=== PATIENT | male | born 1970 | race Caucasian/White ===

== ENCOUNTER 2022-03-20 13:41 | Inpatient (IN) | payer OTHER ==
--- OUTSIDE RECORDS SUMMARY | 2022-03-20 13:46 | XMS REPORT | Clinical Summary ---
:1970 Author Organization [facility] MD [facility] Address [address] [place] [address] Care Team Providers Name Role Phone Unavailable Primary Care Provider Unavailable Allergies No known active allergies Medications Medication Sig Dispensed Refills Start End Date Status Date atorvastatin Take 40 mg by 0 Act joey (LIPITOR) 40 mg mouth at tablet bedtime. amLODIPine Take 10 mg by 0 Activ e (NORVASC) 10 mg mouth every tablet evening. losartan (COZAAR) Take 100 mg by 0 Active 100 mg tablet mouth daily. Nicoderm CQ 21 Apply 1 patch 56 patch 0 A ctive mg/24 hr for 7 days then 2 transdermal increase to 1.5 patchIndications: patches for 4 Tobacco days then dependence increase to 2 syndrome patches to skin and change patch daily as directed for tobacco cessation (alternate sites). nicotine, Dissolve 1 162 lozenge 0 Active polacrilex, lozenge (4 mg) 2 (Nicorette) 4 mg in the mouth mini every 2 (two) lozengeIndication hours as needed s: Tobacco for smoking dependence cessation. syndrome morphine (MS Take 1 tablet 90 tablet 0 Act joey CONTIN) 30 mg 12 (30 mg) by 2 hr mouth every 8 tabletIndications (eight) hours. : Cancer associated pain morphine (MSIR) Take half of a 90 tablet 0 Active 15 mg IR tablet to 1 2 tabletIndications tablet (7.5 to : Cancer 15 mg) by mouth associated pain every 4 (four) hours as needed for pain. polyethylene Take 1 packet 100 packet 0 Ac tive glycol (MIRALAX) twice a day as 2 17 g needed for packetIndications constipation. : Other constipation morphine (MSIR) Take 1 tablet 0 Active 15 mg IR (15 mg) by 2 tabletIndications mouth every 4 : Rectal cancer, (four) hours as Rectal pain needed for pain. indomethacin Take 50 mg by 0 07/31/20 Dis continued (INDOCIN) 50 mg mouth 3 (three) 21 (Stop Taking at capsule times a day Discharg e) with meals. PRN for pain methocarbamol Take 750 mg by 0 07/31/20 D iscontinued (ROBAXIN) 750 mg mouth every 8 21 (Stop Taking at tablet (eight) hours Discha rge) as needed for muscle spasms (pain). acetaminophen-cod Take 1-2 0 07/31/20 Di scontinued eine (TYLENOL #3) tablets by 21 ( Stop Taking at 300 mg-30 mg mouth every 6 Dis charge) tablet (six) hours as needed for mild pain. morphine (MS Take 1 tablet 90 tablet 0 09/30/19 Dis continued CONTIN) 30 mg 12 (30 mg) by 1 22 (R eorder) hr mouth every 8 tabletIndications (eight) hours. : Cancer associated pain morphine (MSIR) Take half of a 90 tablet 0 09/30/19 Discontinued 15 mg IR tablet to 1 1 22 (Reorder ) tabletIndications tablet (7.5 to : Cancer 15 mg) by mouth associated pain every 4 (four) hours as needed for pain. naloxone (Narcan) Use 1 dose into 1 Box 0 Discontinued 4 mg/actuation one nostril as 1 22 nasal needed for sprayIndications: opioid Cancer associated overdose. Do pain not prime or test the inhaler prior to adminstration. Give another dose into the other nostril after 2 to 3 minutes if the patient does not respond or responds and then relapses into respiratory depression. amoxicillin-clavu Take 1 tablet 19 tablet 0 08/10/20 lanate (875 mg) by 1 21 (AUGMENTIN) 875 mouth every 12 mg-125 mg per (twelve) hours tabletIndications for 19 doses. : Rectal cancer, Tobacco use, Rectal abscess guaiFENesin Take 10 mL (200 180 mL 0 08/28/19 Di scontinued (ROBITUSSIN) 100 mg) by mouth 4 1 22 mg/5 mL (four) times a syrupIndications: day as needed Rectal cancer, for cough or Tobacco use, congestion. Rectal abscess nicotine Place 3 patches 161 patch 0 07/31/20 Disc ontinued (NICODERM CQ) 7 (21 mg/day 1 21 mg/24 hr patch) on the transdermal skin and change patchIndications: daily for 38 Rectal cancer, days. Place 2 Tobacco use, patches (14 Rectal abscess mg/day patch) on the skin daily for [address] 1 patch (7 mg/day patch) on the skin daily for [address] 2 patches 28 patch 0 07/31/20 Disc ontinued (NICODERM CQ) 7 (14 mg/day 2 21 (St op Taking at mg/24 hr patch) on the Discha rge) transdermal skin daily for patchIndications: 14 days. Rectal cancer, Tobacco use, Rectal abscess nicotine Place 1 patch 14 patch 0 07/31/20 Discon tinued (NICODERM CQ) 7 (7 mg/day 2 21 (Sto p Taking at mg/24 hr patch) on the Discha rge) transdermal skin daily for patchIndications: 14 days. Rectal cancer, Tobacco use, Rectal abscess polyethylene Fill powder to 1020 g 0 08/28/19 Di scontinued glycol (GLYCOLAX) jared inside cap 1 22 17 gram/dose (17 g). Stir powderIndications and Dissolve in : Rectal cancer, any 4 to 8 Tobacco use, ounces of Rectal abscess beverage then drink solution as directed twice daily. senna (SENOKOT) Take 4 tablets 120 tablet 1 08/28/19 Discontinued 8.6 mg by mouth twice 1 22 tabletIndications daily. : Rectal cancer, Tobacco use, Rectal abscess nicotine Place 3 patches 198 patch 0 08/28/19 Disc ontinued (NICODERM CQ) 7 (21 mg/day 1 22 mg/24 hr patch) on the transdermal skin and change patchIndications: daily for 38 Rectal cancer, days. Place 2 Tobacco use, patches (14 Rectal abscess mg/day patch) on the skin daily for [address] 1 patch (7 mg/day patch) on the skin daily for 14 days. amoxicillin-clavu Take 1 tablet 14 tablet 0 10/08/19 lanate (875 mg) by 2 22 (AUGMENTIN) 875 mouth every 12 mg-125 mg per (twelve) hours tabletIndications for 7 days. : Retention of urine, not otherwise specified senna (SENOKOT) Take 2 tablets 60 tablet 0 10/17/19 8.6 mg by mouth twice 2 22 tabletIndications daily for 15 : Other days. 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 07/25/2021 Tobacco use 07/25/2021 Rectal cancer Rectal abscess Cancer associated pain Retention of urine Adjustment disorder with anxiety Encounters Date Type Specialty Care Team Description 10/11/2021 Nutrition Nutrition [place] No Show Armando pearce MD Moore, Stephanie, RUBEN 09/25/2021 Hospital Encounter Melanoma Sarcoma Alagappan, Cance r associated pain (Primary Dx); - MD Frank Rectal cancer; 10/01/2021 [place] Rectal pain; Armando pearce, Proctitis; Enteritis; Fortique, Malnutrition of moderate degree; MD Alicia Cancer associat ed pain; Retention of ur ine, not otherwise specified; Other constipat ion 09/25/2021 Travel 08/13/2021 Lab Requisition Nima Sorensen MD Jacobi, Elizabeth, MD 08/08/2021 Ancillary Procedure Radiology Tiago Harp MD 08/08/2021 Ancillary Procedure Radiology Tiago Harp MD 08/08/2021 Ancillary Procedure Radiology Tiago Harp MD 08/07/2021 Orders Only Gastrointestinal Tiago Harp cer (Primary Dx); Medical Oncology MD Sruthi Rectal absc ess; 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 08/02/2021 Documentation Angle Gannon RN 07/27/2021 Anesthesia Event Radiology Reagan Michael RN 07/27/2021 Anesthesia Event Mariana Polanco MD 07/27/2021 Surgery Agustina, ANORECTAL EXAM UNDER Salvador Schafer MD ANESTHESIA 07/26/2021 Prep for Surgery Breast Surgical Weinstein, Oncology Susy Leach MD 07/25/2021 Hospital Encounter Lymphoma Viets, Sherie, Cancer a ssociated pain (Primary Dx); - MD Rectal cancer; 07/31/2021 Yomi Hypertension; Alexis, Hyperlipidemia; MD Rob 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; Nelson, Tobacco use; MD Osmany Leukocytosis; Jai Ayala, Central venous catheter in situ; Retention of urine; Heath, Rectal abscess MD Brittney 07/25/2021 Travel after 03/20/2021 Surgical History Surgery Date Site/Laterality Comments CORONARY ANGIOPLASTY WITH 08/11/2018 - STENT PLACEMENT 08/10/2019 PORTACATH PLACEMENT Right ME SURG DIAGNOSTIC EXAM, 07/27/2021 Anus/Midline Procedu re: ANORECTAL EXAM ANORECTAL UNDER ANESTHESIA ; Surgeon: Salvador pereira MD; Location: MAIN O R; Service: COLON & RECTAL SURGERY ME SIGMOIDOSCOPY,BIOPSY 07/27/2021 Anus/N/A Procedur e: FLEXIBLE SIGMOIDOSCOPY WI TH BIOPSY; Surgeon: Salvador Berrios MD; L ocation: MAIN OR; Service : COLON & RECTAL SURGERY ME I&D PERIRECTAL ABSCESS 07/27/2021 Perineum/Left Proced ure: INCISION AND DRAINAGE OF ISCH IORECTAL AND/OR PERIRECTA L ABSCESS; Surgeon: Salvador Berrios MD; L ocation: MAIN OR; Service : COLON & RECTAL SURGERY Medical History Medical History Date Comments Rectal cancer Myocardial infarction Hypertension Hyperlipidemia 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 Tobacco use Diabetes mellitus Family History Medical History Relation Name Comments No Known Problems Brother 1 No Known Problems Brother 2 No Known Problems Daughter -Unknown cancer Father Father with "[GI ] blockage and yellow" suspected cancer no autopsy Diabetes Maternal Grandfather Heart attack Maternal Grandfather Alzheimer's disease Maternal Grandmother Cervical cancer Mother Diabetes Paternal Grandmother No Known Problems Sister Relation Name Status Comments Brother 1 Alive Brother 2 Alive Daughter Alive Father Maternal Grandfather Maternal Grandmother Mother Paternal Grandmother Alive Sister Alive Son Alive Social History Tobacco Use Types Packs/Day Years Used Date Current Every Day Smoker Cigarettes 1 37 Sta rted: 08/11/1984 Smokeless Tobacco: Never Used Tobacco Cessation: Ready to Quit: Yes; C ounseling Given: Yes Comments: currently 15-20 cpd Alcohol Use Standard Drinks/Week Comments Yes 0 (1 standard drink = 0.6 oz pure alcoho l) 2 drinks/week Alcohol Habits Answer Date Recorded How often do you have a drink containing alcohol? Not asked How many drinks containing alcohol do you have on a Not aske d typical day when you are drinking? How often do you have six or more drinks on one occasion? No t asked Comment: 2 drinks/week 07/25/2021 Education Answer Date Recorded What is the highest level of school you have GED or equivale nt 07/25/2021 completed or the highest degree you have received? Sex Assigned at Date Recorded Male 08/08/2021 9:29 AM CHIEF RECORDIST Job Start Date Occupation Industry Not on file Not on file Not on file Obstetrics History Last Filed Vital Signs Vital Sign Reading Time Taken Comments Blood Pressure 125/83 10/01/2021 11:46 AM CHIEF RECORDIST Pulse 89 10/01/2021 11:46 AM CHIEF RECORDIST Temperature 36.7 C (98.1 F) 10/01/2021 11:46 AM CHIEF RECORDIST Respiratory Rate 18 10/01/2021 11:46 AM CHIEF RECORDIST Oxygen Saturation 94% 10/01/2021 11:46 AM CHIEF RECORDIST Inhaled Oxygen Concentration - - Weight 87.4 kg (192 lb 10.9 oz) 10/01/2021 3:07 AM CHIEF RECORDIST Height 171 cm (5' 7.32") 09/25/2021 4:42 PM CHIEF RECORDIST Body Mass Index 29.89 09/25/2021 4:42 PM CHIEF RECORDIST Plan of Treatment Health Maintenance Due Date Last Done Comments COVID-19 Vaccination (#1) 1970 Medical Devices Implanted Type Area Methods Specialist Engineer Device Identifier Shelf Exp iration Model / Serial Date / Lot Stent Heart Procedures Procedure Name Priority Date/Time Associated Comments Diagnosis CALCIUM LEVEL TOTAL AM 10/01/2021 2:52 Resul ts for this AM CHIEF RECORDIST procedure are i n the results section. .GLOMERULAR FILTRATION AM 10/01/2021 2:52 Re sults for this RATE AM CHIEF RECORDIST procedure are i n the results section. SERUM CREATININE AM 10/01/2021 2:52 Results for this AM CHIEF RECORDIST procedure are i n the results section. ELECTROLYTE PANEL AM 10/01/2021 2:52 Results for this AM CHIEF RECORDIST procedure are i n the results section. BLOOD UREA NITROGEN AM 10/01/2021 2:52 Resul ts for this AM CHIEF RECORDIST procedure are i n the results section. GLUCOSE LEVEL AM 10/01/2021 2:52 Results for this AM CHIEF RECORDIST procedure are i n the results section. MANUAL DIFFERENTIAL AM 10/01/2021 2:52 Resul ts for this AM CHIEF RECORDIST procedure are i n the results section. Results CBC AM 10/01/2021 2:52 Results for this AM CHIEF RECORDIST procedure are i n the results section. PHOSPHORUS LEVEL AM 10/01/2021 2:52 Results for this AM CHIEF RECORDIST procedure are i n the results section. MAGNESIUM LEVEL AM 10/01/2021 2:52 Results f or this AM CHIEF RECORDIST procedure are i n the results section. BASIC METABOLIC PANEL, AM 10/01/2021 2:52 CALCIUM TOTAL AM CHIEF RECORDIST COMPLETE BLOOD COUNT W/ AM 10/01/2021 2:52 DIFFERENTIAL AM CHIEF RECORDIST CALCIUM LEVEL TOTAL AM 09/30/2021 3:26 Resul ts for this AM CHIEF RECORDIST procedure are i n the results section. .GLOMERULAR FILTRATION AM 09/30/2021 3:26 Re sults for this RATE AM CHIEF RECORDIST procedure are i n the results section. SERUM CREATININE AM 09/30/2021 3:26 Results for this AM CHIEF RECORDIST procedure are i n the results section. ELECTROLYTE PANEL AM 09/30/2021 3:26 Results for this AM CHIEF RECORDIST procedure are i n the results section. BLOOD UREA NITROGEN AM 09/30/2021 3:26 Resul ts for this AM CHIEF RECORDIST procedure are i n the results section. GLUCOSE LEVEL AM 09/30/2021 3:26 Results for this AM CHIEF RECORDIST procedure are i n the results section. MANUAL DIFFERENTIAL AM 09/30/2021 3:26 Resul ts for this AM CHIEF RECORDIST procedure are i n the results section. Results CBC AM 09/30/2021 3:26 Results for this AM CHIEF RECORDIST procedure are i n the results section. PHOSPHORUS LEVEL AM 09/30/2021 3:26 Results for this AM CHIEF RECORDIST procedure are i n the results section. MAGNESIUM LEVEL AM 09/30/2021 3:26 Results f or this AM CHIEF RECORDIST procedure are i n the results section. BASIC METABOLIC PANEL, AM 09/30/2021 3:26 CALCIUM TOTAL AM CHIEF RECORDIST COMPLETE BLOOD COUNT W/ AM 09/30/2021 3:26 DIFFERENTIAL AM CHIEF RECORDIST XR ABDOMEN 1 VW PORTABLE STAT 09/29/2021 11:12 Results for this AM CHIEF RECORDIST procedure are i n the results section. CALCIUM LEVEL TOTAL AM 09/29/2021 4:01 Resul ts for this AM CHIEF RECORDIST procedure are i n the results section. .GLOMERULAR FILTRATION AM 09/29/2021 4:01 Re sults for this RATE AM CHIEF RECORDIST procedure are i n the results section. SERUM CREATININE AM 09/29/2021 4:01 Results for this AM CHIEF RECORDIST procedure are i n the results section. ELECTROLYTE PANEL AM 09/29/2021 4:01 Results for this AM CHIEF RECORDIST procedure are i n the results section. BLOOD UREA NITROGEN AM 09/29/2021 4:01 Resul ts for this AM CHIEF RECORDIST procedure are i n the results section. GLUCOSE LEVEL AM 09/29/2021 4:01 Results for this AM CHIEF RECORDIST procedure are i n the results section. MANUAL DIFFERENTIAL AM 09/29/2021 4:01 Resul ts for this AM CHIEF RECORDIST procedure are i n the results section. Results CBC AM 09/29/2021 4:01 Results for this AM CHIEF RECORDIST procedure are i n the results section. PHOSPHORUS LEVEL AM 09/29/2021 4:01 Results for this AM CHIEF RECORDIST procedure are i n the results section. MAGNESIUM LEVEL AM 09/29/2021 4:01 Results f or this AM CHIEF RECORDIST procedure are i n the results section. BASIC METABOLIC PANEL, AM 09/29/2021 4:01 CALCIUM TOTAL AM CHIEF RECORDIST COMPLETE BLOOD COUNT W/ AM 09/29/2021 4:01 DIFFERENTIAL AM CHIEF RECORDIST CALCIUM LEVEL TOTAL AM 09/28/2021 2:50 Resul ts for this AM CHIEF RECORDIST procedure are i n the results section. .GLOMERULAR FILTRATION AM 09/28/2021 2:50 Re sults for this RATE AM CHIEF RECORDIST procedure are i n the results section. SERUM CREATININE AM 09/28/2021 2:50 Results for this AM CHIEF RECORDIST procedure are i n the results section. ELECTROLYTE PANEL AM 09/28/2021 2:50 Results for this AM CHIEF RECORDIST procedure are i n the results section. BLOOD UREA NITROGEN AM 09/28/2021 2:50 Resul ts for this AM CHIEF RECORDIST procedure are i n the results section. GLUCOSE LEVEL AM 09/28/2021 2:50 Results for this AM CHIEF RECORDIST procedure are i n the results section. MANUAL DIFFERENTIAL AM 09/28/2021 2:50 Resul ts for this AM CHIEF RECORDIST procedure are i n the results section. Results CBC AM 09/28/2021 2:50 Results for this AM CHIEF RECORDIST procedure are i n the results section. PHOSPHORUS LEVEL AM 09/28/2021 2:50 Results for this AM CHIEF RECORDIST procedure are i n the results section. MAGNESIUM LEVEL AM 09/28/2021 2:50 Results f or this AM CHIEF RECORDIST procedure are i n the results section. BASIC METABOLIC PANEL, AM 09/28/2021 2:50 CALCIUM TOTAL AM CHIEF RECORDIST COMPLETE BLOOD COUNT W/ AM 09/28/2021 2:50 DIFFERENTIAL AM CHIEF RECORDIST CT ABDOMEN PELVIS W STAT 09/27/2021 2:44 Resul ts for this CONTRAST PM CHIEF RECORDIST procedure are i n the results section. CALCIUM LEVEL TOTAL AM 09/27/2021 4:30 Resul ts for this AM CHIEF RECORDIST procedure are i n the results section. .GLOMERULAR FILTRATION AM 09/27/2021 4:30 Re sults for this RATE AM CHIEF RECORDIST procedure are i n the results section. SERUM CREATININE AM 09/27/2021 4:30 Results for this AM CHIEF RECORDIST procedure are i n the results section. ELECTROLYTE PANEL AM 09/27/2021 4:30 Results for this AM CHIEF RECORDIST procedure are i n the results section. BLOOD UREA NITROGEN AM 09/27/2021 4:30 Resul ts for this AM CHIEF RECORDIST procedure are i n the results section. GLUCOSE LEVEL AM 09/27/2021 4:30 Results for this AM CHIEF RECORDIST procedure are i n the results section. MANUAL DIFFERENTIAL AM 09/27/2021 4:30 Resul ts for this AM CHIEF RECORDIST procedure are i n the results section. Results CBC AM 09/27/2021 4:30 Results for this AM CHIEF RECORDIST procedure are i n the results section. PHOSPHORUS LEVEL AM 09/27/2021 4:30 Results for this AM CHIEF RECORDIST procedure are i n the results section. MAGNESIUM LEVEL AM 09/27/2021 4:30 Results f or this AM CHIEF RECORDIST procedure are i n the results section. BASIC METABOLIC PANEL, AM 09/27/2021 4:30 CALCIUM TOTAL AM CHIEF RECORDIST COMPLETE BLOOD COUNT W/ AM 09/27/2021 4:30 DIFFERENTIAL AM CHIEF RECORDIST CALCIUM LEVEL TOTAL AM 09/26/2021 3:02 Resul ts for this AM CHIEF RECORDIST procedure are i n the results section. .GLOMERULAR FILTRATION AM 09/26/2021 3:02 Re sults for this RATE AM CHIEF RECORDIST procedure are i n the results section. SERUM CREATININE AM 09/26/2021 3:02 Results for this AM CHIEF RECORDIST procedure are i n the results section. ELECTROLYTE PANEL AM 09/26/2021 3:02 Results for this AM CHIEF RECORDIST procedure are i n the results section. BLOOD UREA NITROGEN AM 09/26/2021 3:02 Resul ts for this AM CHIEF RECORDIST procedure are i n the results section. GLUCOSE LEVEL AM 09/26/2021 3:02 Results for this AM CHIEF RECORDIST procedure are i n the results section. MANUAL DIFFERENTIAL AM 09/26/2021 3:02 Resul ts for this AM CHIEF RECORDIST procedure are i n the results section. Results CBC AM 09/26/2021 3:02 Results for this AM CHIEF RECORDIST procedure are i n the results section. BASIC METABOLIC PANEL, AM 09/26/2021 3:02 CALCIUM TOTAL AM CHIEF RECORDIST COMPLETE BLOOD COUNT W/ AM 09/26/2021 3:02 DIFFERENTIAL AM CHIEF RECORDIST URINE CULTURE Now 09/25/2021 9:50 Results for this PM CHIEF RECORDIST procedure are i n the results section. URINALYSIS WITH Now 09/25/2021 12:00 Results for this MICROSCOPIC IF INDICATED PM CHIEF RECORDIST pro cedure are in the results section. BLOODCULTURE Now 09/25/2021 12:00 Results for this PM CHIEF RECORDIST procedure are i n the results section. URINE CULTURE Now 09/25/2021 12:00 Results fo r this PM CHIEF RECORDIST procedure are i n the results section. FRACTIONATED BILIRUBIN Now 09/25/2021 10:26 R esults for this AM CHIEF RECORDIST procedure are i n the results section. TOTAL PROTEIN Now 09/25/2021 10:26 Results fo r this AM CHIEF RECORDIST procedure are i n the results section. ASPARTATE Now 09/25/2021 10:26 Results for this AMINOTRANSFERASE AM CHIEF RECORDIST procedure a re in the results section. ALANINE AMINOTRANSFERASE Now 09/25/2021 10:26 Results for this AM CHIEF RECORDIST procedure are i n the results section. ALKALINE PHOSPHATASE Now 09/25/2021 10:26 Res ults for this AM CHIEF RECORDIST procedure are i n the results section. ALBUMIN LEVEL Now 09/25/2021 10:26 Results fo r this AM CHIEF RECORDIST procedure are i n the results section. CALCIUM LEVEL TOTAL Now 09/25/2021 10:26 Resu lts for this AM CHIEF RECORDIST procedure are i n the results section. .GLOMERULAR FILTRATION Now 09/25/2021 10:26 R esults for this RATE AM CHIEF RECORDIST procedure are i n the results section. SERUM CREATININE Now 09/25/2021 10:26 Results for this AM CHIEF RECORDIST procedure are i n the results section. ELECTROLYTE PANEL Now 09/25/2021 10:26 Result s for this AM CHIEF RECORDIST procedure are i n the results section. BLOOD UREA NITROGEN Now 09/25/2021 10:26 Resu lts for this AM CHIEF RECORDIST procedure are i n the results section. GLUCOSE LEVEL Now 09/25/2021 10:26 Results fo r this AM CHIEF RECORDIST procedure are i n the results section. MANUAL DIFFERENTIAL STAT 09/25/2021 10:26 Resu lts for this AM CHIEF RECORDIST procedure are i n the results section. Results CBC STAT 09/25/2021 10:26 Results for this AM CHIEF RECORDIST procedure are i n the results section. LIPASE LEVEL Now 09/25/2021 10:26 Results for this AM CHIEF RECORDIST procedure are i n the results section. AMYLASE LEVEL Now 09/25/2021 10:26 Results fo r this AM CHIEF RECORDIST procedure are i n the results section. LACTATE DEHYDROGENASE Now 09/25/2021 10:26 Re sults for this AM CHIEF RECORDIST procedure are i n the results section. PHOSPHORUS LEVEL Now 09/25/2021 10:26 Results for this AM CHIEF RECORDIST procedure are i n the results section. MAGNESIUM LEVEL Now 09/25/2021 10:26 Results for this AM CHIEF RECORDIST procedure are i n the results section. COMPREHENSIVE METABOLIC Now 09/25/2021 10:26 PANEL AM CHIEF RECORDIST COMPLETE BLOOD COUNT W/ Now 09/25/2021 10:26 DIFFERENTIAL AM CHIEF RECORDIST COVID-19 (SARS-COV-2) Now 09/25/2021 10:26 Re sults for this ASYMPTOMATIC-LT AM CHIEF RECORDIST procedure ar e in the results section. FRACTIONATED BILIRUBIN AM 07/31/2021 5:26 Re sults for this AM CHIEF RECORDIST procedure are i n the results section. TOTAL PROTEIN AM 07/31/2021 5:26 Results for this AM CHIEF RECORDIST procedure are i n the results section. ASPARTATE AM 07/31/2021 5:26 Results for this AMINOTRANSFERASE AM CHIEF RECORDIST procedure a re in the results section. ALANINE AMINOTRANSFERASE AM 07/31/2021 5:26 Results for this AM CHIEF RECORDIST procedure are i n the results section. ALKALINE PHOSPHATASE AM 07/31/2021 5:26 Resu lts for this AM CHIEF RECORDIST procedure are i n the results section. ALBUMIN LEVEL AM 07/31/2021 5:26 Results for this AM CHIEF RECORDIST procedure are i n the results section. CALCIUM LEVEL TOTAL AM 07/31/2021 5:26 Resul ts for this AM CHIEF RECORDIST procedure are i n the results section. .GLOMERULAR FILTRATION AM 07/31/2021 5:26 Re sults for this RATE AM CHIEF RECORDIST procedure are i n the results section. SERUM CREATININE AM 07/31/2021 5:26 Results for this AM CHIEF RECORDIST procedure are i n the results section. ELECTROLYTE PANEL AM 07/31/2021 5:26 Results for this AM CHIEF RECORDIST procedure are i n the results section. BLOOD UREA NITROGEN AM 07/31/2021 5:26 Resul ts for this AM CHIEF RECORDIST procedure are i n the results section. GLUCOSE LEVEL AM 07/31/2021 5:26 Results for this AM CHIEF RECORDIST procedure are i n the results section. MANUAL DIFFERENTIAL AM 07/31/2021 5:26 Resul ts for this AM CHIEF RECORDIST procedure are i n the results section. Results CBC AM 07/31/2021 5:26 Results for this AM CHIEF RECORDIST procedure are i n the results section. COMPREHENSIVE METABOLIC AM 07/31/2021 5:26 PANEL AM CHIEF RECORDIST COMPLETE BLOOD COUNT W/ AM 07/31/2021 5:26 DIFFERENTIAL AM CHIEF RECORDIST FRACTIONATED BILIRUBIN AM 07/30/2021 4:27 Re sults for this AM CHIEF RECORDIST procedure are i n the results section. TOTAL PROTEIN AM 07/30/2021 4:27 Results for this AM CHIEF RECORDIST procedure are i n the results section. ASPARTATE AM 07/30/2021 4:27 Results for this AMINOTRANSFERASE AM CHIEF RECORDIST procedure a re in the results section. ALANINE AMINOTRANSFERASE AM 07/30/2021 4:27 Results for this AM CHIEF RECORDIST procedure are i n the results section. ALKALINE PHOSPHATASE AM 07/30/2021 4:27 Resu lts for this AM CHIEF RECORDIST procedure are i n the results section. ALBUMIN LEVEL AM 07/30/2021 4:27 Results for this AM CHIEF RECORDIST procedure are i n the results section. CALCIUM LEVEL TOTAL AM 07/30/2021 4:27 Resul ts for this AM CHIEF RECORDIST procedure are i n the results section. .GLOMERULAR FILTRATION AM 07/30/2021 4:27 Re sults for this RATE AM CHIEF RECORDIST procedure are i n the results section. SERUM CREATININE AM 07/30/2021 4:27 Results for this AM CHIEF RECORDIST procedure are i n the results section. ELECTROLYTE PANEL AM 07/30/2021 4:27 Results for this AM CHIEF RECORDIST procedure are i n the results section. BLOOD UREA NITROGEN AM 07/30/2021 4:27 Resul ts for this AM CHIEF RECORDIST procedure are i n the results section. GLUCOSE LEVEL AM 07/30/2021 4:27 Results for this AM CHIEF RECORDIST procedure are i n the results section. MANUAL DIFFERENTIAL AM 07/30/2021 4:27 Resul ts for this AM CHIEF RECORDIST procedure are i n the results section. Results CBC AM 07/30/2021 4:27 Results for this AM CHIEF RECORDIST procedure are i n the results section. COMPREHENSIVE METABOLIC AM 07/30/2021 4:27 PANEL AM CHIEF RECORDIST COMPLETE BLOOD COUNT W/ AM 07/30/2021 4:27 DIFFERENTIAL AM CHIEF RECORDIST XR ABDOMEN 1 VW PORTABLE STAT 07/29/2021 6:07 Results for this PM CHIEF RECORDIST procedure are i n the results section. FRACTIONATED BILIRUBIN AM 07/29/2021 5:12 Re sults for this AM CHIEF RECORDIST procedure are i n the results section. TOTAL PROTEIN AM 07/29/2021 5:12 Results for this AM CHIEF RECORDIST procedure are i n the results section. ASPARTATE AM 07/29/2021 5:12 Results for this AMINOTRANSFERASE AM CHIEF RECORDIST procedure a re in the results section. ALANINE AMINOTRANSFERASE AM 07/29/2021 5:12 Results for this AM CHIEF RECORDIST procedure are i n the results section. ALKALINE PHOSPHATASE AM 07/29/2021 5:12 Resu lts for this AM CHIEF RECORDIST procedure are i n the results section. ALBUMIN LEVEL AM 07/29/2021 5:12 Results for this AM CHIEF RECORDIST procedure are i n the results section. CALCIUM LEVEL TOTAL AM 07/29/2021 5:12 Resul ts for this AM CHIEF RECORDIST procedure are i n the results section. .GLOMERULAR FILTRATION AM 07/29/2021 5:12 Re sults for this RATE AM CHIEF RECORDIST procedure are i n the results section. SERUM CREATININE AM 07/29/2021 5:12 Results for this AM CHIEF RECORDIST procedure are i n the results section. ELECTROLYTE PANEL AM 07/29/2021 5:12 Results for this AM CHIEF RECORDIST procedure are i n the results section. BLOOD UREA NITROGEN AM 07/29/2021 5:12 Resul ts for this AM CHIEF RECORDIST procedure are i n the results section. GLUCOSE LEVEL AM 07/29/2021 5:12 Results for this AM CHIEF RECORDIST procedure are i n the results section. MANUAL DIFFERENTIAL AM 07/29/2021 5:12 Resul ts for this AM CHIEF RECORDIST procedure are i n the results section. Results CBC AM 07/29/2021 5:12 Results for this AM CHIEF RECORDIST procedure are i n the results section. COMPREHENSIVE METABOLIC AM 07/29/2021 5:12 PANEL AM CHIEF RECORDIST COMPLETE BLOOD COUNT W/ AM 07/29/2021 5:12 DIFFERENTIAL AM CHIEF RECORDIST MRI PELVIS WO CONTRAST Routine 07/28/2021 11:40 R esults for this PM CHIEF RECORDIST procedure are i n the results section. URINE CULTURE Now 07/28/2021 2:44 Results for this PM CHIEF RECORDIST procedure are i n the results section. CT CHEST W CONTRAST Routine 07/28/2021 10:59 Resu lts for this AM CHIEF RECORDIST procedure are i n the results section. FRACTIONATED BILIRUBIN AM 07/28/2021 5:49 Re sults for this AM CHIEF RECORDIST procedure are i n the results section. TOTAL PROTEIN AM 07/28/2021 5:49 Results for this AM CHIEF RECORDIST procedure are i n the results section. ASPARTATE AM 07/28/2021 5:49 Results for this AMINOTRANSFERASE AM CHIEF RECORDIST procedure a re in the results section. ALANINE AMINOTRANSFERASE AM 07/28/2021 5:49 Results for this AM CHIEF RECORDIST procedure are i n the results section. ALKALINE PHOSPHATASE AM 07/28/2021 5:49 Resu lts for this AM CHIEF RECORDIST procedure are i n the results section. ALBUMIN LEVEL AM 07/28/2021 5:49 Results for this AM CHIEF RECORDIST procedure are i n the results section. CALCIUM LEVEL TOTAL AM 07/28/2021 5:49 Resul ts for this AM CHIEF RECORDIST procedure are i n the results section. .GLOMERULAR FILTRATION AM 07/28/2021 5:49 Re sults for this RATE AM CHIEF RECORDIST procedure are i n the results section. SERUM CREATININE AM 07/28/2021 5:49 Results for this AM CHIEF RECORDIST procedure are i n the results section. ELECTROLYTE PANEL AM 07/28/2021 5:49 Results for this AM CHIEF RECORDIST procedure are i n the results section. BLOOD UREA NITROGEN AM 07/28/2021 5:49 Resul ts for this AM CHIEF RECORDIST procedure are i n the results section. GLUCOSE LEVEL AM 07/28/2021 5:49 Results for this AM CHIEF RECORDIST procedure are i n the results section. MANUAL DIFFERENTIAL AM 07/28/2021 5:49 Resul ts for this AM CHIEF RECORDIST procedure are i n the results section. Results CBC AM 07/28/2021 5:49 Results for this AM CHIEF RECORDIST procedure are i n the results section. COMPREHENSIVE METABOLIC AM 07/28/2021 5:49 PANEL AM CHIEF RECORDIST COMPLETE BLOOD COUNT W/ AM 07/28/2021 5:49 DIFFERENTIAL AM CHIEF RECORDIST INCISION AND DRAINAGE OF 07/27/2021 5:49 Rectal cancer ISCHIORECTAL AND/OR PM CHIEF RECORDIST PERIRECTAL ABSCESS FLEXIBLE SIGMOIDOSCOPY 07/27/2021 5:49 Rectal cancer WITH BIOPSY PM CHIEF RECORDIST ANORECTAL EXAM UNDER 07/27/2021 5:49 Rectal cancer ANESTHESIA PM CHIEF RECORDIST POC GLUCOSE SCREEN Routine 07/27/2021 3:08 Result s for this PM CHIEF RECORDIST procedure are i n the results section. POC GLUCOSE SCREEN Routine 07/27/2021 10:29 Resul ts for this AM CHIEF RECORDIST procedure are i n the results section. ECHOCARDIOGRAM 2D Routine 07/27/2021 9:23 Results for this COMPLETE AM CHIEF RECORDIST procedure are i n the results section. CONFIRM ABORH TYPE Now 07/27/2021 5:23 Result s for this AM CHIEF RECORDIST procedure are i n the results section. CLOT EXPIRATION DATE Routine 07/27/2021 5:21 Resu lts for this AM CHIEF RECORDIST procedure are i n the results section. TMP INTERPRETATION Routine 07/27/2021 5:21 Result s for this ANTIBODY SCREEN NEGATIVE AM CHIEF RECORDIST pro cedure are in the results section. ANTIBODY SCREEN Now 07/27/2021 5:21 Results f or this AM CHIEF RECORDIST procedure are i n the results section. ABORH Now 07/27/2021 5:21 Results for this AM CHIEF RECORDIST procedure are i n the results section. TYPE AND SCREEN Now 07/27/2021 5:21 AM CHIEF RECORDIST FRACTIONATED BILIRUBIN AM 07/27/2021 2:41 Re sults for this AM CHIEF RECORDIST procedure are i n the results section. TOTAL PROTEIN AM 07/27/2021 2:41 Results for this AM CHIEF RECORDIST procedure are i n the results section. ASPARTATE AM 07/27/2021 2:41 Results for this AMINOTRANSFERASE AM CHIEF RECORDIST procedure a re in the results section. ALANINE AMINOTRANSFERASE AM 07/27/2021 2:41 Results for this AM CHIEF RECORDIST procedure are i n the results section. ALKALINE PHOSPHATASE AM 07/27/2021 2:41 Resu lts for this AM CHIEF RECORDIST procedure are i n the results section. ALBUMIN LEVEL AM 07/27/2021 2:41 Results for this AM CHIEF RECORDIST procedure are i n the results section. CALCIUM LEVEL TOTAL AM 07/27/2021 2:41 Resul ts for this AM CHIEF RECORDIST procedure are i n the results section. .GLOMERULAR FILTRATION AM 07/27/2021 2:41 Re sults for this RATE AM CHIEF RECORDIST procedure are i n the results section. SERUM CREATININE AM 07/27/2021 2:41 Results for this AM CHIEF RECORDIST procedure are i n the results section. ELECTROLYTE PANEL AM 07/27/2021 2:41 Results for this AM CHIEF RECORDIST procedure are i n the results section. BLOOD UREA NITROGEN AM 07/27/2021 2:41 Resul ts for this AM CHIEF RECORDIST procedure are i n the results section. GLUCOSE LEVEL AM 07/27/2021 2:41 Results for this AM CHIEF RECORDIST procedure are i n the results section. MANUAL DIFFERENTIAL AM 07/27/2021 2:41 Resul ts for this AM CHIEF RECORDIST procedure are i n the results section. Results CBC AM 07/27/2021 2:41 Results for this AM CHIEF RECORDIST procedure are i n the results section. LACTATE DEHYDROGENASE Routine 07/27/2021 2:41 Res ults for this AM CHIEF RECORDIST procedure are i n the results section. BHCG, TUMOR MARKER Routine 07/27/2021 2:41 Result s for this AM CHIEF RECORDIST procedure are i n the results section. CANCER ANTIGEN 125 Routine 07/27/2021 2:41 Result s for this AM CHIEF RECORDIST procedure are i n the results section. CANCER ANTIGEN 19-9 Routine 07/27/2021 2:41 Resul ts for this AM CHIEF RECORDIST procedure are i n the results section. CARCINOEMBRYONIC ANTIGEN Routine 07/27/2021 2:41 Results for this AM CHIEF RECORDIST procedure are i n the results section. COMPREHENSIVE METABOLIC AM 07/27/2021 2:41 PANEL AM CHIEF RECORDIST COMPLETE BLOOD COUNT W/ AM 07/27/2021 2:41 DIFFERENTIAL AM CHIEF RECORDIST EKG, 12-LEAD (PORTABLE) STAT 07/27/2021 LACTIC ACID, VENOUS Routine 07/26/2021 2:59 Resul ts for this PM CHIEF RECORDIST procedure are i n the results section. PROCALCITONIN STAT 07/26/2021 2:59 Results for this PM CHIEF RECORDIST procedure are i n the results section. BLOODCULTURE STAT 07/26/2021 2:59 Results for this PM CHIEF RECORDIST procedure are i n the results section. CALCIUM LEVEL TOTAL AM 07/26/2021 5:22 Resul ts for this AM CHIEF RECORDIST procedure are i n the results section. .GLOMERULAR FILTRATION AM 07/26/2021 5:22 Re sults for this RATE AM CHIEF RECORDIST procedure are i n the results section. SERUM CREATININE AM 07/26/2021 5:22 Results for this AM CHIEF RECORDIST procedure are i n the results section. ELECTROLYTE PANEL AM 07/26/2021 5:22 Results for this AM CHIEF RECORDIST procedure are i n the results section. BLOOD UREA NITROGEN AM 07/26/2021 5:22 Resul ts for this AM CHIEF RECORDIST procedure are i n the results section. GLUCOSE LEVEL AM 07/26/2021 5:22 Results for this AM CHIEF RECORDIST procedure are i n the results section. MANUAL DIFFERENTIAL AM 07/26/2021 5:22 Resul ts for this AM CHIEF RECORDIST procedure are i n the results section. Results CBC AM 07/26/2021 5:22 Results for this AM CHIEF RECORDIST procedure are i n the results section. PHOSPHORUS LEVEL AM 07/26/2021 5:22 Results for this AM CHIEF RECORDIST procedure are i n the results section. MAGNESIUM LEVEL AM 07/26/2021 5:22 Results f or this AM CHIEF RECORDIST procedure are i n the results section. BASIC METABOLIC PANEL, AM 07/26/2021 5:22 CALCIUM TOTAL AM CHIEF RECORDIST COMPLETE BLOOD COUNT W/ AM 07/26/2021 5:22 DIFFERENTIAL AM CHIEF RECORDIST CT ABDOMEN PELVIS W Routine 07/25/2021 10:39 Resu lts for this CONTRAST PM CHIEF RECORDIST procedure are i n the results section. COVID-19 (SARS-COV-2) Now 07/25/2021 10:01 Re sults for this ASYMPTOMATIC-LT PM CHIEF RECORDIST procedure ar e in the results section. VERIFY CATHETER TIP Routine 07/25/2021 9:30 Resul ts for this PLACEMENT PM CHIEF RECORDIST procedure are i n the results section. URINALYSIS WITH Routine 07/25/2021 9:01 Results f or this MICROSCOPIC IF INDICATED PM CHIEF RECORDIST pro cedure are in the results section. PROCALCITONIN Routine 07/25/2021 9:01 Results for this PM CHIEF RECORDIST procedure are i n the results section. C REACTIVE PROTEIN Now 07/25/2021 9:01 Result s for this PM CHIEF RECORDIST procedure are i n the results section. URINALYSIS MICROSCOPIC Now 07/25/2021 9:01 Re sults for this PM CHIEF RECORDIST procedure are i n the results section. BLOODCULTURE Now 07/25/2021 9:01 Results for this PM CHIEF RECORDIST procedure are i n the results section. URINE CULTURE Now 07/25/2021 9:01 Results for this PM CHIEF RECORDIST procedure are i n the results section. XR CHEST 1 VW Routine 07/25/2021 8:53 Results for this PM CHIEF RECORDIST procedure are i n the results section. TMP HIV 1/2 AG&AB PATH Routine 07/25/2021 6:37 Re sults for this INTERP PM CHIEF RECORDIST procedure are i n the results section. HIV-1/2 ANTIGEN AND Now 07/25/2021 6:37 Resul ts for this ANTIBODIES, FOURTH PM CHIEF RECORDIST procedure are in GENERATION the results section. FRACTIONATED BILIRUBIN Now 07/25/2021 4:28 Re sults for this PM CHIEF RECORDIST procedure are i n the results section. TOTAL PROTEIN Now 07/25/2021 4:28 Results for this PM CHIEF RECORDIST procedure are i n the results section. ASPARTATE Now 07/25/2021 4:28 Results for this AMINOTRANSFERASE PM CHIEF RECORDIST procedure a re in the results section. ALANINE AMINOTRANSFERASE Now 07/25/2021 4:28 Results for this PM CHIEF RECORDIST procedure are i n the results section. ALKALINE PHOSPHATASE Now 07/25/2021 4:28 Resu lts for this PM CHIEF RECORDIST procedure are i n the results section. ALBUMIN LEVEL Now 07/25/2021 4:28 Results for this PM CHIEF RECORDIST procedure are i n the results section. CALCIUM LEVEL TOTAL Now 07/25/2021 4:28 Resul ts for this PM CHIEF RECORDIST procedure are i n the results section. .GLOMERULAR FILTRATION Now 07/25/2021 4:28 Re sults for this RATE PM CHIEF RECORDIST procedure are i n the results section. SERUM CREATININE Now 07/25/2021 4:28 Results for this PM CHIEF RECORDIST procedure are i n the results section. ELECTROLYTE PANEL Now 07/25/2021 4:28 Results for this PM CHIEF RECORDIST procedure are i n the results section. BLOOD UREA NITROGEN Now 07/25/2021 4:28 Resul ts for this PM CHIEF RECORDIST procedure are i n the results section. GLUCOSE LEVEL Now 07/25/2021 4:28 Results for this PM CHIEF RECORDIST procedure are i n the results section. MANUAL DIFFERENTIAL STAT 07/25/2021 4:28 Resul ts for this PM CHIEF RECORDIST procedure are i n the results section. Results CBC STAT 07/25/2021 4:28 Results for this PM CHIEF RECORDIST procedure are i n the results section. APTT Now 07/25/2021 4:28 Results for this PM CHIEF RECORDIST procedure are i n the results section. PROTHROMBIN TIME Now 07/25/2021 4:28 Results for this PM CHIEF RECORDIST procedure are i n the results section. PHOSPHORUS LEVEL Now 07/25/2021 4:28 Results for this PM CHIEF RECORDIST procedure are i n the results section. MAGNESIUM LEVEL Now 07/25/2021 4:28 Results f or this PM CHIEF RECORDIST procedure are i n the results section. COMPREHENSIVE METABOLIC Now 07/25/2021 4:28 PANEL PM CHIEF RECORDIST COMPLETE BLOOD COUNT W/ Now 07/25/2021 4:28 DIFFERENTIAL PM CHIEF RECORDIST OSI MRI PELVIS Routine 06/26/2021 11:40 Cancer Results f or this PM CHIEF RECORDIST procedure are i n the results section. OSI CT CHEST Routine 06/25/2021 11:40 Cancer Results for this PM CHIEF RECORDIST procedure are i n the results section. OSI CT ABDOMEN AND Routine 06/21/2021 11:40 Cancer Resul ts for this PELVIS PM CHIEF RECORDIST procedure are i n the results section. after 03/20/2021 Results .Serum Creatinine (10/01/2021 2:52 AM CHIEF RECORDIST)Only the most recent of14 results within the time period is included. P athologist Signature Creatinine 0.82 0.67 - 1.17 [facility] mg/dL [facility] Specimen Anatomical Collection Method Collection Time Receive d Time (Source) Location / / Volume Laterality Blood 10/01/2021 2:52 AM 3:08 CHIEF RECORDIST AM CHIEF RECORDIST Armando Carrillo MD LAB BLOOD ORDERABLES Performing Organization Address City/State/ZIP Code Phon e Number [facility] CANCER Unless otherwise noted, [place] [address] [place] all lab tests performed by: Division of Pathology and Laboratory Medicine [address] (ABNORMAL) .CBC (10/01/2021 2:52 AM CHIEF RECORDIST)Only the most recent of14 resultswithin the time period is included. athologist [facility] WBC 13.8 (H) 4.0 - 11.0 [facility] RBC 4.67 4.50 - [place] MD 6.00 M[facility] Hgb 13.9 (L) 14.0 - [place] MD 18.0 gm/dL [facility] Hct 41.2 40.0 - [place] MD 54.0 % [facility] MCV 88 82 - 98 [facility] MCH 29.8 27.0 - [place] MD 31.0 pg [facility] MCHC 33.7 31.0 - [place] MD 36.0 gm/dL [facility] RDW-SD 41.7 35.1 - [place] MD 46.3 [facility] RDW-CV 12.9 12.0 - [place] MD 15.5 % [facility] Platelet count 307 140 - 440 [facility] MPV 9.3 4.0 - 10.4 [facility] INRBC 0.0 <=0.0 % [facility] Comment: The INRBC (instrument NRBC) value reflec ts the enumeration of nucleated red blood cells contained i n a 200uL sample of whole blood analyzed by the instrumen t. This value may differ from the NRBC value reported in a manual differential, which is based on a 100 cell differentia l. Specimen Anatomical Collection Method Collection Time Receive d Time (Source) Location / / Volume Laterality Blood 10/01/2021 2:52 AM 2 3:05 CHIEF RECORDIST AM CHIEF RECORDIST Armando Carrillo MD LAB BLOOD ORDERABLES Performing Organization Address City/State/ZIP Code Phon e Number [facility] CANCER Unless otherwise noted, [place] [address] [place] all lab tests performed by: Division of Pathology and Laboratory Medicine [facility] Glomerular Filtration Rate (10/01/2021 2:52 AM CHIEF RECORDIST)Only the most recent of14 resultswithin the time period is included. athologist [facility] eGFR-AA 118 >=60 [facility] mL/min/1.73 [facility] sq. m Comment: Normal eGFR: >= 60 mL/min/1.73 m2 Note: The eGFR is calculated using the C KD-EPI equation. The eGFR declines with age. eGFR <60 mL/min/1.73 m2 is considered as "decreased". This equation should only be used for patients 18 and older. According to the National Kidney Found[employer] ion's Kidney Disease Outcome Quality Initiative (KDOQI) classification and 2012 Kidney Disease Improving Global Outcomes (KDIGO) Clinical Practice Guideline, the stage of CKD should be categorized based on estimated GFR. Stage Description GFR mL/min/1. 73 m2 1 Normal or high GFR >=90 2 Mildly decreased GFR 60-89 3a Mildly to moderately decreased GFR 45-59 3b Moderately to severely decreased GFR 30-44 4 Severely decreased GFR 15-29 5 Kidney failure <15 eGFR-EV 102 >=60 mL/min/1.73 sq. m [place] MD Negro [facility] Comment: Normal eGFR: >= 60 mL/min/1.73 m2 Note: The eGFR is calculated using the C KD-EPI equation. The eGFR declines with age. eGFR <60 mL/min/1.73 m2 is considered as "decreased". This equation should only be used for patients 18 and older. According to the National Kid[employer] Found[employer] ion's Kidney Disease Outcome Quality Initiative (KDOQI) classification and 2012 Kidney Disease Improving Global Outcomes (KDIGO) Clinical Practice Guideline, the stage of CKD should be categorized based on estimated GFR. Stage Description GFR mL/min/1. 73 m2 1 Normal or high GFR >=90 2 Mildly decreased GFR 60-89 3a Mildly to moderately decreased GFR 45-59 3b Moderately to severely decreased GFR 30-44 4 Severely decreased GFR 15-29 5 Kidney failure <15 Specimen Anatomical Collection Method Collection Time Receive d Time (Source) Location / / Volume Laterality Blood 10/01/2021 2:52 AM 2 3:08 CHIEF RECORDIST AM CHIEF RECORDIST Armando Carrillo MD LAB BLOOD ORDERABLES Performing Organization Address City/State/ZIP Code Phon e Number [place] [facility] Unless otherwise noted, [place], [place] [id number] [place] [address] all lab tests performed by: Division of Pathology and Laboratory Medicine [address] (ABNORMAL) Differential (10/01/2021 2:52 AM CHIEF RECORDIST)Only the most recent of14 resultswithin the time period is included. athologist Signature Neutrophil % 62.5 42.0 - [place] MD [facility] 66.0 % [facility] Lymphocyte % 21.0 (L) 24.0 - [facility] 44.0 % [facility] Monocyte % 9.3 (H) 2.0 - 7.0 [facility] % [facility] Eosinophil % 5.8 (H) 1.0 - 4.0 [facility] % [facility] Basophil % 0.7 0.0 - 1.0 [facility] % [facility] IGRE % 0.7 (H) 0.0 - 0.4 [facility] % [facility] Comment: IGRE % count includes Metamyelo cytes, Myelocytes, and Promyelocytes. Neutrophil Abs 8.66 (H) 1.70 - 7.30 K/uL [facility] Lymphocyte Abs 2.90 1.00 - 4.80 K/uL [facility] Monocyte Abs 1.28 (H) 0.08 - 0.70 K/uL [place] [facility] Eosinophil Abs 0.80 (H) 0.04 - 0.40 K/uL [facility] Basophil Abs 0.09 0.00 - 0.10 K/uL RI [facility] IG Abs 0.09 (H) 0.00 - 0.04 K/uL [place] MD ESSIE Hickman [facility] Specimen Anatomical Collection Method Collection Time Receive d Time (Source) Location / / Volume Laterality Blood 10/01/2021 2:52 AM 2 3:05 CHIEF RECORDIST AM CHIEF RECORDIST Armando Carrillo MD LAB BLOOD ORDERABLES Performing Organization Address City/State/ZIP Code Phon e Number [facility] CANCER Unless otherwise noted, [place] [address] [place] all lab tests performed by: Division of Pathology and Laboratory Medicine [address] [facility] BUN (10/01/2021 2:52 AM CHIEF RECORDIST)Only the most recent of14 resultswithin the time period is included. P athologist Signature BUN 15 6 - 23 [facility] mg/dL [facility] Specimen Anatomical Collection Method Collection Time Receive d Time (Source) Location / / Volume Laterality Blood 10/01/2021 2:52 AM 2 3:08 CHIEF RECORDIST AM CHIEF RECORDIST Armando Carrillo MD LAB BLOOD ORDERABLES Performing Organization Address City/[facility] Phon e Number [facility] CANCER Unless otherwise noted, [address] all lab tests performed by: Division of Pathology and Laboratory Medicine [address] (ABNORMAL) Phosphorus Level (10/01/2021 2:52 AM CHIEF RECORDIST)Only the most recent of8 resultswithin the time period is included. P athologist Signature Phosphorus 4.7 (H) 2.5 - 4.5 [facility] mg/dL [facility] Specimen Anatomical Collection Method Collection Time Receive d Time (Source) Location / / Volume Laterality Blood 10/01/2021 2:52 AM 2 3:08 CHIEF RECORDIST AM CHIEF RECORDIST Armando Carrillo MD LAB BLOOD ORDERABLES Performing Organization Address [facility] Phon e Number [facility] Unless otherwise noted, [address] all lab tests performed by: Division of Pathology and Laboratory Medicine [address] Magnesium Level (10/01/2021 2:52 AM CHIEF RECORDIST)Only the most recent of8 resultswithin the time period is included. athologist Signature Magnesium 2.2 1.6 - 2.6 [facility] mg/dL [facility] Specimen Anatomical Collection Method Collection Time Receive d Time (Source) Location / / Volume Laterality Blood 10/01/2021 2:52 AM 2 3:08 CHIEF RECORDIST AM CHIEF RECORDIST Armando Carrillo MD LAB BLOOD ORDERABLES Performing Organization Address [facility] Phon e Number [facility] CANCER Unless otherwise noted, [address] all lab tests performed by: Division of Pathology and Laboratory Medicine [address] (ABNORMAL) Glucose Level (10/01/2021 2:52 AM CHIEF RECORDIST)Only the most recent of14 resultswithin the time period is included. P athologist Signature Glucose Level 104 (H) 70 - 99 [facility] mg/dL [facility] Comment: Effective 03/06/16, the glucose reference intervals have been updated based on [place] [employer] guidelines (Standards of Medical Care in Diabetes 2016. Diabetes Care 2016; 39: S13-S22). Fasting blood glucose: Normal: 70-99 mg/dL Impaired fasting glucose (increased risk for diabetes or pre-diabetes): 100- 125 mg/dL Diabetes mellitus: >/=126 mg/dL Random blood glucose: Normal: 70-199 mg/dL Note: Random glucose >100 mg/dL is assoc iated with increased risk for diabetes Specimen Anatomical Collection Method Collection Time Receive d Time (Source) Location / / Volume Laterality Blood 10/01/2021 2:52 AM 2 3:08 CHIEF RECORDIST AM CHIEF RECORDIST Armando Carrillo MD LAB BLOOD ORDERABLES Performing Organization Address City/[facility]/ZIP [facility] Phon e Number [facility] CANCER Unless otherwise noted, [address] all lab tests performed by: Division of Pathology and Laboratory Medicine [address] Calcium Level (10/01/2021 2:52 AM CHIEF RECORDIST)Only the most recent of14 resultswithin the time period is included. P athologist Signature Calcium Lvl 9.2 8.4 - 10.2 [facility] mg/dL [facility] Specimen Anatomical Collection Method Collection Time Receive d Time (Source) Location / / Volume Laterality Blood 10/01/2021 2:52 AM 2 3:08 CHIEF RECORDIST AM CHIEF RECORDIST Armando Carrillo MD LAB BLOOD ORDERABLES Performing Organization Address City/[facility] Phon e Number [facility] CANCER Unless otherwise noted, [address] all lab tests performed by: Division of Pathology and Laboratory Medicine [address] Electrolyte Panel (10/01/2021 2:52 AM CHIEF RECORDIST)Only the most recent of14 results within the time period is included. P athologist Signature Sodium Lvl 136 136 - 145 [facility] mEq/L [facility] Potassium Lvl 4.0 3.5 - 5.1 [facility] mEq/L [facility] Chloride 100 98 - 107 [facility] mEq/L [facility] CO2 24 22 - 29 [facility] mEq/L [facility] Anion Gap 12 4 - 14 [facility] mEq/L [facility] Specimen Anatomical Collection Method Collection Time Receive d Time (Source) Location / / Volume Laterality Blood 10/01/2021 2:52 AM 3:08 CHIEF RECORDIST AM CHIEF RECORDIST Armando Carrillo MD LAB BLOOD ORDERABLES Performing Organization Address City/State/ZIP Code Phon e Number [facility] CANCER Unless otherwise noted, [place] [address] CENTER all lab tests performed by: Division of Pathology and Laboratory Medicine [address] [facility] XR Abdomen 1 View Portable (09/29/2021 11:12 AM CHIEF RECORDIST)Only the most recent of2 resultswithin the time period is included. Anatomical Region Laterality Modality Abdomen Digital Radiography Specimen (Source) Anatomical Collection Method Collection Time Re ceived Time Location / / Volume Laterality 09/29/2021 12:32 PM CHIEF RECORDIST Impressions 09/29/2021 12:37 PM CHIEF RECORDIST Large amount of stool in the colon. Narrative 09/29/2021 12:37 PM CHIEF RECORDIST FULL RESULT: Examination: XR ABDOMEN 1 VW PORTABLE 11:12 AM Clinical History:Adjustment disorder wit h anxiety Indication: Constipation Comparison: 07/29/2021 Technique: XR ABDOMEN 1 VW PORTABLE. Findings: Colon distended with a large amount of s tool. Rectal mass noted on CT 09/27/2021 with contrast seen passing through the mass/narrowing and stool present distal to the mass. No dilated loops of small amy wel are identified. Unchanged osseous structures. Procedure Note Fernando Renee MD - 09/29/2021Formattin g of this note might be different from the original. FULL RESULT: Examination: XR ABDOMEN 1 VW PORTABLE 11:12 AM Clinical History:Adjustment disorder wit h anxiety Indication: Constipation Comparison: 07/29/2021 Technique: XR ABDOMEN 1 VW PORTABLE. Findings: Colon distended with a large amount of s tool. Rectal mass noted on CT 09/27/2021 with contrast seen passing through the mass/narrowing and stool present distal to the mass. No dilated loops of small bowel are identified. Unchanged osseous structures. IMPRESSION: Large amount of stool in the colon. Armando Carrillo MD IMG DIAGNOSTIC IMAGING [facility] CT Abdomen Pelvis with IV Contrast (09/27/2021 2:44 PM CHIEF RECORDIST)Only the most recent of2 resultswithin the time period is included. Anatomical Region Laterality Modality Abdomen, Pelvis Computed Tomography Specimen (Source) Anatomical Collection Method Collection Time Re ceived Time Location / / Volume Laterality 09/27/2021 2:53 PM CHIEF RECORDIST Impressions 09/27/2021 3:22 PM CHIEF RECORDIST 1. Essentially unchanged appearance of rectal mass with surrounding mesorectal and presacral stranding. 2. Otherwise, no radiographic findings to explain patient's pain. 3. Similar mesorectal, pelvic sidewall , bilateral external iliac, left periaortic and aortocaval lymphadenopathy. Left periaortic lymph node is minimally larger. 4. Tiny non-drainable perianal collect ion. 5. Additional findings as above. Narrative 09/27/2021 3:22 PM CHIEF RECORDIST FULL RESULT: Examination: CT ABDOMEN PELVIS W CONTR AST, 09/27/2021 2:44 PM. Clinical History: Adjustment disorder wi th anxiety. Indication: Abdominal Pain. Comparison: 07/25/2021 and 06/21/2021. Technique: Axial helical images of the a bdomen and pelvis obtained from the lung bases through the proximal thighs after administration of intravenous contrast. Coronal and sagittal reformats were generated from axial data set. Findings: Liver: No suspicious focal hepatic lesio n. Mild fatty infiltration at the falciform ligament and too small to characterize sub-5 mm hypoattenuating focus within segment 4/5. Gallbladder: No radiopaque cholelithiasi s. No biliary ductal dilatation. Spleen: No splenomegaly. Pancreas: Unremarkable. Adrenals: Unremarkable. Kidneys: No hydronephrosis, nephrolithia sis or solid renal mass. Few scattered subcentimeter cortical thinning foci seen bilaterally are too small to characterize but statistically represent cysts. Bowel: No definite change in appearance of the rectal mass with surrounding mesorectal and presacral stranding and subcentimeter mesenteric lymph nodes (for example 3:155). Overall appearance is similar prior exam from July 2021. No evide nce of large bowel obstruction. Normal appendix. Tiny (5 mm peripherally enhancing collec tion at the perianal region (at 11:00 position). Additional poorly defined peripherally enhancing focus is seen slightly more posteriorly (602:82). Previously reji cribed perianal collection such more inf eriorly has nearly completely resolved with only small amount of residual soft tissue thickening remaining. Peritoneum: No pneumoperitoneum. Pelvic organs: Urinary bladder is normal for the degree of distention. Lymph nodes and vessels: Subcentimeter r ectal lymph nodes as above. Slight interval enlargement of left periaortic lymph node measuring 1.4 cm in short axis, previously 1.1 cm 07/25/2021. Prominent lymp h node anterior to the inferior vena cav a measures 1.7 cm (3:85-86), similar prior. Essentially unchanged bilateral external iliac and pelvic sidewall lymph nodes measuring up to 1.1 cm (3:147 and 153). Bones: No acute or suspicious osseous ab normality. Sclerotic right sacral focus adjacent to the right SI joint is nonspecific (3:143). Small amount of subcutaneous gas within the ventral abdomen is likely related to injections. Procedure Note Justin Love MD - 09/27/2021For matting of this note might be different from the original. FULL RESULT: Examination: CT ABDOMEN PELVIS W LISAAS T, 09/27/2021 2:44 PM. Clinical History: Adjustment disorder wi th anxiety. Indication: Abdominal Pain. Comparison: 07/25/2021 and 06/21/2021. Technique: Axial helical images of the a bdomen and pelvis obtained from the lung bases through the proximal thighs after administration of intravenous contrast. Coronal and sagittal reformats were generated from axial data set. Findings: Liver: No suspicious focal hepatic lesio n. Mild fatty infiltration at the falciform ligament and too small to characterize sub-5 mm hypoattenuating focus within segment 4/5. Gallbladder: No radiopaque cholelithiasi s. No biliary ductal dilatation. Spleen: No splenomegaly. Pancreas: Unremarkable. Adrenals: Unremarkable. Kidneys: No hydronephrosis, nephrolithia sis or solid renal mass. Few scattered subcentimeter cortical thinning foci seen bilaterally are too small to characterize but statistically represent cysts. Bowel: No definite change in appearance of the rectal mass with surrounding mesorectal and presacral stranding and subcentimeter mesenteric lymph nodes (for example 3:155). Overall appearance is similar prior exam from July 2021. No eviden ce of large bowel obstruction. Normal appendix. Tiny (5 mm peripherally enhancing collec tion at the perianal region (at 11:00 position). Additional poorly defined peripherally enhancing focus is seen slightly more posteriorly (602:82). Previously described perianal collection such more inferiorly has near ly completely resolved with only small amount of residual soft tissue thickening remaining. Peritoneum: No pneumoperitoneum. Pelvic organs: Urinary bladder is normal for the degree of distention. Lymph nodes and vessels: Subcentimeter r ectal lymph nodes as above. Slight interval enlargement of left periaortic lymph node measuring 1.4 cm in short axis, previously 1.1 cm 07/25/2021. Prominent lymph node anterior to the inferior vena cava measures 1.7 cm ( 3:85-86), similar prior. Essentially unchanged bilateral external iliac and pelvic sidewall lymph nodes measuring up to 1.1 cm (3:147 and 153). Bones: No acute or suspicious osseous ab normality. Sclerotic right sacral focus adjacent to the right SI joint is nonspecific (3:143). Small amount of subcutaneous gas within the ventral abdomen is likely related to injections. IMPRESSION: 1. Essentially unchanged appearance of r ectal mass with surrounding mesorectal and presacral stranding. 2. Otherwise, no radiographic findings t o explain patient's pain. 3. Similar mesorectal, pelvic sidewall, bilateral external iliac, left periaortic and aortocaval lymphadenopathy. Left periaortic lymph node is minimally larger. 4. Tiny non-drainable perianal collectio n. 5. Additional findings as above. Armando Carrillo MD IMG CT ORDERABLES Urine Culture (09/25/2021 9:50 PM CHIEF RECORDIST)Only the most recent of4 resultswithin the time period is included. Component Value Ref Test [facility] Range Method Time Signature Final Report No growth [facility] Path Review - The results have been review ed and electronically signed by Pathologist: [place] Urine Jaquelin Franco MD, PhD #[id number] [facility] Specimen Anatomical Collection Method Collection Time Receive d Time (Source) Location / / Volume Laterality Urine, Clean 09/25/2021 9:50 PM 2 1:23 Catch CHIEF RECORDIST AM CHIEF RECORDIST Armando Carrillo MD MICROBIOLOGY - GENERAL [place] Performing Organization Address City/State/ZIP Code Phon e Number [place] [facility] Unless otherwise noted, [place] [address] [place] all lab tests performed by: Division of Pathology and Laboratory Medicine [address] [place] [address] Demetria Blood culture (09/25/2021 12:00 PM CHIEF RECORDIST)Only the most recent of3 resultswithin the time period is included. Component Value Ref Test Analysis Performed At [facility] gist Range Method Time Signature Final Report No growth [facility] Path Review - Culture yield may be affecte d by sample quality, prior treatment, and transportation conditions. RI Bottle/Isolat ... [facility]ERT[facility] or The results have been reviewed and electronically signed b y Pathologist: CANCER Morgan Ca MD, PhD #[id number] [facility] Specimen Anatomical Collection Method Collection Time Receive d Time (Source) Location / / Volume Laterality Blood (Periph 09/25/2021 12:00 09/25/2021 Venous Right) PM CHIEF RECORDIST 12:31 PM CHIEF RECORDIST Frank Holloway MD MICROBIOLOGY - GENERAL ORDER [place] Performing Organization Address City/State/[facility] Code Phon e Number [facility] CANCER Unless otherwise noted, [address] all lab tests performed by: Division of Pathology and Laboratory Medicine [address] [place] [address] (ABNORMAL) Urinalysis w/Microscopic if Indicated (09/25/2021 12:00 PM CHIEF RECORDIST)Only the most recent of2 resultswithin the time period is included. [facility] gist Method Time Signature UA Color Yellow Straw-Yel [facility] UA Appear Clear Clear [facility] UA Glucose NEG NEG mg/dL [facility] UA Bili NEG NEG [facility] UA Ketones NEG NEG mg/dL [facility] UA Spec Grav 1.043 (H) 1.003 - [facility] 1.035 [facility] UA Blood NEG NEG [facility] UA pH 6.0 5.0 - 9.0 [facility] UA Protein NEG NEG mg/dL [facility] UA Urobilinogen NEG NEG [facility] UA Nitrite NEG NEG [facility] UA Leuk Est NEG NEG [facility] UA Comment See Comment [facility] Comment: No microscopic exam performed, physiochemical findings are negative Specimen Anatomical Collection Method Collection Time Receive d Time (Source) Location / / Volume Laterality Urine 09/25/2021 12:00 09/25/2021 PM CHIEF RECORDIST 12:28 PM CHIEF RECORDIST Frank Holloway MD URINE ORDERABLES Performing Organization Address City/State/ZIP Code Phon e Number [facility] CANCER Unless otherwise noted, [place] [address] [place] all lab tests performed by: Division of Pathology and Laboratory Medicine [address] COVID-19 (SARS-CoV-2)Asymptomatic-LT (09/25/2021 10:26 AM CHIEF RECORDIST)Only the most recent of2 resultswithin the time period is included. [facility] Method Time Signature COVID19 Not Detected Not Detected RI (SARS-CoV-2) [facility] COVID19 SARS Inpatient RI Indication Admission [facility] Covid 19 See Note RI Comment [facility] Comment: The jf SARS-CoV-2 nucleic acid test f or use on the jf [employer] System is a real-time RT-PCR assay intended for the qualitative detection of SARS-CoV-2 (COVID-19) viral RNA in nasopharyngeal swabs from either individuals suspected of COVID-1 9 by their healthcare provider or from any individu al, including individuals without symptoms or other reasons to suspect COVID-19. A fact sheet for patients provided by the leacher ([employer]) can be reviewed at: https://www.fda.gov/media/391601/downloa d. A fact sheet for Health Care providers is provided by the leacher ([employer]) and can be reviewed at: https://www.fda.gov/media/898730/download Results must be interpreted within the c ontext of all relevant clinical and laboratory findings and should not form the sole basis for a diagnosis or treatment decision. Positive results do not rule out bacterial infection or co- infection with other viruses. Negative results do not preclud e SARS-CoV-2 infection and must be combined with clinical observations, patient history, and/or epidemiological information. This assay has been authorized by the A for use only under Emergency Use Authorization (EUA) in laboratories that have been CLIA-certified to perform moderate-complexity and high-complexity tests. The Microbiology Laboratory at [facility], CLIA Accreditation #[id number] a [facility] Accreditation #[id number], verified the performance characteristics of this assay. Internal controls are used to monitor all stages of the test process. Specimen (Source) Anatomical Collection Method Collection Time Re ceived Time Location / / Volume Laterality Nasopharyngeal Swab 09/25/2021 10:26 09/11 AM CHIEF RECORDIST 11:26 AM CHIEF RECORDIST Frank Holloway MD MICROBIOLOGY - GENERAL ORDER [place] Performing Organization Address City/[facility] Phon e Number [facility] CANCER Unless otherwise noted, [address] all lab tests performed by: Division of Pathology and Laboratory Medicine [address] [place] [address] Fractionated Bilirubin (09/25/2021 10:26 AM CHIEF RECORDIST)Only the most recent of7 results within the time period is included. athologist Signature Bili Total 0.4 <=1.2 mg/dL [facility] Comment: Indocyanine Green (ICG) may cause falsel y elevated bilirubin results. Total and direct bilirubin must not be measured from samples containing indocyanine green. False elevation of total bilirubin can b e seen in patients with IgG concentrations above 28 g/L. Bili Direct <0.2 <=0.3 mg/dL [facility] Comment: Indocyanine Green (ICG) may cau se falsely elevated bilirubin results. Total and direct bilirubin must not be measure d from samples containing indocyanine green. Bili Indirect See Note 0.0 - 0.9 mg/dL RI MD [facility] Comment: Unable to calculate Indirect Bi lirubin result due to some parameters are outside reportable range Specimen Anatomical Collection Method Collection Time Receive d Time (Source) Location / / Volume Laterality Blood 09/25/2021 10:26 09/25/2021 AM CHIEF RECORDIST 10:33 AM CHIEF RECORDIST Frank Holloway MD LAB BLOOD ORDERABLES Performing Organization Address City/[facility] Phon e Number [facility] CANCER Unless otherwise noted, [address] all lab tests performed by: Division of Pathology and Laboratory Medicine [address] [place], [place] [address]d ALT (09/25/2021 10:26 AM CHIEF RECORDIST)Only the most recent of7 resultswithin the time period is included. athologist Signature ALT 15 <=41 U/L [facility] Specimen Anatomical Collection Method Collection Time Receive d Time (Source) Location / / Volume Laterality Blood 09/25/2021 10:26 09/25/2021 AM CHIEF RECORDIST 10:33 AM CHIEF RECORDIST Frank Holloway MD LAB BLOOD ORDERABLES Performing Organization Address City/State/ZIP Code Phon e Number [facility] CANCER Unless otherwise noted, [address] all lab tests performed by: Division of Pathology and Laboratory Medicine [address] Aspartate Aminotransferase (09/25/2021 10:26 AM CHIEF RECORDIST)Only the most recent of7 resultswithin the time period is included. P athologist Signature AST 22 <=40 U/L [facility] Specimen Anatomical Collection Method Collection Time Receive d Time (Source) Location / / Volume Laterality Blood 09/25/2021 10:26 09/25/2021 AM CHIEF RECORDIST 10:33 AM CHIEF RECORDIST Frank Holloway MD LAB BLOOD ORDERABLES Performing Organization Address City/[facility]/ZIP Code Phon e Number [facility] Unless otherwise noted, [address] all lab tests performed by: Division of Pathology and Laboratory Medicine [address] Total Protein (09/25/2021 10:26 AM CHIEF RECORDIST)Only the most recent of7 resultswithin the time period is included. P athologist Signature Total Protein 6.7 6.4 - 8.3 [facility] g/dL [facility] Specimen Anatomical Collection Method Collection Time Receive d Time (Source) Location / / Volume Laterality Blood 09/25/2021 10:26 09/25/2021 AM CHIEF RECORDIST 10:33 AM CHIEF RECORDIST Frank Holloway MD LAB BLOOD ORDERABLES Performing Organization Address City/[facility]/ZIP Code Phon e Number [facility] CANCER Unless otherwise noted, [address] all lab tests performed by: Division of Pathology and Laboratory Medicine [address] Alkaline Phosphatase (09/25/2021 10:26 AM CHIEF RECORDIST)Only the most recent of7 results within the time period is included. P athologist Signature Alk Phos 118 40 - 129 [facility] U/L [facility] Specimen Anatomical Collection Method Collection Time Receive d Time (Source) Location / / Volume Laterality Blood 09/25/2021 10:26 09/25/2021 AM CHIEF RECORDIST 10:33 AM CHIEF RECORDIST Frank Holloway MD LAB BLOOD ORDERABLES Performing Organization Address City/[facility]/ZIP Code Phon e Number [facility] CANCER Unless otherwise noted, [address] all lab tests performed by: Division of Pathology and Laboratory Medicine [facility] Lipase (09/25/2021 10:26 AM CHIEF RECORDIST) P athologist Signature Lipase Lvl 34 13 - 60 U/L [facility] Specimen Anatomical Collection Method Collection Time Receive d Time (Source) Location / / Volume Laterality Blood 09/25/2021 10:26 09/25/2021 AM CHIEF RECORDIST 10:34 AM CHIEF RECORDIST Frank Holloway MD LAB BLOOD ORDERABLES Performing Organization Address City/State/ZIP [facility] Phon e Number [facility] Unless otherwise noted, [address] all lab tests performed by: Division of Pathology and Laboratory Medicine [facility] LDH (09/25/2021 10:26 AM CHIEF RECORDIST)Only the most recent of2 resultswithin the time period is included. athologist Signature LDH 223 135 - 225 [facility] Comment: Results greater than 1651 U/L m ay not be reliable due to matrix effect with extended dilution as it exceeds the manu facturer s recommended limit. Caution should be e xercised when interpreting such values and done in conjunction with clinical contex t. Specimen Anatomical Collection Method Collection Time Receive d Time (Source) Location / / Volume Laterality Blood 09/25/2021 10:26 09/25/2021 AM CHIEF RECORDIST 10:33 AM CHIEF RECORDIST Frank Holloway MD LAB BLOOD ORDERABLES Performing Organization Address City/[facility]/ZIP Code Phon e Number [facility] CANCER Unless otherwise noted, [address] all lab tests performed by: Division of Pathology and Laboratory Medicine [address] [place] [address] [address] Amylase (09/25/2021 10:26 AM CHIEF RECORDIST) athologist Signature Amylase Lvl 59 28 - 100 [facility] Specimen Anatomical Collection Method Collection Time Receive d Time (Source) Location / / Volume Laterality Blood 09/25/2021 10:26 09/25/2021 AM CHIEF RECORDIST 10:34 AM CHIEF RECORDIST Frank Holloway MD LAB BLOOD ORDERABLES Performing Organization Address City/[facility] Phon e Number [facility] CANCER Unless otherwise noted, [address] all lab tests performed by: Division of Pathology and Laboratory Medicine [address] [facility] Albumin Level (09/25/2021 10:26 AM CHIEF RECORDIST)Only the most recent of7 resultswithin the time period is included. P athologist Signature Albumin Lvl 3.9 3.5 - 5.2 [facility] gm/dL [facility] Specimen Anatomical Collection Method Collection Time Receive d Time (Source) Location / / Volume Laterality Blood 09/25/2021 10:26 09/25/2021 AM CHIEF RECORDIST 10:33 AM CHIEF RECORDIST Frank Holloway MD LAB BLOOD ORDERABLES Performing Organization Address City/State/ZIP Code Phon e Number [facility] CANCER Unless otherwise noted, [address] all lab tests performed by: Division of Pathology and Laboratory Medicine [facility] MRI Pelvis without Contrast (07/28/2021 11:40 PM CHIEF RECORDIST) Anatomical Region Laterality Modality Pelvis Magnetic Resonance Specimen (Source) Anatomical Collection Method Collection Time Re ceived Time Location / / Volume Laterality 07/30/2021 2:06 PM CHIEF RECORDIST Impressions 08/01/2021 10:42 AM CHIEF RECORDIST Impression: 1. Technically suboptimal examination fo r staging due to motion artifacts. 2. T stage: T3 N stage: (+) Note the bilateral external and internal iliac lymphadenopathy and enlarged lymph nodes in the left paraortic chain, included in this exam. No evidence of extramural venous i nvasion or definite organ involvement. 3. Resolving left perianal abscess and n o new inflammation. I personally reviewed these image(s) tamir lange with the resident's/fellow's interpretations, certify that if a procedure was performed I was physically present, and agree with the final report. Narrative 08/01/2021 10:42 AM CHIEF RECORDIST FULL RESULT: Examination: MRI PELVIS WO CONTRAST, 11:40 PM. 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 Also got biopsy of tumor on 07/27/21. Indication: Cancer staging or restaging Comparison: abdomen/pelvis CT with contr ast on 07/25/21 Additional study reviewed: chest CT with contrast on 07/28/21 Technique: MRI PELVIS WO CONTRAST, High- resolution MRI is performed perpendicular to the long-axis of the rectum to assess tumor relationship to the rectal wall and CRM or mesorectal fascia. Motion artifact: Present Image Quality: Inadequate, extensive m otion artifacts. The tumor margin can't be clearly defined. Findings: Circumferential, mid/upper rectal mass i s noted, extending to the bilateral mesorectum. It is technically difficult to define the tumor margin due to diffuse motion artifacts. There is no definite mesorectal fascia or mesenteric invasion, however. T Location (in conjunction with the rece nt CT of 07/25/2021: The lower edge of the tumor is approxima tely 12 cm above the anal verge. The tumor has a superior-inferior extent of 6 cm. Tumor is 4.5 cm above the puborectalis s ling, Internal sphincter is not involved . External sphincter is not involved . T stage: T 3, with extramural extension bilateral ly at 3:00 and 9:00. Minimum tumour distance to lateral mesor ectal fascia: 13.8 mm (image #20 series 8) Minimum tumour distance to anterior meso rectal fascia: cannot definitively defined due to acquisition artifacts, however the intervening fat plane appears in tact on sagittal T2 sequence images without gross evidence of the prostate invasion. Vascular invasion: Tumor seen in the ves kena lumen- No Lymph node assessment: N +. * Multiple mesorectal nodes that measu re up to 0.7 cm (for example, as seen on series 6, images 25, 27, 30, 33, 37). A left posterior mesorectal node (series 6 image 30) is within 1 mm of the adjacent mesorectal fascia. * Left obturator and external/internal iliac lymph nodes that measure up to 0.9 cm (images 28 and 34). * Right obturator and internal iliac l ymph nodes that measure up to 1.1 cm (image 32). * Left common iliac nodes that measure up to 0.7 cm (image 20). * Partially seen retroperitoneal lymph adenopathy, for example 1.1 cm left para-aortic node (image 3). Pelvic side wall adenopathy: Present, se e above Others: The left perianal abscess at harika roximately 2 to 3:00 (image 47, series 8) with a loculated, thick walled fluid collection has decreased since the prior exam. Status post drainage on 07/27/2021, with mild associated edema. No additiona l fluid collection or new focal abnormality is identified. Procedure Note Ananth Santamaria MD - 08/01/2021 FULL RESULT: Examination: MRI PELVIS WO CONTRAST, 11:40 PM. 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 Also got biopsy of tumor on 07/27/21. Indication: Cancer staging or restaging Comparison: abdomen/pelvis CT with contr ast on 07/25/21 Additional study reviewed: chest CT with contrast on 07/28/21 Technique: MRI PELVIS WO CONTRAST, High- resolution MRI is performed perpendicular to the long-axis of the rectum to assess tumor relationship to the rectal wall and CRM or mesorectal fascia. Motion artifact: Present Image Quality: Inadequate, extensive mot ion artifacts. The tumor margin can't be clearly defined. Findings: Circumferential, mid/upper rectal mass i s noted, extending to the bilateral mesorectum. It is technically difficult to define the tumor margin due to diffuse motion artifacts. There is no definite mesorectal fascia or mesenteric invasion, however. T Location (in conjunction with the rece nt CT of 07/25/2021: The lower edge of the tumor is approxima tely 12 cm above the anal verge. The tumor has a superior-inferior extent of 6 cm. Tumor is 4.5 cm above the puborectalis s ling, Internal sphincter is not involved . External sphincter is not involved . T stage: T 3, with extramural extension bilateral ly at 3:00 and 9:00. Minimum tumour distance to lateral mesor ectal fascia: 13.8 mm (image #20 series 8) Minimum tumour distance to anterior meso rectal fascia: cannot definitively defined due to acquisition artifacts, however the intervening fat plane appears in tact on sagittal T2 sequence images without gross evidence of the prostate invasion. Vascular invasion: Tumor seen in the ves kena lumen- No Lymph node assessment: N +. * Multiple mesorectal nodes that measure up to 0.7 cm (for example, as seen on series 6, images 25, 27, 30, 33, 37). A left posterior mesorectal node (series 6 image 30) is within 1 mm of the adjacent mesorectal fascia. * Left obturator and external/internal i liac lymph nodes that measure up to 0.9 cm (images 28 and 34). * Right obturator and internal iliac lym ph nodes that measure up to 1.1 cm (image 32). * Left common iliac nodes that measure u p to 0.7 cm (image 20). * Partially seen retroperitoneal lymphad enopathy, for example 1.1 cm left para- aortic node (image 3). Pelvic side wall adenopathy: Present, se e above Others: The left perianal abscess at harika roximately 2 to 3:00 (image 47, series 8) with a loculated, thick walled fluid collection has decreased since the prior exam. Status post drainage on 07/27/2021, with mild associated edema. No additional fluid co llection or new focal abnormality is identified. IMPRESSION: Impression: 1. Technically suboptimal examination fo r staging due to motion artifacts. 2. T stage: T3 N stage: (+) Note the bilateral externa l and internal iliac lymphadenopathy and enlarged lymph nodes in the left paraortic chain, included in this exam. No evidence of extramural venous invasi on or definite organ involvement. 3. Resolving left perianal abscess and n o new inflammation. I personally reviewed these image(s) tamir ng with the resident's/fellow's interpretations, certify that if a procedure was performed I was physically present, and agree with the final report. Salvador Berrios MD IMG MRI ORDERABLES CT Chest with Contrast (07/28/2021 10:59 AM CHIEF RECORDIST) Anatomical Region Laterality Modality Chest Computed Tomography Specimen (Source) Anatomical Collection Method Collection Time Re ceived Time Location / / Volume Laterality 07/28/2021 1:05 PM CHIEF RECORDIST Impressions 07/28/2021 2:39 PM CHIEF RECORDIST 1. Small nonspecific pulmonary nodules may represent infectious/inflammatory process or metastasis. Short-term follow-up CT advised for further assessment. 2. Peripheral groundglass opacities an d reticulation with cystic changes, seen predominantly in the upper lobes of uncertain etiology. Differential diagnosis includes ongoing atypical infection, seque la from prior infectious inflammatory pr ocess, interstitial lung disease such as desquamative interstitial pneumonia, and Langerhans cell histiocytosis. Clinical correlation and pulmonology consult advised. 3. Mild enlarged it right lower paratr acheal node and borderline left hilar node, most likely reactive in nature although metastatic disease cannot be excluded. I personally reviewed these image(s) tamir lange with the resident's/fellow's interpretations, certify that if a procedure was performed I was physically present, and agree with the final report. Narrative 07/28/2021 2:39 PM CHIEF RECORDIST FULL RESULT: Examination: CT CHEST W CONTRAST, 07/11 10:59 AM Clinical History: Male, 51 years old wit h metastatic colon cancer to the retroperitoneum which was diagnosed in 06/2021. Indication: cancer staging Comparison: Not available Technique: Contiguous CT images through the chest were acquired following the administration of intravenous contrast. Coronal and sagittal multiplanar reformats and maximum intensity projection (MIP) images were performed. Findings: Supportive apparatus: Port-a-cath with t ip terminating at the cavoatrial junction. Heart: The heart size is within normal l imits. Mild coronary artery calcification. No pericardial effusion. Pleural: No pleural effusion or pneumoth orax. Lungs/airways: Patent trachea and mainst em bronchi; no intraluminal lesion. Upper lobe predominant subpleural groundglass opacities and reticulation bilaterally with associated irregular thin-walled cys tic changes, as well as mild centrilobul ar emphysema. Evaluation of the pulmonary nodules is partially limited by groundglass and reticular opacities. There are a few sub-5 mm nodules visualized on series 3 images 32, 43, 66, 68, and 88. Lymph nodes: A mildly enlarged right low er paratracheal node measures up to 1.1 cm short axis (series 2/42). A borderline left hilar node on image 49 of series 2 measures 1 cm short axis. Other nonspeci fic subcentimeter mediastinal and hilar nodes are noted. No supraclavicular or axillary lymphadenopathy. Skeleton: Sclerotic foci is noted within the left seventh rib (series 602/246), likely representing bone island. Degenerative changes present in the thoracic spine. Upper abdomen: Limited imaging through t he upper abdomen shows normal adrenal glands. Procedure Note Nela Benavidez C.B., MD - 07/28/2021Format ting of this note might be different from the original. FULL RESULT: Examination: CT CHEST W CONTRAST, 2020 10:59 AM Clinical History: Male, 51 years old wit h metastatic colon cancer to the retroperitoneum which was diagnosed in 06/2021. Indication: cancer staging Comparison: Not available Technique: Contiguous CT images through the chest were acquired following the administration of intravenous contrast. Coronal and sagittal multiplanar reformats and maximum intensity projection (MIP) images were performed. Findings: Supportive apparatus: Port-a-cath with t ip terminating at the cavoatrial junction. Heart: The heart size is within normal l imits. Mild coronary artery calcification. No pericardial effusion. Pleural: No pleural effusion or pneumoth orax. Lungs/airways: Patent trachea and mainst em bronchi; no intraluminal lesion. Upper lobe predominant subpleural groundglass opacities and reticulation bilaterally with associated irregular thin-walled cystic changes, as well as mild centrilobular e mphysema. Evaluation of the pulmonary nodules is partially limited by groundglass and reticular opacities. There are a few sub-5 mm nodules visualized on series 3 images 32, 43, 66, 68, and 88. Lymph nodes: A mildly enlarged right low er paratracheal node measures up to 1.1 cm short axis (series 2/42). A borderline left hilar node on image 49 of series 2 measures 1 cm short axis. Other nonspecific subcentimeter mediastinal and hilar nodes are noted. N o supraclavicular or axillary lymphadenopathy. Skeleton: Sclerotic foci is noted within the left seventh rib (series 602/246), likely representing bone island. Degenerative changes present in the thoracic spine. Upper abdomen: Limited imaging through t he upper abdomen shows normal adrenal glands. IMPRESSION: 1. Small nonspecific pulmonary nodules m ay represent infectious/inflammatory process or metastasis. Short-term follow-up CT advised for further assessment. 2. Peripheral groundglass opacities and reticulation with cystic changes, seen predominantly in the upper lobes of uncertain etiology. Differential diagnosis includes ongoing atypical infection, sequela from prior infectious inflammatory process, interst itial lung disease such as desquamative interstitial pneumonia, and Langerhans cell histiocytosis. Clinical correlation and pulmonology consult advised. 3. Mild enlarged it right lower paratrac heal node and borderline left hilar node, most likely reactive in nature although metastatic disease cannot be excluded. I personally reviewed these image(s) tamir ng with the resident's/fellow's interpretations, certify that if a procedure was performed I was physically present, and agree with the final report. Salvador Berrios MD IMG CT ORDERABLES POC Glucose Screen (07/27/2021 3:08 PM CHIEF RECORDIST)Only the most recent of2 results within the time period is included. athologist Signature POC Glucose 79 70 - 99 POC [facility]EL[facility] mg/dL Comment: RN Notified Capillary blood samples, e.g. obtained b y fingerstick, may have inaccurate results in patients with decreased peripheral blood flow. Method description: All results are oscar ured using Electrochemistry test methodology. The glucose in the sample mixes with the reagents on the test strip. The reaction produces an electric current. The amount of current produced is proportion al to the glucose concentration in the blood. PO Sample Type Capillary POC [facility] Performing Lab [facility] POC TELCO R Comment: [facility], [address] [place] [id number]; Lab Direct or: Emily Gaspar MD Specimen Anatomical Collection Method Collection Time Receive d Time (Source) Location / / Volume Laterality Blood 07/27/2021 3:08 PM 3:08 CHIEF RECORDIST PM CHIEF RECORDIST Jai Ayala MD POCT ORDERABLES - DEVICE Performing Organization Address City/State/ZIP Code Phon e Number POC [facility] Echocardiogram 2D Complete (07/27/2021 9:23 AM CHIEF RECORDIST) Specimen (Source) Anatomical Collection Method Collection Time Re ceived Time Location / / Volume Laterality 07/27/2021 8:12 AM CHIEF RECORDIST Narrative ISCV - 07/27/2021 9:54 AM CHIEF RECORDIST Echocardiographic Report Interpretation Summary A complete two-dimensional transthoracic echocardiogram was performed (2D, M- mode, Doppler and color flow Doppler). The study was technically adequate and no previous studies are available for comparison. Normal left ventricular size and systoli c function. LV ejection fraction (LVEF) is in the ra nge of 59% (calculated by method of discs). The right ventricle is normal in size an d function. Unable to estimate RVSP due to lack of T R visualization. There is no pericardial effusion. Left Ventricle: Normal left ventricular size and systoli c function. There is normal left ventricular wall thickness. Relative width thickness measures suggest concentric changes. LV ejection fraction (LVEF) is in the r giuseppe of 59% (calculated by method of dis cs). The left ventricular wall motion is normal. I WMSI = 1.00 % Normal = 1 00 Normal GLPS Segments Size X - Cannot 2 - 1-2 small Interpret 1 - Normal Hypokine tic 3 - Akinetic 4 - Dyskinetic3- 5 moderate 5 - Aneurysmal 6-14 large 15-16 diffuse 3D imaginD volumes were not performed in this st [facility]. Cardiac Mechanics/Speckle Tracking Imagi ng: Normal global longitudinal peak systolic value. Strain Imaging was performed; GLPS avg = -18.1%. Diastology: Impaired LV relaxation pattern of diasto lic dysfunction, Doppler suggests normal LA pressures. Right Ventricle: The right ventricle is normal in size an d function. Normal RV systolic function using TAPSE criteria. Atria: Atria are normal in size. Mitral Valve: The mitral valve is grossly normal. Ther e is no mitral valve stenosis. There is trace mitral regurgitation. Tricuspid Valve: The tricuspid valve is not well visualiz ed, but is grossly normal. There is no tricuspid valve stenosis. There is trace tricuspid regurgitation. Unable to estimate RVSP due to lack of TR visualization. Aortic Valve: The aortic valve is trileaflet. The aort ic valve opens well. No aortic regurgitation is present. Pulmonic Valve: The pulmonic valve is not well visualize d. There is no pulmonic valvular stenosis. Trace pulmonic valvular regurgitation. Great Vessels: The aortic root is normal size. The infe rior vena cava demonstrates normal size and normal respiratory variation. Pericardium/Pleural: There is no pericardial effusion. MMode/2D Measurements IVSd: 1.1 cm LVIDd: 4.7 cm LVIDs: 3.2 cm LVPWd: 1.0 cm FS: 31.1 % Ao root diam: 3.2 cm Ao root area: 8.0 cm2 LA dimension: 3.1 cm LVOT diam: 2.4 cm EDV(MOD-A4C): 138.6 ml ESV(MOD-A4C): 57.5 ml LVOT area: 4.5 cm2 EF(MOD-A4C): 58.5 % EDV(MOD-A2C): 150.4 ml ESV(MOD-A2C): 61.9 ml EDV(MOD-bp): 149.8 ml EF(MOD-A2C): 58.8 % ESV(MOD-bp): 61.9 ml EF(MOD-bp): 58.7 % LAV(MOD-A2C): 27.0 ml LAV(MOD-A4C): 24.5 ml EDV (MOD-bp) Index: 71.1 ml/m2 LAV(MOD-bp): 27.6 ml LAV(MOD-bp) Indexed: 13.1 ml/m2 ESV (MOD-bp) Index: 29.4 ml/m2 RWT: 0.45 cm TAPSE (>1.6): 2.2 cm Doppler Measurements MV E max ralph: 81.6 cm/sec MV V2 max: 87.8 cm/sec MV A max ralph: 84.4 cm/sec MV max P.1 mmHg MV E/A: 0.97 MV V2 mean: 55.0 cm/sec MV mean P.4 mmHg MV V2 VTI: 16.8 cm MVA(VTI): 6.0 cm2 MV P1/2t max ralph: 81.6 cm/sec Ao V2 max: 150.8 cm/sec MV P1/2t: 47.6 msec Ao max P.1 mmHg MVA(P1/2t): 4.6 cm2 Ao V2 mean: 102.0 cm/sec Ao mean P.6 mmHg MV dec slope: 502.6 cm/sec2 Ao V2 VTI: 23.4 cm MV dec time: 0.16 sec RAYNE(I,D): 4.3 cm2 RAYNE(V,D): 4.0 cm2 LV V1 max P.3 mmHg SV(LVOT): 101.1 ml LV V1 mean P.6 mmHg LV V1 max: 135.0 cm/sec LV V1 mean: 88.7 cm/sec LV V1 VTI: 22.4 cm PA V2 max: 125.5 cm/sec Med Peak E' Ralph: 5.9 cm/sec PA max P.3 mmHg PA V2 mean: 87.8 cm/sec PA mean P.4 mmHg PA V2 VTI: 23.6 cm Lat Peak E' Ralph: 8.2 cm/sec RAYNE Index (I,D): 2.1 RAYNE Index (V,D): 1.9 Dimensionless Index: 0.90 E/e' (avg): 11.6 E/e' (lat): 10.0 E/e' (sept): 13.8 Procedure Note Lea Shankar MD - 07/27/20 21 Echocardiographic Report Interpretation Summary A complete two-dimensional transthoracic echocardiogram was performed (2D, M- mode, Doppler and color flow Doppler). The study was technically adequate and no previous studies are available for comparison. Normal left ventricular size and systoli c function. LV ejection fraction (LVEF) is in the ra nge of 59% (calculated by method of discs). The right ventricle is normal in size an d function. Unable to estimate RVSP due to lack of T R visualization. There is no pericardial effusion. Left Ventricle: Normal left ventricular size and systoli c function. There is normal left ventricular wall thickness. Relative width thickness measures suggest concentric changes. LV ejection fraction (LVEF) is in the range of 59% (calculated by method of discs). The lef t ventricular wall motion is normal. I WMSI = 1.00 % Normal = 100 Normal GLPS Segments Size X - Cannot 2 - 1-2 small Interpret 1 - Normal Hypokinetic 3 - Alexander netic 4 - Dyskinetic3-5 moderate 5 - Aneurysmal 6-14 large 15-16 diffuse 3D imaginD volumes were not performed in this [facility]. Cardiac Mechanics/Speckle Tracking Imagi ng: Normal global longitudinal peak systolic value. Strain Imaging was performed; GLPS avg = -18.1%. Diastology: Impaired LV relaxation pattern of diasto lic dysfunction, Doppler suggests normal LA pressures. Right Ventricle: The right ventricle is normal in size an d function. Normal RV systolic function using TAPSE criteria. Atria: Atria are normal in size. Mitral Valve: The mitral valve is grossly normal. Ther e is no mitral valve stenosis. There is trace mitral regurgitation. Tricuspid Valve: The tricuspid valve is not well visualiz ed, but is grossly normal. There is no tricuspid valve stenosis. There is trace tricuspid regurgitation. Unable to estimate RVSP due to lack of TR visualization. Aortic Valve: The aortic valve is trileaflet. The aort ic valve opens well. No aortic regurgitation is present. Pulmonic Valve: The pulmonic valve is not well visualize d. There is no pulmonic valvular stenosis. Trace pulmonic valvular regurgitation. Great Vessels: The aortic root is normal size. The infe rior vena cava demonstrates normal size and normal respiratory variation. Pericardium/Pleural: There is no pericardial effusion. MMode/2D Measurements IVSd: 1.1 cm LVIDd: 4.7 cm LVIDs: 3.2 cm LVPWd: 1.0 cm FS: 31.1 % Ao root diam: 3.2 cm Ao root area: 8.0 cm2 LA dimension: 3.1 cm LVOT diam: 2.4 cm EDV(MOD-A4C): 138. 6 ml ESV(MOD-A4C): 57.5 ml LVOT area: 4.5 cm2 EF(MOD-A4C): 58. 5 % EDV(MOD-A2C): 150.4 ml ESV(MOD-A2C): 61.9 ml EDV(MOD-bp): 149.8 ml EF(MOD-A2C): 58.8 % ESV(MOD-bp): 61. 9 ml EF(MOD-bp): 58.7 % LAV(MOD-A2C): 27.0 ml LAV(MOD-A4C): 24.5 ml EDV (MOD-bp) In dex: 71.1 ml/m2 LAV(MOD-bp): 27.6 ml LAV(MOD-bp) Indexed: 13.1 ml/m2 ESV (MOD-bp) Index: 29.4 ml/m2 RWT: 0.45 cm TAPSE (>1.6): 2.2 cm Doppler Measurements MV E max ralph: 81.6 cm/sec MV V2 max: 87.8 cm/sec MV A max ralph: 84.4 cm/sec MV max PG : 3.1 mmHg MV E/A: 0.97 MV V2 mean: 55.0 cm/sec MV mean P.4 mmHg MV V2 VTI: 16.8 cm MVA(VTI): 6.0 cm2 MV P1/2t max ralph: 81.6 cm/sec Ao V2 max: 150.8 cm/sec MV P1/2t: 47.6 msec Ao max P.1 m mHg MVA(P1/2t): 4.6 cm2 Ao V2 mean: 102.0 cm/sec Ao mean P.6 mmHg MV dec slope: 502.6 cm/sec2 Ao V2 V TI: 23.4 cm MV dec time: 0.16 sec RAYNE(I,D): 4.3 cm2 RAYNE(V,D): 4.0 cm2 LV V1 max P.3 mmHg SV(LVOT): 101 .1 ml LV V1 mean P.6 mmHg LV V1 max: 135.0 cm/sec LV V1 mean: 88.7 cm/sec LV V1 VTI: 22.4 cm PA V2 max: 125.5 cm/sec Med Peak E' Ralph: 5.9 cm/sec PA max P.3 mmHg PA V2 mean: 87.8 cm/sec PA mean P.4 mmHg PA V2 VTI: 23.6 cm Lat Peak E' Ralph: 8.2 cm/sec RAYNE Inde x (I,D): 2.1 RAYNE Index (V,D): 1.9 Dimensionless Index: 0.90 E/e' (avg): 11.6 E/e' (lat): 10.0 E/e' (sept): 13.8 Osmany Damon MD CV ECHO ORDERABLES Performing Organization Address City/State/ZIP Code Phon e Number ISCV Confirm ABORh (07/27/2021 5:23 AM CHIEF RECORDIST) P athologist Signature ABORh Confirm. O POS [facility] [place] Specimen Anatomical Collection Method Collection Time Receive d Time (Source) Location / / Volume Laterality Blood 07/27/2021 5:23 AM 5:52 CHIEF RECORDIST AM CHIEF RECORDIST Osmany Damon MD BLOOD BANK TEST ORDERABLES Performing Organization Address City/State/ZIP Code Phon e Number [facility] Unless otherwise noted, [place] [address] [place] all lab tests performed by: Division of Pathology and Laboratory Medicine [address] [place] [address] Demetria Clot Expiration Date (07/27/2021 5:21 AM CHIEF RECORDIST) Patholo gist Method Time Signature T & S 07/30/2021 [place] [facility] Specimen Anatomical Collection Method Collection Time Receive d Time (Source) Location / / Volume Laterality Blood 07/27/2021 5:21 AM 1 5:52 CHIEF RECORDIST AM CHIEF RECORDIST Jai Ayala MD BLOOD BANK TEST ORDERABLES Performing Organization Address City/State/ZIP Code Phon e Number [facility] Unless otherwise noted, [address] all lab tests performed by: Division of Pathology and Laboratory Medicine [address] [place] [address] TMP Interpretation Antibody Screen Negative (07/27/2021 5:21 AM CHIEF RECORDIST) [facility] TMP Auto Neg At the [place] MD [facility] patient plasma shows no evidence of RBC alloantibodi es. Comment: MD Nasima KHAN [id number] Dictated by: MD Nasima KHAN [id number] Dictated Date/Time: 07.27.2021 10:11 AM CHIEF RECORDIST Transcribed Date/Time: 07.27.2021 10:11 AM CHIEF RECORDIST Electronically Signed By: MD Nasima KHAN [id number] on 07.27.2021 10:11 AM Specimen Anatomical Collection Method Collection Time Receive d Time (Source) Location / / Volume Laterality Blood 07/27/2021 5:21 AM 1 5:52 CHIEF RECORDIST AM CHIEF RECORDIST Bela CERDA BLOOD BANK TEST ORDERABLES Performing Organization Address City/State/ZIP Code Phon e Number [facility] Unless otherwise noted, [address] all lab tests performed by: Division of Pathology and Laboratory Medicine [address] [place] [address] Demetria ABORh (07/27/2021 5:21 AM CHIEF RECORDIST) P athologist Signature ABORh. O POS [facility] Specimen Anatomical Collection Method Collection Time Receive d Time (Source) Location / / Volume Laterality Blood 07/27/2021 5:21 AM 1 5:52 CHIEF RECORDIST AM CHIEF RECORDIST Bela CERDA BLOOD BANK TEST ORDERABLES Performing Organization Address City/[facility] Phon e Number [facility] CANCER Unless otherwise noted, [address] all lab tests performed by: Division of Pathology and Laboratory Medicine [address] [place] [address] Demetria Antibody Screen (07/27/2021 5:21 AM CHIEF RECORDIST) athologist [facility] ABSC. Negative ABSC [facility] Specimen Anatomical Collection Method Collection Time Receive d Time (Source) Location / / Volume Laterality Blood 07/27/2021 5:21 AM 1 5:52 CHIEF RECORDIST AM CHIEF RECORDIST Bela CERDA BLOOD BANK TEST ORDERABLES Performing Organization Address City/[facility] Phon e Number [facility] Unless otherwise noted, [address] all lab tests performed by: Division of Pathology and Laboratory Medicine [address] [place] [address] BHCG, Tumor Marker (07/27/2021 2:41 AM CHIEF RECORDIST) [facility] Beta HCG, Tumor <0.6 <=0.9 [facility] Marker mIU/mL [facility] Comment: Tumor Markers BHCG Reference Range: Negative: <1.0 mIU/mL Non- pre-menopausal women: </= 1 .0 mIU/mL Post-menopausal women: </= 7.0 mIU/mL Men: < 2.0 mIU/mL Specimen Anatomical Collection Method Collection Time Receive d Time (Source) Location / / Volume Laterality Blood 07/27/2021 2:41 AM 1 3:17 CHIEF RECORDIST AM CHIEF RECORDIST Olivia VIGIL LAB BLOOD ORDERABLES Performing Organization Address City/[facility] Phon e Number [facility] Unless otherwise noted, [address] all lab tests performed by: Division of Pathology and Laboratory Medicine [address] [place] [address] CA 19-9 (07/27/2021 2:41 AM CHIEF RECORDIST) athologist [facility] CA 19-9 8.6 <=35.0 U/mL [facility] Comment: Results greater than 9500 U/mL may not b e reliable due to matrix effect with extended dilution as it exceeds the leacher's recommended limit. Caution should be exercised when interpreting such valu es and done in conjunction with clinical context. This test is measured by electrochemilum inescence immunoassay on Darius Jf immunoassay analyzers. Results obtained in different methods are not interchangeable. Specimen Anatomical Collection Method Collection Time Receive d Time (Source) Location / / Volume Laterality Blood 07/27/2021 2:41 AM 3:17 CHIEF RECORDIST AM CHIEF RECORDIST Olivia Del Rosario [facility] LAB BLOOD ORDERABLES Performing Organization Address [facility] Phon e Number [facility] CANCER Unless otherwise noted, [address] all lab tests performed by: Division of Pathology and Laboratory Medicine [facility] [place] 125 (07/27/2021 2:41 AM CHIEF RECORDIST) athologist Signature [place] 125 7.0 U/mL [facility] Comment: Results greater than 11,500.0 U/mL may n ot be reliable due to matrix effect with extended dilution as it exceeds the leacher's recommended limit. Caution should be exercised when interpreting such values and done in conjunction with clinical context. This test is measured by electrochemilum inescence immunoassay on Darius Jf immunoassay analyzers. Results obtained in different methods are not interchangeable. Reference intervals are not available fo r male patients. Results should be interpreted in conjunction with clinical context. Specimen Anatomical Collection Method Collection Time Receive d Time (Source) Location / / Volume Laterality Blood 07/27/2021 2:41 AM 3:17 CHIEF RECORDIST AM CHIEF RECORDIST Olivia Del Rosario [facility] LAB BLOOD ORDERABLES Performing Organization Address [facility] Phon e Number [facility] CANCER Unless otherwise noted, [address] all lab tests performed by: Division of Pathology and Laboratory Medicine [address] (ABNORMAL) CEA (07/27/2021 2:41 AM CHIEF RECORDIST) P athologist Signature CEA 12.3 (H) <=3.8 ng/mL [facility] Comment: Reference Ranges: Smoker: 0.0 - 5.5 Non-Smoker: 0.0 - 3.8 This test is measured by electrochemilum inescence immunoassay on Darius Jf immunoassay analyzers. Results obtained in different methods are not interchangeable. Specimen Anatomical Collection Method Collection Time Receive d Time (Source) Location / / Volume Laterality Blood 07/27/2021 2:41 AM 1 3:17 CHIEF RECORDIST AM CHIEF RECORDIST Olivia VIGIL LAB BLOOD ORDERABLES Performing Organization Address [facility] Phon e Number [facility] CANCER Unless otherwise noted, [place] [address] [place] all lab tests performed by: Division of Pathology and Laboratory Medicine [address] [facility] EKG, 12-Lead (Portable) (07/27/2021) Specimen (Source) Anatomical Location Collection Method / Collectio n Time Received Time / Laterality Volume Narrative This result has an attachment that is no t available. Osmany Damon MD ECG ORDERABLES Performing Organization Address [facility] Phon e Number [facility] IECG Procalcitonin (07/26/2021 2:59 PM CHIEF RECORDIST)Only the most recent of2 resultswithin the time period is included. P athologist Signature Procalcitonin <0.04 <=0.08 [facility] ng/mL [facility] Comment: Procalcitonin > 2.00 ng/mL: Procalcit onin levels above 2.00 ng/mL are highly suggestive of a high risk for systematic bacterial infection/ severe sepsis and/or septic shock. Procalcitonin < 0.50 ng/mL: Procalcito cindy levels below 0.50 ng/mL are at low risk for progression to severe sepsis and/ or septic shock. Procalcitonin (ProCT) between 0.15 and 2 .0 ng/mL do not exclude infection, because localized infections (without systemic signs) may be associated with such low levels. Results greater than 400 ng/mL may not b e reliable due to the matrix effect with extended dilution as it exceeds the leacher's recommended limit. Caution should be exercised when interpreting such values and done in conjunction with clinical context. Specimen Anatomical Collection Method Collection Time Receive d Time (Source) Location / / Volume Laterality Blood 07/26/2021 2:59 PM 1 3:16 CHIEF RECORDIST PM CHIEF RECORDIST Olivia Del Rosario [facility] LAB BLOOD ORDERABLES Performing Organization Address City/State/ZIP Code Phon e Number [facility] CANCER Unless otherwise noted, [address] all lab tests performed by: Division of Pathology and Laboratory Medicine [address] [place] [address] Lactic Acid, Venous (07/26/2021 2:59 PM CHIEF RECORDIST) athologist [facility] V Lactate 1.4 0.5 - 1.6 [facility] mmol/L [facility] Specimen Anatomical Collection Method Collection Time Receive d Time (Source) Location / / Volume Laterality Blood 07/26/2021 2:59 PM 3:09 CHIEF RECORDIST PM CHIEF RECORDIST Olivia Del Rosario [facility] LAB BLOOD ORDERABLES Performing Organization Address City/[facility] Code Phon e Number [facility] CANCER Unless otherwise noted, [address] all lab tests performed by: Division of Pathology and Laboratory Medicine [address] [place] [address] [place] Tip Verification Central Vascular Access Device (07/25/2021 9:30 PM CHIEF RECORDIST) Sherie Perez MD - 07/25/2021 9:30 PM CS T Sherie Zelaya MD 07/25/2021 9:32 PM Central Vascular Access Device Tip Verif ication Performed by: Sherie Zelaya MD Authorized by: Sherie Zelaya MD CVAD Properties Date device placed: 06/17/2021 Device placement location: Outside fac ility Catheter Type: Implanted venous port Catheter lumen: Single lumen Laterality: Right Tip Verification Properties Diagnostic image available: Chest xray Written diagnostic report available: Yes Tip location per report: Superior vena cava Name of RN notified for LDA documentatio n of verification: Ashlee Tip in good position and cleared for inf usion Sherie Zelaya MD IV THERAPY ORDERABLES (ABNORMAL) Urinalysis with Microscopic (07/25/2021 9:01 PM CHIEF RECORDIST) athologist Signature UA WBC 3 (H) 0 - 2 /HPF [facility] UA RBC NOT SEEN 0 - 2 /HPF [facility] UA Mucous TRACE Not [facility] Seen-Trace [facility] /HPF UA Bacteria NOT SEEN NOT SEEN [facility] /[facility] UA Squam Epi OCC None-Occas [facility] ional /HPF [facility]ENTER UA Trans Epi OCC (A) NOT SEEN [facility] /[facility] UA Hyal Cast 3 (H) 0 - 2 /LPF [facility] Specimen Anatomical Collection Method Collection Time Receive d Time (Source) Location / / Volume Laterality Urine 07/25/2021 9:01 PM 1 9:09 CHIEF RECORDIST PM CHIEF RECORDIST Narrative [facility] - 9:21 PM CHIEF RECORDIST Some reporting parameters within the Urinalysis test have changed due to the implementation of new in strumentation in the Main [place], allowi ng greater sensitivity of measurement. Urinalysis results reported by the [facility] using existing instrumentation, as well as Urinalysis t esting performed manually or by backup methodology at the [facility] will remain relatively unchanged. New reporting parameters and units will now be reported for all campuses. Sherie Zelaya MD URINE ORDERABLES Performing Organization Address City/[facility]/ZIP Code Phon e Number [facility] Unless otherwise noted, [address] all lab tests performed by: Division of Pathology and Laboratory Medicine [address] [place] [address] CRP (07/25/2021 9:01 PM CHIEF RECORDIST) P athologist Signature CRP 38.97 mg/L [facility] Comment: Reference ranges for HS CRP assay are as follows: Reference ranges when used to assess car diac risk: <1.00 mg/L Low cardiovascular risk 1.00-3.00 mg/L Average cardiovascular risk >3.00 mg/L High cardiovascular risk. Reference ranges when used to assess inf lammatory responses: Less than or equal to 10.00 mg/L. Specimen Anatomical Collection Method Collection Time Receive d Time (Source) Location / / Volume Laterality Blood 07/25/2021 9:01 PM 1 9:12 CHIEF RECORDIST PM CHIEF RECORDIST Sherie Zelaya MD LAB BLOOD ORDERABLES Performing Organization Address City/State/ZIP Code Phon e Number [facility] Unless otherwise noted, [address] all lab tests performed by: Division of Pathology and Laboratory Medicine [address] [place] [address] X-ray Chest 1 View (07/25/2021 8:53 PM CHIEF RECORDIST) Anatomical Region Laterality Modality Chest Digital Radiography Specimen (Source) Anatomical Collection Method Collection Time Re ceived Time Location / / Volume Laterality 07/25/2021 9:22 PM CHIEF RECORDIST Impressions 07/25/2021 9:24 PM CHIEF RECORDIST Intact chest with no consolidations or lobar pneumonias. Right IJ line in place with tip the mid superior vena caval level and no complication.. 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 Findings: Shallow inspiration effort otherwise The lungs are clear. There is no pleural effusion or pneumothorax. There is no mediastinal or hilar adenopathy. Cardiac silhouette is normal. Right IJ line in place with tip in the mid superior vena caval level and no pneumothorax or complication. Procedure Note Levi Roper MD - 07/25/2021Formattin g of this note might be different from the original. 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 Findings: Shallow inspiration effort otherwise The lungs are clear. There is no pleural effusion or pneumothorax. There is no mediastinal or hilar adenopathy. Cardiac silhouette is normal. Right IJ line in place with tip in the mid superior vena caval level and no pneumothorax or complication. IMPRESSION: Intact chest with no consolidations or l obar pneumonias. Right IJ line in place with tip the mid superior vena caval level and no complication.. Sherie Zelaya MD IMG DIAGNOSTIC IMAGING ORDER ALBA TMP HIV 1/2 Ag&Ab [facility] (07/25/2021 6:37 PM CHIEF RECORDIST) [facility] gist Method Time Signature HIV 1/2 Ag&Ab Negative for [facility] HIV-1 antigen [facility] and HIV-1/HIV-2 antibodies. No laboratory evidence of HIV infection. If acute HIV infection is suspected, consider testing for HIV-1 RNA. Comment: MD Nasima KHAN [id number] Dictated by: MD Nasima KHAN [id number] Dictated Date/Time: 07.27.2021 9:[address] Transcribed Date/Time: 07.27.2021 9:37 AM CHIEF RECORDIST Electronically Signed By: MD Nasima KHAN [id number] on 07.27.2021 9:37 AM C Specimen Anatomical Collection Method Collection Time Receive d Time (Source) Location / / Volume Laterality Blood 07/25/2021 6:37 PM 6:05 CHIEF RECORDIST PM CHIEF RECORDIST Sherie Zelaya MD LAB BLOOD ORDERABLES Performing Organization Address City/State/ZIP Code Phon e Number [facility] [address] [place] [id number] HIV-1/2 Antigen and Antibodies, Fourth Generation (07/25/2021 6:37 PM CHIEF RECORDIST) Patholo gist Method Time Signature HIV 1/2 Ag & Non Reactive Non Reactive [facility] Ab, 4th Gen [facility] Comment: Performed at: [facility] [address] [place] [id number] Specimen Anatomical Collection Method Collection Time Receive d Time (Source) Location / / Volume Laterality Blood 07/25/2021 6:37 PM 6:05 CHIEF RECORDIST PM CHIEF RECORDIST Sherie Zelaya MD LAB BLOOD ORDERABLES Performing Organization Address City/State/ZIP Code Phon e Number [facility] [address] [place] [id number] aPTT (07/25/2021 4:28 PM CHIEF RECORDIST) P athologist Signature aPTT 29.3 24.7 - 36.8 [facility](s) [facility] Specimen Anatomical Collection Method Collection Time Receive d Time (Source) Location / / Volume Laterality Blood 07/25/2021 4:28 PM 5:18 CHIEF RECORDIST PM CHIEF RECORDIST Salvador Frausto MD LAB BLOOD ORDERABLES Performing Organization Address City/State/ZIP Code Phon e Number [facility] CANCER Unless otherwise noted, [address] all lab tests performed by: Division of Pathology and Laboratory Medicine [address] [place] [address] Prothrombin Time with INR (07/25/2021 4:28 PM CHIEF RECORDIST) P athologist Signature PT 13.1 11.5 - 13.9 [facility](s) [facility] CENTER INR 1.07 0.90 - 1.10 [facility] Specimen Anatomical Collection Method Collection Time Receive d Time (Source) Location / / Volume Laterality Blood 07/25/2021 4:28 PM 5:18 CHIEF RECORDIST PM CHIEF RECORDIST Salvador Frausto MD LAB BLOOD ORDERABLES Performing Organization Address City/State/ZIP Code Phon e Number [facility]ER Unless otherwise noted, [address] all lab tests performed by: Division of Pathology and Laboratory Medicine [address] [place] [address] OSI MRI Pelvis (06/26/2021 11:40 PM CHIEF RECORDIST) Specimen (Source) Anatomical Location Collection Method / Collectio n Time Received Time / Laterality Volume Narrative Systemgenerated, Documentation - 11:40 PM CHIEF RECORDIST Study acquired at another institution. For comparison only. No MD Dominguez originated interpretation requested or a vailable. Tiago Harp MD IMG OUTSIDE IMAGE ORDERABLES OSI CT Chest (06/25/2021 11:40 PM CHIEF RECORDIST) Specimen (Source) Anatomical Location Collection Method / Collectio n Time Received Time / Laterality Volume Narrative Systemgenerated, Documentation - 11:40 PM CHIEF RECORDIST Study acquired at another institution. For comparison only. No MD Dominguez originated interpretation requested or a vailable. Tiago Harp MD IMG OUTSIDE IMAGE ORDERABLES OSI CT Abdomen and Pelvis (06/21/2021 11:40 PM CHIEF RECORDIST) Specimen (Source) Anatomical Location Collection Method / Collectio n Time Received Time / Laterality Volume Narrative Systemgenerated, Documentation - 11:40 PM CHIEF RECORDIST Study acquired at another institution. For comparison only. No MD Dominguez originated interpretation requested or a vailable. Tiago Harp MD IMG OUTSIDE IMAGE ORDERABLES after 03/20/2021 Insurance Payer Benefit Plan / Subscriber ID Effective Phone Address T ype Group Dates ACCESS TPA UNITED [id number] 2021-Pres [phone] [address] Access [facility] ent [address] [facility] [place] [id number] Advance Directives Code Status Date Activated Date Inactivated Comments Full Code 09/28/2021 11:25 PM 10/01/2021 5:55 PM Full Code 07/25/2021 11:35 PM 07/31/2021 9:21 PM
--- OUTSIDE RECORDS SUMMARY | 2022-03-20 13:48 | XMS REPORT | Continuity of Care Document ---
:1970 Author Organization [facility] t Address [address] [place] [address] Care Team Providers Name Role Phone VALDEMAR VANCE Primary Care Physician Unavailable Valdemar Vance Attending Clinician Unavailable SYSTEM, PROVIDER NOT IN Attending Clinician Unavailable Blaine Bermudez MD Attending Clinician LUIS ANGEL ALMONTE Attending Clinician Unavailable BLAINE BERMUDEZ Attending Clinician Unavailable BLAINE BERMUDEZ Attending Clinician Unavailable SAKINA THOMPSON Attending Clinician Unavailable Kellie LEON Attending Clinician Unavailable Kellie Chan Attending Clinician ANUSHA GRIMALDO Attending Clinician Unavailable ANUSHA GRIMALDO Attending Clinician Unavailable MARY RESENDIZ Attending Clinician Unavailable Adenike Attending Clinician Unavailable LAMAR MCKEON Attending Clinician Unavailable KANDIS JESUS Attending Clinician Unavailable NIRALI BARR Attending Clinician Unavailable EMY BARRAZA Attending Clinician Unavailable Emy Barraza MD Attending Clinician Doctor Unassigned, [place] Attending Clinician Unavailable VIRGIL GOMEZ Attending Clinician Unavailable SALOMON VELASQUEZ Attending Clinician Unavailable JOCELINE BRUNSON Attending Clinician Unavailable JUSTUS GODFREY Attending Clinician Unavailable ANTONIETA WILKINS Attending Clinician Unavailable Fidel Ku Attending Clinician ALAINA MCELROY Attending Clinician Unavailable MD VLADIMIR HALL Attending Clinician Unavailable MD ALAINA MCELROY Attending Clinician Unavail able Melody Reyes NP Attending Clinician MELODY REYES Attending Clinician Unavailable Evaristo Last Attending Clinician EVARISTO SIN Attending Clinician Unavailable Maria G Lane Attending Clinician Kellie LEON Admitting Clinician Unavailable ANUSHA GRIMALDO Admitting Clinician Unavailable Patil_S Admitting Clinician Unavailable SUSAN ALBA Admitting Clinician Unavailable EMY ABRRAZA Admitting Clinician Unavailable CORTES RAMAN Admitting Clinician Unavailable FIDEL VACA Admitting Clinician Unavailable VLADIMIR HALL Admitting Clinician Unavailable MD VLADIMIR HALL Admitting Clinician Unavailable Payers Payer Name Policy Type Policy Number Effective Date Expiration Date Mandy redd [facility] EX[facility] [id number] 2021 00:00:00 [facility] [id number] 2021 2021 VALUE + 00:00:00 00:00:00 [facility] [id number] 2021 HEALTHCARE 00:00:00 [facility] [id number] (HMO) [facility] [place] [id number] 2021 HEALTHCARE GENERIC 00:00:00 [facility] [id number] 2021 PPO 00:00:00 [facility] [id number] 2021 2021 NON CONTRACTED 00:00:00 00:00:00 Problems Condition Condition Condition Status Onset Resolution Last Treating Co mments Source Name Details Category Date Date Treatment Clinician Date Rectal Rectal Disease Active [facility] cancer cancer [address] [facility] of 00 Medicin e No known No known Disease Unive rs active active ity of problems problems [facility] Allergies, Adverse Reactions, Alerts Allergy Allergy Status Severity Reaction(s) Onset Inactive Treating Comm ents Source Name Type Date Date Clinician NO KNOWN Allergy Active [facility] NO KNOWN Drug Active [facility] ALLERG Class ity of S [facility] Social History Social Habit Start Date Stop Date Quantity Comments Source History of tobacco Cigarette Smoker [facility] use of Medicine Exposure to 2022-03-02 2022-03-12 Not sure [facility] Jessica SARS-CoV-2 (event) 00:00:00 07:21:00 of Med icine Alcohol intake 2022-03-12 2022-03-12 .86 /d [facility] Col lege 00:00:00 00:00:00 of Medicine Cigarettes smoked 2022-01-10 2022-01-10 [facility] current (pack per 00:00:00 00:00:00 of Medi day) - Reported Cigarette 2022-01-10 2022-01-10 [facility] pack-years 00:00:00 00:00:00 of Medicine Tobacco use and 2022-01-10 2022-01-10 Smokeless tobacco [facility] exposure 00:00:00 00:00:00 non-user of Medicine Tobacco Comment 2022-01-10 2022-01-10 Tried but not [facility] 00:00:00 00:00:00 ready of Medicine Sex [birth year] M [facility] Co llege 00:00:00 00:00:00 of Medicine Smoking Status Start Date Stop Date Source Smokes tobacco daily 2022-01-10 00:00:00 [facility] Unknown if ever smoked [facility] Medications Ordered Filled Start Stop Current Ordering Indication Dosage Frequency Signature Comments Components Source Medication Medication Date Date Medication? Clinician (SIG) Name Name Aspirin 81 Yes 81mg Take 81 mg [facility] tablet 03-12 by mouth Arig e 08:50: daily. of 34 Medicin e losartan Yes 100mg Take 100 [facility] (COZAAR) 8-02 mg by [place] 100 MG 08:50: mouth of tablet 34 daily. Medicin e atorvastati Yes 40mg Take 40 mg [facility] n (LIPITOR) 03-12 by mouth Mi ege 40 MG 08:50: nightly. of tablet 34 Medicin e senna Yes 8.6mg Take 8.6 [facility] (SENOKOT) 8-02 mg by [place] 8.6 MG 08:50: mouth of tablet 34 daily. Medicin e loperamide Yes Every 2 [facility] (IMMODIUM) 8-02 hours as Colle ge 2 MG 00:00: needed for of capsule 00 chemothera Medici n py related e watery diarrhea (max 8 tablets over 24 hours). If diarrhea persisting over 48 hours, notify oncologist . olanzapine Yes Take one [place] [facility] (ZYPREXA) 5 03-12 tablet for Co llege MG tablet 00:00: 5 days of 00 starting Medicin night of e chemo and then as needed at nighttime for nausea ondansetron Yes Take 1 [facility] (ZOFRAN) 8 03-12 tablet by Mi ege mg tablet 00:00: mouth of 00 twice a Medicin day for 2 e days after chemo, and then every 8 hours as needed capecitabin 2021- Yes 1500mg Take 3 [facility] e (XELODA) 8-02 09-02 Tablets by Co llege 500 MG 00:00: 04:59 mouth two of tablet 00 :00 times Medicin daily for e 30 days. Take Friday through Friday on days of radiation therapy diphenoxyla Yes 1{tbl} Take 1 [facility] te-atropine 7-19 Tablet by Col [place] (LOMOTIL) 00:00: mouth 4 of 2.5-0.025 00 times Medicin MG per daily as e tablet needed for Diarrhea. For diarrhea/c ramping. loperamide 2021- No Every 2 [place] [facility] (IMMODIUM) 7-19 08-02 hours as Mi ege 2 MG 00:00: 00:00 needed for of capsule 00 :00 chemothera Medici n py related e watery diarrhea (max 8 tablets over 24 hours). If diarrhea persisting over 48 hours, notify oncologist . Aspirin 81 Yes 81mg Take 81 mg [facility] MG tablet 7-13 by mouth Colleg e 09:35: daily. of 21 Medicin e losartan Yes 100mg Take 100 [facility] (COZAAR) 7-13 mg by College 100 MG 09:35: mouth of tablet 21 daily. Medicin e atorvastati 2021-0 Yes 40mg Take 40 mg [facility] n (LIPITOR) 7-13 by mouth Mi ege 40 MG 09:35: nightly. of tablet 21 Medicin e senna 2021-0 Yes 8.6mg Take 8.6 [facility] (SENOKOT) 7-13 mg by College 8.6 MG 09:35: mouth of tablet 21 daily. Medicin e Tamsulosin 2021-0 Yes .4mg Take 0.4 [place] [facility] HCl 7-13 mg by [place] (FLOMAX) 00:00: mouth of 0.4 MG CAPS 00 daily. Medici n e solifenacin 2021-0 Yes 10mg Take 1 [facility] (VESICARE) 7-13 Tablet by Mi ege 10 MG 00:00: mouth of tablet 00 daily. Medicin e Tamsulosin 2021-0 Yes .4mg Take 0.4 [place] [facility] HCl 7-13 mg by [place] (FLOMAX) 00:00: mouth of 0.4 MG CAPS 00 daily. Medici n e solifenacin 2021-0 Yes 10mg Take 1 [facility] (VESICARE) 7-13 Tablet by Mi ege 10 MG 00:00: mouth of tablet 00 daily. Medicin e meloxicam 2021-0 2021- No 15mg Take 1 [facility] (MOBIC) 15 7-13 08-02 Tablet by Col lege MG tablet 00:00: 00:00 mouth of 00 :00 daily. Medicin e Aspirin 81 2021-0 Yes 81mg Take 81 mg [facility] MG tablet 7-05 by mouth Colleg e 08:19: daily. of 22 Medicin e losartan 2021-0 Yes 100mg Take 100 [facility] (COZAAR) 7-05 mg by [place] 100 MG 08:19: mouth of tablet 22 daily. Medicin e atorvastati 2021-0 Yes 40mg Take 40 mg [facility] n (LIPITOR) 7-05 by mouth Mi ege 40 MG 08:19: nightly. of tablet 22 Medicin e senna 2021-0 Yes 8.6mg Take 8.6 [facility] (SENOKOT) 7-05 mg by [place] 8.6 MG 08:19: mouth of tablet 22 daily. Medicin e Pegfilgrast 2021-0 Yes Inject on [facility] im of [place] () 00:00: pump of 6 MG/0.6ML 00 disconnect Med icin Syringe . e loperamide 2021-0 Yes Every 2 [facility] (IMMODIUM) 7-05 hours as Colle ge 2 MG 00:00: needed for of capsule 00 chemothera Medici n py related e watery diarrhea (max 8 tablets over 24 hours). If diarrhea persisting over 48 hours, notify oncologist . Pegfilgrast 2021-0 Yes Inject on [facility] im [place] () 00:00: pump of 6 MG/0.6ML 00 disconnect Med icin Syringe . e loperamide 2021-0 Yes Every 2 [facility] (IMMODIUM) -05 hours as Colle ge 2 MG 00:00: needed for of capsule 00 chemothera Medici n py related e watery diarrhea (max 8 tablets over 24 hours). If diarrhea persisting over 48 hours, notify oncologist . Pegfilgrast 2021-0 Yes Inject on [facility] im [place] ([facility]) 00:00: pump of 6 MG/0.6ML 00 disconnect Med icin Syringe . e amlodipine 2021-0 2021- No 10mg Take 10 mg [facility] (NORVASC) 6- 06-07 by mouth Colle ge 10 MG 16:36: 00:00 nightly. of tablet 06 :00 Medicin e Aspirin 81 2021-0 Yes 81mg Take 81 mg [facility] MG tablet 6-07 by mouth Colleg e 08:13: daily. of 46 Medicin e losartan 2021-0 Yes 100mg Take 100 [facility] (COZAAR) 6-07 mg by [place] 100 MG 08:13: mouth of tablet 46 daily. Medicin e atorvastati 2021-0 Yes 40mg Take 40 mg [facility] n (LIPITOR) 6-07 by mouth Mi ege 40 MG 08:13: nightly. of tablet 46 Medicin e senna 2021-0 Yes 8.6mg Take 8.6 [facility] (SENOKOT) 6-07 mg by College 8.6 MG 08:13: mouth of tablet 46 daily. Medicin e Aspirin 81 2021-0 Yes 81mg Take 81 mg [facility] MG tablet 6-07 by mouth Colleg e 08:13: daily. of 46 Medicin e losartan 0 Yes 100mg Take 100 [facility] (COZAAR) 6-07 mg by [place] 100 MG 08:13: mouth of tablet 46 daily. Medicin e atorvastati 2021-0 Yes 40mg Take 40 mg [facility] n (LIPITOR) 6-07 by mouth Mi ege 40 MG 08:13: nightly. of tablet 46 Medicin e senna 0 Yes 8.6mg Take 8.6 [facility] (SENOKOT) 6-07 mg by [place] 8.6 MG 08:13: mouth of tablet 46 daily. Medicin e Morphine 2021-0 Yes 1{tbl} Take 1 [facility] Sulfate ER 6-07 Tablet by Mi ege 30 MG T12A 00:00: mouth two of 00 times Medicin daily. e morphine 2021-0 Yes 15mg Take 1 [facility] (MS IR) 15 6-07 Tablet by Mi ege MG tablet 00:00: mouth of 00 every 6 Medicin hours as e needed. Morphine 2021-0 Yes 1{tbl} Take 1 [facility] Sulfate ER 6-07 Tablet by Mi ege 30 MG T12A 00:00: mouth two of 00 times Medicin daily. e morphine 2021-0 Yes 15mg Take 1 [facility] (MS IR) 15 6-07 Tablet by Mi ege MG tablet 00:00: mouth of 00 every 6 Medicin hours as e needed. Morphine 2021-0 Yes 1{tbl} Take 1 [facility] Sulfate ER 6-07 Tablet by Mi ege 30 MG T12A 00:00: mouth two of 00 times Medicin daily. e morphine 2022-0 Yes 15mg Take 1 [facility] (MS IR) 15 6-07 Tablet by Mi ege MG tablet 00:00: mouth of 00 every 6 Medicin hours as e needed. Morphine 2021-0 Yes 1{tbl} Take 1 [facility] Sulfate ER 6-07 Tablet by Mi ege 30 MG T12A 00:00: mouth two of 00 times Medicin daily. e morphine 2022-0 Yes 15mg Take 1 [facility] (MS IR) 15 6-07 Tablet by Mi ege MG tablet 00:00: mouth of 00 every 6 Medicin hours as e needed. Morphine Yes 1{tbl} Take 1 [facility] Sulfate ER - Tablet by Mi ege 30 MG T12A 00:00: mouth two of 00 times Medicin daily. e morphine Yes 15mg Take 1 [facility] (MS IR) 15 - Tablet by Mi ege MG tablet 00:00: mouth of 00 every 6 Medicin hours as e needed. amlodipine 2021- Yes [id number] 5mg Take 1 [facility] (NORVASC) 5 01-15 Tablet by Co llege MG tablet 00:00: 04:59 mouth of 00 :00 daily for Medicin 90 days. e amlodipine 2021- Yes [id number] 5mg Take 1 [facility] (NORVASC) 5 01-15 Tablet by Co llege MG tablet 00:00: 04:59 mouth of 00 :00 daily for Medicin 90 days. e amlodipine 2021- Yes [id number] 5mg Take 1 [facility] (NORVASC) 5 01-15 Tablet by Co llege MG tablet 00:00: 04:59 mouth of 00 :00 daily for Medicin 90 days. e amlodipine 2021- Yes [id number] 5mg Take 1 [facility] (NORVASC) 5 01-15 Tablet by Co llege MG tablet 00:00: 04:59 mouth of 00 :00 daily for Medicin 90 days. e amlodipine 2021- Yes [id number] 5mg Take 1 [facility] (NORVASC) 5 01-15 Tablet by Co llege MG tablet 00:00: 04:59 mouth of 00 :00 daily for Medicin 90 days. e amlodipine Yes 10mg Take 10 mg [facility] (NORVASC) 01-10 by mouth Colleg e 10 MG 09:18: nightly. of tablet 36 Medicin e Aspirin 81 Yes 81mg Take 81 mg [facility] MG tablet 01-10 by mouth Colleg e 09:18: daily. of 36 Medicin e losartan Yes 100mg Take 100 [facility] (COZAAR) 01-10 mg by [place] 100 MG 09:18: mouth of tablet 36 daily. Medicin e atorvastati 2021-0 Yes 40mg Take 40 mg [facility] n (LIPITOR) 6-02 by mouth Mi ege 40 MG 09:18: nightly. of tablet 36 Medicin e senna 2021-0 Yes 8.6mg Take 8.6 [facility] (SENOKOT) 6-02 mg by [place] 8.6 MG 09:18: mouth of tablet 36 daily. Medicin e meloxicam 2021-0 Yes [id number] 15mg Take 1 [facility] (MOBIC) 15 6-02 Tablet by Mi ege MG tablet 00:00: mouth of 00 daily. Medicin e meloxicam 2021-0 Yes [id number] 15mg Take 1 [facility] (MOBIC) 15 6-02 Tablet by Mi ege MG tablet 00:00: mouth of 00 daily. Medicin e meloxicam 2021-0 Yes [id number] 15mg Take 1 [facility] (MOBIC) 15 6-02 Tablet by Mi ege MG tablet 00:00: mouth of 00 daily. Medicin e meloxicam 2021-0 Yes [id number] 15mg Take 1 [facility] (MOBIC) 15 6-02 Tablet by Mi ege MG tablet 00:00: mouth of 00 daily. Medicin e meloxicam 2021-0 Yes [id number] 15mg Take 1 [facility] (MOBIC) 15 6-02 Tablet by Mi ege MG tablet 00:00: mouth of 00 daily. Medicin e ibuprofen 2021-0 2021- No 600mg 600 mg, Uni vers (IBU) 01-08 Oral, ity of tablet 600 23:00: 23:00 ONCE, 1 [place] as mg 00 :00 dose, On Medical Tue Branch 01/08/22 at 1800, [facility] ibuprofen 2021-0 Yes [id number] 600mg Take 1 [facility] 600 mg 01-08 [id number] tablet by ity of tablet 00:00: mouth [place] 00 every 6 Medical (six) Branch hours as needed for Pain (scale 4-6). ciprofloxac 2021-0 Yes 500mg Take 1 [place] [facility] in (CIPRO) 5-10 Tablet by Mi ege 500 MG 00:00: mouth two of tablet 00 times Medicin daily. e ciprofloxac 2021-0 Yes 500mg Take 1 [place] [facility] in (CIPRO) 5-10 Tablet by Mi ege 500 MG 00:00: mouth two of tablet 00 times Medicin daily. e ciprofloxac 2-0 Yes 500mg Take 1 [place] [facility] in (CIPRO) 5-10 Tablet by Mi ege 500 MG 00:00: mouth two of tablet 00 times Medicin daily. e ciprofloxac 2-0 Yes 500mg Take 1 [place] [facility] in (CIPRO) 5-10 Tablet by Mi ege 500 MG 00:00: mouth two of tablet 00 times Medicin daily. e ciprofloxac 2021-0 Yes 500mg Take 1 [place] [facility] in (CIPRO) 5-10 Tablet by Mi ege 500 MG 00:00: mouth two of tablet 00 times Medicin daily. e ciprofloxac 2021-0 2022- No 500mg Take 1 [facility] (CIPRO) 5-10 -02 Tablet by Col lege 500 MG 00:00: 00:00 mouth two of tablet 00 :00 times Medicin daily. e Morphine 2021-0 2021- No 1{tbl} Take 1 [facility] Sulfate ER 4-28 -02 Tablet by Col lege 30 MG TBCR 00:00: 00:00 mouth of 00 :00 every 12 Medicin hours. For e cancer pain ondansetron 0 Yes Take 1 [facility] (ZOFRAN) 8 4-22 tablet by Mi ege mg tablet 00:00: mouth of 00 twice a Medicin day for 2 e days after chemo, and then every 8 hours as needed olanzapine 0 Yes Take half [facility] (ZYPREXA) 5 4-22 a tablet Mi ege MG tablet 00:00: by mouth of 00 twice Medicin daily for e nausea as needed. Magic 0 Yes Swish [facility] Mouthwash 4-22 thoroughly Mi ege 00:00: , gargle, of 00 and spit Medicin one e teaspoonfu l (5 mL) after meals and before bed. Shake well before using. lidocaine-p Yes Apply [facility] rilocaine -22 pea-sized Colle ge (EMLA) 00:00: amount of 2.5-2.5 % 00 over PORT Medic in cream about 30 e minutes before access to numb area. ondansetron 2021-0 Yes Take 1 [facility] (ZOFRAN) 8 4-22 tablet by Mi ege mg tablet 00:00: mouth of 00 twice a Medicin day for 2 e days after chemo, and then every 8 hours as needed olanzapine 2021-0 Yes Take half [facility] (ZYPREXA) 5 4-22 a tablet Mi ege MG tablet 00:00: by mouth of 00 twice Medicin daily for e nausea as needed. Magic 2021-0 Yes Swish [facility] Mouthwash 4-22 thoroughly Mi ege 00:00: , gargle, of 00 and spit Medicin one e teaspoonfu l (5 mL) after meals and before bed. Shake well before using. lidocaine-p 2021-0 Yes Apply [facility] rilocaine 4-22 pea-sized Colle ge (EMLA) 00:00: amount of 2.5-2.5 % 00 over PORT Medic in cream about 30 e minutes before access to numb area. ondansetron Yes Take 1 [facility] (ZOFRAN) 8 4-22 tablet by Mi ege mg tablet 00:00: mouth of 00 twice a Medicin day for 2 e days after chemo, and then every 8 hours as needed olanzapine 2021-0 Yes Take half [facility] (ZYPREXA) 5 4-22 a tablet Mi ege MG tablet 00:00: by mouth of 00 twice Medicin daily for e nausea as needed. Magic 2021-0 Yes Swish [facility] Mouthwash 4-22 thoroughly Mi ege 00:00: , gargle, of 00 and spit Medicin one e teaspoonfu l (5 mL) after meals and before bed. Shake well before using. lidocaine-p 2021-0 Yes Apply [facility] rilocaine 4-22 pea-sized Colle ge (EMLA) 00:00: amount of 2.5-2.5 % 00 over PORT Medic in cream about 30 e minutes before access to numb area. Magic 2021-0 Yes Swish [facility] Mouthwash 4-22 thoroughly Mi ege 00:00: , gargle, of 00 and spit Medicin one e teaspoonfu l (5 mL) after meals and before bed. Shake well before using. lidocaine-p 2021-0 Yes Apply [facility] rilocaine 4-22 pea-sized Colle ge (EMLA) 00:00: amount of 2.5-2.5 % 00 over PORT Medic in cream about 30 e minutes before access to numb area. morphine 2021-0 Yes 15mg Take 1 [facility] (MS IR) 15 4-22 Tablet by Mi ege MG tablet 00:00: mouth of 00 every 6 Medicin hours as e needed. ondansetron 0 Yes Take 1 [facility] (ZOFRAN) 8 4-22 tablet by Mi ege mg tablet 00:00: mouth of 00 twice a Medicin day for 2 e days after chemo, and then every 8 hours as needed olanzapine 2021-0 Yes Take half [facility] (ZYPREXA) 5 4-22 a tablet Mi ege MG tablet 00:00: by mouth of 00 twice Medicin daily for e nausea as needed. Magic 0 Yes Swish [facility] Mouthwash 4-22 thoroughly Mi ege 00:00: , gargle, of 00 and spit Medicin one e teaspoonfu l (5 mL) after meals and before bed. Shake well before using. lidocaine-p 2021-0 Yes Apply [facility] rilocaine 4-22 pea-sized Colle ge (EMLA) 00:00: amount of 2.5-2.5 % 00 over PORT Medic in cream about 30 e minutes before access to numb area. ondansetron Yes Take 1 [facility] (ZOFRAN) 8 4-22 tablet by Mi ege mg tablet 00:00: mouth of 00 twice a Medicin day for 2 e days after chemo, and then every 8 hours as needed olanzapine 2021-0 Yes Take half [facility] (ZYPREXA) 5 4-22 a tablet Mi ege MG tablet 00:00: by mouth of 00 twice Medicin daily for e nausea as needed. Magic 2021-0 Yes Swish [facility] Mouthwash 4-22 thoroughly Mi ege 00:00: , gargle, of 00 and spit Medicin one e teaspoonfu l (5 mL) after meals and before bed. Shake well before using. lidocaine-p 2022-0 Yes Apply [facility] rilocaine 11-30 pea-sized Colle ge (EMLA) 00:00: amount of 2.5-2.5 % 00 over PORT Medic in cream about 30 e minutes before access to numb area. ondansetron 2021- No Take 1 [place] [facility] (ZOFRAN) 8 11-30 tablet by Col lege mg tablet 00:00: 00:00 mouth of 00 :00 twice a Medicin day for 2 e days after chemo, and then every 8 hours as needed olanzapine 2021- No Take half [facility] (ZYPREXA) 5 11-3002 a tablet Col lege MG tablet 00:00: 00:00 by mouth of 00 :00 twice Medicin daily for e nausea as needed. morphine 2021- No 15mg Take 1 [facility] (MS IR) 15 [id number] Tablet by Col lege MG tablet 00:00: 00:00 mouth of 00 :00 every 6 Medicin hours as e needed. iopamidol 2021- No [id number] 120mL 120 mL, Univers (ISOVUE 2-25 09-15 Intravenou ity o f 370-500 mL) 11:00: 09:44 s, ONCE, 1 [place] injection 00 :00 dose, On Medica l 120 mL Fri09/25/21 at 0500, Routine FENTanyl PF 2021- No 100ug 100 mcg, Univers (SUBLIMAZE 2-15 Slow IV ity o f (PF)) 10:55: 10:58 Push, [place] injection 00 :00 ONCE, 1 Medical 100 mcg dose, On Fri09/25/21 at 0500, [facility] FENTanyl PF 2021- No 100ug 100 mcg, [facility] (SUBLIMAZE 2-25 09-15 Slow IV ity o f (PF)) 09:45: 09:06 Push, [place] injection 00 :00 ONCE, 1 Medical 100 mcg dose, On Fri09/25/21 at 0345, Routine ondansetron 2021- No 4mg 4 mg, Slow [facility] (ZOFRAN 09-25-15 IV Push, ity of (PF)) 09:45: 09:07 ONCE, 1 [place] injection 4 00 :00 dose, On Medi leticia mg Tue Branch 09/25/21 at 0345, [facility] iopamidol 2020-08- No [id number] 100mL 100 mL, Univers (ISOVUE 09-18 Intravenou ity o f 370-500 mL) 00:30: 23:20 s, ONCE, 1 [place] injection 00 :00 dose, On Medica l 100 mL Fri Branch 07/17/21 at 1830, Routine NaCl 0.9% 2020-08- No 1000mL at 999 Uni vers (NS) bolus 09-18 mL/hr, ity of infusion 00:00: 02:16 1,000 mL, [facility] as 1,000 mL 00 :00 IV Medical Infusion, Branch ONCE, 1 dose, On Fri07/17/21 at 1800, STAT acetaminoph 2020-08 Yes [id number] 1{tbl} Take 1 [facility] en-codeine 2-07 tablet by ity of (TYLENOL-CO 00:00: mouth [place] DEINE #3) 00 every 6 Medical 300-30 mg (six) Branch tablet hours as needed for Pain (scale 7-10). Indication s: acute pain polyethylen 2020-08 Yes [id number] 17g Take 17 g Univers e glycol 2-07 by mouth 2 ity o f 3350 00:00: (two) [place] (MIRALAX) 00 times Medical 17 daily. Branch gram/dose powder acetaminoph 2020-08 Yes [id number] 1{tbl} Take 1 [facility] en-codeine 2-07 tablet by ity of (TYLENOL-CO 00:00: mouth [place] DEINE #3) 00 every 6 Medical 300-30 mg (six) Branch tablet hours as needed for Pain (scale 7-10). Indication s: acute pain polyethylen 2020-08 Yes [id number] 17g Take 17 g Univers e glycol 2-07 by mouth 2 ity o f 3350 00:00: (two) [place] (MIRALAX) 00 times Medical 17 daily. Branch gram/dose powder acetaminoph 2020-08 Yes [id number] 1{tbl} Take 1 [facility] en-codeine 2-07 tablet by ity of (TYLENOL-CO 00:00: mouth [place] DEINE #3) 00 every 6 Medical 300-30 mg (six) Branch tablet hours as needed for Pain (scale 7-10). Indication s: acute pain polyethylen 2020- Yes [id number] 17g Take 17 g Univers e glycol 2-07 by mouth 2 ity o f 3350 00:00: (two) [place] (MIRALAX) 00 times Medical 17 daily. Branch gram/dose powder acetaminoph 2020-08 Yes [id number] 1{tbl} Take 1 [facility] en-codeine 2-07 tablet by ity of (TYLENOL-CO 00:00: mouth [place] DEINE #3) 00 every 6 Medical 300-30 mg (six) Branch tablet hours as needed for Pain (scale 7-10). Indication s: acute pain polyethylen 2020-08 Yes [id number] 17g Take 17 g Univers e glycol 2-07 by mouth 2 ity o f 3350 00:00: (two) [place] (MIRALAX) 00 times Medical 17 daily. Branch gram/dose powder polyethylen 2020-08 Yes 17g Take 17 g [facility] glycol 2-07 by [facility] (GLYCOLAX) 00:00: as needed. o f 17 GM/SCOOP 00 Medicin powder e polyethylen 2020-08 Yes 17g Take 17 g [facility] glycol 2-07 by [facility] (GLYCOLAX) 00:00: as needed. o f 17 GM/SCOOP 00 Medicin powder e polyethylen 2020- Yes 17g Take 17 g [facility] e glycol 2-07 by [facility] (GLYCOLAX) 00:00: as needed. o f 17 GM/SCOOP 00 Medicin powder e polyethylen 2020-08 Yes 17g Take 17 g [facility] glycol 2-07 by [facility] (GLYCOLAX) 00:00: as needed. o f 17 GM/SCOOP 00 Medicin powder e polyethylen 2020- Yes 17g Take 17 g [facility] glycol 2-07 by [facility] (GLYCOLAX) 00:00: as needed. o f 17 GM/SCOOP 00 Medicin powder e polyethylen 2020- Yes 17g Take 17 g [facility] glycol 2-07 by [facility] (GLYCOLAX) 00:00: as needed. o f 17 GM/SCOOP 00 Medicin powder e sucralfate 2020- No [id number] 1g Take 1 U nivers 1 gram 7-15 07-30 tablet by ity of tablet 00:00: 04:59 mouth 2 [place] 00 :00 (two) Medical times [place] daily for 14 days. fluconazole Yes 150mg 150 mg, Un breezy (DIFLUCAN) 6-16 Oral, ity of tablet 150 14:00: DAILY, [place] mg 00 First dose Medical on Fri Branch 01/24/21 at 0900, Until Discontinu ed, [facility]ES[facility]
Re ason for Anti-Infec tive: Documented Infection< br>Documen linsey Infection Site: Urine
D uration of Therapy: 7 days ciprofloxac 2020- No 500mg 500 mg, U nivers in HCl 6 06-15 Oral, ONCE ity of (CIPRO) 19:30: 18:43 NOW, 1 [place] tablet 500 00 :00 dose, Tue Medi leticia mg 01/23/21 at Branch 1430, TERESA
Re ason for Anti-Infec tive: Empiric Therapy for Suspected Infection< br>Empiric Therapy Site: Pelvic
Duration of therapy: 72 hours lisinopriL Yes [id number] 10mg Take 1 Univers 10 mg 6-15 tablet by ity of tablet 00:00: mouth at [place] [address] bedtime. [facility] lisinopriL Yes [id number] 10mg Take 1 Univers 10 mg 6-15 tablet by ity of tablet 00:00: mouth at [place] [address] bedtime. [facility] lisinopriL 0 Yes [id number] 10mg Take 1 Univers 10 mg 6-15 tablet by ity of tablet 00:00: mouth at [place] [address] bedtime. [facility] lisinopriL 0 Yes [id number] 10mg Take 1 Univers 10 mg 6-15 tablet by ity of tablet 00:00: mouth at [place] [address] bedtime. [facility] lisinopriL Yes [id number] 10mg Take 1 Univers 10 mg 6-15 tablet by ity of tablet 00:00: mouth at [place] [address] bedtime. [facility] lisinopriL Yes [id number] 10mg Take 1 Univers 10 mg 6-15 tablet by ity of tablet 00:00: mouth at [place] 00 bedtime. Medical Branch lisinopriL Yes [id number] 10mg Take 1 Univers 10 mg 6-15 tablet by ity of tablet 00:00: mouth at [place] 00 bedtime. Medical Branch ciprofloxac 2020- No [id number] 500mg Take 1 Univers in HCl 500 6-15 07-16 tablet by ity of mg tablet 00:00: 04:[place] (two[place] Medical times Branch daily for 30 days. ciprofloxac 2020- No [id number] 500mg Take 1 Univers in HCl 500 6-15 07-16 tablet by ity of mg tablet 00:00[place] 04:[place] ([place] Medical times Branch daily for 30 days. Vital Signs Vital Name Observation Time Observation Value Comments Source Systolic blood 2022-03-12 13:43:00 101 mm[Hg] [facility] pressure Medicine Diastolic blood 2022-03-12 13:43:00 67 mm[Hg] [facility] Medicine Heart rate 2022-03-12 13:43:00 68 /min [facility] Body height 2022-03-12 13:43:00 [facility]8 [facility] Body weight 2022-03-12 13:43:00 79.379 [facility] BMI 2022-03-12 13:43:00 25.11 [facility]m2 [facility] Systolic blood 2022-02-20 14:33:00 102 mm[Hg] [facility] pressure Medicine Diastolic blood 2022-02-20 14:33:00 71 mm[Hg] [facility] Medicine Heart rate 2022-02-20 14:33:00 114 /min [facility] Body height 2022-02-20 14:33:00 177.8 cm [facility] ollege of Medicine Body weight 2022-02-20 14:33:00 79.379 kg [facility] BMI 2022-02-20 14:33:00 25.11 kg/m2 [facility] ollege of Medicine Systolic blood 2022-02-12 13:17:00 96 mm[Hg] [facility] pressure Medicine Diastolic blood 2022-02-12 13:17:00 67 mm[Hg] [facility] pressure Medicine Heart rate 2022-02-12 13:17:00 82 /min [facility] ollege of Medicine Body temperature 2022-02-12 13:17:00 37.06 [facility] Body height 2022-02-12 13:17:00 177.8 cm [facility] ollege of Medicine Body weight 2022-02-12 13:17:00 82.101 kg [facility] ollege of Medicine BMI 2022-02-12 13:17:00 25.97 kg/m2 [facility] ollege of Medicine Body height 2022-01-15 13:13:00 177.8 cm [facility] ollege of Medicine Body weight 2022-01-15 13:13:00 82.555 kg [facility] ollege of Medicine BMI 2022-01-15 13:13:00 26.11 kg/m2 [facility] ollege of Medicine Systolic blood 2022-01-15 13:13:00 102 mm[Hg] [facility] pressure Medicine Diastolic blood 2022-01-15 13:13:00 75 mm[Hg] [facility] pressure Medicine Heart rate 2022-01-15 13:13:00 63 /min [facility] Body temperature 2022-01-15 13:13:00 36.67 [facility] Systolic blood 2022-01-10 14:16:00 114 mm[Hg] [facility] Medicine Diastolic blood 2022-01-10 14:16:00 75 mm[Hg] [facility] Medicine Heart rate 2022-01-10 14:16:00 92 /min [facility] Body temperature 2022-01-10 14:16:00 36.78 [facility] Respiratory rate 2022-01-10 14:16:00 18 /min [facility] Body height 2022-01-10 14:16:00 177.8 cm [facility] ollege of Medicine Body weight 2022-01-10 14:16:00 85.73 kg [facility] ollege of Medicine BMI 2022-01-10 14:16:00 27.12 kg/m2 [facility] Systolic blood 2022-01-09 00:45:00 116 mm[Hg] Univer sity of pressure [place] [facility] Diastolic blood 2022-01-09 00:45:00 80 mm[Hg] Unive rsity of pressure [place] [facility] Heart rate 2022-01-09 00:45:00 72 /min [facility]i ty [facility] [place] [facility] Respiratory rate 2022-01-09 00:45:00 17 /min Univ ersity of [facility] Oxygen saturation in 2022-01-09 00:45:00 100 /min University of Arterial blood by [place] [employer] leticia Pulse oximetry Branch Body temperature 2022-01-08 21:50:00 37.28 Andria Univ ersity of [place] [facility] Body height 2022-01-08 21:50:00 177.8 cm [facility]i ty [facility] [place] [facility] Body weight 2022-01-08 21:50:00 88.451 kg [facility] [place] [facility] BMI 2022-01-08 21:50:00 27.98 kg/m2 [facility] [place] [facility] HEIGHT 2021-12-03 08:41:00 177.8 cm WEIGHT 2021-12-03 08:41:00 81.557 kg HEIGHT 2021-11-30 08:43:00 177.8 cm WEIGHT 2021-11-30 08:43:00 83.915 kg Systolic blood 2021-09-25 11:48:00 131 mm[Hg] Univer sity of pressure [place] [facility] Diastolic blood 2021-09-25 11:48:00 99 mm[Hg] Unive rsity of pressure [place] [facility] Heart rate 2021-09-25 11:48:00 96 /min [facility] [place] [facility] Oxygen saturation in 2021-09-25 11:48:00 96 /min University of Arterial blood by [place] [employer] leticia Pulse oximetry Branch Body temperature 2021-09-25 08:26:00 37 Andria Univ ers[facility] [place] [facility] Respiratory rate 2021-09-25 08:26:00 20 /min Univ ers[facility] [place] [facility] Body height 2021-09-25 08:26:00 177.8 cm [facility] [place] [facility] Body weight 2021-09-25 08:26:00 88.451 kg [facility] [place] [facility] BMI 2021-09-25 08:26:00 27.98 kg/m2 [facility] [place] [facility] Systolic blood 2021-07-18 02:07:00 138 mm[Hg] Univer sity of pressure [place] [facility] Diastolic blood 2021-07-18 02:07:00 99 mm[Hg] Unive rsity of pressure [place] [facility] Heart rate 2021-07-18 02:07:00 79 /min [facility] [place] [facility] Body temperature 2021-07-18 02:07:00 36.89 Andria [facility] [place] [facility] Respiratory rate 2021-07-18 02:07:00 18 /min Univ ersity [facility] [place] [facility] Oxygen saturation in 2021-07-18 02:07:00 96 /min University of Arterial blood by [employer] Branch Body weight 2021-07-17 20:43:00 99.791 kg [facility] [place] [facility] BMI 2021-07-17 20:43:00 31.57 kg/m2 [facility] [place] [facility] Systolic blood 2021-05-07 22:03:00 135 mm[Hg] Univer sity of pressure [place] [facility] Diastolic blood 2021-05-07 22:03:00 98 mm[Hg] Unive rsity of pressure [place] [facility] Heart rate 2021-05-07 22:03:00 102 /min [facility] [place] [facility] Body temperature 2021-05-07 22:03:00 37.06 Andria [facility] [place] [facility] Respiratory rate 2021-05-07 22:03:00 16 /min Univ ers[facility] [place] [facility] Body height 2021-05-07 22:03:00 177.8 cm [facility] [place] [facility] Body weight 2021-05-07 22:03:00 100.699 kg [facility] [place] [facility] BMI 2021-05-07 22:03:00 31.85 kg/m2 [facility] [place] [facility] Oxygen saturation in 2021-05-07 22:03:00 96 /min University of Arterial blood by [employer] leticia Pulse oximetry Branch Systolic blood 2021-02-22 23:08:00 142 mm[Hg] Univer sity of pressure [facility] Diastolic blood 2021-02-22 23:08:00 85 mm[Hg] Unive rsity of pressure [facility] Heart rate 2021-02-22 23:08:00 102 /min Universi ty of [facility] Body temperature 2021-02-22 23:08:00 37.44 Andria Univ ersity of [facility] Respiratory rate 2021-02-22 23:08:00 18 /min Univ ersity of [facility] Body weight 2021-02-22 23:08:00 102.059 kg Universi ty of [facility] Oxygen saturation in 2021-02-22 23:08:00 97 /min University of Arterial blood by [facility] leticia Pulse oximetry Branch Systolic blood 2021-01-23 19:10:00 180 mm[Hg] Univer sity of pressure [facility] Diastolic blood 2021-01-23 19:10:00 128 mm[Hg] Unive rsity of [facility] Heart rate 2021-01-23 19:10:00 76 /min Universi ty of [facility] Respiratory rate 2021-01-23 19:10:00 17 /min Univ ersity of [facility] Oxygen saturation in 2021-01-23 19:10:00 96 /min University of Arterial blood by [place] [employer] leticia Pulse oximetry Branch Body temperature 2021-01-23 14:58:00 37.11 Andria Univ ersity of [facility] Body weight 2021-01-23 14:58:00 102.377 kg Universi ty of [facility] Procedures Procedure Date / Time Performing Clinician Source Performed COMPREHENSIVE METABOLIC 2022-03-12 07:09:00 [facility] PANEL Medicine CEA 2022-03-12 07:09:00 [facility] CBC W/AUTO DIFF WITH 2022-03-12 07:09:00 [facility] PLATELETS Medicine CBC W ABSOLUTE NEUTROPHIL 2022-03-12 06:22:00 [facility] COMPREHENSIVE METABOLIC 2022-02-26 07:27:00 [facility] PANEL Medicine CEA 2022-02-26 07:27:00 [facility] CBC W/AUTO DIFF WITH 2022-02-26 07:27:00 [facility] CBC W ABSOLUTE NEUTROPHIL 2022-02-26 06:43:20 [facility] CULTURE, AEROBIC 2022-02-20 10:57:27 [facility] POCT URINALYSIS DIPSTICK 2022-02-20 00:00:00 [facility] RONALD,POST-VOID 2022-02-20 00:00:00 [facility]NON-IMG Medicine POCT URINALYSIS DIPSTICK 2022-02-20 00:00:00 Luis Angel Almonte [facility] RONALD,POST-VOID 2022-02-20 00:00:00 Luis Angel Almonte [facility]NON-IMG Medicine AMB REF TO PULM GENERAL 2022-02-12 10:30:50 [facility] AMB REF TO ONCOLOGY 2022-02-12 08:38:29 [facility] aaron TRIM MOUNTER [facility] CBC W ABSOLUTE NEUTROPHIL 2022-02-12 06:35:55 [facility] COMPREHENSIVE METABOLIC 2022-02-12 06:35:55 [facility] PANEL [facility] CEA 2022-02-12 06:35:55 [facility] Medicine CBC W ABSOLUTE NEUTROPHIL 2022-01-29 06:16:02 [facility] COMPREHENSIVE METABOLIC 2022-01-29 06:16:02 [facility] PANEL [facility] CEA 2022-01-29 06:16:02 [facility] METABOLIC 2022-01-15 07:47:00 [facility] PANEL [facility] CEA 2022-01-15 06:35:56 [facility] Medicine CBC W ABSOLUTE NEUTROPHIL 2022-01-15 06:35:55 [facility] CULTURE, AEROBIC 2022-01-10 10:02:05 [facility] CULTURE, 2022-01-10 10:01:53 [facility] of URINE/SENSITIVITY ON ALL Medicin e US DUPLEX VENOUS ARM 2022-01-09 00:40:00 Kellie Leon [facility] RIGHT - BY VASCULAR LAB Medical Branch CONSENT/REFUSAL FOR 2022-01-08 21:38:39 Doctor Unassigned, [facility] [place] DIAGNOSIS AND TREATMENT [facility] COMPREHENSIVE METABOLIC 2022-01-02 07:20:00 [facility] PANEL Medicine CEA 2022-01-02 07:20:00 [facility] CBC W/AUTO DIFF WITH 2022-01-02 07:20:00 [facility] PLATELETS Medicine CBC W ABSOLUTE NEUTROPHIL 2022-01-02 06:27:58 [facility] TREATMENT CONDITIONS PUMP 2021-12-20 08:35:28 [facility] URINALYSIS W REFLEX MICRO 2021-12-18 12:30:00 [facility] COMPREHENSIVE METABOLIC 2021-12-18 07:17:00 [facility] PANEL Medicine CEA 2021-12-18 07:17:00 [facility] CBC W/AUTO DIFF WITH 2021-12-18 07:17:00 [facility] PLATELETS [facility] CBC W ABSOLUTE NEUTROPHIL 2021-12-18 06:34:[address] [facility] [address] ABDOMEN PELVIS W 2021-09-25 09:58:00 Emy Barraza [facility] CONTRAST [facility] Branch COMP. METABOLIC PANEL 2021-09-25 09:03:00 Emy Barraza [facility] ([id number]) [facility] Branch CBC WITH DIFF 2021-09-25 09:03:00 Emy Barraza [place] [facility] PROTHROMBIN TIME / INR 2021-09-25 09:03:00 Emy Barraza [facility] ACTIVATED PARTIAL 2021-09-25 09:03:00 Emy Barraza [facility]REFUSAL FOR 2021-09-25 08:12:44 [facility] DIAGNOSIS AND TREATMENT [facility] CT ABDOMEN PELVIS W 2021-07-17 23:24:26 Fidel Vaca [facility] CONTRAST [facility] COMP. METABOLIC PANEL 2021-07-17 21:44:[address] [facility] ([id number]) Medical Branch CBC WITH DIFF 2021-07-17 21:44:00 Fidel Vaca [facility] COVID-19 (ID NOW RAPID 2021-07-17 21:44:00 Fidel Vaca [facility] TESTING) Medical Branch LAB ONLY COVID 2021-07-17 21:44:00 Fidel Vaca [facility] INTERPRETATION Medical Branch CONSENT/REFUSAL FOR 2021-07-17 20:40:57 Doctor Unassigned, [facility] DIAGNOSIS AND TREATMENT [facility] ASSIGNMENT OF BENEFITS 2021-05-07 22:56:53 Doctor Unassigned, [facility] CONSENT/REFUSAL FOR 2021-05-07 22:56:18 Doctor Unassigned, [facility] DIAGNOSIS AND TREATMENT [facility] NOTICE OF PRIVACY 2021-02-22 23:01:38 Doctor Unassigned, [facility] PRACTICES [facility] CONSENT/REFUSAL FOR 2021-02-22 22:58:49 Doctor Unassigned, [facility] DIAGNOSIS AND TREATMENT [facility] URINALYSIS 2021-01-23 18:31:00 [facility] METABOLIC PANEL 2021-01-23 17:05:00 [facility] Maria G [facility] (NA, K, CL, CO2, GLUCOSE, Medica l Branch BUN, CREATININE, CA) CBC WITH DIFF 2021-01-23 17:05:00 Salcedo [facility] NOTICE OF PRIVACY 2021-01-23 14:48:39 [facility] [place] Plan of Care Planned Activity Planned Date Details Comments Source Future Scheduled 2022-03-16 Screening for [facility] Col lege Test 18:10:18 malignant neoplasm of Medici ne of colon (procedure) [code = 219902211] Future Scheduled 2022-03-16 COVID-19 Vaccine [facility] Test 18:10:18 (#1) [code = of Medicine COVID-19 Vaccine (#1)] Future Scheduled 2022-03-16 Pneumococcal [facility] Mi ege Test 18:10:18 Combined (1 - PCV) of Medici ne [code = Pneumococcal Combined (1 - PCV)] Future Scheduled 2022-03-16 TETANUS SHOT (ADULT) [facility] Test 18:10:18 [code = TETANUS SHOT of Medi cine (ADULT)] Future Scheduled 2022-03-16 BMI FOLLOW UP PLAN [employer] Test 18:10:18 [code = BMI FOLLOW of Medici ne UP PLAN] Future Scheduled 2022-03-16 Screening for [facility] Col lege Test 18:10:18 malignant neoplasm of Medici ne of lung (procedure) [code = 473935708] Future Scheduled 2022-03-16 ZOSTER VACCINE (1 of [facility] Test 18:10:18 2) [code = ZOSTER of Medicin e VACCINE (1 of 2)] Future Scheduled 2022-03-16 FLU VACCINE > 6 [facility] C ollege Test 18:10:18 MONTHS [code = FLU of Medici ne VACCINE > 6 MONTHS] Future Scheduled 2022-02-20 Screening for [facility] Col lege Test 09:34:21 malignant neoplasm of Medici ne of colon (procedure) [code = 372560002] Future Scheduled 2022-02-20 COVID-19 Vaccine [facility] Test 09:34:21 (#1) [code = of Medicine COVID-19 Vaccine (#1)] Future Scheduled 2022-02-20 Pneumococcal [facility] Mi ege Test 09:34:21 Combined (1 - PCV) of Medici ne [code = Pneumococcal Combined (1 - PCV)] Future Scheduled 2022-02-20 TETANUS SHOT (ADULT) [facility] Test 09:34:21 [code = TETANUS SHOT of Medi cine (ADULT)] Future Scheduled 2022-02-20 BMI FOLLOW UP PLAN [employer] Test 09:34:21 [code = BMI FOLLOW of Medici ne UP PLAN] Future Scheduled 2022-02-20 Screening for [facility] Col lege Test 09:34:21 malignant neoplasm of Medici ne of lung (procedure) [code = 453417632] Future Scheduled 2022-02-20 ZOSTER VACCINE (1 of [facility] Test 09:34:21 2) [code = ZOSTER of Medicin e VACCINE (1 of 2)] Future Scheduled 2022-02-20 FLU VACCINE > 6 [facility] C ollege Test 09:34:21 MONTHS [code = FLU of Medici ne VACCINE > 6 MONTHS] Future Scheduled 2022-02-12 Screening for [facility] Col [facility]ge Test 08:32:28 malignant neoplasm of Medici ne of colon (procedure) [code = 466069295] Future Scheduled 2022-02-12 COVID-19 Vaccine [facility] Test 08:32:28 (#1) [code = of Medicine COVID-19 Vaccine (#1)] Future Scheduled 2022-02-12 Pneumococcal [facility] Mi ege Test 08:32:28 Combined (1 - PCV) of Medici ne [code = Pneumococcal Combined (1 - PCV)] Future Scheduled 2022-02-12 TETANUS SHOT (ADULT) [facility] Test 08:32:28 [code = TETANUS SHOT of Medi cine (ADULT)] Future Scheduled 2022-02-12 BMI FOLLOW UP PLAN [facility] [place] Test 08:32:28 [code = BMI FOLLOW of Medici ne UP PLAN] Future Scheduled 2022-02-12 Screening for [facility] Col lege Test 08:32:28 malignant neoplasm of Medici ne of lung (procedure) [code = 162685964] Future Scheduled 2022-02-12 ZOSTER VACCINE (1 of [facility] Test 08:32:28 2) [code = ZOSTER of Medicin e VACCINE (1 of 2)] Future Scheduled 2022-02-12 FLU VACCINE > 6 [facility] C [facility]lege Test 08:32:28 MONTHS [code = FLU of Medici ne VACCINE > 6 MONTHS] Future Scheduled 2022-02-01 CT CHEST ABDOMEN Expected: [facility] Test 00:00:00 PELVIS W CONTRAST 02/01/2022 of Medicin e [code = 61869-5] (Approximate), Expires: 01/18/2023 Future Scheduled 2022-01-30 Screening for [facility] Col lege Test 17:27:21 malignant neoplasm of Medici ne of colon (procedure) [code = 551672110] Future Scheduled 2022-01-30 COVID-19 Vaccine [facility] Test 17:27:21 (#1) [code = of Medicine COVID-19 Vaccine (#1)] Future Scheduled 2022-01-30 Pneumococcal [facility] Mi ege Test 17:27:21 Combined (1 - PCV) of Medici ne [code = Pneumococcal Combined (1 - PCV)] Future Scheduled 2022-01-30 TETANUS SHOT (ADULT) [facility] Test 17:27:21 [code = TETANUS SHOT of Medi cine (ADULT)] Future Scheduled 2022-01-30 BMI FOLLOW UP PLAN [facility] Test 17:27:21 [code = BMI FOLLOW of Medici ne UP PLAN] Future Scheduled 2022-01-30 Screening for [facility] Col lege Test 17:27:21 malignant neoplasm of Medici ne of lung (procedure) [code = 466493816] Future Scheduled 2022-01-30 ZOSTER VACCINE (1 of [facility] Test 17:27:21 2) [code = ZOSTER of Medicin e VACCINE (1 of 2)] Future Scheduled 2022-01-30 FLU VACCINE > 6 [facility] C [facility]lege Test 17:27:21 MONTHS [code = FLU of Medici ne VACCINE > 6 MONTHS] Future Scheduled 2022-01-18 Screening for [facility] Col lege Test 16:20:53 malignant neoplasm of Medici ne of colon (procedure) [code = 987649762] Future Scheduled 2022-01-18 COVID-19 Vaccine [facility] Test 16:20:53 (#1) [code = of Medicine COVID-19 Vaccine (#1)] Future Scheduled 2022-01-18 Pneumococcal [facility] Mi ege Test 16:20:53 Combined (1 - PCV) of Medici ne [code = Pneumococcal Combined (1 - PCV)] Future Scheduled 2022-01-18 TETANUS SHOT (ADULT) [facility] Test 16:20:53 [code = TETANUS SHOT of Medi cine (ADULT)] Future Scheduled 2022-01-18 BMI FOLLOW UP PLAN [facility] Test 16:20:53 [code = BMI FOLLOW of Medici ne UP PLAN] Future Scheduled 2022-01-18 Screening for [facility] Col lege Test 16:20:53 malignant neoplasm of Medici ne of lung (procedure) [code = 880453018] Future Scheduled 2022-01-18 ZOSTER VACCINE (1 of [facility] Test 16:20:53 2) [code = ZOSTER of Medicin e VACCINE (1 of 2)] Future Scheduled 2022-01-18 FLU VACCINE > 6 [facility] C [facility]lege Test 16:20:53 MONTHS [code = FLU of Medici ne VACCINE > 6 MONTHS] Future Scheduled 2022-01-10 Screening for [facility] Col lege Test 09:17:30 malignant neoplasm of Medici ne of colon (procedure) [code = 889701330] Future Scheduled 2022-01-10 COVID-19 Vaccine [facility] Test 09:17:30 (#1) [code = of Medicine COVID-19 Vaccine (#1)] Future Scheduled 2022-01-10 Pneumococcal [facility] Mi [facility]ge Test 09:17:30 Combined (1 - PCV) of Medici ne [code = Pneumococcal Combined (1 - PCV)] Future Scheduled 2022-01-10 TETANUS SHOT (ADULT) [facility] Test 09:17:30 [code = TETANUS SHOT of Medi cine (ADULT)] Future Scheduled 2022-01-10 BMI FOLLOW UP PLAN [facility] Test 09:17:30 [code = BMI FOLLOW of Medici ne UP PLAN] Future Scheduled 2022-01-10 Screening for [facility] Col [facility]ge Test 09:17:30 malignant neoplasm of Medici ne of lung (procedure) [code = 200892103] Future Scheduled 2022-01-10 ZOSTER VACCINE (1 of [facility] Test 09:17:30 2) [code = ZOSTER of Medicin e VACCINE (1 of 2)] Future Scheduled 2022-01-10 FLU VACCINE > 6 [facility] C [facility]lege Test 09:17:30 MONTHS [code = FLU of Medici ne VACCINE > 6 MONTHS] Encounters Start End Encounter Admission Attending Care Care Encounter Source Date/Time Date/Time Type Type Clinicians Facility Department ID 2021-11-02 Outpatient DILSHAD Vance [facility] [id number] [facility] 09:11:02 Valdemar [facility] 2021-10-01 Outpatient [facility] [id number] 15:21:58 PROVIDER Gume emmanuel 2022 2022 Outpatient [facility] [id number] [facility] 00:00:00 00:00:00 2022-03-12 2022-03-12 Outpatient [facility] [id number] [facility] 09:38:05 23:59:00 Colleg e of Medicin e 2022-03-12 2022-03-12 Office FELIX Bermudez [id number] [facility] 09:00:00 11:44:44 Visit Blaine Abreu [id number] Co llege [id number] of [id number] Medi abelardo 504 e 2022-02-26 2022-02-26 Outpatient [facility] [id number] [facility] 07:28:30 23:59:00 Colleg e of Medicin e 2022-02-25 2022-02-25 ambulatory [facility] [id number] Common 00:00:00 00:00:00 [facility] 2022-02-20 2022-02-20 Office JEAN PAUL ALMONTE [id number] [facility] 09:26:00 10:56:49 Visit LUIS ANGEL AMBULATOR [id number] College Y [id number] of [id number] Medi abelardo 300 e 2022-02-14 2022-02-14 Outpatient [facility] [id number] [facility] 13:29:41 23:59:00 [facility] Medicin e 2022-02-13 2022-02-13 Outpatient [facility] [id number] [facility] 12:40:33 12:40:33 2022-02-12 2022-02-12 Outpatient [facility] [id number] [facility] 08:37:26 23:59:00 Colleg e [facility] Medicin e 2022-02-12 2022-02-12 Office [facility] [id number] [facility] 07:31:20 12:34:41 Visit BLAINE Abreu [id number] Co llege [id number] of [id number] Medi abelardo 504 e 2022-01-29 2022-01-29 Outpatient [facility] [facility] [id number] [facility] 07:49:13 23:59:00 [facility] 2022-01-29 2022-01-29 Outpatient EL SLEH SLEH [id number] [facility] 14:12:07 14:12:07 2022-01-29 2022-01-29 Outpatient [facility] [id number] [facility] 13:31:16 13:31:16 [facility] [employer] 2022-01-29 2022-01-29 Office [facility] [id number] [facility] 10:10:29 10:30:30 Visit BLAINE Abreu 350.1.13.21 Co llege 0.2.7.2.[id number] [facility] abelardo 504 e 2022-01-28 2022-01-28 Outpatient LUIS BERMUDEZ SLEH SLEH [id number] SLEH 00:00:00 00:00:00 [facility] 2022-01-28 2022-01-28 Outpatient LUIS BERMUDEZ SLEH SLEH [id number] SLEH 00:00:00 00:00:00 [facility] 2022-01-28 2022-01-28 Outpatient LUIS BERMUDEZ SLEH SLEH [id number] SLEH 00:00:00 00:00:00 [facility] 2022-01-28 2022-01-28 Outpatient LUIS BERMUDEZ SLEH SLEH [id number] SLEH 00:00:00 00:00:00 [facility] 2022-01-25 2022-01-25 Outpatient LUIS BERMUDEZ SLEH SLEH [id number] SLEH 07:34:20 23:59:00 [facility] 2022-01-25 2022-01-25 Outpatient LUIS BERMUDEZ SLEH SLEH [id number] SLEH 07:34:03 23:59:00 [facility] 2022-01-25 2022-01-25 Outpatient LUIS BERMUDEZ SLEH SLEH [id number] SLEH 07:33:39 07:33:39 [facility] 2022-01-15 2022-01-15 Outpatient [facility] [id number] [facility] 09:31:49 23:59:00 Toyin e 2022-01-15 2022-01-15 Outpatient EL SLEH SLEH [id number] SLE 16:18:07 16:18:07 2022-01-15 2022-01-15 [facility] [place] [id number] [facility] 07:38:55 09:47:06 Visit BLAINE Brady 350.1.13.21 Co llege 0.2.7.2.[id number] [facility] abelardo 504 e 2022-01-10 2022-01-10 Office JEAN PAUL THOMPSON [id number] [facility] 09:03:49 10:15:13 Visit SAKINA AMBULATOR 350.1.13.21 College Y 0.2.7.2.686 [id number] Medi abelardo 300 e 2022-01-08 2022-01-08 Emergency X Kellie [facility] ERT [id number] Univers 16:52:00 20:25:00 ity of [facility] 2022-01-08 2022-01-08 Emergency Kellie [facility] [id number] Univers 16:52:00 20:25:00 Lillianlula GOMEZ 350.1.13.10 i ty of [place] 4.2.7.2.686 [facility] [id number] [facility] leticia 084 [place] 2022-01-04 2022-01-04 Outpatient BCM [facility] [id number] [facility] 12:25:12 23:59:00 [facility] [employer] 2022-01-04 2022-01-04 ambulatory STLMLC STLMLC [id number] Common 00:00:00 00:00:00 [facility] 2022-01-02 2022-01-02 Outpatient BCM M [id number] [facility] 07:27:04 23:59:00 [facility] [employer] 2021-12-20 2021-12-20 Outpatient BCM M [id number] [facility] 12:56:16 23:59:00 [facility] [employer] 2021-12-18 2021-12-18 Outpatient BCM BCM [id number] [facility] 08:36:19 23:59:00 [facility] 2021-12-18 2021-12-18 Outpatient MAKAWITA, [facility] [id number] [facility] 07:23:44 10:57:57 BLAINE [facility] [employer] [employer] 2021-12-06 2021-12-06 Outpatient BCM BCM [id number] [facility] 13:15:10 23:59:00 [facility] 2021-12-04 2021-12-04 Outpatient BCM M [id number] [facility] 09:28:37 23:59:00 [facility] [employer] 2021-12-04 2021-12-04 Outpatient LARA [facility] [id number] [facility] 08:00:02 09:52:15 BLAINE [facility] [employer] 2021-12-03 2021-12-03 [id number] SLE[facility] 08:22:00 13:40:00 L, ANUSHA 2021-11-30 2021-11-30 Outpatient EL SLE SLE [id number] SLE 09:09:21 23:59:00 2021-11-28 2021-11-28 ambulatory STLMLC STLMLC [id number] Common 00:00:00 00:00:00 [facility] 2021-11-26 2021-11-26 [facility] [id number] [facility] 14:23:13 16:24:01 LANUSHA [facility] 2021-11-23 2021-11-23 ambulatory STLMLC STLMLC [id number] Common 00:00:00 00:00:00 [facility] 2021-11-16 2021-11-16 ambulatory STLMLC STLMLC [id number] Common 00:00:00 00:00:00 [facility] 2021-11-13 2021-11-13 Outpatient EL RESENDIZ, SLE SLE [id number] SLEH 13:14:19 23:59:00 MARY 2021-11-13 2021-11-13 Outpatient EL RESENDIZ, SLE SLE [id number] SLEH 13:14:00 13:14:00 MARY 2021-11-13 2021-11-13 Outpatient EL RESENDIZ, SLEH SLEH [id number] SLEH 13:13:33 13:13:33 [facility] 2021-11-08 2021-11-08 Outpatient LARA [facility] [id number] [facility] 08:02:55 12:16:37 BLAINE [facility] [employer] 2021-11-05 2021-11-05 ambulatory STLMLC STLMLC [id number] Common 00:00:00 00:00:00 [facility] 2021-10-31 2021-10-31 Outpatient EL SLE SLE [id number] SLE 08:27:03 08:27:03 2021-10-26 2021-10-26 Outpatient Patil_S [facility] [id number] [place] 12:48:00 12:48:00 [id number] 2021-10-25 2021-10-25 Outpatient LUIS MCKEON MDA MDA [id number] 11:41:14 11:41:14 LAMAR emmanuel 2021-10-18 2021-10-18 Outpatient LUIS MCKEON MDA MDA [id number] 15:11:10 15:11:10 LAMAR emmanuel 2021-10-08 2021-10-08 Outpatient LUIS JESUS MDA MDA [id number] 12:36:24 12:36:24 KANDIS emmanuel 2021-09-25 2021-10-01 Inpatient ER ETCHEGARAY- [facility] [id number] 10:09:00 15:50:00 Gume FINN 2021-09-30 2021-09-30 Inpatient EL ETCHEGARAY- MDA MDA [id number] 01:49:36 02:06:12 Gume FINN 2021-09-29 2021-09-29 Inpatient EL ETCHEGARAY- MDA MDA [id number] 20:28:39 20:54:42 Gume FINN 2021-09-25 2021-09-25 [facility] [id number] Univers 02:29:00 06:32:00 EMY guillen [facility] 2021-09-25 2021-09-25 Emergency [facility] [id number] Univers 02:29:00 06:32:00 Emy GOMEZ 350.1.13.10 i alexa [facility] 4.2.7.2.686 [facility] [id number] [address] 2021-09-25 2021-09-25 Orders Doctor KANDIS 1.2.840.114 [id number] 00:00:00 00:00:00 Only Unassigned, CARLOS 350.1.13.10 ity of [place] [facility] 4.2.7.2.686 Justin as [id number] [place] [address] [place] 2021-09-19 2021-09-19 Outpatient LUIS MCKEON MDA MDA [id number] 15:11:24 15:11:24 LAMAR emmanuel 2021-09-13 2021-09-13 Outpatient LUIS MCKEON MDA MDA [id number] 12:16:19 12:16:19 LAMAR emmanuel 2021-09-06 2021-09-06 Outpatient LUIS MCKEON MDA MDA [id number] 09:22:58 09:22:58 LAMAR emmanuel 2021-08-28 2021-08-28 [facility] [id number] 10:17:09 10:17:09 VIRGIL emmanuel 2021-08-28 2021-08-28 Outpatient LUIS MCKEON, MDA MDA [id number] 10:17:01 10:17:01 LAMAR emmanuel 2021-08-08 2021-08-08 Outpatient LUIS VELASQUEZ MDA MDA [id number] MD 23:28:33 23:28:33 SALOMON emmanuel 2021-08-08 2021-08-08 Outpatient LUIS VELASQUEZ MDA MDA [id number] 23:28:30 23:28:30 SALOMON emmanuel 2021-08-08 2021-08-08 Outpatient LUIS VELASQUEZ MDA MDA [id number] MD 23:28:26 23:28:26 SALOMON emmanuel 2021-07-25 2021-07-31 Inpatient ER BRUNSON, [facility] [id number] 17:07:00 19:11:00 JOCELINE emmanuel 2021-07-29 2021-07-29 Inpatient LUIS GODFREY, MDA MDA [id number] MD 22:05:18 22:28:56 JUSTUS emmanuel 2021-07-17 2021-07-17 Emergency X FRANKY, [facility] [id number] Univers 14:44:00 20:16:00 ANTONIETA ity [facility] 2021-07-17 2021-07-17 Emergency Larissa, TRAUMA [id number] Univers 14:44:00 20:16:00 [facility] 350.1.13.10 i ty of [place] 4.2.7.2.686 [facility] [id number] [facility] [address]14 [place] 2021-06-21 2021-07-03 Inpatient NAVI, [facility] [id number] [place] 00:00:00 00:00:00 YAHYA 851 Method i 2021-06-29 2021-06-29 Outpatient [facility] [id number] [place] 00:00:00 00:00:00 681 Method i 2021-05-07 2021-05-07 Emergency Emy Barraza [facility] 1.2.840. 114 [id number] Univers 17:05:00 19:23:00 Melody Reyes 350.1.13.10 ity of [place] 4.2.7.2.686 [facility] [id number] [facility] 084 [place] 2021-05-07 2021-05-07 Emergency [facility] ERT [id number] Univers 17:05:00 17:05:00 MELODY [facility] 2021-02-22 2021-02-22 Emergency [facility] 1.2.840.114 [id number] Univers 18:08:00 19:40:00 Evaristo Gomez 350.1.13.10 ity of [place] 4.2.7.2.686 [facility] [id number] [facility] [address] [place] 2021-02-22 2021-02-22 Emergency X [facility] ERT [id number] Univers 18:08:00 18:08:00 [facility] 2021-01-23 2021-01-23 Emergency Salcedo, [facility] 1.2.840.114 [id number] Univers 10:00:00 15:13:00 Maria G Gomez 350.1.13.10 i ty of [place] 4.2.7.2.686 [facility] [id number] [place] [address] [place] 2021-01-23 2021-01-23 Emergency X [facility] ERT [id number] Univers 10:00:00 10:00:00 [facility] Results Test Description Test Time Test Comments Results Result [facility] e Comments MR, PELVIS, WITH 2022-02-09 Rectal cancer 5 staging on 10:43:00 neoadjuvant tx LULI ESQUIVEL (comparison will - MEDICAL CENTER[facility]: have to be to CELESTINO ROLON 11/2021 CT scan) : 1970 Sex: Rectal cancer M staging on neoadjuvant tx Addendum (comparison will BeginsREPORT STATUS:A have to be to A 11/2021 CT scan) nonspecific mildly Unlisted Reason sclerotic 2.3 cm lesion for Exam - Click in the proximal right Yes and Enter femur, please correlate Reason with PET/CT Signed: Below->Yes Jose G, Bulmaro MDReport Unlisted Reason Verified Date/Time: for Exam->Rectal 03/04/2022 10:43:15 cancer (HCCode) Addendum EndsFINAL REPORT MR, PELVIS, WITH \\T\\ WITHOUT CONTRAST HISTORY: Unlisted Reason for ExamRectal cancer (HCCode) COMPARISON: 11/13/2021 pelvic MRI TECHNIQUE: Pelvic MRI, without and with IV contrast, rectal mass protocol CONTRAST: 18 mL intravenous MultiHance. FINDINGS: The exam is markedly motion degraded and suboptimal ONCOLOGIC FINDINGS: Primary Tumor Morphology, Location, and Characteristics:Location : Mid to upperDistance of inferior tumor margin to the anal verge: Approximately 9 cmDistance of inferior tumor margin to the superior aspect of the anal sphincter: Approximately 4.5 cmRelative to peritoneal reflection: Above and belowCraniocaudal length: Approximately 5 cm Morphology: CircumferentialMucinous: No T category:Extramural depth of invasion: 6 mmMR-T category: G3zCrecsetjvo with possible invasion: NoneAnal sphincter involvement: N/A Extramural Venous Invasion: Absent Circumferential Resection Margin (For T3 Tumor Only)Distance of tumor to mesorectal fascia or anticipated circumferential resection margin: Approximately 1.5 mmSeparate tumor deposit, suspicious lymph node, or extramural venous invasion threatening or invading the mesorectal fascia: NoDiscontiguous deposit or spiculation in mesorectum: None Lymph nodes: Mesorectal: At least 4 suspicious mesorectal lymph nodes measuring at least 5 mm short axis. Extramesorectal: Yes, locoregional and non-locoregional (M1), including external iliac lymph nodes up to 1.5 cm short axis on the left, a 1.0 cm short axis right common iliac lymph node, 1.0 cm short axis right internal iliac and 1.0 cm short axis left internal iliac nodes. Multiple hazy REJI nodes up to 0.8 cm short axis Distant metastases:Peritoneal involvement: NoneOsseous involvement: None ADDITIONAL FINDINGS: The remainder of visualized enteric structures, pelvic viscera, bones, and soft tissues are unremarkable. IMPRESSION: Markedly motion degraded and suboptimal exam. Any future follow-up should be performed on a 3.0 Mikaela magnet. Rectal cancer stage [id number].Circumferential resection margin: ThreatenedSphincter involvement: Absent Signed: Bulmaro Araiza Verified Date/Time: 02/06/2022 17:11:27 Reading Location: [address] Body Reading Room , PELVIS, WITH 2022-02-09 Unlisted Reason 5 for Exam - Click 10:41:00 Yes and Enter [facility] Reason Below->No - [facility] : 1970 Sex: M FINAL REPORT MR, PELVIS, WITH \\T\\ WITHOUT CONTRAST HISTORY: Rectal cancer, staging, locoregional COMPARISON: Future MRI pelvis 01/25/2022 TECHNIQUE: MRI of the pelvis. Multiplanar, multisequence images were obtained without and with intravenous gadolinium contrast. IMPRESSION: Nondiagnostic exam for rectal cancer staging - performed as a routine large field of view MRI of the pelvis. I asked that the patient be called back to perform dedicated rectal protocol when the exam was first performed, which never happened. Regardless, the patient had a follow-up on 01/25/2022. Please see that report for staging. There is bilateral iliac chain lymphadenopathy, 1.4-1.5 cm short axis in the bilateral external iliac chains, 1.2 cm short axis bilateral internal iliac chains, and a 1.1 cm short axis right common iliac chain lymph node. A 2.3 cm heterogeneous partly sclerotic lesion in the proximal right femur at the level of the lesser trochanter which is nonspecific. Please correlate with PET/CT. Signed: Bulmaro Araiza [facility] Verified Date/Time: 03/04/2022 10:41:17 URINALYSIS DIPSTICK 2022-02-20 00:00:00 Test Item Value Reference Range Interpretation Comme nts COLOR UA (test code = 5778-6) Maryellen YELLOW/STRAW CLARITY UA (test code = 57106-5) Clear CLEAR GLUCOSE UA (test code = 5792-7) Negative NEGATIVE BILIRUBIN UA (test code = 5770-3) 1+ NEGATIVE KETONES UA (test code = 95259-6) Negative NEGATIVE SPECIFIC GRAVITY UA (test code = 5811-5) 1.005-1.035 BLOOD UA (test code = 5794-3) Negative NEGATIVE PH UA (test code = 5803-2) 5-9 PROTEIN UA (test code = 5804-0) 1+ NEGATIVE UROBILINOGEN UA (test code = 5818-0) 0.02 E.U/DL NORMAL MG/DL LEUKOCYTE ESTERASE UA (test code = 5799-2) Negative NEGATIVE NITRITE UA (test code = 5802-4) Negative NEGATIVE REDUCING SUBSTANCES URINE (test code = 17242-1) [facility]ME[facility],POST-VOID RES,US,[id number] 00:00:00 Test Item Value Reference Range Interpretation Comments PVR (test code = 6116) cc/ml [facility] MedicineCOMPREHENSIVE METABOLIC [id number] 08:03:25 Test Item Value Reference Range Interpretation Comments TOTAL PROTEIN 6.6 gm/dL 6.0-8.3 (BEAKER) (test code = 770) ALBUMIN (BEAKER) 4.0 g/dL 3.5-5.0 (test code = 1145) ALKALINE PHOSPHATASE 159 U/L 40-150 H (BEAKER) (test code = 346) BILIRUBIN TOTAL 0.6 mg/dL 0.2-1.2 (BEAKER) (test code = 377) SODIUM (BEAKER) (test 138 meq/L 136-145 code = 381) POTASSIUM (BEAKER) 4.3 meq/L 3.5-5.1 (test code = 379) CHLORIDE (BEAKER) 108 meq/L 98-107 H (test code = 382) CO2 (BEAKER) (test 27 meq/L 22-29 code = 355) BLOOD UREA NITROGEN 11 mg/dL 7-21 (BEAKER) (test code = 354) CREATININE (BEAKER) 0.97 mg/dL 0.57-1.25 (test code = 358) GLUCOSE RANDOM 130 mg/dL 70-105 H (BEAKER) (test code = 652) CALCIUM (BEAKER) 8.9 mg/dL 8.4-10.2 (test code = 697) AST (SGOT) (BEAKER) 29 U/L 5-34 (test code = 353) ALT (SGPT) (BEAKER) 21 U/L 6-55 (test code = 347) EGFR (BEAKER) (test 82 mL/min/1.73 ESTIMA LINSEY GFR IS code = 1092) sq m NOT ACCURATE CREATININE CLEARANCE IN PREDICTING GLOMERULAR FILTRATION RATE . ESTIMATED GFR I S NOT APPLICABLE FOR DIALYSIS PATIEN TS. CBC W/PLT COUNT & AUTO [id number] 07:53:08 Test Item Value Reference Range Interpretation Comments WHITE BLOOD CELL COUNT (BEAKER) 8.4 K/ L 3.5-10.5 (test code = 775) RED BLOOD CELL COUNT (BEAKER) 4.14 M/ L 4.63-6.08 L (test code = 761) HEMOGLOBIN (BEAKER) (test code = 13.0 GM/DL 13.7-17.5 L 410) HEMATOCRIT (BEAKER) (test code = 38.8 % 40.1-51.0 L 411) MEAN CORPUSCULAR VOLUME (BEAKER) 93.7 fL 79.0-92.2 H (test code = 753) MEAN CORPUSCULAR HEMOGLOBIN 31.4 pg 25.7-32.2 (BEAKER) (test code = 751) MEAN CORPUSCULAR HEMOGLOBIN CONC 33.5 GM/DL 32.3-36.5 (BEAKER) (test code = 752) RED CELL DISTRIBUTION WIDTH 17.9 % 11.6-14.4 H (BEAKER) (test code = 412) PLATELET COUNT (BEAKER) (test 140 K/CU MM 150-450 L code = 756) MEAN PLATELET VOLUME (BEAKER) 9.5 fL 9.4-12.4 (test code = 754) NEUTROPHILS RELATIVE PERCENT 59 % (BEAKER) (test code = 429) LYMPHOCYTES RELATIVE PERCENT 22 % (BEAKER) (test code = 430) MONOCYTES RELATIVE PERCENT 17 % (BEAKER) (test code = 431) EOSINOPHILS RELATIVE PERCENT 1 % (BEAKER) (test code = 432) BASOPHILS RELATIVE PERCENT 1 % (BEAKER) (test code = 437) NEUTROPHILS ABSOLUTE COUNT 4.91 K/ L 1.78-5.38 (BEAKER) (test code = 670) LYMPHOCYTES ABSOLUTE COUNT 1.82 K/ L 1.32-3.57 (BEAKER) (test code = 414) MONOCYTES ABSOLUTE COUNT (BEAKER) 1.43 K/ L 0.30-0.82 H (test code = 415) EOSINOPHILS ABSOLUTE COUNT 0.12 K/ L 0.04-0.54 (BEAKER) (test code = 416) BASOPHILS ABSOLUTE COUNT (BEAKER) 0.06 K/ L 0.01-0.08 (test code = 417) IMMATURE GRANULOCYTES-RELATIVE 0 % 0-1 PERCENT (BEAKER) (test code = 2801) CT, [id number] 12:53:00Rectal cancer restaging on neoadjuvant chemo- but CEA is rising Rectal cancer restaging on neoadjuvant chemo- but CEA is rising Unlisted Reason for Exam - Click Yes and Enter Reason Below->Yes Unlisted Reason for Exam->rectal cancer (HCCode) Is this for enterography?->No Will this procedure require oral contrast?->No [facility] 1970 Sex: MFINAL REPORT CT, CHEST, WITH CONTRAST, CT, ABDOMEN \\T\\ PELVIS, WITH IV CONTRAST INDICATION: Unlisted Reason for ExamRectal cancer (HCCode) COMPARISON: CT chest abdomen pelvis 11/13/2021TECHNIQUE: Computed tomography was performed through the chest, abdomen and pelvis with IV contrast.Coronal and sagittal reformats were provided.Oral Contrast: Yes This exam was performed according to our departmental dose optimization program which includes automated exposure control, adjustment of the mA and/or kV according to patient size and/or use of iterative reconstructive technique. FINDINGS: CHEST:Lungs: No suspicious pulmonary nodules or masses. Redemonstration of subpleural reticulationsand subpleural cystic or emphysematous changes in the upper lobes bilaterally and lingula, sparing the lower lobes. Lymph nodes and Mediastinum: Unremarkable.Pleura: Unremarkable.Cardiovascular: Right chest wall Port-A-Cath with tip at the atriocaval junction. Right coronary artery stent.Other: Unremar kable. ABDOMEN/PELVIS: Liver: Unremarkable.Gallbladder and bile ducts: Unremarkable.Spleen, pancreas, adrenals: Unremarkable.Kidneys and ureters: Unremarkable.Bowel: Wall thickening of the mid to upperrectum consistent with patient's known primary malignancy. No evidence for bowel obstruction. Normal appendix.Bladder and reproductive organs: Unremarkable.Lymph nodes: Multiple small REJI nodes and mesorectal lymph nodes up to 0.6 cm short axis, no convincing change from prior exam. Bilateral externaliliac chain and pelvic sidewall lymph nodes measuring up to 1.3 cm short axis on the left and 1.1 cmon the right, no convincing change. A 0.8 cm short axis right common iliac chain lymph node, no change. A 1.3 cm short axis left periaortic lymph node, no change. A 1.5 cm short axis precaval lymph node, no change.Peritoneum: Unremarkable.Vessels: Minimal atherosclerotic calcifications.Abdominal wall: Unremarkable. MUSCULOSKELETAL:A lucent lesion in the proximal right femur which has a thin scleroticrim and thin zone of transition which is benign appearing and unchanged. A sclerotic left seventh rib lesion which is unchanged and probably a bone island. IMPRESSION: Chest: 1.No evidence for metastatic disease in the chest. 2.Subpleural reticulations and subpleural cystic changes or emphysema in theupper lobes bilaterally and lingula which are mildly concerning for interstitial lung disease. No change from 11/13/2021. Consider pulmonology consultation. Abdomen and pelvis: 1.Unchanged lymphadenopathy in the retroperitoneum and pelvis which is highly suspicious for ana m metastases 2.Wall thickeningof the rectum suspicious for rectal neoplasm 3.A benign- appearing lucent lesion in the proximal right femur is unchanged, attention on future staging exams. Signed: Bulmaro Araiza [facility] Verified Date/Time: 01/29/2022 12:53:28 Reading Location: [address] Body Reading Room CT, CHEST, WITH CONTRAST 2022-01-29 12:53:00Rectal cancer restaging on neoadjuvant chemo- but CEA is rising Rectal cancer restaging on neoadjuvant chemo- but CEA is rising Unlisted Reason for Exam - Click Yes and Enter Reason Below->Yes Unlisted Reason for Exam->[facility]al [facility]HCCode) [facility] 1970 Sex: MFINAL REPORT CT, CHEST, WITH CONTRAST, CT, ABDOMEN \\T\\ PELVIS, WITH IV CONTRAST INDICATION: Unlisted Reason for ExamRectal cancer (HCCode) COMPARISON: CT chest abdomen pelvis 11/13/2021TECHNIQUE: Computed tomography was performed through the chest, abdomen and pelvis with IV contrast.Coronal and sagittal reformats were provided.Oral Contrast: Yes This exam was performed according to our departmental dose optimization program which includes automated exposure control, adjustment of the mA and/or kV according to patient size and/or use of iterative reconstructive technique. FINDINGS: CHEST:Lungs: No suspicious pulmonary nodules or masses. Redemonstration of subpleural reticulationsand subpleural cystic or emphysematous changes in the upper lobes bilaterally and lingula, sparing the lower lobes. Lymph nodes and Mediastinum: Unremarkable.Pleura: Unremarkable.Cardiovascular: Right chest wall Port-A-Cath with tip at the atriocaval junction. Right coronary artery stent.Other: Unremar kable. ABDOMEN/PELVIS: Liver: Unremarkable.Gallbladder and bile ducts: Unremarkable.Spleen, pancreas, adrenals: Unremarkable.Kidneys and ureters: Unremarkable.Bowel: Wall thickening of the mid to upperrectum consistent with patient's known primary malignancy. No evidence for bowel obstruction. Normal appendix.Bladder and reproductive organs: Unremarkable.Lymph nodes: Multiple small REJI nodes and mesorectal lymph nodes up to 0.6 cm short axis, no convincing change from prior exam. Bilateral externaliliac chain and pelvic sidewall lymph nodes measuring up to 1.3 cm short axis on the left and 1.1 cmon the right, no convincing change. A 0.8 cm short axis right common iliac chain lymph node, no change. A 1.3 cm short axis left periaortic lymph node, no change. A 1.5 cm short axis precaval lymph node, no change.Peritoneum: Unremarkable.Vessels: Minimal atherosclerotic calcifications.Abdominal wall: Unremarkable. MUSCULOSKELETAL:A lucent lesion in the proximal right femur which has a thin scleroticrim and thin zone of transition which is benign appearing and unchanged. A sclerotic left seventh rib lesion which is unchanged and probably a bone island. IMPRESSION: Chest: 1.No evidence for metastatic disease in the chest. 2.Subpleural reticulations and subpleural cystic changes or emphysema in theupper lobes bilaterally and lingula which are mildly concerning for interstitial lung disease. No change from 11/13/2021. Consider pulmonology consultation. Abdomen and pelvis: 1.Unchanged lymphadenopathy in the retroperitoneum and pelvis which is highly suspicious for ana m metastases 2.Wall thickeningof the rectum suspicious for rectal neoplasm 3.A benign- appearing lucent lesion in the proximal right femur is unchanged, attention on future staging exams. Signed: Bulmaro Araiza Verified Date/Time: 01/29/2022 12:53:28 Reading Location: [facility] C013Y CT Body Reading Room COMPREHENSIVE METABOLIC [id number] 08:49:57 Test Item Value Reference Range Interpretation Comments TOTAL PROTEIN 6.9 gm/dL 6.0-8.3 Specimen sligh tly (BEAKER) (test code = hemoly zed 770) ALBUMIN (BEAKER) 4.4 g/dL 3.5-5.0 Specimen sl ightly (test code = 1145) hemolyzed ALKALINE PHOSPHATASE 160 U/L 40-150 H (BEAKER) (test code = 346) BILIRUBIN TOTAL 0.7 mg/dL 0.2-1.2 Specimen sli ghtly (BEAKER) (test code = hemoly zed 377) SODIUM (BEAKER) (test 140 meq/L 136-145 code = 381) POTASSIUM (BEAKER) 3.9 meq/L 3.5-5.1 Specimen slightly (test code = 379) hemolyzed CHLORIDE (BEAKER) 106 meq/L 98-107 (test code = 382) CO2 (BEAKER) (test 28 meq/L 22-29 code = 355) BLOOD UREA NITROGEN 8 mg/dL 7-21 (BEAKER) (test code = 354) CREATININE (BEAKER) 0.91 mg/dL 0.57-1.25 Specimen slightly (test code = 358) hemolyzed GLUCOSE RANDOM 134 mg/dL 70-105 H (BEAKER) (test code = 652) CALCIUM (BEAKER) 9.8 mg/dL 8.4-10.2 (test code = 697) AST (SGOT) (BEAKER) 44 U/L 5-34 H Specimen slightly (test code = 353) hemolyzed ALT (SGPT) (BEAKER) 29 U/L 6-55 Specimen slightly (test code = 347) hemolyzed EGFR (BEAKER) (test 88 mL/min/1.73 ESTIMA LINSEY GFR IS code = 1092) sq m NOT ACCURATE CREATININE CLEARANCE IN PREDICTING GLOMERULAR FILTRATION RATE . ESTIMATED GFR I S NOT APPLICABLE FOR DIALYSIS PATIEN TS. CBC W/PLT COUNT & AUTO [id number] 08:25:03 Test Item Value Reference Range Interpretation Comments WHITE BLOOD CELL COUNT (BEAKER) 7.4 K/ L 3.5-10.5 (test code = 775) RED BLOOD CELL COUNT (BEAKER) 4.71 M/ L 4.63-6.08 (test code = 761) HEMOGLOBIN (BEAKER) (test code = 14.4 GM/DL 13.7-17.5 410) HEMATOCRIT (BEAKER) (test code = 43.1 % 40.1-51.0 411) MEAN CORPUSCULAR VOLUME (BEAKER) 91.5 fL 79.0-92.2 (test code = 753) MEAN CORPUSCULAR HEMOGLOBIN 30.6 pg 25.7-32.2 (BEAKER) (test code = 751) MEAN CORPUSCULAR HEMOGLOBIN CONC 33.4 GM/DL 32.3-36.5 (BEAKER) (test code = 752) RED CELL DISTRIBUTION WIDTH 16.5 % 11.6-14.4 H (BEAKER) (test code = 412) PLATELET COUNT (BEAKER) (test 179 K/CU MM 150-450 code = 756) MEAN PLATELET VOLUME (BEAKER) 9.4 fL 9.4-12.4 (test code = 754) NEUTROPHILS RELATIVE PERCENT 53 % (BEAKER) (test code = 429) LYMPHOCYTES RELATIVE PERCENT 27 % (BEAKER) (test code = 430) MONOCYTES RELATIVE PERCENT 16 % (BEAKER) (test code = 431) EOSINOPHILS RELATIVE PERCENT 3 % (BEAKER) (test code = 432) BASOPHILS RELATIVE PERCENT 1 % (BEAKER) (test code = 437) NEUTROPHILS ABSOLUTE COUNT 3.95 K/ L 1.78-5.38 (BEAKER) (test code = 670) LYMPHOCYTES ABSOLUTE COUNT 2.04 K/ L 1.32-3.57 (BEAKER) (test code = 414) MONOCYTES ABSOLUTE COUNT (BEAKER) 1.18 K/ L 0.30-0.82 H (test code = 415) EOSINOPHILS ABSOLUTE COUNT 0.19 K/ L 0.04-0.54 (BEAKER) (test code = 416) BASOPHILS ABSOLUTE COUNT (BEAKER) 0.07 K/ L 0.01-0.08 (test code = 417) IMMATURE GRANULOCYTES-RELATIVE 0 % 0-1 PERCENT (BEAKER) (test code = 2801) COMPREHENSIVE METABOLIC [id number] 08:18:54 Test Item Value Reference Range Interpretation Comments TOTAL PROTEIN 6.3 gm/dL 6.0-8.3 (BEAKER) (test code = 770) ALBUMIN (BEAKER) 3.9 g/dL 3.5-5.0 (test code = 1145) ALKALINE PHOSPHATASE 136 U/L 40-150 (BEAKER) (test code = 346) BILIRUBIN TOTAL 0.3 mg/dL 0.2-1.2 (BEAKER) (test code = 377) SODIUM (BEAKER) (test 140 meq/L 136-145 code = 381) POTASSIUM (BEAKER) 4.3 meq/L 3.5-5.1 (test code = 379) CHLORIDE (BEAKER) 109 meq/L 98-107 H (test code = 382) CO2 (BEAKER) (test 29 meq/L 22-29 code = 355) BLOOD UREA NITROGEN 10 mg/dL 7-21 (BEAKER) (test code = 354) CREATININE (BEAKER) 0.92 mg/dL 0.57-1.25 (test code = 358) GLUCOSE RANDOM 119 mg/dL 70-105 H (BEAKER) (test code = 652) CALCIUM (BEAKER) 9.1 mg/dL 8.4-10.2 (test code = 697) AST (SGOT) (BEAKER) 30 U/L 5-34 (test code = 353) ALT (SGPT) (BEAKER) 27 U/L 6-55 (test code = 347) EGFR (BEAKER) (test 87 mL/min/1.73 ESTIMA LINSEY GFR IS code = 1092) sq m NOT ACCURATE CREATININE CLEARANCE IN PREDICTING GLOMERULAR FILTRATION RATE . ESTIMATED GFR I S NOT APPLICABLE FOR DIALYSIS PATIEN TS. CBC W/PLT COUNT & AUTO [id number] 08:06:45 Test Item Value Reference Range Interpretation Comments WHITE BLOOD CELL COUNT (BEAKER) 8.7 K/ L 3.5-10.5 (test code = 775) RED BLOOD CELL COUNT (BEAKER) 4.23 M/ L 4.63-6.08 L (test code = 761) HEMOGLOBIN (BEAKER) (test code = 13.0 GM/DL 13.7-17.5 L 410) HEMATOCRIT (BEAKER) (test code = 38.3 % 40.1-51.0 L 411) MEAN CORPUSCULAR VOLUME (BEAKER) 90.5 fL 79.0-92.2 (test code = 753) MEAN CORPUSCULAR HEMOGLOBIN 30.7 pg 25.7-32.2 (BEAKER) (test code = 751) MEAN CORPUSCULAR HEMOGLOBIN CONC 33.9 GM/DL 32.3-36.5 (BEAKER) (test code = 752) RED CELL DISTRIBUTION WIDTH 14.5 % 11.6-14.4 H (BEAKER) (test code = 412) PLATELET COUNT (BEAKER) (test 126 K/CU MM 150-450 L code = 756) MEAN PLATELET VOLUME (BEAKER) 9.5 fL 9.4-12.4 (test code = 754) NEUTROPHILS RELATIVE PERCENT 62 % (BEAKER) (test code = 429) LYMPHOCYTES RELATIVE PERCENT 23 % (BEAKER) (test code = 430) MONOCYTES RELATIVE PERCENT 12 % (BEAKER) (test code = 431) EOSINOPHILS RELATIVE PERCENT 2 % (BEAKER) (test code = 432) BASOPHILS RELATIVE PERCENT 1 % (BEAKER) (test code = 437) NEUTROPHILS ABSOLUTE COUNT 5.42 K/ L 1.78-5.38 H (BEAKER) (test code = 670) LYMPHOCYTES ABSOLUTE COUNT 1.97 K/ L 1.32-3.57 (BEAKER) (test code = 414) MONOCYTES ABSOLUTE COUNT (BEAKER) 1.07 K/ L 0.30-0.82 H (test code = 415) EOSINOPHILS ABSOLUTE COUNT 0.14 K/ L 0.04-0.54 (BEAKER) (test code = 416) BASOPHILS ABSOLUTE COUNT (BEAKER) 0.05 K/ L 0.01-0.08 (test code = 417) IMMATURE GRANULOCYTES-RELATIVE 1 % 0-1 PERCENT (BEAKER) (test code = 2801) CT, CHEST, WITH [id number] 10:40:00Unlisted Reason for Exam - Click Yes and Enter Reason Below->No [facility] : 1970 Sex: MFINAL REPORT CT of the Chest, abdomen and pelvis dated 11/16/2021 Clinical information: Neoplasm: colorectal Comment: Axial images of the chest, abdomen, and pelvis were obtained from thoracic inlet to the pubic symphysis with GI and intravenous contrast. This exam was performed according to our departmental dose-optimization program, which includes automated exposure control, adjustment of the mA and/or kV according to patient size and/or use of interactive reconstruction technique.Heart is normal in size. Great vessels are unremarkable. No adenopathy in the mediastinum or perihilar region. Trachea and mainstem bronchi are patent. Interstitial pulmonary disease is seen in both zenaida gs with thickening of interlobar septi. Honeycombing formation seen in the peripheral of both upper lobes. Findings suggestive of pulmonary fibrosis. No nodular, mass lesion, airspace disease or bronchiectasis is noted. No pleural effusion or pleural based mass is seen. Liver and spleen are normal in size. No focal lesion is seen in the liver or the spleen. Gallbladder is contracted. No gallstone or biliary dilatation is noted. Pancreas and adrenals are unremarkable. Both kidneys are normal in size and functioning. No hydronephrosis, hydroureter, or urolithiasis is noted. The opacified small bowel is unremarkable. The evaluation of the large bowel is limited secondary to insufficient amount of GI contrast. Appendix is normal in caliber. Wall thickening is seen in the rectum thought to represent patient's known rectal neoplasm. Prompt lymph nodes are seen in the bilateral pelvic sidewall measuring up to 1 cm in size. Prompt lymph nodes are also seen in the bilateral internal iliac, right common iliac, periaortic, and aortocaval retroperitoneum. The largest retroperitoneal lymph node measures approximately 1.5 x 2 cm. Impression: 1. Wall thickening in the rectum suspicious for rectal neoplasm.2. Adenopathy in the retroperitoneum and pelvis.3. Interstitial pulmonary disease in both lungs with thickening interlobar septi and honeycombing formation suggestive of early fibrosis. Signed: Ubaldo Steele MDReport Verified Date/Time: 11/16/2021 10:40:15 [facility], [id number] 10:40:00Unlisted Reason for Exam - Click Yes and Enter Reason Below->No Is this for enterography?->No Will this procedure require oral contrast?->Yes [facility] : 1970 Sex: MFINAL REPORT CT of the Chest, abdomen and pelvis dated 11/16/2021 Clinical information: Neoplasm: colorectal Comment: Axial images of the chest, abdomen, and pelvis were obtained from thoracic inlet to the pubic symphysis with GI and intravenous contrast. This exam was performed according to our departmental dose-optimization program, which includes automated exposure control, adjustment of the mA and/or kV according to patient size and/or use of interactive reconstruction technique.Heart is normal in size. Great vessels are unremarkable. No adenopathy in the mediastinum or perihilar region. Trachea and mainstem bronchi are patent. Interstitial pulmonary disease is seen in both zenaida gs with thickening of interlobar septi. Honeycombing formation seen in the peripheral of both upper lobes. Findings suggestive of pulmonary fibrosis. No nodular, mass lesion, airspace disease or bronchiectasis is noted. No pleural effusion or pleural based mass is seen. Liver and spleen are normal in size. No focal lesion is seen in the liver or the spleen. Gallbladder is contracted. No gallstone or biliary dilatation is noted. Pancreas and adrenals are unremarkable. Both kidneys are normal in size and functioning. No hydronephrosis, hydroureter, or urolithiasis is noted. The opacified small bowel is unremarkable. The evaluation of the large bowel is limited secondary to insufficient amount of GI contrast. Appendix is normal in caliber. Wall thickening is seen in the rectum thought to represent patient's known rectal neoplasm. Prompt lymph nodes are seen in the bilateral pelvic sidewall measuring up to 1 cm in size. Prompt lymph nodes are also seen in the bilateral internal iliac, right common iliac, periaortic, and aortocaval retroperitoneum. The largest retroperitoneal lymph node measures approximately 1.5 x 2 cm. Impression: 1. Wall thickening in the rectum suspicious for rectal neoplasm.2. Adenopathy in the retroperitoneum and pelvis.3. Interstitial pulmonary disease in both lungs with thickening interlobar septi and honeycombing formation suggestive of early fibrosis. Signed: Ubaldo Steele MDReport Verified Date/Time: 11/16/2021 10:40:15 [facility] WITH [id number] 10:19:43 Test Item Value Reference Range Interpretation Comments WBC (test code = See_Comment H [Automated 6690-2) message] The system which generated this result transmit linsey reference range : 4.20 - 10.70 10*3/?L. The reference range was not used to interpret this result as normal/abnormal . RBC (test code = See_Comment [Automated 789-8) message] The system which generated this result transmit linsey reference range : 4.26 - 5.52 10*6/?L. The reference range was not used to interpret this result as normal/abnormal . HGB (test code = 15.7 g/dL 12.2-16.4 718-7) HCT (test code = 45.3 % 38.4-49.3 4544-3) MCV (test code = 86.8 fL 81.7-95.6 787-2) MCH (test code = 30.1 pg 26.1-32.7 785-6) MCHC (test code = 34.7 g/dL 31.2-35.0 786-4) RDW-SD (test code = 39.6 fL 38.5-51.6 56188-9) RDW-CV (test code = 12.5 % 12.1-15.4 788-0) PLT (test code = See_Comment [Automated 777-3) message] The system which generated this result transmit linsey reference range : 150 - 328 10*3/ ?L. The reference range was not u sed to interpret th is result as normal/abnormal . MPV (test code = 10.9 fL 9.8-13.0 40412-8) NRBC/100 WBC (test See_Comment [Automat ed code = 4638733742) message] The system which generated this result transmit linsey reference range : 0.0 - 10.0 /100 WBCs. The reference range was not used to interpret this result as normal/abnormal . NRBC x10^3 (test code <0.01 See_Comment [Auto mated = 9211863580) message] The system which generated this result transmit linsey reference range : 10*3/?L. The reference range was not used to interpret this result as normal/abnormal . GRAN MAT (NEUT) % 72.2 % (test code = 770-8) IMM GRAN % (test code 0.80 % = 6622338043) LYMPH % (test code = 15.4 % 736-9) MONO % (test code = 8.5 % 5905-5) EOS % (test code = 2.6 % 713-8) BASO % (test code = 0.5 % 706-2) GRAN MAT x10^3(ANC) 14.55 10*3/uL 1.99-6.95 H (test code = 1613025369) IMM GRAN x10^3 (test 0.17 10*3/uL 0.00-0.06 H code = 0647003747) LYMPH x10^3 (test code 3.12 10*3/uL 1.09-3.23 = 731-0) MONO x10^3 (test code 1.72 10*3/uL 0.36-1.02 H = 742-7) EOS x10^3 (test code = 0.53 10*3/uL 0.06-0.53 711-2) BASO x10^3 (test code 0.11 10*3/uL 0.01-0.09 H = 704-7) Lab Interpretation Abnormal (test code = 51394-8) [facility]. METABOLIC PANEL ([id number])2021-09-25 09:45:55 Test Item Value Reference Range Interpretation Comments NA (test code = 131 mmol/L 135-145 L 8900067754) K (test code = 4.6 mmol/L 3.5-5.0 9863565609) CL (test code = 103 mmol/L 98-108 9450005084) CO2 TOTAL (test code = 22 mmol/L 23-31 L 4173506674) AGAP (test code = 2-16 3405817276) BUN (test code = 13 mg/dL 7-23 6215766616) GLUCOSE (test code = 109 mg/dL 70-110 8432911502) CREATININE (test code = 0.62 mg/dL 0.60-1.25 7237943758) TOTAL BILI (test code = 0.8 mg/dL 0.1-1.0 8907913047) CALCIUM (test code = 9.0 mg/dL 8.6-10.6 7674213562) T PROTEIN (test code = 6.7 g/dL 6.3-8.2 3958703089) ALBUMIN (test code = 4.0 g/dL 3.5-5.0 5551085237) ALK PHOS (test code = 100 U/L 34-122 6054149853) ALTv (test code = 21 U/L 50 1742-6) AST(SGOT) (test code = 34 U/L 13-40 5730668174) eGFR (test code = mL/min/1.73m2 0487960324) SAI (test code = SAI) Association of Glomerular Filtration Rate (GFR) and Staging of Kidney Disease* + --+ --+ ------+| GFR (mL/min/1.73 m2) ?| With Kidney Damage ?| ?Without Kidney Damage+ --------+ --------+ +| ?>90 ?| ?Stage one ?| ? Normal ?+ ---+ ---+ -------+| ?60-89 ?| ?Stage two ?| ? Decreased GFR ? + --+ --+ ------+| ?30-59 ?| ?Stage three ?| ? Stage three ? + --+ --+ ------+| ?15-29 ?| ?Stage four ? | ? Stage four ?+ ---+ ---+ -------+| ?<15 (or dialysis) ? ?| ?Stage five ? | ? Stage five ?+ ---+ ---+ -------+ *Each stage assumes the associated GFR level has been in effect for at least three months. ?Stages 1 to 5, with or without kidney disease, indicate chronic kidney disease. Notes: Determination of stages one and two (with eGFR >59mL/min/1.73 m2) requires estimation of kidney damage for at least three months as defined by structural or functional abnormalities of the kidney, manifested by either:Pathological abnormalities or Markers of kidney damage (including abnormalities in the composition of the blood or urine or abnormalities in imaging tests). Lab Interpretation Abnormal (test code = 45216-1) [facility] [id number] 09:45:20 Test Item Value Reference Range Interpretation Comments APTT Patient (test See_Comment L [Automat ed code = 3173-2) message] The system which generated this result transmitted reference range : 23 - 38 Seconds . The reference range was not used to interpr et this result as normal/abnormal . SAI (test code = SAI) [facility] patient population mean normal value for aPTT is 30 seconds. Lab Interpretation Abnormal (test code = 60241-3) [facility] / [id number] 09:43:19 Test Item Value Reference Range Interpretation Comments PROTIME PATIENT (test See_Comment [Auto mated message] code = 5964-2) The system [employer] generated this result transmitted ref erence range: 12.0 - 1 4.7 Seconds. The re ference range was not u sed to interpret this result as normal/abnor mal. INR (test code = 6301-6) Nor mal INR <1.1; Warfarin Therap eutic range 2.0 to 3. 0 or 2.5 to 3.5, dep ending upon the indica tions. Lab Interpretation (test Normal code = 92411-9) [facility]. METABOLIC PANEL ([id number])2021-07-17 22:14:19 Test Item Value Reference Range Interpretation Comments NA (test code = 133 mmol/L 135-145 L 3685229791) K (test code = 4.3 mmol/L 3.5-5.0 8954882543) CL (test code = 103 mmol/L 98-108 4139960038) CO2 TOTAL (test code = 23 mmol/L 23-31 0199959792) AGAP (test code = 2-16 0485547287) BUN (test code = 18 mg/dL 7-23 8619853764) GLUCOSE (test code = 105 mg/dL 70-110 9602613464) CREATININE (test code = 0.76 mg/dL 0.60-1.25 2080782630) TOTAL BILI (test code = 0.5 mg/dL 0.1-1.5 4206441418) CALCIUM (test code = 9.2 mg/dL 8.6-10.6 7916025365) T PROTEIN (test code = 7.0 g/dL 6.3-8.2 9925512517) ALBUMIN (test code = 4.2 g/dL 3.5-5.0 6240246018) ALK PHOS (test code = 113 U/L 34-122 3280337626) ALTv (test code = 26 U/L 5-50 1742-6) AST(SGOT) (test code = 30 U/L 13-40 6199577457) eGFR (test code = mL/min/1.73m2 0238302925) SAI (test code = SAI) Association of Glomerular Filtration Rate (GFR) and Staging of Kidney Disease* + --+ --+ ------+| GFR (mL/min/1.73 m2) ?| With Kidney Damage ?| ?Without Kidney Damage+ --------+ --------+ +| ?>90 ?| ?Stage one ?| ? Normal ?+ ---+ ---+ -------+| ?60-89 ?| ?Stage two ?| ? Decreased GFR ? + --+ --+ ------+| ?30-59 ?| ?Stage three ?| ? Stage three ? + --+ --+ ------+| ?15-29 ?| ?Stage four ? | ? Stage four ?+ ---+ ---+ -------+| ?<15 (or dialysis) ? ?| ?Stage five ? | ? Stage five ?+ ---+ ---+ -------+ *Each stage assumes the associated GFR level has been in effect for at least three months. ?Stages 1 to 5, with or without kidney disease, indicate chronic kidney disease. Notes: Determination of stages one and two (with eGFR >59mL/min/1.73 m2) requires estimation of kidney damage for at least three months as defined by structural or functional abnormalities of the kidney, manifested by either:Pathological abnormalities or Markers of kidney damage (including abnormalities in the composition of the blood or urine or abnormalities in imaging tests). Lab Interpretation Abnormal (test code = 80507-7) [facility] WITH [id number] 21:57:59 Test Item Value Reference Range Interpretation Comments WBC (test code = See_Comment H [Automated 7012-2) message] The system which generated this result transmit linsey reference range : 4.20 - 10.70 10*3/?L. The reference range was not used to interpret this result as normal/abnormal . RBC (test code = See_Comment [Automated 923-0) message] The system which generated this result transmit linsey reference range : 4.26 - 5.52 10*6/?L. The reference range was not used to interpret this result as normal/abnormal . HGB (test code = 16.0 g/dL 12.2-16.4 038-7) HCT (test code = 44.3 % 38.4-49.3 4544-3) MCV (test code = 87.9 fL 81.7-95.6 787-2) MCH (test code = 31.7 pg 26.1-32.7 785-6) MCHC (test code = 36.1 g/dL 31.2-35.0 H 786-4) RDW-SD (test code = 39.6 fL 38.5-51.6 02549-0) RDW-CV (test code = 12.2 % 12.1-15.4 788-0) PLT (test code = See_Comment [Automated 777-3) message] The system which generated this result transmit linsey reference range : 150 - 328 10*3/ ?L. The reference range was not u sed to interpret th is result as normal/abnormal . MPV (test code = 9.1 fL 9.8-13.0 L 70752-9) NRBC/100 WBC (test See_Comment [Automat ed code = 1209364708) message] The system which generated this result transmit linsey reference range : 0.0 - 10.0 /100 WBCs. The reference range was not used to interpret this result as normal/abnormal . NRBC x10^3 (test code <0.01 See_Comment [Auto mated = 7103360508) message] The system which generated this result transmit linsey reference range : 10*3/?L. The reference range was not used to interpret this result as normal/abnormal . GRAN MAT (NEUT) % 71.1 % (test code = 770-8) IMM GRAN % (test code 0.60 % = 2578223656) LYMPH % (test code = 16.1 % 736-9) MONO % (test code = 8.5 % 5905-5) EOS % (test code = 3.1 % 713-8) BASO % (test code = 0.6 % 706-2) GRAN MAT x10^3(ANC) 11.59 10*3/uL 1.99-6.95 H (test code = 6410199387) IMM GRAN x10^3 (test 0.09 10*3/uL 0.00-0.06 H code = 6305704316) LYMPH x10^3 (test code 2.63 10*3/uL 1.09-3.23 = 731-0) MONO x10^3 (test code 1.39 10*3/uL 0.36-1.02 H = 742-7) EOS x10^3 (test code = 0.51 10*3/uL 0.06-0.53 711-2) BASO x10^3 (test code 0.10 10*3/uL 0.01-0.09 H = 704-7) Lab Interpretation Abnormal (test code = 90692-6) [facility] ([facility] RNA [Presence] in Respiratory specimen by EV with probe [id number] 22:55:18 Test Item Value Reference Range Interpretation Comments SARS-CoV-2 (COVID-19) RNA Not detected Not-Detected [Presence] in Respiratory specimen by EV with probe detection (test code = 28621-6) Whether patient is employed in a healthcare setting (test code = 93322-4) Whether the patient has symptoms related to condition of interest (test code = 73948-3) Patient was hospitalized because of this condition (test code = 90235-1) Whether the patient was admitted to intensive care unit (ICU) for condition of interest (test code = 33007-3) Whether patient resides in a congregate care setting (test code = 03133-5) SARS-CoV-2 (COVID-19) RNA [Presence] in Respiratory specimen by EV with probe [id number] 00:51:10 Test Item Value Reference Range Interpretation Comments SARS-CoV-2 (COVID-19) RNA Not detected Not-Detected [Presence] in Respiratory specimen by EV with probe detection (test code = 74780-7) Whether patient is employed in a healthcare setting (test code = 24352-5) Whether the patient has symptoms related to condition of interest (test code = 04829-2) Patient was hospitalized because of this condition (test code = 51582-9) Whether the patient was admitted to intensive care unit (ICU) for condition of interest (test code = 03286-4) Whether patient resides in a congregate care setting (test code = 43062-9) [id number] 18:45:56 Test Item Value Reference Range Interpretation Comments APPEARANCE (test code = Cloudy Clear A 6117770091) COLOR (test code = Maryellen Yellow A 3821402104) PH (test code = 4.8-8.0 8311131298) SP GRAVITY (test code = 1.003-1.030 8178295473) GLU U QUAL (test code = Normal Normal 9995516489) BLOOD (test code = Negative Negative 4894433763) KETONES (test code = Negative Negative 9003929014) PROTEIN (test code = Negative Negative 2887-8) UROBILIN (test code = Normal Normal 1670548262) BILIRUBIN (test code = Negative Negative 3710099596) NITRITE (test code = Negative Negative 2442832320) LEUK CARMELLA (test code = Negative Negative 1332188244) RBC/HPF (test code = See_Comment [Autom ated message] 0112348610) The system [employer] generated this result transmitted ref erence range: 0 - 3 HP F. The reference range was not used to int erpret this result as normal/abnormal . WBC/HPF (test code = See_Comment H [Autom ated message] 5464223502) The system [employer] generated this result transmitted ref erence range: 0 - 5 HP F. The reference range was not used to int erpret this result as normal/abnormal . BACTERIA (test code = Few Negative A 9580805614) MUCOUS (test code = Slight Negative LPF A 5995537188) AMORPHOUS (test code = Rare Rare HPF 8296897182) YEAST BUD (test code = See_Comment H [Aut omated message] 6470789306) The system [employer] generated this result transmitted ref erence range: <=1 HPF. The reference range was not used to int erpret this result as normal/abnormal . Lab Interpretation (test Abnormal code = 18161-2) [facility] (NA, K, CL, CO2, GLUCOSE, BUN, CREATININE, CA)2021-01-23 17:30:23 Test Item Value Reference Range Interpretation Comments NA (test code = 136 mmol/L 135-145 0615027707) K (test code = 4.2 mmol/L 3.5-5.0 3449000403) CL (test code = 104 mmol/L 98-108 7195137687) CO2 TOTAL (test code 28 mmol/L 23-31 = 6684609683) AGAP (test code = 2-16 7556674269) BUN (test code = 14 mg/dL 7-23 9984776151) GLUCOSE (test code = 107 mg/dL 70-110 2083664244) CREATININE (test code 0.82 mg/dL 0.60-1.25 = 9305700608) CALCIUM (test code = 9.4 mg/dL 8.6-10.6 2953650611) eGFR (test code = mL/min/1.73m2 2056498444) SAI (test code = SAI) Association of Glomerular Filtration Rate (GFR) and Staging of Kidney Disease* + + +- +| GFR (mL/min/1.73 m2) ?| With Kidney Damage ?| ?Without Kidney Damage+ ------+ ----+ ------+| ?>90 ?| ?Stage one ?| ? Normal ?+ -+ + -+| ?60-89 ?| ?Stage two ?| ? Decreased GFR ? + + +- +| ?30-59 ?| ?Stage three ?| ? Stage three ? + + +- +| ?15-29 ?| ?Stage four ? | ? Stage four ?+ -+ + -+| ?<15 (or dialysis) ? ?| ?Stage five ? | ? Stage five ?+ -+ + -+ *Each stage assumes the associated GFR level has been in effect for at least three months. ?Stages 1 to 5, with or without kidney disease, indicate chronic kidney disease. Notes: Determination of stages one and two (with eGFR >59mL/min/1.73 m2) requires estimation of kidney damage for at least three months as defined by structural or functional abnormalities of the kidney, manifested by either:Pathological abnormalities or Markers of kidney damage (including abnormalities in the composition of the blood or urine or abnormalities in imaging tests). [facility] with [id number] 17:17:37 Test Item Value Reference Range Interpretation Comments WBC (test code = See_Comment H [Automated 6690-2) message] The system which generated this result transmit linsey reference range : 4.20 - 10.70 10*3/?L. The reference range was not used to interpret this result as normal/abnormal . RBC (test code = See_Comment [Automated 789-8) message] The system which generated this result transmit linsey reference range : 4.26 - 5.52 10*6/?L. The reference range was not used to interpret this result as normal/abnormal . HGB (test code = 16.9 g/dL 12.2-16.4 H 718-7) HCT (test code = 50.1 % 38.4-49.3 H 4544-3) MCV (test code = 91.3 fL 81.7-95.6 787-2) MCH (test code = 30.8 pg 26.1-32.7 785-6) MCHC (test code = 33.7 g/dL 31.2-35.0 786-4) RDW-SD (test code = 44.0 fL 38.5-51.6 46773-8) RDW-CV (test code = 13.1 % 12.1-15.4 788-0) PLT (test code = See_Comment [Automated 777-3) message] The system which generated this result transmit linsey reference range : 150 - 328 10*3/ ?L. The reference range was not u sed to interpret th is result as normal/abnormal . MPV (test code = 9.2 fL 9.8-13.0 L 04212-3) NRBC/100 WBC (test See_Comment [Automat ed code = [id number]) message] The system which generated this result transmit linsey reference range : 0.0 - 10.0 /100 WBCs. The reference range was not used to interpret this result as normal/abnormal . NRBC x10^3 (test code <0.01 See_Comment [Auto mated = [id number]) message] The system which generated this result transmit linsey reference range : 10*3/?L. The reference range was not used to interpret this result as normal/abnormal . GRAN MAT (NEUT) % 70.4 % (test code = 770-8) IMM GRAN % (test code 0.40 % = [id number]) LYMPH % (test code = 18.8 % 736-9) MONO % (test code = 7.5 % 5905-5) EOS % (test code = 2.3 % 713-8) BASO % (test code = 0.6 % 706-2) GRAN MAT x10^3(ANC) 10.12 10*3/uL 1.99-6.95 H (test code = 9682594854) IMM GRAN x10^3 (test 0.06 10*3/uL 0.00-0.06 code = [id number]) LYMPH x10^3 (test code 2.70 10*3/uL 1.09-3.23 = 731-0) MONO x10^3 (test code 1.08 10*3/uL 0.36-1.02 H = 742-7) EOS x10^3 (test code = 0.33 10*3/uL 0.06-0.53 711-2) BASO x10^3 (test code 0.08 10*3/uL 0.01-0.09 = 704-7) Lab Interpretation Abnormal (test code = 53010-8) [facility]"
[2022-03-20 16:49] LABS: Absolute Lymphocytes (CBC) 1.9 K/uL (0.7-4.9); Hematocrit 35.4 % (39.6-49.0); Lymphocytes % 25.6 % (15.3-44.8); MCV 92.4 fL (80-100); MPV 8.3 fL (7.6-11.3); RBC Red Blood Cell Count 3.83 M/uL (4.33-5.43)
[2022-03-20] MEDS ORDERED: NA CHLORIDE 0.9% 1,000 ML ONE ×2 (16:53→22:42)
[2022-03-20] MEDS ORDERED: FENTANYL CITR 100 MCG/2 ML ONE ×3 (16:53→20:37)
[2022-03-20 16:58] LABS: Urine Blood Negative (Negative); Urine Glucose Negative (Negative); Urine Protein 1+ (Negative); Urine Specific Gravity 1.025 (1.005-1.030)
[2022-03-20 17:04] LABS: Albumin 2.9 g/dL (3.4-5.0); Potassium 3.6 mmol/L (3.5-5.1); Protein, Total 6.9 g/dL (6.4-8.2)
[2022-03-20 17:05] LABS: Urine Bacteria <20 /HPF (<20); Urine RBC <5 /HPF (None Seen)
[2022-03-20 18:28] LABS: Blood Morphology Comment NOT SEEN (NOT SEEN); Platelet Estimate DECR; White Blood Cell Scan OK (OK)
--- NOTE | 2022-03-20 19:33 | RAD REPORT ---
EXAM DESCRIPTION: CT - Abdomen Pelvis W Contrast - 03/20/2022 7:11 pm CLINICAL HISTORY: lower abdomen/rectal pain COMPARISON: CT RAD RX FIELD SPINE dated 10/16/2021 TECHNIQUE: Biphasic, helical CT imaging of the abdomen and pelvis was performed following 100 ml non -ionic IV contrast. No oral contrast administered. All CT scans are performed using dose optimization technique as appropriate and may include automated exposure control or mA/KV adjustment according to patient size. FINDINGS: No suspicious findings in the lung bases. The liver, spleen, and pancreas show no suspicious findings. Gallbladder and biliary tree are also wi thout suspicious finding. Renal function is symmetric and does not appear to be delayed. No obstructing or nonobstructing calcu li. There is mild dilatation of each collecting system down to the UVJ. No pyelonephritis or acute pa renchymal process. Urinary bladder is dilated with the dome extending above the iliac crest level. No bladder wall thickening or mass identifiable. Prostate gland is prominent and appear slightly edemat ous. No adrenal abnormalities. No acute gastric finding. No dilated small bowel loops. The appendix is normal. Large amount of stool is present distending the sigmoid colon. There is circumferential wall thickening of the rectum most pronounced in the perianal region. There is enhancement of the mucosa and luminal narrowing. There i s congestion in the perirectal fat. Prior imaging shows radiation planning study for rectal carcinoma . Radiation proctitis would likely have resolved if therapy was performed in early October. This would need correlation treatment protocol. Non radiation proctitis would be possible. This may be residual malignancy affects. No free air, free fluid or pneumatosis. No bulky lymphadenopathy or omental thickening. No suspicious bony findings. IMPRESSION: Circumferential wall thickening of the rectum most pronounced at the rectum anal junctio n. There is congestion and edema in the perirectal fat. Patient has a rectal malignant history. Current findings may reflect residual malignancy, post therap y proctitis, inflammatory/ infectious proctitis or a combination. Urinary bladder is dilated with the dome extending above the iliac crest level. There is mild bilater al hydronephrosis. Prostate gland does appear to be mildly edematous. Prostate changes could be secon arden to therapy or unrelated prostatitis causing urethral outlet restriction.
[2022-03-20] MEDS ORDERED: LIDOCAINE VISCOUS 2% SOLN 15 ML UDC ONE (20:33)
[2022-03-20] MEDS ORDERED: LACTULOSE 20 GM/30 ML UCUP ONE (20:34)
--- NOTE | 2022-03-20 21:10 | ER ---
Nurse's Notes [facility] Name: Jeremy Rolon Age: 51 yrs Sex: Male : 1970 Arrival Date: 03/20/2022 Time: 13:43 Bed 19 Private MD: Diagnosis: Retention of urine, unspecified;Fecal impaction Presentation: 03/20 14:07 Chief complaint: Patient states: rectal pain, "feels like something is sticking out of ld1 my butt; I can barely sit down". Ebola Screen: No symptoms or risks identified at this time. Onset of symptoms was March 18, 2022. 14:07 Method Of Arrival: Ambulatory ld1 14:07 Acuity: LA 3 ld1 14:28 Coronavirus screen: At this time, the client does not indicate any symptoms associated ld1 with coronavirus-19. Initial Sepsis Screen: Does the patient meet any 2 criteria? No. Patient's initial sepsis screen is negative. Does the patient have a suspected source of infection? No. Patient's initial sepsis screen is negative. Risk Assessment: Do you want to hurt yourself or someone else? Patient reports no desire to harm self or others. Triage Assessment: 14:07 General: Appears in no apparent distress. uncomfortable, Behavior is calm, cooperative, ld1 appropriate for age. Pain: Complains of pain in rectum and anus Pain radiates to left gluteus konstantin Pain currently is 10 out of 10 on a pain scale. Quality of pain is described as dull, pressure, Pain began 2-3 days ago. Is continuous, Alleviated by nothing. Aggravated by trying to defecate Noted to be guarding, resistant to movement, Also complains of constipation, diarrhea. Neuro: Level of Consciousness is awake, alert, obeys commands, Oriented to person, place, time, situation. Cardiovascular: Capillary refill < 3 seconds Patient's skin is warm and dry. Respiratory: Airway is patent Respiratory effort is even, labored. GI: Abdomen is flat, non-distended, Reports constipation, diarrhea. : Reports burning with urination. Historical: - Allergies: 14:15 No Known Allergies; ld1 - Home Meds: 14:15 ondansetron HCl 8 mg Oral tab 1 tab 2 times per day [Active]; olanzapine 2.5 mg oral ld1 tab 2 tabs once daily [Active]; amlodipine 5 mg tab 1 tab once daily [Active]; losartan 100 mg oral tab 1 tab once daily [Active]; tamsulosin 0.4 mg oral cap 1 cap once daily [Active]; meloxicam 15 mg oral tab 1 tab once daily [Active]; solifenacin 10 mg oral tab 1 tab once daily [Active]; atorvastatin 40 mg oral tab 1 tab once daily [Active]; morphine 30 mg Oral CERP 1 cap 2 times per day [Active]; morphine 15 mg Oral cap as needed for pain [Active]; senna oral [Active]; Miralax Oral [Active]; - PMHx: 14:15 Colon cancer; Myocardial infarction; 1 stent (2018); ld1 - PSHx: 14:15 Stented artery; ld1 - Immunization history:: Adult Immunizations not up to date. - Social history:: Smoking status: Patient reports the use of cigarette tobacco products, smokes one pack cigarettes per day. Patient/guardian denies using alcohol. Screenin:12 Abuse screen: Denies threats or abuse. Denies injuries from another. Nutritional iw screening: No deficits noted. Tuberculosis screening: No symptoms or risk factors identified. Fall Risk IV access (20 points). Assessment: 17:47 Reassessment: Patient appears in no apparent distress at this time. Patient and/or iw family updated on plan of care and expected duration. Pain level reassessed. Patient is alert, oriented x 3, equal unlabored respirations, skin warm/dry/pink. 19:11 Reassessment: Patient appears in no apparent distress at this time. Patient and/or iw family updated on plan of care and expected duration. Pain level reassessed. Patient is alert, oriented x 3, equal unlabored respirations, skin warm/dry/pink. pt transported toCT via stretcher, with water treatment technician. 19:55 : Bladder is distended. ja4 19:55 Reassessment: bladder scanner done on pt. 515ml scanned in pt bladder. provider brad notified. 03/21 08:19 GI: Bowel sounds present X 4 quads. Abd is soft. ap3 13:06 Reassessment: Nurse attempted report to the floor nurse. Was informed that the ap3 receiving nurse would call me back. 13:26 Reassessment: report called to receiving nurse, Kenia. ap3 Vital Signs: 03/20 14:07 BP 101 / 76; Pulse 101; Resp 18; Temp 97.4(TE); Pulse Ox 97% on R/A; Weight 79.38 kg; ld1 Height 5 ft. 10 in. (177.80 cm); Pain 10/10; 19:26 BP 104 / 73; Pulse 71; Resp 16; Pulse Ox 98% on R/A; Pain 7/10; iw 14:07 Body Mass Index 25.11 (79.38 kg, 177.80 cm) ld1 ED Course: 13:43 Patient arrived in ED. rg4 14:07 Arm band placed on right wrist. ld1 14:08 Triage completed. ld1 14:11 Chuck Welch PA is PHCP. cp 14:11 Tristan North MD is Attending Physician. cp 15:59 Tracy Gutierrez, SAMPSON is Primary Nurse. iw 16:43 Inserted saline lock: 20 gauge in right antecubital area, using aseptic technique. kc6 Blood collected. 16:43 Lactate Sent. kc6 16:43 Procalcitonin Sent. kc6 16:44 CBC with Diff Sent. kc6 16:44 CMP Sent. kc6 16:44 Lipase Sent. kc6 16:59 Urine collected: clean catch specimen, cloudy, mcakenzie colored. jw7 17:00 Urine Microscopic Only Sent. jw7 17:13 Blood Culture Adult (2) Sent. kc6 19:12 CT Abd/Pelvis - PO and IV Contrast In Process Unspecified. EDMS 19:12 Patient has correct armband on for positive identification. iw 20:54 Candelario cath inserted, using sterile technique, 16 Fr., by me, balloon inflated, to wm gravity drainage, clamped. Patient tolerated. 21:07 Chaka Up MD is Hospitalizing Provider. cp 08 08:18 No provider procedures requiring assistance completed. Patient admitted, IV remains in ap3 place. Administered Medications: 03/20 16:48 Drug: fentaNYL (PF) 25 mcg Route: IVP; Site: left antecubital; ld1 19:06 Follow up: Response: No adverse reaction iw 16:48 Drug: NS 0.9% 1000 ml Route: IV; Rate: 500 ml/hr; Site: left antecubital; ld1 19:05 Drug: fentaNYL (PF) 25 mcg Route: IVP; Site: left antecubital; iw 20:25 Drug: fentaNYL (PF) 25 mcg Route: IVP; Site: right antecubital; ke1 21:00 Drug: Lactulose 30 grams Volume: 45 ml; Route: PO; ke1 22:51 Drug: Nicoderm CQ Patch 21 mg/24 hr 1 patches {Note: R arm.} Route: Transdermal; Site: ke1 affected area; 22:51 Drug: Ativan (LORazepam) 0.5 mg Route: IVP; Site: left antecubital; ke1 22:51 Drug: metroNIDAZOLE 500 mg Volume: 100 ml; Route: IVPB; Infused Over: 30 mins; Site: ke1 left antecubital; 22:51 Drug: NS 0.9% 1000 ml Route: IV; Rate: 100 ml/hr; Site: left antecubital; ke1 22:51 Drug: morphine 2 mg Route: IVP; Infused Over: 4 mins; Site: left antecubital; ke1 23:29 Drug: LevaQUIN (levofloxacin) 500 mg Volume: 100 ml; Route: IVPB; Infused Over: 60 ke1 mins; Site: left antecubital; Medication: 03/21 08:19 VIS not applicable for this client. ap3 Output: 03/20 22:30 Urine: 1100ml (Candelario); Total: 1100ml. ke1 Outcome: 21:09 Decision to Hospitalize by Provider. cp 03/21 08:19 Admitted to ER Hold. Please see [facility] for further documentation. ap3 Condition: good Instructed on the need for admit. 14:02 Patient left the ED. ap3 Signatures: Dispatcher [employer] EDTracy Abraham RN RN iw Page, Corey, PA PA Rebecca Zarate rg4 Yen Prado RN RN ap3 Ashley Mcdonald RN RN justine1 Sheila Buchanan Jodi jw7 Stan Juárez RN RN ke1 Tigist Cooper kc6 Sebastián Hare RN RN ja4 Corrections: (The following items were deleted from the chart) 08 14:29 14:07 Pulse 101bpm; Resp 18bpm; Pulse Ox 97% RA; Temp 97.4F Temporal; 79.38 kg; Height ld1 5 ft. 10 in.; BMI: 25.1; Pain 05/20; ld1 21:36 21:34 Candelario cath inserted, using sterile technique, 16 Fr., by me, balloon inflated, to wm gravity drainage, clamped. Patient tolerated wm 22:28 20:25 fentaNYL (PF) 25 mcg IVP in left antecubital ke1 ke1
--- NOTE | 2022-03-20 21:10 | EDPHYS ---
Physician Documentation [facility] Name: Jeremy Rolon Age: 51 yrs Sex: Male : 1970 Arrival Date: 03/20/2022 Time: 13:43 Bed 19 Private MD: ED Physician Tristan North HPI: 03/20 16:10 This 51 yrs old Unknown Male presents to ER via Ambulatory with complaints of cp Constipation. 16:10 The patient presents to the emergency department with pain in the rectal area, that is cp severe. 16:10 Onset: The symptoms/episode began/occurred 3 day(s) ago, and became worse today. cp Associate signs and symptoms: Pertinent positives: abdominal pain in the lower abdomen, constipation, Pertinent negatives: fever, lower GI bleeding, vomiting. Patient reports history of rectal cancer. Currently receiving chemo at [facility] with last treatment last week. Historical: - Allergies: 14:15 No Known Allergies; ld1 - Home Meds: 14:15 ondansetron HCl 8 mg Oral tab 1 tab 2 times per day [Active]; olanzapine 2.5 mg oral ld1 tab 2 tabs once daily [Active]; amlodipine 5 mg tab 1 tab once daily [Active]; losartan 100 mg oral tab 1 tab once daily [Active]; tamsulosin 0.4 mg oral cap 1 cap once daily [Active]; meloxicam 15 mg oral tab 1 tab once daily [Active]; solifenacin 10 mg oral tab 1 tab once daily [Active]; atorvastatin 40 mg oral tab 1 tab once daily [Active]; morphine 30 mg Oral CERP 1 cap 2 times per day [Active]; morphine 15 mg Oral cap as needed for pain [Active]; senna oral [Active]; Miralax Oral [Active]; - PMHx: 14:15 Colon cancer; Myocardial infarction; 1 stent (2018); ld1 - PSHx: 14:15 Stented artery; ld1 - Immunization history:: Adult Immunizations not up to date. - Social history:: Smoking status: Patient reports the use of cigarette tobacco products, smokes one pack cigarettes per day. Patient/guardian denies using alcohol. ROS: 16:15 Constitutional: Negative for body aches, chills, fever, poor PO intake. cp 16:15 Eyes: Negative for injury, pain, redness, and discharge. cp 16:15 ENT: Negative for ear pain, sore throat, difficulty swallowing, difficulty handling secretions. 16:15 Cardiovascular: Negative for chest pain, edema, palpitations. 16:15 Respiratory: Negative for cough, shortness of breath, wheezing. 16:15 Abdomen/GI: Positive for abdominal pain, constipation, rectal pain, Negative for vomiting, anorexia, black/tarry stool, rectal bleeding. 16:15 : Negative for hematuria, burning with urination, testicular pain 16:15 Neuro: Negative for altered mental status, dizziness, headache, weakness. 16:15 All other systems are negative. Exam: 16:20 Constitutional: The patient appears in no acute distress, alert, awake, cp non-diaphoretic, non-toxic, well developed, well nourished. 16:20 Head/Face: Normocephalic, atraumatic. cp Vital Signs: 14:07 BP 101 / 76; Pulse 101; Resp 18; Temp 97.4(TE); Pulse Ox 97% on R/A; Weight 79.38 kg; ld1 Height 5 ft. 10 in. (177.80 cm); Pain 10/10; 19:26 BP 104 / 73; Pulse 71; Resp 16; Pulse Ox 98% on R/A; Pain 7/10; iw 14:07 Body Mass Index 25.11 (79.38 kg, 177.80 cm) ld1 MDM: 15:42 Patient medically screened. cp 21:05 Data reviewed: vital signs, nurses notes, lab test result(s), radiologic studies, CT cp scan. 21:05 Counseling: I had a detailed discussion with the patient and/or guardian regarding: the cp historical points, exam findings, and any diagnostic results supporting the discharge/admit diagnosis, lab results, radiology results, the need for further work-up and treatment in the hospital. Response to treatment: abdominal pain improved with placement of arrieta catheter and 800 ccs observed in catheter bag post arrieta placement. 03/20 16:00 Order name: CBC with Diff; Complete Time: 18:33 iw 03/20 17:04 Interpretation: Normal except: RBC 3.83; HGB 12.5; HCT 35.4; PLT 99; RDW 19.0; MN% cp 18.8; MNA 1.4. 03/20 16:00 Order name: CMP; Complete Time: 17:33 03/20 17:41 Interpretation: Normal except: NA 131; CL 97; ALK 155; ALB 2.9; GLOB 4.0; A/G 0.7. 03/20 16:00 Order name: Lipase; Complete Time: 17:33 03/20 16:04 Order name: Procalcitonin; Complete Time: 17:33 03/20 17:34 Interpretation: Reviewed. 03/20 16:04 Order name: Lactate; Complete Time: 17:03 03/20 16:04 Order name: Blood Culture Adult (2) 03/20 16:04 Order name: Urine Microscopic Only; Complete Time: 17:33 03/20 19:58 Interpretation: Reviewed. 03/20 16:59 Order name: Urine Dipstick-Ancillary; Complete Time: 17:03 EDCA 03/20 18:34 Interpretation: Normal except: UPROT 1+. 03/20 18:29 Order name: CBC Smear Scan; Complete Time: 18:33 EDCA 03/21 04:50 Order name: SARS RAPID ke1 03/21 05:14 Order name: SARS-COV-2 Antigen Rapid [facility] 03/21 07:46 Order name: Glucose, Ancillary Testing [facility] 03/21 08:56 Order name: Comprehensive Metabolic Panel [facility] 03/21 08:56 Order name: Phosphorus [facility] 03/20 16:00 Order name: IV Saline Lock; Complete Time: 16:43 03/20 16:04 Order name: CT Abd/Pelvis - PO and IV Contrast; Complete Time: 19:38 03/20 22:10 Order name: Diet Clear Liquid; Complete Time: 22:17 sb3 03/21 08:56 Order name: Magnesium [facility] 03/21 09:04 Order name: CBC with Automated Diff [facility] 03/20 16:00 Order name: Labs collected and sent; Complete Time: 16:43 03/20 16:04 Order name: Urine Dipstick-Ancillary (obtain specimen); Complete Time: 17:00 03/20 19:40 Order name: Bladder Scanner: pre and post void; Complete Time: 19:58 cp 03/20 19:47 Order name: Arrieta; Complete Time: 21:38 cp Administered Medications: 16:48 Drug: fentaNYL (PF) 25 mcg Route: IVP; Site: left antecubital; ld1 19:06 Follow up: Response: No adverse reaction iw 16:48 Drug: NS 0.9% 1000 ml Route: IV; Rate: 500 ml/hr; Site: left antecubital; ld1 19:05 Drug: fentaNYL (PF) 25 mcg Route: IVP; Site: left antecubital; iw 20:25 Drug: fentaNYL (PF) 25 mcg Route: IVP; Site: right antecubital; ke1 21:00 Drug: Lactulose 30 grams Volume: 45 ml; Route: PO; ke1 22:51 Drug: Nicoderm CQ Patch 21 mg/24 hr 1 patches {Note: R arm.} Route: Transdermal; Site: [facility] affected area; 22:51 Drug: Ativan (LORazepam) 0.5 mg Route: IVP; Site: left antecubital; ke1 22:51 Drug: metroNIDAZOLE 500 mg Volume: 100 ml; Route: IVPB; Infused Over: 30 mins; Site: [facility] left antecubital; 22:51 Drug: NS 0.9% 1000 ml Route: IV; Rate: 100 ml/hr; Site: left antecubital; ke1 22:51 Drug: morphine 2 mg Route: IVP; Infused Over: 4 mins; Site: left antecubital; ke1 23:29 Drug: LevaQUIN (levofloxacin) 500 mg Volume: 100 ml; Route: IVPB; Infused Over: 60 ke1 mins; Site: left antecubital; Disposition Summary: 03/20/22 21:09 Hospitalization Ordered Hospitalization Status: Inpatient Admission cp Provider: Chaka Up cp Condition: Stable cp Problem: new cp Symptoms: have improved cp Bed/Room Type: Standard cp Location: Telemetry/MedSurg (Inpatient)(03/21/22 12:40) dw Room Assignment: 406(03/21/22 12:40) dw Diagnosis - Retention of urine, unspecified cp - Fecal impaction cp Forms: - Medication Reconciliation Form cp - SBAR form cp Signatures: Dispatcher [employer] Itzel Reo RN RN dw Williams, Irene, RN RN iw Chuck Welch PA PA cp Marycruz Lomas RN RN eb1 Ashley Mcdonald RN RN ld1 Stan Juárez RN RN ke1 Corrections: (The following items were deleted from the chart) 17:41 17:34 Normal except: NA 131; CL 97. cp cp : 21:09 Telemetry/MedSurg (Inpatient) cp eb1 :22 21:09 cp eb1 03/21 12:40 08 22:22 [facility] ER HOLD eb1 dw 03/21 12:40 03/20 22:22 ERHOLD- eb1 dw
--- NOTE | 2022-03-20 21:44 | P.HP ---
Certification for Inpatient Patient admitted to: Inpatient With expected LOS: <2 Midnights Patient will require the following post-hospital care: None Practitioner: I am a practitioner with admitting privileges, knowledge of patient current condition, hospital course, and medical plan of care. Services: Services provided to patient in accordance with Admission requirements found in Title 42 Section 412.3 of the Code of Federal Regulations <SouravCaren - Last Filed: 03/20/22 23:31> Patient History Date of Service: 03/20/22 Reason for admission: Constipation, Urinary Retention History of Present Illness: Patient is a 51-year-old male with colon cancer currently on chemotherapy (last session 1 week ago), HTN, and CAD/TX who presented to the ED with complaints of 10/10 rectal pain. Patient reports that he has not had a BM in 3 days and has started to notice a bulge come out of his rectum when he bears down. He also co mplains of lower abdominal cramping and urinary retention. His labs are significant for sodium 131, Pro-Maxi 0.14. CT abdomen/pelvis showed "circumferential wall thickening of the rectum most pronounced at the rectum anal junction. There is congestion and edema in the perirectal fat. Urinary bladder is dilated with a dome extending above the iliac crest level. There is mild bilateral hydronephrosis. Prostate gland does appear to be mildly edematous." General surgery was contacted and has agreed to consult. Bladder was noted to be distended and bladder scanner confirmed. Arrieta catheter was inserted which resulted in successful void. He was given fluids, fentanyl, Levaquin, Flagyl, lactulose, Ativan, and morphine in the ED. He is admitted for further evaluation and treatment. - Past Medical/Surgical History Diabetic: No -: Rectal Cancer -: Coronary Artery Disease -: Stents Psychosocial/ Personal History: Patient lives at home. He does not work. He has a son. - Social History Smoking Status: Current every day smoker Alcohol use: No CD- Drugs: No Caffeine use: Yes Place of Residence: Home <Caren Benjamin - Last Filed: 03/20/22 23:31> Date of Service: 03/22/22 <Chaka Up - Last Filed: 03/22/22 13:34> Review of Systems Gastrointestinal: Abdominal Pain, Distention, Constipation Genitourinary: Retention <Caren Benjamin - Last Filed: 03/20/22 23:31> Physical Examination - Physical Exam General: Alert, In no apparent distress HEENT: Atraumatic, PERRLA, EOMI, Sclerae nonicteric Neck: Supple, 2+ carotid pulse no bruit, No LAD, Without JVD or thyroid abnormality Respiratory: Clear to auscultation bilaterally, Normal air movement Cardiovascular: Regular rate/rhythm, Normal S1 S2 Gastrointestinal: Normal bowel sounds, Soft and benign, Tenderness Musculoskeletal: No tenderness Integumentary: No rashes Neurological: Normal speech, Normal strength at 5/5 x4 extr, Normal tone, Normal affect Urinary: Arrieta catheter - Studies Laboratory Data (last 24 hrs) 03/20/22 16:35: Sodium 131 L, Potassium 3.6, BUN 11, Creatinine 0.68, Glucose 96, Total Bilirubin 1.0, AST 17, ALT 22, Alkaline Phosphatase 155 H, Lipase 110 03/20/22 16:35: WBC 7.3, Hgb 12.5 L, Hct 35.4 L, Plt Count 99 L <Caren Benjamin - Last Filed: 03/20/22 23:31> - Studies Microbiology Data (last 24 hrs): 03/20/22 17:10 Blood - Blood Gram Stain - Final <Chaka Up - Last Filed: 03/22/22 13:34> Assessment and Plan - Problems (Diagnosis) (1) Constipation Current Visit: Yes Status: Acute Qualifiers: Constipation type: outlet dysfunction constipation Qualified Code(s): K59.02 - Outlet dysfunction constipation (2) Rectal cancer Current Visit: Yes Status: Chronic (3) Urinary retention Current Visit: Yes Status: Acute (4) Hyponatremia Current Visit: Yes Status: Acute (5) Coronary artery disease Current Visit: Yes Status: Chronic Qualifiers: Coronary Disease-Associated Artery/Lesion type: [place] artery [place] vs. transplanted heart: [place] heart Associated angina: without angina Qualified Code(s): I25.10 - Atherosclerotic heart disease of [place] coronary artery without angina pectoris (6) Tobacco abuse Current Visit: Yes Status: Chronic - Plan -General surgery consulted -Mag citrate, clear liquid diet, IV antibiotics per surgery recommendation. NO E NEMAS. Received lactulose in ED. -Morphine PRN pain -Monitor arrieta catheter output and bowel movements -Monitor and replete electrolytes per protocol -Reconcile and continue home medications -Lovenox for VTE ppx -Full code Discharge Plan: Home Plan to discharge in: 48 Hours - Advance Directives Does patient have a Living Will: No Does patient have a Durable POA for Healthcare: No - Code Status/Comfort Care Code Status Assessed: Yes (Full) Critical Care: No Time Spent Managing Pts Care (In Minutes): 50 <Caren Benjamin - Last Filed: 03/20/22 23:31> - Problems (Diagnosis) (1) Radiation proctitis Current Visit: Yes Status: Acute (2) Constipation Current Visit: Yes Status: Acute Qualifiers: Constipation type: outlet dysfunction constipation Qualified Code(s): K 59.02 - Outlet dysfunction constipation (3) Urinary retention Current Visit: Yes Status: Acute <Chaka Up - Last Filed: 03/22/22 13:34>
[2022-03-20] MEDS ORDERED: NICOTINE 21 MG/PAT TD ONE (22:40)
[2022-03-20] MEDS ORDERED: LORazepam 2 MG/ML VIAL ONE (22:41)
[2022-03-20] MEDS ORDERED: METRONIDAZOLE 500mg IVPB 500 MG/100 ML BAG IV ONE (22:42)
[2022-03-20] MEDS ORDERED: Levofloxacin500mg IV 500 MG/100 ML BAG IV ONE (22:42)
[2022-03-20] MEDS ORDERED: MORPHINE 2 MG/ML SYR ONE (22:42)
[2022-03-21] MEDS ORDERED: ONDANSETRON 4 MG/2 ML VIAL IV PRN (04:02)
[2022-03-21] MEDS: NA CHLORIDE 0.9% 1,000 ML IV SCH ×2 (04:02→13:14)
[2022-03-21] MEDS ORDERED: Levofloxacin500mg IV 500 MG/100 ML BAG IV SCH ×2 (04:02→21:00)
[2022-03-21] MEDS: METHYLPREDNISOLONE 40 MG INJ IV SCH ×3 (04:02→16:07)
[2022-03-21] MEDS ORDERED: ACETAMINOPHEN 500 MG TAB PO PRN (04:02)
[2022-03-21] MEDS ORDERED: MAGNESIUM CITRATE 300 ML BOT PO SCH (04:02)
[2022-03-21] MEDS ORDERED: METRONIDAZOLE 500mg IVPB 500 MG/100 ML BAG IV SCH (04:02)
[2022-03-21] MEDS: MORPHINE 2 MG/ML SYR IV PRN ×2 (04:46→10:57)
[2022-03-21] MEDS ORDERED: MORPHINE 2 MG/ML SYR ONE ×2 (04:46→10:56)
[2022-03-21] MEDS ORDERED: METHYLPREDNISOLONE 40 MG INJ ONE ×2 (04:46→08:30)
[2022-03-21 05:05] VITALS: BMI 25.1
[2022-03-21 05:13] LABS: SARS-CoV-2 Antigen Rapid Res Negative (Negative)
[2022-03-21] MEDS ORDERED: ENOXAPARIN 40 MG/0.4 ML SQ ONE (08:31)
[2022-03-21] MEDS ORDERED: METRONIDAZOLE 500mg IVPB 500 MG/100 ML BAG IV ONE (08:39)
[2022-03-21 08:56] LABS: Albumin 2.8 g/dL (3.4-5.0); Bilirubin Total 0.8 mg/dL (0.2-1.0); Phosphorus 2.4 mg/dL (2.5-4.9); Potassium 3.6 mmol/L (3.5-5.1); Protein, Total 6.7 g/dL (6.4-8.2)
[2022-03-21 08:58] LABS: Absolute Lymphocytes (CBC) 0.5 K/uL (0.7-4.9); Hematocrit 33.4 % (39.6-49.0); Lymphocytes % 9.4 % (15.3-44.8); MCV 91.3 fL (80-100); MPV 8.2 fL (7.6-11.3); RBC Red Blood Cell Count 3.66 M/uL (4.33-5.43)
[2022-03-21] MEDS: METRONIDAZOLE 500mg IVPB 500 MG/100 ML BAG IV SCH ×2 (09:00→16:08)
[2022-03-21] MEDS: ENOXAPARIN 40 MG/0.4 ML SQ SCH (09:00)
[2022-03-21] MEDS ORDERED: ONDANSETRON 4 MG/2 ML VIAL ONE (10:56)
[2022-03-21] MEDS ORDERED: NA CHLORIDE 0.9% 1,000 ML ONE (12:48)
[2022-03-22] MEDS: METHYLPREDNISOLONE 40 MG INJ IV SCH ×2 (00:24→08:24)
[2022-03-22] MEDS: METRONIDAZOLE 500mg IVPB 500 MG/100 ML BAG IV SCH ×2 (00:24→08:23)
[2022-03-22] MEDS: NA CHLORIDE 0.9% 1,000 ML IV SCH (00:31)
[2022-03-22 04:00] LABS: Absolute Lymphocytes (CBC) 1.2 K/uL (0.7-4.9); Hematocrit 33.2 % (39.6-49.0); Lymphocytes % 14.6 % (15.3-44.8); RBC Red Blood Cell Count 3.61 M/uL (4.33-5.43)
[2022-03-22 04:15] LABS: Potassium 3.6 mmol/L (3.5-5.1)
[2022-03-22] MEDS: ENOXAPARIN 40 MG/0.4 ML SQ SCH (08:24)
[2022-03-22] MEDS ORDERED: POTASSIUM CL SA 10 MEQ TAB PO ONE (09:00)
[2022-03-22 09:20] VITALS: O2SAT 96
[2022-03-22 11:59] VITALS: BP 133/87; TEMP 97.5
--- NOTE | 2022-03-22 13:30 | P.PN ---
Subjective Date of Service: 03/21/22 Patient clinically continues to improve. Symptoms are improving. Patient denies any other new complaints. Review of Systems 10-point ROS is otherwise unremarkable Physical Examination - Vital Signs Temperature: 97.5 F Blood Pressure: 133/87 Pulse: 71 Respirations: 16 Pulse Ox (%): 97 - Physical Exam General: Alert, In no apparent distress, Oriented x3 Respiratory: Clear to auscultation bilaterally, Normal air movement Cardiovascular: Regular rate/rhythm, Normal S1 S2, No murmurs Gastrointestinal: Normal bowel sounds, Soft and benign, Non-distended, No tenderness Musculoskeletal: No clubbing, No swelling, No tenderness Neurological: Sensation intact, Cranial nerves 3-12 intact Lymphatics: No axilla or inguinal lymphadenopathy - Studies Microbiology Data (last 24 hrs): 03/20/22 17:10 Blood - Blood Gram Stain - Final Medications List Reviewed: Yes Assessment & Plan - Problems (Diagnosis) (1) Radiation proctitis Current Visit: Yes Status: Acute (2) Constipation Current Visit: Yes Status: Acute Qualifiers: Constipation type: outlet dysfunction constipation Qualified Code(s): K59.02 - Outlet dysfunction constipation (3) Urinary retention Current Visit: Yes Status: Acute - Plan Plan: 1. Continue with IV steroids 2. IV antibiotics 3. Pain control 4. Bladder retention will require catheter with leg bag 5. Continue with Flomax 6. GI DVT prophylaxis Discharge Plan: Home Plan to discharge in: Greater than 2 days - Advance Directives Does patient have a Living Will: No Does patient have a Durable POA for Healthcare: No - Code Status/Comfort Care Code Status Assessed: Yes Code Status: Full Code Critical Care: No Time Spent Managing PTS Care (In Minutes): 35
--- NOTE | 2022-03-22 13:33 | P.DS ---
Discharge Date: 03/22/22 Disposition: ROUTINE DISCHARGE Discharge Condition: GOOD Reason for Admission: Constipation, Urinary Retention - Problems (1) Radiation proctitis Current Visit: Yes Status: Acute (2) Constipation Current Visit: Yes Status: Acute Qualifiers: Constipation type: outlet dysfunction constipation Qualified Code(s): K59.02 - Outlet dysfunction constipation (3) Urinary retention Current Visit: Yes Status: Acute Brief History of Present Illness: Patient is a 51-year-old male with colon cancer currently on chemotherapy (last session 1 week ago), HTN, and CAD/AR who presented to the ED with complaints of 10/10 rectal pain. Patient reports that he has not had a BM in 3 days and has started to notice a bulge come out of his rectum when he bears down. He also complains of lower abdominal cramping and urinary retention. His labs are significant for sodium 131, Pro-Maxi 0.14. CT abdomen/pelvis showed "circumferential wall thickening of the rectum most pronounced at the rectum anal junction. There is congestion and edema in the perirectal fat. Urinary bladder is dilated with a dome extending above the iliac crest level. There is mild bilateral hydronephrosis. Prostate gland does appear to be mildly edematous." General surgery was contacted and has agreed to consult. Bladder was noted to be distended and bladder scanner confirmed. Candelario catheter was inserted which resulted in successful void. He was given fluids, fentanyl, Levaquin, Flagyl, lactulose, Ativan, and morphine in the ED. He is admitted for further evaluation and treatment. Vital Signs/Physical Exam: Temp Pulse Resp BP Pulse Ox 97.5 F 71 16 133/87 97 03/22/22 13:29 03/22/22 13:29 03/22/22 13:29 03/22/22 13:29 03/22/22 13:29 General: Alert, In no apparent distress, Oriented x3 Laboratory Data at Discharge: WBC 8.4 K/uL (4.3-10.9) D 03/22/22 03:39 Hgb 12.0 g/dL (13.6-17.9) L 03/22/22 03:39 Hct 33.2 % (39.6-49.0) L 03/22/22 03:39 Plt Count 135 K/uL (152-406) L 03/22/22 03:39 Sodium 136 mmol/L (136-145) 03/22/22 03:39 Potassium 3.6 mmol/L (3.5-5.1) 03/22/22 03:39 BUN 10 mg/dL (7-18) 03/22/22 03:39 Creatinine 0.61 mg/dL (0.55-1.3) 03/22/22 03:39 Glucose 157 mg/dL (74-106) H 03/22/22 03:39 Phosphorus 2.4 mg/dL (2.5-4.9) L 03/21/22 07:47 Magnesium 2.0 mg/dL (1.8-2.4) 03/21/22 07:47 Total Bilirubin 0.8 mg/dL (0.2-1.0) 03/21/22 07:47 AST 18 U/L (15-37) 03/21/22 07:47 ALT 21 U/L (12-78) 03/21/22 07:47 Alkaline Phosphatase 145 U/L (45-117) H 03/21/22 07:47 Lipase 110 U/L (73-393) 03/20/22 16:35 Home Medications: Amlodipine [Norvasc*] 1 tab PO DAILY 03/21/22 Atorvastatin Calcium 1 tab PO BEDTIME 03/21/22 Losartan Potassium 1 tab PO DAILY 03/21/22 Meloxicam 1 tab PO DAILY 03/21/22 Morphine Sulfate [Morphine Sulfate Cr] 1 tab PO QID PRN 03/21/22 Morphine Sulfate [Morphine Sulfate ER] 1 tab PO BID 03/21/22 OLANZapine [Olanzapine] 0.5 tab PO BID 03/21/22 Solifenacin Succinate 1 tab PO DAILY 03/21/22 ondansetron HCL [Ondansetron HCl] 1 tab PO BID 03/21/22 Levofloxacin [Levaquin] 500 mg PO DAILY #7 03/22/22 Tamsulosin HCl [Flomax] 0.8 mg PO DAILY #60 03/22/22 metroNIDAZOLE [Flagyl] 500 mg PO Q8H #20 03/22/22 predniSONE [Prednisone*] 20 mg PO BID #11 tab 03/22/22 New Medications: metroNIDAZOLE [Flagyl] 500 mg PO Q8H #20 Tamsulosin HCl [Flomax] 0.8 mg PO DAILY #60 Levofloxacin [Levaquin] 500 mg PO DAILY #7 predniSONE [Prednisone*] 20 mg PO BID #11 tab Physician Discharge Instructions: -DC IV and DC home -Follow-up with PCP in 1 to 2 weeks -Follow-up with Gastroenterology and Urology in 1 to 2 weeks -Please call Dr. Up at [phone] if any questions regarding hospital stay -Please call nursing station at [phone] if any nursing or medication questions -Return to the emergency room if symptoms worsen Diet: Soft diet Activity: Fall precautions Followup: Dino Jimenez, MANAGER INTENSIVE CARE [Primary Care Provider] - Time spent managing pt's care (in minutes): 35
--- NOTE | 2022-03-22 15:36 | CON ---
Date of Consultation: 03/22/2022 Brief History Of Present Illness: The patient is a 52-year-old male with a known history of rectal c ancer, getting treated with chemotherapy, receiving his 8 of 8 session of chemotherapy last week. He cannot recall the details of which specific regimen he is taking. He has not started any radiation treatment. He has a history also of hypertension, coronary artery disease, myocardial infarction, wh o complains of 10/10 rectal pain. He notes that the pain got significantly worse over the past sever al days and now is excruciating prior to his admission. He also had no bowel movement for approximat cesilia 3 days prior to his admission. He noted that he feels something protruding out of his rectum, bu t no bowel movements have been occurring for the past 3 days prior to his admission. During my exami nation with him, he had been given laxatives overnight via the p.o. route and had had multiple bouts of diarrhea since being in the emergency room and feels significant symptomatic improvement. He cont inues to have perianal and rectal pain which he states is almost back to his baseline. Past Medical History: Significant for rectal cancer, coronary artery disease. He has coronary stent s. Social History: He lives at home. He does not work. He has a son. He smokes tobacco approximately a pack a day every day. He denies alcohol or recreational drug use. Review of Systems: A 10-point review of systems, he does admit to mild abdominal pain, distention, constipation and some urinary retention prior to his admission. Physical Examination: General: He has a disheveled appearance, but he is awake, alert, oriented. Psychiatric: He is appropriate, conversive. HEENT: Normocephalic. Sclerae are anicteric. Mucous membranes are moist. He has very poor dentiti on with multiple broken teeth. Neck: Supple without JVD. Chest: Normal expansion and excursion. Cardiovascular: Regular rate and rhythm. Pulmonary: Clear to auscultation bilaterally. Abdomen: Soft, nontender, nondistended. No rebound. No guarding. No focal peritonitis. Rectal: He refuses a rectal examination lastly only to visualize his perianal area. He has large ex ternal hemorrhoids evident with leakage of stool material during my examination, although I was not p ermitted to palpate because of his level of pain he was concerned about. There was no bleeding. No fungating masses appreciated. Nothing protruding at the time of my examination as well. Extremities: No clubbing, cyanosis, or edema. Skin: Warm and dry. Laboratory Data: Revealed a white blood cell count of 5.6, hemoglobin 12.0, hematocrit 33.4, platele t count was 117, neutrophils are 82%. His sodium 134, potassium 3.6, chloride 104, carbon dioxide 23 , BUN is 10, creatinine 0.6, lactic acid was 1.2. Glucose 109, alkaline phosphatase 145. His UA was essentially negative. He had imaging performed, which included a CT of the abdomen and pelvis that was officially read as circumferential wall thickening of the rectum, most pronounced at the rectum a nal junction. There is congestion and edema in the perirectal fat. The patient has a rectal maligna ncy history. Current findings may reflect residual malignancy, post-therapy proctitis, inflammatory/ infectious proctitis or combination. Urinary bladder is dilated with the dome extending above the il iac crest. There is mild bilateral hydronephrosis. Prostate gland does appear to be mildly edematou s. Prostate changes could be secondary to therapy or unrelated prostatitis causing urethral outlet o bstruction. Assessment And Plan: This is a 52-year-old male who comes in with a history of rectal cancer who has received chemotherapy as of last week, who comes in with urinary retention and stool retention/const ipation, now improved with profuse diarrhea. 1.Continue medical management. 2.Candelario catheter in place with significant symptomatic improvement. 3.Serial abdominal exams. 4.Advance diet with clear liquids initiated and advance to a soft diet. If he continues to have goo d bowel function, he can be discharged from a surgical standpoint. I did not recommend surgical inte rvention at this time as he is due to start radiation treatment for surgical planning. 5.I have explained risks, benefits, and alternatives of the above-stated plan. The patient agrees t o proceed as indicated. WEST/JAZMINE Voice ID: [id number] Report ID: [id number]
== END 2022-03-22 14:10 | disposition home or self-care (01) | DRG 394 ==
LOC: ER 13:41 → ERHOLD 22:19 → 4TH 03-21 13:25
PROVIDERS: ADMIT Hospitalist; ATTEND Hospitalist
DX: K62.7 Radiation proctitis (principal); C18.9 Malignant neoplasm of colon, unspecified; E87.1 Hypo-osmolality and hyponatremia; I10 Essential (primary) hypertension; I25.10 Atherosclerotic heart disease of native coronary artery without angina pectoris; R33.9 Retention of urine, unspecified; K59.02 Outlet dysfunction constipation; R19.7 Diarrhea, unspecified; F17.210 Nicotine dependence, cigarettes, uncomplicated; Z95.5 Presence of coronary angioplasty implant and graft; I25.2 Old myocardial infarction; Z20.822 Contact with and (suspected) exposure to COVID-19
CPT/HCPCS: 36415; 51702; 74177; 80048; 80053; 81003; 81015; 82947; 83605; 83690; 83735; 84100; 84145; 85025; 87040; 87205; 87811; 99285; J1650; J2270; J2405; J2920; J3010; J7030; Q9967

== ENCOUNTER 2023-01-04 18:27 | Emergency (ER) | payer OTHER ==
--- OUTSIDE RECORDS SUMMARY | 2023-01-04 18:29 | XMS REPORT | Clinical Summary ---
:1970 Author Organization [facility] Address [address] [place] [address] Care Team Providers Name Role Phone Unavailable Primary Care Provider Unavailable Allergies No known active allergies Medications Medication Sig Dispensed Refills Start Date End Date Status atorvastatin Take 40 mg by 0 Act joey (LIPITOR) 40 mg mouth at bedtime. tablet amLODIPine (NORVASC) Take 10 mg by 0 Active 10 mg tablet mouth every evening. losartan (COZAAR) 100 Take 100 mg by 0 Active mg tablet mouth daily. Nicoderm CQ 21 mg/24 Apply 1 patch for 56 patch 0 08/28/2021 Active hr transdermal 7 days then patchIndications: increase to 1.5 Tobacco dependence patches for 4 syndrome days then increase to 2 patches to skin and change patch daily as directed for tobacco cessation (alternate sites). nicotine, polacrilex, Dissolve 1 162 lozenge 0 08/28/2021 Active (Nicorette) 4 mg mini lozenge (4 mg) in lozengeIndications: the mouth every 2 Tobacco dependence (two) hours as syndrome needed for smoking cessation. morphine (MS CONTIN) Take 1 tablet (30 90 tablet 0 09/30/2021 Active 30 mg 12 hr mg) by mouth tabletIndications: every 8 (eight) Cancer associated hours. pain morphine (MSIR) 15 mg Take half of a 90 tablet 0 09/30/2021 Active IR tabletIndications: tablet to 1 Cancer associated tablet (7.5 to 15 pain mg) by mouth every 4 (four) hours as needed for pain. polyethylene glycol Take 1 packet 100 packet 0 10/01/2021 Active (MIRALAX) 17 g twice a day as packetIndications: needed for Other constipation constipation. morphine (MSIR) 15 mg Take 1 tablet (15 0 10/01/2021 Active IR tabletIndications: mg) by mouth Rectal cancer, Rectal every 4 (four) pain hours as needed for pain. Active Problems Problem Noted Date Proctitis 09/25/2021 Enteritis 09/25/2021 Malnutrition of moderate degree 07/27/2021 Hypertension 07/25/2021 Hyperlipidemia 07/25/2021 Arteriosclerotic heart disease of [place] coronary edilma ry 07/25/2021 Tobacco use 07/25/2021 Rectal cancer Rectal abscess Cancer associated pain Retention of urine Adjustment disorder with anxiety Surgical History Surgery Date Site/Laterality Comments CORONARY ANGIOPLASTY WITH 08/11/2018 - STENT PLACEMENT 08/10/2019 PORTACATH PLACEMENT Right MI ANRCT XM SURG REQ ANES 07/27/2021 Anus/Midline Proced ure: ANORECTAL EXAM GENERAL SPI/EDRL DX UNDER ANESTH ESIA; Surgeon: Salvador pereira MD; Location: MAIN O R; Service: COLON & RECTAL SURGERY MI SIGMOIDOSCOPY FLX 07/27/2021 Anus/N/A Procedure: FLEXIBLE W/BIOPSY SINGLE/MULTIPLE SIGMOID OSCOPY WITH BIOPSY; Surgeon: Salvador Berrios MD; L ocation: MAIN OR; Service : COLON & RECTAL SURGERY MI I&D 07/27/2021 Perineum/Left Procedure: INCIS ION AND ISCHIORECTAL&/PERIRECTAL DRAINAG E OF ISCHIORECTAL ABSCESS SPX AND/OR PERIRECTA L ABSCESS; Surgeon: Salvador Berrios MD; L ocation: MAIN OR; Service : COLON & RECTAL SURGERY Medical History Medical History Date Comments Rectal cancer Myocardial infarction Hypertension Hyperlipidemia Arteriosclerotic heart disease of [place] coronary artery Tobacco use Diabetes mellitus Family [...] Tobacco Use Types Packs/Day Years Used Date Smoking Tobacco: Every Day Cigarettes 1 37 S tarted: 08/11/1984 Smokeless Tobacco: Never Tobacco Cessation: Ready to Quit: Yes; C ounseling Given: Yes Comments: currently 15-20 cpd Alcohol Use Standard Drinks/Week Comments Yes 0 (1 standard drink = 0.6 oz pure alcoho l) 2 drinks/week Education Answer Date Recorded What is the highest level of school you have GED or equivale nt 07/25/2021 completed or the highest degree you have received? Sex Assigned at Date Recorded Male 08/08/2021 9:29 AM [employer]STEOP[employer]Y [employer] Job Start Date Occupation Industry Not on file Not on file Not on file Obstetrics History Last Filed Vital Signs Not on file Plan of Treatment Health Maintenance Due Date Last Done Comments COVID-19 Vaccination (#1) 1970 Medical Devices Implanted Type Area Field Hauler Device Identifier Shelf Exp iration Model / Serial Date / Lot Stent Heart Results Not on fileafter 01/04/2022 Insurance Payer Benefit Plan / Subscriber ID Effective Phone Address T ype Group Dates ACCESS TPA UNITED [id number] 2021-Pres [phone] [address] Access [facility] ent [address] [facility] [place] [address] Advance Directives Code Status Date Activated Date Inactivated Comments Full Code 09/28/2021 11:25 PM 10/01/2021 5:55 PM Code Status Date Activated Date Inactivated Comments Full Code 07/25/2021 11:35 PM 07/31/2021 9:21 PM
--- OUTSIDE RECORDS SUMMARY | 2023-01-04 18:38 | XMS REPORT | Continuity of Care Document ---
:1970 Author Organization [facility] t Address [address] [place] [address] [address] [place] [address] Care Team Providers Name Role Phone Dara Jimenez MD Primary Care Physician Dara Jimenez Attending Clinician Unavailable SYSTEM, PROVIDER NOT IN Attending Clinician Unavailable BLAINE BERMUDEZ Attending Clinician Unavailable CHEATHAM, JASS Attending Clinician Unavailable ANUSHA GRIMALDO Attending Clinician Unavailable BLAINE BERMUDEZ Attending Clinician Unavailable SANDER BENNETT Attending Clinician Unavailable ROSY GILMORE Attending Clinician Unavailable EDMUNDO HENRY Attending Clinician Unavailable CHEATHAM, JASS Attending Clinician Unavailable JOHN GONZALEZ Attending Clinician Unavailable Chaparrita RICHTER, Jass Attending Clinician KENIA BUSTAMANTE Attending Clinician Unavailable FRDEA PANIAGUA Attending Clinician Unavailable CATRACHO BEAN Attending Clinician Unavailable Catracho Bean MD Attending Clinician SAKINA THOMPSON Attending Clinician Unavailable LUIS ANGEL ALMONTE Attending Clinician Unavailable Blaine Bermudez MD Attending Clinician MARY RESENDIZ Attending Clinician Unavailable TORRI RAY Attending Clinician Unavailable Kellie YAN Attending Clinician Unavailable Kellie Chan Attending Clinician ANUSHA GRIMALDO Attending Clinician Unavailable Patil_S Attending Clinician Unavailable LAMAR MCKEON Attending Clinician Unavailable KANDIS JESUS Attending Clinician Unavailable NIRALI BARR Attending Clinician Unavailable EMY BARRAZA Attending Clinician Unavailable Emy Barraza MD Attending Clinician Doctor Unassigned, Mcnary Attending Clinician Unavailable VIRGIL GOMEZ Attending Clinician [...] Clinician Unavailable Maria G Lane Attending Clinician EDMUNDO SOARES Admitting Clinician Unavailable CHEATHAM, JASS Admitting Clinician Unavailable Kellie YAN Admitting Clinician Unavailable ANUSHA GRIMALDO Admitting Clinician Unavailable Patil_S Admitting Clinician Unavailable SUSAN ALBA Admitting Clinician Unavailable EMY BARRAZA Admitting Clinician Unavailable CORTES RAMAN Admitting Clinician Unavailable FIDEL VACA Admitting Clinician Unavailable VLADIMIR HALL Admitting Clinician Unavailable MD VLADIMIR HALL Admitting Clinician Unavailable Payers Payer Name Policy Type Policy Number Effective Date Expiration Date S tramaine [facility] EXCHANGE [id number] 2022 00:00:00 [facility] [id number] 2022 [facility] 00:00:00 [place] [id number] 2021 2021 HEALTHCARE VALUE 00:00:00 00:00:00 + TMHP-MEDICAID - [id number] MEDICAID MEDICAID OF [id number] 2021 [place] 00:[place]:00 [place] [id number] [facility] HIM [place] [id number] 2021 HEALTHCARE 00:00:00 [id number] HEALTHCARE (HMO) TPA [place] [id number] 2021 HEALTHCARE 00:00:00 GENERIC [place] [id number] 2021 HEALTHCARE PPO 00:00:00 [place] [id number] 2021 2021 HEALTHCARE NON 00:00:00 00:00:00 CONTRACTED Problems Condition Condition Condition Status Onset Resolution Last Treating Co mments Source Name Details Category Date Date Treatment Clinician Date Prostate Prostate Disease Active 2021-08 [facility] pain pain 2-19 College 00:00: of Medicin e Proctitis Proctitis Disease Active Uni vers 2-15 ity of 00:00: [place] 00 MD [facility] Enteritis Enteritis Disease Active Uni vers 2-15 ity of 00:00: [place] 00 MD [facility] 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 Univers on of on of nce 2-17 ity of moderate moderate 00:00: [place] degree degree 00 MD [facility] Hypertensi Hypertensi Disease Active 2020-08 U amanda on on 2-15 ity of 00:00: [place] 00 MD [facility] Arterioscl Arterioscl Disease Active 2020-08 U [place] erotic erotic 2-15 ity of heart heart 00:00: [place] disease of disease of 00 MD dontae Garcia coronary coronary n artery artery Cancer Center Tobacco Tobacco Disease Active 2020-08 Univers use use 2-15 ity of 00:00: [place] 00 MD [facility] [place] Rectal Rectal Disease Active 2020-08 [facility] 00[facility]osp[facility] 00 l Rectal Rectal Disease Active Univers cancer cancer ity of [place] MD [facility] Rectal Rectal Disease Active Univers abscess abscess ity of [place] MD [facility] Cancer Cancer Disease Active Univers associated associated it y of pain pain [facility] Retention Retention Disease Active Uni vers of urine of urine ity of [facility] Adjustment Adjustment Disease Active U nivers disorder disorder ity of with with [place] anxiety [facility] HLD HLD Disease Active Methodi (hyperlipi (hyperlipi [facility] dem[facility]) demia) Hospita l No known No known Disease Unive rs active active ity of problems problems [facility] [id number] Cigarette Problem Comm on nicotine Spirit dependence - CHI with nicotine-i [facility] nduced Medical disorder Center 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) [facility] 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 [place] intrapelvi c lymph nodes [id number] Anxiety Problem Commo n about Spirit health - [facility] [id number] Mixed Problem Common hyperlipid Spirit emia - [facility] [id number] Essential Problem Comm on (primary) Spirit hypertensi - CHI on [facility] 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 artery of [place] soboba heart without angina pectoris Allergies, Adverse Reactions, Alerts Allergy Allergy Status Severity Reaction(s) Onset Inactive Treating Comm ents Source Name Type Date Date Clinician NO KNOWN Drug Active Univers ALLERGIE Class ity of S [facility] NO KNOWN Allergy Active [facility] Family History Family Member Diagnosis Comments Start Date Stop Date Source Natural father -Unknown cancer Unive rsity [facility] [place] Natural father [facility] Maternal Heart attack University o f grandfather [facility]ah [facility]aternal Diabetes [facility] Maternal Hearing loss [facility] Maternal Hypertension [facility] Maternal Alzheimer's disease Unive rsity of grandmother Aaliyah Hebert [facility] [place] Natural mother Cervical cancer Unive rsity [facility] [place] [facility] Natural mother [facility] Natural son [facility] Paternal Diabetes [facility] Paternal [facility] Paternal Hearing loss [facility] Paternal Hypertension [facility] Social History Social Habit Start Date Stop Date Quantity Comments Source Gender identity [facility] Sexual orientation [facility] History of Tobacco Current Smoker Co mmon Spirit - Use [facility] Exposure to 2022-11-16 2022-11-26 Not sure [facility] Colleg e of SARS-CoV-2 (event) 00:00:00 10:10:00 Medici ne History of Social 2022-10-20 2022-10-[address] function 00:00:00 00:00:00 Hospital History [facility] 2022-04-12 2022-04-12 1 [facility] ge of Alcohol Frequency 00:00:00 00:00:00 Medicin e History [facility] 2022-04-12 2022-04-12 0 [facility] ge of Alcohol Std Drinks 00:00:00 00:00:00 Medici ne History [facility] 2022-04-12 2022-04-12 1 [facility] ge of Alcohol Binge 00:00:00 00:00:00 Medicine History [facility] 2022-04-12 2022-04-12 5 [facility] Sequence Phone 00:00:00 00:00:00 Medicin e History [facility] 2022-04-12 2022-04-12 1 [facility] [employer] [facility] 00:00:00 00:00:00 Medicine Together History [facility] 2022-04-12 2022-04-12 1 [facility] [employer] [facility] 00:00:00 00:00:00 Medici ne History [facility] 2022-04-12 2022-04-12 2 [facility] [employer] 00:00:00 00:00:00 Medicine Membership History [facility] 2022-04-12 2022-04-12 1 [facility] Sequence 00:00:00 00:00:00 Medicine Meetings History [facility] 2022-04-12 2022-04-12 3 [facility] [employer] [facility] 00:00:00 00:00:00 Medici ne History [facility] 2022-04-12 2022-04-12 0 [facility] ge of Physical Activity 00:00:00 00:00:00 Medicin e DPW History SDDC 2022-04-12 2022-04-12 0 [facility] ge of Physical Activity 00:00:00 00:00:00 Medicin e MPS History SDDC Stress 2022-04-12 2022-04-12 1 [facility] of 00:00:00 00:00:00 Medicine History SDOH 2022-04-12 2022-04-12 2 [facility] ge of Financial 00:00:00 00:00:00 Medicine History SDOH IPV 2022-04-12 2022-04-12 2 [facility] ollege of Fear 00:00:00 00:00:00 Medicine History SDOH IPV 2022-04-12 2022-04-12 2 [facility] ollege of Emotional 00:00:00 00:00:00 Medicine History SDOH IPV 2022-04-12 2022-04-12 2 [facility] ollege of Physical Abuse 00:00:00 00:00:00 Medicine History SDDC IPV 2022-04-12 2022-04-12 2 [facility] ollege of Sexual Abuse 00:00:00 00:00:00 Medicine History [facility] Food 2022-04-12 2022-04-12 2 [facility] 00:00:00 00:00:00 Medicine History [facility] Food 2022-04-12 2022-04-12 2 [facility] 00:00:00 00:00:00 Medicine History DCOH 2022-04-12 2022-04-12 2 [facility] ge of Transport Med 00:00:00 00:00:00 Medicine History SDDC 2022-04-12 2022-04-12 2 [facility] ge of Transport Non-Med 00:00:00 00:00:00 Medicin e History SDOH 2022-04-12 2022-04-12 1 [facility] ge of Housing Unable to 00:00:00 00:00:00 Medicin e Pay History SDOH 2022-04-12 2022-04-12 1 [facility] ge of Housing Places 00:00:00 00:00:00 Medicine Lived History SDOH 2022-04-12 2022-04-12 2 [facility] ge of Housing Homeless 00:00:00 00:00:00 Medicine Last Year Tobacco use and 2022-01-10 2022-01-10 Smokeless [facility] Co llege of exposure 00:00:00 00:00:00 tobacco non-user Medicine Tobacco Comment 2021-10-16 2021-10-16 currently 15-20 Univ ersity of 00:00:00 00:00:00 cpd [place] MD [facility] Education 2021-07-25 2021-07-25 14 [place] of 00:00:00 00:00:00 [place] [facility] Alcohol intake 2021-07-03 2021-07-03 Current drinker [facility] 00:00:00 00:00:00 of [facility] (finding) Cigarettes smoked 2021-06-22 2021-06-[address] current (pack per 00:00:00 [facility]00[facility] - Reported Cigarette 2021-06-22 2021-06-22 [facility] pack-years 00:00:00 00:00:00 Hospital Alcohol Comment 2021-06-22 2021-06-22 every week [facility] 00:00:00 00:00:00 Hospital Sex Assigned At [birth year] [facility] 00:00:00 00:00:00 Hospital Smoking Status Start Date Stop Date Source Smokes tobacco daily 2022-01-10 00:00:00 [facility] Tobacco smoking consumption [facility] Medical unknown Branch Medications Ordered Filled Start Stop Current Ordering Indication Dosage Frequency Signature Comments Components Source Medication Medication Date Date Medication? Clinician (SIG) Name Name atorvastati Yes 40mg Take 40 mg Kin n (LIPITOR) 4-18 by mouth Mi ege 40 MG 10:19: nightly. of tablet 34 Medicin e Multiple Yes 1{tbl} Take 1 [facility] Vitamin 4-18 Tablet by [place] (MULTI-RAYMUNDO 10:19: mouth of MIN) TABS 34 daily. Medicin e atorvastati Yes 40mg Take 40 mg Kin n (LIPITOR) 2-28 by mouth Mi ege 40 MG 15:42: nightly. of tablet 16 Medicin e Multiple Yes 1{tbl} Take 1 [facility] Vitamin 2-28 Tablet by [place] (MULTI-RAYMUNDO 15:42: mouth of MIN) TABS 16 daily. Medicin e VENLAFAXINE 2022-0 Yes 37.5mg Take 37.5 [facility] HCL OR 2-28 mg by [place] 15:42: mouth of 16 daily. Medicin e atorvastati 2022-0 Yes 40mg Take 40 mg [facility] n (LIPITOR) 2-28 by mouth Mi ege 40 MG 15:42: nightly. of tablet 16 Medicin e Multiple 2022-0 Yes 1{tbl} Take 1 [facility] Vitamin 2-28 Tablet by [place] (MULTI-RAYMUNDO 15:42: mouth of MIN) TABS 16 daily. Medicin e VENLAFAXINE 2022-0 Yes 37.5mg Take 37.5 [facility] HCL OR 2-28 mg by [place] 15:42: mouth of 16 daily. Medicin e VENLAFAXINE 2022-0 Yes 37.5mg Take 37.5 Kin HCL OR 2-28 mg by [place] 15:42: mouth of 16 daily. Medicin e amlodipine 2022-0 2022- No 5mg Take 5 mg [facility] (NORVASC) 5 2-14 02-14 by mouth Col lege MG tablet 11:16: 00:00 daily. of 53 :00 Medicin e Tamsulosin 2022-0 Yes 1{capsu Take 1 [facility] HCl 0.4 MG 2-14 le} capsule by Col lege CAPS 00:00: mouth two of 00 times Medicin daily. e tadalafil 2022-0 Yes 5mg Take 1 Kin (CIALIS) 5 2-14 Tablet by Mi ege MG tablet 00:00: mouth of 00 daily. Medicin e sildenafil 2022-0 Yes Take 1 tab [facility] citrate 2-14 by mouth [place] (VIAGRA) 00:00: 30 minutes of 100 MG 00 prior to Medicin tablet intercours e e daily PRN. Do not exceed more than 1 tab in a 24 hour period Tamsulosin 2022-0 Yes 1{capsu Take 1 [facility] HCl 0.4 MG 2-14 le} capsule by Col lege CAPS 00:00: mouth two of 00 times Medicin daily. e tadalafil 2022-0 Yes 5mg Take 1 Kin (CIALIS) 5 2-14 Tablet by Mi ege MG tablet 00:00: mouth of 00 daily. Medicin e sildenafil 0 Yes Take 1 tab [facility] citrate 2-14 by mouth [place] ([facility]) 00:00: 30 minutes of 100 MG 00 prior to Medicin tablet intercours e e daily PRN. Do not exceed more than 1 tab in a 24 hour period Tamsulosin 0 Yes 1{capsu Take 1 [facility] HCl 0.4 MG 2-14 le} capsule by Col lege CAPS 00:00: mouth two of 00 times Medicin daily. e tadalafil 0 Yes 5mg Take 1 Kin (CIALIS) 5 2-14 Tablet by Mi ege MG tablet 00:00: mouth of 00 daily. Medicin e sildenafil 0 Yes Take 1 tab [facility] citrate 2-14 by mouth [place] ([facility]) 00:00: 30 minutes of 100 MG 00 prior to Medicin tablet intercours e e daily PRN. Do not exceed more than 1 tab in a 24 hour period atorvastati 0 Yes 40mg Take 40 mg Kin n (LIPITOR) 2-07 by mouth Mi ege 40 MG 11:49: nightly. of tablet 34 Medicin e Multiple 0 Yes 1{tbl} Take 1 [facility] Vitamin 2-07 Tablet by [place] (MULTI-RAYMUNDO 11:49: mouth of MIN) TABS 34 daily. Medicin e VENLAFAXINE 0 Yes 37.5mg Take 37.5 [facility] HCL OR 2-07 mg by [place] 11:49: mouth of 34 daily. Medicin e amlodipine 0 Yes 5mg Take 5 mg [facility] (NORVASC) 5 2-07 by mouth Mi ege MG tablet 11:49: daily. of 25 Medicin e morphine 0 Yes 15mg Take 1 [facility] (MS IR) 15 1-25 Tablet by Mi ege MG tablet 00:00: mouth of 00 every 6 Medicin hours as e needed for Pain. morphine 2022-0 2022- No 15mg Take 1 Kin (MS IR) 15 1-25 02-14 Tablet by Col lege MG tablet 00:00: 00:00 mouth of 00 :00 every 6 Medicin hours as e needed for Pain. atorvastati 0 Yes 40mg Take 40 mg [facility] n (LIPITOR) 1-17 by mouth Mi ege 40 MG 11:29: nightly. of tablet 57 Medicin e amlodipine Yes 5mg Take 5 mg [facility] (NORVASC) 5 1-17 by mouth Mi ege MG tablet 11:29: daily. of 57 Medicin e Multiple Yes 1{tbl} Take 1 [facility] Vitamin 1-17 Tablet by [place] (MULTI-RAYMUNDO 11:29: mouth of MIN) TABS 57 daily. Medicin e VENLAFAXINE Yes 37.5mg Take 37.5 [facility] HCL OR 1-17 mg by [place] 11:29: mouth of 57 daily. Medicin e ciprofloxac 2022-2022- No 500mg Take 1 [facility] in (CIPRO) -17 - Tablet by [facility] lege 500 MG 00:00: 05:59 mouth two of tablet 00 :00 times Medicin daily for e 7 days. For urine infection Venlafaxine Venlafaxine No 1{table QD Venlafaxin HCl ER 37.5 HCl ER 37.5 1-05 t_with_ e HCl ER MG MG 00:00: food} 37.5 MG 00 atorvastati Yes 40mg Take 40 mg Kin n (LIPITOR) 1-04 by mouth Mi ege 40 MG 10:42: nightly. of tablet 24 Medicin e amlodipine Yes 5mg Take 5 mg [facility] (NORVASC) 5 1-04 by mouth Mi ege MG tablet 10:42: daily. of 24 Medicin e Multiple Yes 1{tbl} Take 1 [facility] Vitamin 1-04 Tablet by [place] (MULTI-RAYMUNDO 10:42: mouth of MIN) TABS 24 daily. Medicin e Multiple Yes 1{tbl} Take 1 [facility] Vitamin 1-03 Tablet by [place] (MULTI-RAYMUNDO 13:25: mouth of MIN) TABS 28 daily. Medicin e senna 2022-2022- No 8.6mg Take 8.6 [facility] (SENOKOT) 1-03 01-03 mg by College 8.6 MG 13:24: 00:00 mouth of tablet 25 :00 daily. Medicin e losartan 2022-0 2022- No 100mg Take 100 [place] haylie (COZAAR) 1-03 01-03 mg by College 100 MG 13:24: 00:00 mouth of tablet 10 :00 daily. Medicin e atorvastati 0 Yes 40mg Take 40 mg [facility] n (LIPITOR) -03 by mouth Mi ege 40 MG 13:24: nightly. of tablet Medicin e amlodipine 0 Yes 5mg Take 5 mg [facility] (NORVASC) 5 1-03 by mouth Mi ege MG tablet 13:24: daily. of 07 Medicin e Tamsulosin 0 Yes [id number] .4mg Take 0.4 Kin HCl 1-03 mg by College (FLOMAX) 00:00: mouth of 0.4 MG CAPS 00 daily. Medici n e Tamsulosin 2022-0 Yes [id number] .4mg Take 0.4 [facility] HCl 1-03 mg by College (FLOMAX) 00:00: mouth of 0.4 MG CAPS 00 daily. Medici n e Tamsulosin 0 Yes [id number] .4mg Take 0.4 Kin HCl 1-03 mg by College (FLOMAX) 00:00: mouth of 0.4 MG CAPS 00 daily. Medici n e Tamsulosin 2022-0 2022- No [id number] .4mg Take 0.4 [facility] HCl 1-03 02-14 mg by College (FLOMAX) 00:00: 00:00 mouth of 0.4 MG CAPS 00 :00 daily. Medici n e celecoxib 2021-08 Yes Kin (CELEBREX) 2-28 College 200 MG 00:00: of capsule 00 Medicin e Enoxaparin 2021-08 Yes Kin Sodium 30 2-28 College MG/0.3ML 00:00: of SOSY 00 Medicin e finasteride 2021-08 Yes Kin (PROSCAR) 5 2-28 College MG tablet 00:00: of 00 Medicin e celecoxib 2021-08 Yes Kin (CELEBREX) 2-28 College 200 MG 00:00: of capsule 00 Medicin e Enoxaparin 2021-08 Yes [facility] Sodium 30 2-28 College MG/0.3ML 00:00: of SOSY 00 Medicin e finasteride 2021-08 Yes [facility] (PROSCAR) 5 2-28 College MG tablet 00:00: of 00 Medicin e celecoxib 2021-08 Yes Kin (CELEBREX) 2-28 College 200 MG 00:00: of capsule 00 Medicin e finasteride 2021-08 Yes [facility] (PROSCAR) 5 2-28 College MG tablet 00:00: of 00 Medicin e celecoxib 2021-08 Yes [facility] (CELEBREX) 2-28 College 200 MG 00:00: of capsule 00 Medicin e finasteride 2021-08 Yes Kin (PROSCAR) 5 2-28 College MG tablet 00:00: of 00 Medicin e celecoxib 2021-08 Yes Kin (CELEBREX) 2-28 College 200 MG 00:00: of capsule 00 Medicin e finasteride 2021-08 Yes [facility] (PROSCAR) 5 2-28 College MG tablet 00:00: of 00 Medicin e celecoxib 2021-08 Yes Kin (CELEBREX) 2-28 College 200 MG 00:00: of capsule 00 Medicin e finasteride 2021-08 Yes [facility] (PROSCAR) 5 2-28 College MG tablet 00:00: of 00 Medicin e celecoxib 2021-08 Yes [facility] (CELEBREX) 2-28 College 200 MG 00:00: of capsule 00 Medicin e finasteride 2021-08 Yes [facility] (PROSCAR) 5 2-28 College MG tablet 00:00: of 00 Medicin e Enoxaparin 2021-08- No Kin Sodium 30 2-28 01-17 College MG/0.3ML 00:00: 00:00 of SOSY 00 :00 Medicin e morphine 2021-08- No [id number] 15mg Take 1 [facility] (MS IR) 15 2-24 08- 102 Tablet by Col lege MG tablet 00:00: 00:00 mouth of 00 :00 every 6 Medicin hours as e needed for Pain. Morphine 2021-08- No 1{tbl} Take 1 [facility] Sulfate ER 2-14 -03 Tablet by Col lege (MS CONTIN) 00:00: 00:00 mouth of 30 MG TBCR 00 :00 every 12 Medic in hours. e neomycin 2021-08- No [id number] Take 2 [facility] (MYCIFRADIN 09-12 tablets by Janice walker ) 500 MG 00:00: 00:00 mouth at of tablet 00 :00 1:00PM, Medicin 4:00 PM, e and 7:00 PM the day prior to your surgery metronidazo 2021-08- No [id number] Take 1 [facility] le (FLAGYL) 09-12 tablet by Co calvin 500 MG 00:00: 00:00 mouth at of tablet 00 :00 1:00 PM, Medicin 4:00 PM, e and 7:00 PM the day prior to your surgery Na 2021-08- No 177mL Take 177 Kin Sulfate-K 09-12 mL by [place] Sulfate-Mg 00:00: 00:00 mouth See o f Sulf 00 :00 Admin Medicin (SUPREP Instructio e BOWEL PREP ns. KIT) 17.5-3.13-1 .6 GM/177ML SOLN atorvastati 2021-08 Yes 40mg Take 40 mg [facility] n (LIPITOR) 1-30 by mouth Mi ege 40 MG 09:40: nightly. of tablet 58 Medicin e amlodipine 2021-08 Yes 5mg Take 5 mg [facility] (NORVASC) 5 1-30 by mouth Mi ege MG tablet 09:40: daily. of 58 Medicin e atorvastati 2021-08 Yes 40mg Take 40 mg Kin n (LIPITOR) 1-22 by mouth Mi ege 40 MG 13:06: nightly. of tablet 43 Medicin e senna 2021-08 Yes 8.6mg Take 8.6 [facility] (SENOKOT) 1-22 mg by College 8.6 MG 13:06: mouth of tablet 43 daily. Medicin e amlodipine 2021-08 Yes 5mg Take 5 mg [facility] (NORVASC) 5 1-22 by mouth Mi ege MG tablet 13:06: daily. of 43 Medicin e senna 2021-08 Yes 8.6mg Take 8.6 Kin (SENOKOT) 1-22 mg by College 8.6 MG 13:06: mouth of tablet 43 daily. Medicin e morphine 2021-08 Yes [id number] 15mg Take 1 [facility] (MS IR) 15 1-15 102 Tablet by Mi ege MG tablet 00:00: mouth of 00 every 6 Medicin hours as e needed for Pain. Morphine 2021-08 Yes 1{tbl} Take 1 [facility] Sulfate ER 1-15 Tablet by Mi ege (MS CONTIN) 00:00: mouth of 30 MG TBCR 00 every 12 Medic in hours. e losartan 2021-08 Yes 100mg Take 100 [facility] (COZAAR) 0-18 mg by [place] 100 MG 11:11: mouth of tablet 51 daily. Medicin e atorvastati 2021-08 Yes 40mg Take 40 mg [facility] n (LIPITOR) 0-18 by mouth Mi ege 40 MG 11:11: nightly. of tablet 51 Medicin e senna 2021-08 Yes 8.6mg Take 8.6 Kin (SENOKOT) 0-18 mg by [place] 8.6 MG 11:11: mouth of tablet 51 daily. Medicin e amlodipine 2021-08 Yes 5mg Take 5 mg [facility] (NORVASC) 5 0-18 by mouth Mi ege MG tablet 11:11: daily. of 51 Medicin e losartan 2021-08 Yes 100mg Take 100 [facility] (COZAAR) 0-18 mg by [place] 100 MG 11:11: mouth of tablet 51 daily. Medicin e losartan 2021-08 Yes 100mg Take 100 [facility] (COZAAR) 0-18 mg by [place] 100 MG 11:11: mouth of tablet 51 daily. Medicin e Aspirin 81 2021-08- No 81mg Take 81 mg [facility] MG tablet 0-18 10-18 by mouth Colle ge 11:11: 00:00 daily. of 42 :00 Medicin e morphine 2021-08 Yes [id number] 15mg Take 1 [facility] (MS IR) 15 0-18 102 Tablet by Mi ege MG tablet 00:00: mouth of 00 every 6 Medicin hours as e needed for Pain. Tamsulosin 2021-08 Yes .4mg Take 0.4 [place] haylie HCl 0-18 mg by [place] (FLOMAX) 00:00: mouth of 0.4 MG CAPS 00 daily. Medici n e Tamsulosin 2021-08 Yes .4mg Take 0.4 [place] haylie HCl 0-18 mg by [place] (FLOMAX) 00:00: mouth of 0.4 MG CAPS 00 daily. Medici n e Tamsulosin 2021-08 Yes .4mg Take 0.4 [place] haylie HCl 0-18 mg by [facility] (FLOMAX) 00:00: mouth of 0.4 MG CAPS 00 daily. Medici n e Tamsulosin 2021-08- No .4mg Take 0.4 [facility] 0-18 01-03 mg by [facility] (FLOMAX) 00:00: 00:00 mouth of 0.4 MG CAPS 00 :00 daily. Medici n e morphine 2021-08- No [id number] 15mg Take 1 [facility] (MS IR) 15 0-18 11-12 102 Tablet by [facility] MG tablet 00:00: 00:00 mouth of 00 :00 every 6 Medicin hours as e needed for Pain. morphine 2021- No [id number] 15mg Take 1 [facility] (MS IR) 15 9-27 10-18 102 Tablet by [facility] MG tablet 00:00: 00:00 mouth of 00 :00 every 8 Medicin hours as e needed for Pain. Aspirin 81 0 Yes 81mg Take 81 mg [facility] tablet 9-20 by [facility] 10:46: daily. of 08 Medicin e losartan Yes 100mg Take 100 [facility] (COZAAR) 9-20 mg by [place] 100 MG 10:46: mouth of tablet 08 daily. Medicin e atorvastati Yes 40mg Take 40 mg [facility] (LIPITOR) 9-20 by mouth [facility] 40 MG 10:46: nightly. of tablet 08 Medicin e senna Yes 8.6mg Take 8.6 [facility] (SENOKOT) 9-20 mg by [facility] 8.6 MG 10:46: mouth of tablet 08 daily. Medicin e Aspirin 81 Yes 81mg Take 81 mg [facility] tablet 9-20 by [facility] 10:46: daily. of 08 Medicin e losartan Yes 100mg Take 100 [facility] (COZAAR) 9-20 mg by [place] 100 MG 10:46: mouth of tablet 08 daily. Medicin e atorvastati Yes 40mg Take 40 mg [facility] n (LIPITOR) 9-20 by mouth [facility] 40 MG 10:46: nightly. of tablet 08 Medicin e senna 2021-0 Yes 8.6mg Take 8.6 [facility] (SENOKOT) 9-20 mg by [facility] 8.6 MG 10:46: mouth of tablet 08 daily. Medicin e Aspirin 81 2021-0 Yes 81mg Take 81 mg [facility] tablet 9-07 by [facility] 11:12: daily. of 53 Medicin e losartan 0 Yes 100mg Take 100 [facility] (COZAAR) 9-07 mg by [facility] 100 MG 11:12: mouth of tablet 53 daily. Medicin e atorvastati 0 Yes 40mg Take 40 mg [facility] (LIPITOR) 9-07 by mouth [facility] 40 MG 11:12: nightly. of tablet 53 Medicin e senna 0 Yes 8.6mg Take 8.6 [facility] (SENOKOT) 9-07 mg by [facility] 8.6 MG 11:12: mouth of tablet 53 daily. Medicin e Tamsulosin 0 Yes .4mg Take 0.4 [place] haylie HCl 9-07 mg by [place] (FLOMAX) 00:00: mouth of 0.4 MG CAPS 00 daily. Medici n e Tamsulosin 2021-0 2021- No .4mg Take 0.4 [facility] HCl 9-07 09-20 mg by [place] (FLOMAX) 00:00: 00:00 mouth of 0.4 MG CAPS 00 :00 daily. Medici n e Aspirin 81 2021-0 Yes 81mg Take 81 mg [facility] tablet 8-24 [facility] 11:12: daily. of 57 Medicin e losartan 0 Yes 100mg Take 100 [facility] (COZAAR) 8-24 mg by [facility] 100 MG 11:12: mouth of tablet 57 daily. Medicin e atorvastati 2021-0 Yes 40mg Take 40 mg [facility] n (LIPITOR) 8-24 by mouth [facility] 40 MG 11:12: nightly. of tablet 57 Medicin e senna 2021-0 Yes 8.6mg Take 8.6 [facility] (SENOKOT) 8-24 mg by [facility] 8.6 MG 11:12: mouth of tablet 57 daily. Medicin e meloxicam 2022-0 Yes [id number] 15mg Take 1 [facility] (MOBIC) 15 8-22 Tablet by [facility] MG tablet 00:00: mouth of 00 daily. Medicin e meloxicam 2022-0 Yes [id number] 15mg Take 1 [facility] (MOBIC) 15 8-22 Tablet by [facility] MG tablet 00:00: mouth of 00 daily. Medicin e meloxicam 2022-0 Yes [id number] 15mg Take 1 [facility] (MOBIC) 15 8-22 Tablet by [facility] MG tablet 00:00: mouth of 00 daily. Medicin e meloxicam 2022-0 Yes [id number] 15mg Take 1 [facility] (MOBIC) 15 8-22 Tablet by [facility] MG tablet 00:00: mouth of 00 daily. Medicin e meloxicam 2022-0 Yes [id number] 15mg Take 1 [facility] (MOBIC) 15 8-22 Tablet by [facility] MG tablet 00:00: mouth of 00 daily. Medicin e meloxicam 2022-0 Yes [id number] 15mg Take 1 [facility] (MOBIC) 15 8-22 Tablet by [facility] MG tablet 00:00: mouth of 00 daily. Medicin e meloxicam 2022-0 Yes [id number] 15mg Take 1 [facility] (MOBIC) 15 8-22 Tablet by [facility] MG tablet 00:00: mouth of 00 daily. Medicin e meloxicam 2022-0 2023- No [id number] 15mg Take 1 [facility] (MOBIC) 15 8-22 -03 Tablet by [facility] MG tablet 00:00: 00:00 mouth of 00 :00 daily. Medicin e levofloxaci 2022-0 Yes 500mg Take 1 [place] [facility]lie n 8-18 Tablet by [place] (LEVAQUIN) 00:00: mouth of 500 MG 00 daily. Medicin tablet e levofloxaci 2022-0 2022- No 500mg Take 1 [facility] 8-18 - Tablet by [place] (LEVAQUIN) 00:00: 00:00 mouth of 500 MG 00 :00 daily. Medicin tablet e levofloxaci 2022-0 2022- No 500mg Take 1 [facility] 8-18 - Tablet by [place] (LEVAQUIN) 00:00: 00:00 mouth of 500 MG 00 :00 daily. Medicin tablet e Morphine 2021-0 Yes 1{tbl} Take 1 [facility] Sulfate ER 8-08 Tablet by [facility] 30 MG T12A 00:00: mouth two of 00 times Medicin daily. e morphine 2022-0 Yes 15mg Take 1 [facility] (MS IR) 15 8-08 Tablet by [facility] MG tablet 00:00: mouth of 00 every 6 Medicin hours as e needed. Morphine 2-0 Yes 1{tbl} Take 1 [facility] Sulfate ER 8-08 Tablet by [facility] 30 MG T12A 00:00: mouth two of 00 times Medicin daily. e morphine 2-0 Yes 15mg Take 1 [facility] (MS IR) 15 8-08 Tablet by [facility] MG tablet 00:00: mouth of 00 every 6 Medicin hours as e needed. Morphine 2021-0 Yes 1{tbl} Take 1 [facility] S[facility] ER 8-08 Tablet by [facility] 30 MG T12A 00:00: mouth two of 00 times Medicin daily. e morphine 2021-0 Yes 15mg Take 1 [facility] (MS IR) 15 8-08 Tablet by [facility] MG tablet 00:00: mouth of 00 every 6 Medicin hours as e needed. Morphine 2021-0 2022- No 1{tbl} Take 1 [facility] Sulfate ER 03-1827 Tablet by [facility] 30 MG T12A 00:00: 00:00 mouth two o f 00 :00 times Medicin daily. e morphine 2-0 2022- No 15mg Take 1 [facility] (MS IR) 15 -05-07 Tablet by [facility] MG tablet 00:00: 00:00 mouth of 00 :00 every 6 Medicin hours as e needed. Aspirin 81 2021-0 Yes 81mg Take 81 mg [facility] MG tablet 8-02 by mouth Arig e 08:50: daily. of 34 Medicin e losartan 2021-0 Yes 100mg Take 100 [facility] (COZAAR) 8-02 mg by [place] 100 MG 08:50: mouth of tablet 34 daily. Medicin e atorvastati 2021-0 Yes 40mg Take 40 mg [facility] (LIPITOR) 8-02 by mouth [facility] 40 MG 08:50: nightly. of tablet 34 Medicin e senna Yes 8.6mg Take 8.6 [facility] (SENOKOT) 8-02 mg by [place] 8.6 MG 08:50: mouth of tablet 34 daily. Medicin e loperamide 0 Yes Every 2 [facility] (IMMODIUM) 8-02 hours as [facility]le [facility] 2 MG 00:00: needed for of capsule 00 chemothera Medici n py related e watery diarrhea (max 8 tablets over 24 hours). If diarrhea persisting over 48 hours, notify oncologist . olanzapine Yes Take one [place] [facility] (ZYPREXA) 5 8-02 tablet for [facility] MG tablet 00:00: 5 days of 00 starting Medicin night of e chemo and then as needed at nighttime for nausea ondansetron Yes Take 1 [facility] (ZOFRAN) 8 8-02 tablet by [facility] mg tablet 00:00: mouth of 00 twice a Medicin day for 2 e days after chemo, and then every 8 hours as needed loperamide 2021-0 Yes Every 2 [facility] (IMMODIUM) 8-02 hours as [facility]le [facility] 2 MG 00:00: needed for of capsule 00 chemothera Medici n py related e watery diarrhea (max 8 tablets over 24 hours). If diarrhea persisting over 48 hours, notify oncologist . olanzapine Yes Take one [place] haylie (ZYPREXA) 5 8-02 tablet for [facility] MG tablet 00:00: 5 days of 00 starting Medicin night of e chemo and then as needed at nighttime for nausea ondansetron Yes Take 1 [facility] (ZOFRAN) 8 8-02 tablet by [facility] mg tablet 00:00: mouth of 00 twice a Medicin day for 2 e days after chemo, and then every 8 hours as needed loperamide 2021-0 Yes Every 2 [facility] (IMMODIUM) 8-02 hours as [facility]le [facility] 2 MG 00:00: needed for of capsule 00 chemothera Medici n py related e watery diarrhea (max 8 tablets over 24 hours). If diarrhea persisting over 48 hours, notify oncologist . olanzapine Yes Take one [place] [facility] (ZYPREXA) 5 8-02 tablet for [facility] MG tablet 00:00: 5 days of 00 starting Medicin night of e chemo and then as needed at nighttime for nausea ondansetron 2021-0 Yes Take 1 [facility] (ZOFRAN) 8 8-02 tablet by [facility] mg tablet 00:00: mouth of 00 twice a Medicin day for 2 e days after chemo, and then every 8 hours as needed loperamide 2021-0 Yes Every 2 [facility] (IMMODIUM) 8-02 hours as [facility] 2 MG 00:00: needed for of capsule 00 chemothera Medici n py related e watery diarrhea (max 8 tablets over 24 hours). If diarrhea persisting over 48 hours, notify oncologist . olanzapine Yes Take one [place] [facility] (ZYPREXA) 5 8-02 tablet for [facility] MG tablet 00:00: 5 days of 00 starting Medicin night of e chemo and then as needed at nighttime for nausea ondansetron 2021-0 Yes Take 1 [facility] (ZOFRAN) 8 8-02 tablet by [facility] mg tablet 00:00: mouth of 00 twice a Medicin day for 2 e days after chemo, and then every 8 hours as needed loperamide 2021-0 Yes Every 2 [facility] (IMMODIUM) 8-02 hours as [facility]le [facility] 2 MG 00:00: needed for of capsule 00 chemothera Medici n py related e watery diarrhea (max 8 tablets over 24 hours). If diarrhea persisting over 48 hours, notify oncologist . olanzapine Yes Take one [place] [facility] (ZYPREXA) 5 8-02 tablet for [facility] MG tablet 00:00: 5 days of 00 starting Medicin night of e chemo and then as needed at nighttime for nausea ondansetron 2021-0 Yes Take 1 [facility] (ZOFRAN) 8 8-02 tablet by [facility] mg tablet 00:00: mouth of 00 twice a Medicin day for 2 e days after chemo, and then every 8 hours as needed loperamide 2021-0 Yes Every 2 [facility] (IMMODIUM) 8-02 hours as [facility]le [facility] 2 MG 00:00: needed for of capsule 00 chemothera Medici n py related e watery diarrhea (max 8 tablets over 24 hours). If diarrhea persisting over 48 hours, notify oncologist . olanzapine Yes Take one [place] [facility] (ZYPREXA) 5 8-02 tablet for [facility] MG tablet 00:00: 5 days of 00 starting Medicin night of e chemo and then as needed at nighttime for nausea ondansetron 0 Yes Take 1 [facility] (ZOFRAN) 8 8-02 tablet by [facility] mg tablet 00:00: mouth of 00 twice a Medicin day for 2 e days after chemo, and then every 8 hours as needed loperamide 2021-0 Yes Every 2 [facility] (IMMODIUM) 8-02 hours as [facility]le [facility] 2 MG 00:00: needed for of capsule 00 chemothera Medici n py related e watery diarrhea (max 8 tablets over 24 hours). If diarrhea persisting over 48 hours, notify oncologist . olanzapine Yes Take one [place] [facility] (ZYPREXA) 5 8-02 tablet for [facility] MG tablet 00:00: 5 days of 00 starting Medicin night of e chemo and then as needed at nighttime for nausea ondansetron 0 Yes Take 1 [facility] (ZOFRAN) 8 8-02 tablet by [facility] mg tablet 00:00: mouth of 00 twice a Medicin day for 2 e days after chemo, and then every 8 hours as needed loperamide 2021-0 Yes Every 2 [facility] (IMMODIUM) 8-02 hours as [facility] 2 MG 00:00: needed for of capsule 00 chemothera Medici n py related e watery diarrhea (max 8 tablets over 24 hours). If diarrhea persisting over 48 hours, notify oncologist . olanzapine Yes Take one [place] [facility] (ZYPREXA) 5 8-02 tablet for [facility] MG tablet 00:00: 5 days of 00 starting Medicin night of e chemo and then as needed at nighttime for nausea ondansetron 2021-0 Yes Take 1 [facility] (ZOFRAN) 8 8-02 tablet by [facility] mg tablet 00:00: mouth of 00 twice a Medicin day for 2 e days after chemo, and then every 8 hours as needed loperamide 2021-0 2023- No Every 2 [place] [facility] (IMMODIUM) 8-02 01-03 hours as [facility] 2 MG 00:00: 00:00 needed for of capsule 00 :00 chemothera Medici n py related e watery diarrhea (max 8 tablets over 24 hours). If diarrhea persisting over 48 hours, notify oncologist . olanzapine 2022- No Take one [facility] (ZYPREXA) 5 03-12 tablet for [facility] MG tablet 00:00: 00:00 5 days of 00 :00 starting Medicin night of e chemo and then as needed at nighttime for nausea ondansetron 2022- No Take 1 [place] [facility] (ZOFRAN) 8 03-12 tablet by [facility] mg tablet 00:00: 00:00 mouth of 00 :00 twice a Medicin day for 2 e days after chemo, and then every 8 hours as needed capecitabin No 1500mg Take 3 [facility] (XELODA) 03-12 Tablets by [facility] 500 MG 00:00: 04:59 mouth two of tablet 00 :00 times Medicin daily for e 30 days. Take Friday through Friday on days of radiation therapy capecitabin 2021- No 1500mg Take 3 [facility] (XELODA) 03-12 Tablets by [facility] 500 MG 00:00: 04:59 mouth two of tablet 00 :00 times Medicin daily for e 30 days. Take Friday through Friday on days of radiation therapy capecitabin 2021- No 1500mg Take 3 [facility] (XELODA) 03-12 Tablets by [facility] 500 MG 00:00: 04:59 mouth two of tablet 00 :00 times Medicin daily for e 30 days. Take Friday through Friday on days of radiation therapy diphenoxyla Yes 1{tbl} Take 1 [facility] te-atropine 7-19 Tablet by [facility] (LOMOTIL) 00:00: mouth 4 of 2.5-0.025 00 times Medicin MG per daily as e tablet needed for Diarrhea. For diarrhea/c ramping. diphenoxyla Yes 1{tbl} Take 1 [facility] te-atropine 7-19 Tablet by [facility] (LOMOTIL) 00:00: mouth 4 of 2.5-0.025 00 times Medicin MG per daily as e tablet needed for Diarrhea. For diarrhea/c ramping. diphenoxyla 2-0 Yes 1{tbl} Take 1 [facility] te-atropine 7-19 Tablet by [facility] (LOMOTIL) 00:00: mouth 4 of 2.5-0.025 00 times Medicin MG per daily as e tablet needed for Diarrhea. For diarrhea/c ramping. diphenoxyla 2-0 Yes 1{tbl} Take 1 [facility] te-atropine 7-19 Tablet by [facility] (LOMOTIL) 00:00: mouth 4 of 2.5-0.025 00 times Medicin MG per daily as e tablet needed for Diarrhea. For diarrhea/c ramping. diphenoxyla 2-0 Yes 1{tbl} Take 1 [facility] te-atropine 7-19 Tablet by [facility] (LOMOTIL) 00:00: mouth 4 of 2.5-0.025 00 times Medicin MG per daily as e tablet needed for Diarrhea. For diarrhea/c ramping. diphenoxyla 2021-0 Yes 1{tbl} Take 1 [facility] te-atropine 7-19 Tablet by [facility] (LOMOTIL) 00:00: mouth 4 of 2.5-0.025 00 times Medicin MG per daily as e tablet needed for Diarrhea. For diarrhea/c ramping. diphenoxyla 2-0 Yes 1{tbl} Take 1 [facility] te-atropine 7-19 Tablet by [facility] (LOMOTIL) 00:00: mouth 4 of 2.5-0.025 00 times Medicin MG per daily as e tablet needed for Diarrhea. For diarrhea/c ramping. diphenoxyla 2-0 Yes 1{tbl} Take 1 [facility] te-atropine 7-19 Tablet by [facility] (LOMOTIL) 00:00: mouth 4 of 2.5-0.025 00 times Medicin MG per daily as e tablet needed for Diarrhea. For diarrhea/c ramping. diphenoxyla 2-0 2023- No 1{tbl} Take 1 [facility] te-atropine 7-19 01-03 Tablet by [facility] (LOMOTIL) 00:00: 00:00 mouth 4 of 2.5-0.025 00 :00 times Medicin MG per daily as e tablet needed for Diarrhea. For diarrhea/c ramping. loperamide 2021-0 2021- No Every 2 [place] [facility] (IMMODIUM) 719 08-02 hours as [facility] 2 MG 00:00: 00:00 needed for of capsule 00 :00 chemothera Medici n py related e watery diarrhea (max 8 tablets over 24 hours). If diarrhea persisting over 48 hours, notify oncologist . Aspirin 81 2021-0 Yes 81mg Take 81 mg [facility] MG tablet 7-13 by mouth [facility] 09:35: daily. of 21 Medicin e losartan 2021-0 Yes 100mg Take 100 [facility] (COZAAR) 7-13 mg by [facility] 100 MG 09:35: mouth of tablet 21 daily. Medicin e atorvastati 2021-0 Yes 40mg Take 40 mg [facility] (LIPITOR) 7-13 by mouth [facility] 40 MG 09:35: nightly. of tablet 21 Medicin e senna 2021-0 Yes 8.6mg Take 8.6 [facility] (SENOKOT) 7-13 mg by [facility] 8.6 MG 09:35: mouth of tablet 21 daily. Medicin e Tamsulosin 2021-0 Yes .4mg Take 0.4 [place] [facility] HCl 7-13 mg by [place] (FLOMAX) 00:00: mouth of 0.4 MG CAPS 00 daily. Medici n e solifenacin 2021-0 Yes 10mg Take 1 [facility] (VESICARE) 7-13 Tablet by [facility] 10 MG 00:00: mouth of tablet 00 daily. Medicin e Tamsulosin 2021-0 Yes .4mg Take 0.4 [place] [facility] HCl 7-13 mg by [place] (FLOMAX) 00:00: mouth of 0.4 MG CAPS 00 daily. Medici n e solifenacin 2-0 Yes 10mg Take 1 [facility] (VESICARE) 7-13 Tablet by [facility] 10 MG 00:00: mouth of tablet 00 daily. Medicin e Tamsulosin 2021-0 Yes .4mg Take 0.4 [place] hay[facility] HCl 7-13 mg by [facility] (FLOMAX) 00:00: mouth of 0.4 MG CAPS 00 daily. Medici n e solifenacin 2022-0 Yes 10mg Take 1 [facility] (VESICARE) 7-13 Tablet by [facility] 10 MG 00:00: mouth of tablet 00 daily. Medicin e Tamsulosin 2022-0 Yes .4mg Take 0.4 [place] hay[facility] HCl 7-13 mg by [place] (FLOMAX) 00:00: mouth of 0.4 MG CAPS 00 daily. Medici n e solifenacin 2022-0 Yes 10mg Take 1 [facility] (VESICARE) 7-13 Tablet by [facility] 10 MG 00:00: mouth of tablet 00 daily. Medicin e Tamsulosin 2022-0 Yes .4mg Take 0.4 [place] [facility] HCl 7-13 mg by [place] (FLOMAX) 00:00: mouth of 0.4 MG CAPS 00 daily. Medici n e solifenacin 2022-0 Yes 10mg Take 1 [facility] (VESICARE) 7-13 Tablet by [facility] 10 MG 00:00: mouth of tablet 00 daily. Medicin e Tamsulosin 2022-0 Yes .4mg Take 0.4 [place] [facility] HCl 7-13 mg by [place] (FLOMAX) 00:00: mouth of 0.4 MG CAPS 00 daily. Medici n e solifenacin 2022-0 Yes 10mg Take 1 [facility] (VESICARE) 7-13 Tablet by [facility] 10 MG 00:00: mouth of tablet 00 daily. Medicin e solifenacin 2022-0 Yes 10mg Take 1 [facility] (VESICARE) 7-13 Tablet by [facility] 10 MG 00:00: mouth of tablet 00 daily. Medicin e solifenacin 2022-0 Yes 10mg Take 1 [facility] (VESICARE) 7-13 Tablet by [facility] 10 MG 00:00: mouth of tablet 00 daily. Medicin e solifenacin 2022-0 Yes 10mg Take 1 [facility] (VESICARE) 7-13 Tablet by [facility] 10 MG 00:00: mouth of tablet 00 daily. Medicin e solifenacin 2022-0 2023- No 10mg Take 1 [place] [facility] (VESICARE) 7-13 01-03 Tablet by [facility] 10 MG 00:00: 00:00 mouth of tablet 00 :00 daily. Medicin e Tamsulosin 2022-0 2022- No .4mg Take 0.4 [facility] HCl 02-20 10-18 mg by [facility] (FLOMAX) 00:00: 00:00 mouth of 0.4 MG CAPS 00 :00 daily. Medici n e meloxicam 2021-0 2021- No 15mg Take 1 [facility] (MOBIC) 15 7-13 08-02 Tablet by [facility] MG tablet 00:00: 00:00 mouth of 00 :00 daily. Medicin e Aspirin 81 2021-0 Yes 81mg Take 81 mg [facility] tablet 7-05 by mouth [facility] 08:19: daily. of 22 Medicin e losartan 0 Yes 100mg Take 100 [facility] (COZAAR) 7-05 mg by [facility] 100 MG 08:19: mouth of tablet 22 daily. Medicin e atorvastati 0 Yes 40mg Take 40 mg [facility] (LIPITOR) 7-05 by mouth Mi [facility]ge 40 MG 08:19: nightly. of tablet 22 Medicin e senna 0 Yes 8.6mg Take 8.6 [facility] (SENOKOT) 7-05 mg by [facility] 8.6 MG 08:19: mouth of tablet 22 daily. Medicin e Pegfilgrast 0 Yes Inject on [facility] (NEULASTA) 00:00: pump of 6 MG/0.6ML 00 disconnect [...] 2021-0 Yes Inject on [facility] - of (NEULASTA) 00:00: pump of 6 MG/0.6ML 00 disconnect Med icin Syringe . e loperamide 2021-0 Yes Every 2 [facility] (IMMODIUM) 7-05 hours as Colle [facility] 2 MG 00:00: needed for of capsule 00 chemothera Medici n py related e watery diarrhea (max 8 tablets over 24 hours). If diarrhea persisting over 48 hours, notify oncologist . Pegfilgrast 2021-0 Yes Inject on [facility] [place] (NEULASTA) 00:00: pump of 6 MG/0.6ML 00 disconnect Med icin Syringe . e Pegfilgrast 2022-0 Yes Inject on [facility] [place] (NEULASTA) 00:00: pump of 6 MG/0.6ML 00 disconnect Med icin Syringe . e Pegfilgrast 2022-0 Yes Inject on [facility] [place] (NEULASTA) 00:00: pump of 6 MG/0.6ML 00 disconnect Med icin Syringe . e Pegfilgrast 2022-0 Yes Inject on [facility] [place] (NEULASTA) 00:00: pump of 6 MG/0.6ML 00 disconnect Med icin Syringe . e Pegfilgrast 2022-0 Yes Inject on [facility] [place] (NEULASTA) 00:00: pump of 6 MG/0.6ML 00 disconnect Med icin Syringe . e Pegfilgrast 2022-0 Yes Inject on [facility] (NEULASTA) 00:00: pump of 6 MG/0.6ML 00 disconnect Med icin Syringe . e Pegfilgrast 2022-0 Yes Inject on [facility] [place] (NEULASTA) 00:00: pump of 6 MG/0.6ML 00 disconnect Med icin Syringe . e Pegfilgrast 2022-0 Yes Inject on [facility] [place] (NEULASTA) 00:00: pump of 6 MG/0.6ML 00 disconnect Med icin Syringe . e Pegfilgrast 2-0 2023- No Inject on [facility] 02-12 of [place] (NEULASTA) 00:00: 00:00 pump of 6 MG/0.6ML 00 :00 disconnect Med icin Syringe . e amlodipine 2021-0 2022- No 10mg Take 10 mg [facility] (NORVASC) 01-15 06-07 by mouth [facility]le [facility] 10 MG 16:36: 00:00 nightly. of tablet 06 :00 Medicin e Aspirin 81 2022-0 Yes 81mg Take 81 mg [facility] tablet 6-07 by mouth [facility] 08:13: daily. of 46 Medicin e losartan Yes 100mg Take 100 [facility] (COZAAR) 6-07 mg by [facility] 100 MG 08:13: mouth of tablet 46 daily. Medicin e atorvastati 0 Yes 40mg Take 40 mg [facility] (LIPITOR) 6-07 by mouth Mi [facility]ge 40 MG 08:13: nightly. of tablet 46 Medicin e senna Yes 8.6mg Take 8.6 [facility] (SENOKOT) 6-07 mg by [facility] 8.6 MG 08:13: mouth of tablet 46 daily. Medicin e Aspirin 81 0 Yes 81mg Take 81 mg [facility] tablet 6-07 by mouth [facility] 08:13: daily. of 46 Medicin e losartan Yes 100mg Take 100 [facility] (COZAAR) 6-07 mg by [place] 100 MG 08:13: mouth of tablet 46 daily. Medicin e atorvastati Yes 40mg Take 40 mg [facility] (LIPITOR) 6-07 by mouth Mi ege 40 MG 08:13: nightly. of tablet 46 Medicin e senna Yes 8.6mg Take 8.6 [facility] (SENOKOT) 6-07 mg by [place] 8.6 MG 08:13: mouth of tablet 46 daily. Medicin e Morphine 2021-0 Yes 1{tbl} Take 1 [facility] Sulfate ER 6-07 Tablet by [facility]ge 30 MG T12A 00:00: mouth two of 00 times Medicin daily. e morphine 2021-0 Yes 15mg Take 1 [facility] (MS IR) 15 6-07 Tablet by Mi [facility]ge MG tablet 00:00: mouth of 00 every 6 Medicin hours as e needed. Morphine 2021-0 Yes 1{tbl} Take 1 [facility] Sulfate ER 6-07 Tablet by [facility] 30 MG T12A 00:00: mouth two of 00 times Medicin daily. e morphine 2021-0 Yes 15mg Take 1 [facility] (MS IR) 15 6-07 Tablet by Mi [facility]ge MG tablet 00:00: mouth of 00 every 6 Medicin hours as e needed. Morphine 2022-0 Yes 1{tbl} Take 1 [facility] Sulfate ER 6-07 Tablet by [facility] 30 MG T12A 00:00: mouth two of 00 times Medicin daily. e morphine 2022-0 Yes 15mg Take 1 [facility] (MS IR) 15 6-07 Tablet by [facility] MG tablet 00:00: mouth of 00 every 6 Medicin hours as e needed. Morphine 2022-0 Yes 1{tbl} Take 1 [facility] Sulfate ER 6-07 Tablet by [facility] 30 MG T12A 00:00: mouth two of 00 times Medicin daily. e morphine 2022-0 Yes 15mg Take 1 [facility] (MS IR) 15 6-07 Tablet by Mi ege MG tablet 00:00: mouth of 00 every 6 Medicin hours as e needed. Morphine 2022-0 Yes 1{tbl} Take 1 [facility] Sulfate ER 6-07 Tablet by [facility] 30 MG T12A 00:00: mouth two of 00 times Medicin daily. e morphine 2022-0 Yes 15mg Take 1 [facility] (MS IR) 15 6-07 Tablet by Mi [facility]ge MG tablet 00:00: mouth of 00 every 6 Medicin hours as e needed. amlodipine 2021-0 2021- No [id number] 5mg Take 1 [facility] (NORVASC) 5 01-15- Tablet by [facility] MG tablet 00:00: 04:59 mouth of 00 :00 daily for Medicin 90 days. e amlodipine 2021-0 2021- No [id number] 5mg Take 1 [facility] (NORVASC) 5 -02 16-06 Tablet by [facility] MG tablet 00:00: 04:59 mouth of 00 :00 daily for Medicin 90 days. e amlodipine 2021-0 2021- No [id number] 5mg Take 1 [facility] (NORVASC) 5 6-02 16-06 Tablet by [facility] MG tablet 00:00: 04:59 mouth of 00 :00 daily for Medicin 90 days. e amlodipine 2021-0 2- No [id number] 5mg Take 1 [facility] (NORVASC) 5 6-02 16-06 Tablet by [facility] MG tablet 00:00: 04:59 mouth of 00 :00 daily for Medicin 90 days. e amlodipine 2021-0 2022- No [id number] 5mg Take 1 [facility] (NORVASC) 5 01-15 Tablet by [facility] MG tablet 00:00: 04:59 mouth of 00 :00 daily for Medicin 90 days. e amlodipine 0 2021- No [id number] 5mg Take 1 [facility] (NORVASC) 5 01-15- Tablet by [facility] MG tablet 00:00: 04:59 mouth of 00 :00 daily for Medicin 90 days. e amlodipine 0 2021- No [id number] 5mg Take 1 [facility] (NORVASC) 5 01-15 Tablet by [facility] MG tablet 00:00: 04:59 mouth of 00 :00 daily for Medicin 90 days. e amlodipine Yes 10mg Take 10 mg [facility] (NORVASC) 6-02 by mouth [facility] e 10 MG 09:18: nightly. of tablet 36 Medicin e Aspirin 81 Yes 81mg Take 81 mg [facility] tablet 02 by mouth [facility] e 09:18: daily. of 36 Medicin e losartan Yes 100mg Take 100 [facility] (COZAAR) 6-02 mg by [place] 100 MG 09:18: mouth of tablet 36 daily. Medicin e atorvastati Yes 40mg Take 40 mg [facility] (LIPITOR) 6-02 by mouth Mi ege 40 MG 09:18: nightly. of tablet 36 Medicin e senna Yes 8.6mg Take 8.6 [facility] (SENOKOT) 6-02 mg by [place] 8.6 MG 09:18: mouth of tablet 36 daily. Medicin e meloxicam 0 Yes [id number] 15mg Take 1 [facility] (MOBIC) 15 6-02 Tablet by Mi ege MG tablet 00:00: mouth of 00 daily. Medicin e meloxicam 0 Yes [id number] 15mg Take 1 [facility] (MOBIC) 15 6-02 Tablet by Mi ege MG tablet 00:00: mouth of 00 daily. Medicin e meloxicam 0 Yes [id number] 15mg Take 1 [facility] (MOBIC) 15 6-02 Tablet by Im ege MG tablet 00:00: mouth of 00 daily. Medicin e meloxicam 2-0 Yes [id number] 15mg Take 1 [facility] (MOBIC) 15 6-02 Tablet by Mi ege MG tablet 00:00: mouth of 00 daily. Medicin e meloxicam 2-0 Yes [id number] 15mg Take 1 [facility] (MOBIC) 15 6-02 Tablet by Mi ege MG tablet 00:00: mouth of 00 daily. Medicin e ibuprofen 2021-0 2021- No 600mg 600 mg, Uni vers (IBU) 01-08 Oral, ity of tablet 600 23:00: 23:00 ONCE, 1 [place] as mg 00 :00 dose, On Medical Tue Branch 01/08/22 at 1800, TERESA ibuprofen 2021-0 Yes [id number] 600mg Take 1 [facility] 600 mg 01-08 [id number] tablet by ity of tablet 00:00: mouth [place] 00 every 6 Medical (six) Branch hours as needed for Pain (scale 4-6). ibuprofen 2021-0 Yes [id number] 600mg Take 1 [facility] 600 mg 01-08 [id number] tablet by ity of tablet 00:00: mouth [place] 00 every 6 Medical (six) Branch hours as needed for Pain (scale 4-6). ciprofloxac 2022-0 Yes 500mg Take 1 [place] [facility] in (CIPRO) 5-10 Tablet by Mi ege 500 MG 00:00: mouth two of tablet 00 times Medicin daily. e ciprofloxac 2022-0 Yes 500mg Take 1 [place] [facility] in (CIPRO) 5-10 Tablet by Mi ege 500 MG 00:00: mouth two of tablet 00 times Medicin daily. e ciprofloxac 2022-0 Yes 500mg Take 1 [place] [facility] in (CIPRO) 5-10 Tablet by Mi ege 500 MG 00:00: mouth two of tablet 00 times Medicin daily. e ciprofloxac 2022-0 Yes 500mg Take 1 [place] [facility] in (CIPRO) 5-10 Tablet by Mi ege 500 MG 00:00: mouth two of tablet 00 times Medicin daily. e ciprofloxac 2022-0 Yes 500mg Take 1 [place] [facility] in (CIPRO) 5-10 Tablet by Mi ege 500 MG 00:00: mouth two of tablet 00 times Medicin daily. e ciprofloxac 2021- No 500mg Take 1 [facility] (CIPRO) 5-10 03-12 Tablet by Col [facility]ge 500 MG 00:00: 00:00 mouth two of tablet 00 :00 times Medicin daily. e Morphine 2021- No 1{tbl} Take 1 [facility] Sulfate ER 12-06 Tablet by Col [facility]ge 30 MG TBCR 00:00: 00:00 mouth of 00 :00 every 12 Medicin hours. For e cancer pain ondansetron Yes Take 1 [facility] (ZOFRAN) 8 4-22 tablet by Mi ege mg tablet 00:00: mouth of 00 twice a Medicin day for 2 e days after chemo, and then every 8 hours as needed olanzapine Yes Take half [facility] (ZYPREXA) 5 4-22 a tablet Mi ege MG tablet 00:00: by mouth of 00 twice Medicin daily for e nausea as needed. Magic Yes Swish [facility] Mouthwash 4-22 thoroughly Mi ege [...] then every 8 hours as needed olanzapine Yes Take half [facility] (ZYPREXA) 5 4-22 a tablet Mi ege MG tablet 00:00: by mouth of 00 twice Medicin daily for e nausea as needed. Magic Yes Swish [facility] Mouthwash 4-22 thoroughly Mi ege 00:00: , gargle, of 00 and spit Medicin one e teaspoonfu l (5 mL) after meals and before bed. Shake well before using. lidocaine-p Yes Apply [facility] rilocaine 4-22 pea-sized [...] then every 8 hours as needed olanzapine Yes Take half [facility] (ZYPREXA) 5 4-22 a tablet Mi ege MG tablet 00:00: by mouth of 00 twice Medicin daily for e nausea as needed. Magic Yes Swish [facility] Mouthwash 4-22 thoroughly Mi ege 00:00: , gargle, of 00 and spit Medicin one e teaspoonfu l (5 mL) after meals and before bed. Shake well before using. lidocaine-p Yes Apply [facility] rilocaine 4-22 pea-sized Colle ge (EMLA) 00:00: amount of 2.5-2.5 % 00 over PORT Medic in cream about 30 e minutes before access to numb area. Magic Yes Swish [facility] Mouthwash 4-22 thoroughly Mi ege 00:00: , gargle, of 00 and spit Medicin one e teaspoonfu l (5 mL) after meals and before bed. Shake well before using. lidocaine-p Yes Apply [facility] rilocaine 4-22 pea-sized Colle ge (EMLA) 00:00: amount of 2.5-2.5 % 00 over PORT Medic in cream about 30 e minutes before access to numb area. Magic Yes Swish [facility] Mouthwash 4-22 thoroughly Mi ege 00:00: , gargle, of 00 and spit Medicin one e teaspoonfu l (5 mL) after meals and before bed. Shake well before using. lidocaine-p Yes Apply [facility] rilocaine 4-22 pea-sized Colle ge (EMLA) 00:00: amount of 2.5-2.5 % 00 over PORT Medic in cream about 30 e minutes before access to numb area. Magic 2021-0 Yes Swish [facility] Mouthwash 4-22 thoroughly Mi ege [...] to numb area. Magic 2021-0 Yes Swish [facility] Mouthwash 4-22 thoroughly Mi ege [...] area. morphine 2021-0 Yes 15mg Take 1 Kin (MS IR) 15 4-22 Tablet by Mi ege MG tablet 00:00: mouth of 00 every 6 Medicin hours as e needed. ondansetron 2021-0 Yes Take 1 [facility] (ZOFRAN) 8 4-22 tablet by Mi ege mg tablet 00:00: mouth of 00 twice a Medicin day for 2 e days after chemo, and then every 8 hours as needed Magic 2021-0 Yes Swish [facility] Mouthwash 4-22 thoroughly Mi ege 00:00: , gargle, of 00 and spit Medicin one e teaspoonfu l (5 mL) after meals and before bed. Shake well before using. lidocaine-p Yes Apply [facility] rilocaine 4-22 pea-sized Colle ge (EMLA) 00:00: amount of 2.5-2.5 % 00 over PORT Medic in cream about 30 e minutes before access to numb area. olanzapine Yes Take half [facility] (ZYPREXA) 5 4-22 a tablet Mi ege MG tablet 00:00: by mouth of 00 twice Medicin daily for e nausea as needed. Magic Yes Swish [facility] Mouthwash 4-22 thoroughly Mi ege 00:00: , gargle, of 00 and spit Medicin one e teaspoonfu l (5 mL) after meals and before bed. Shake well before using. lidocaine-p Yes Apply [facility] rilocaine 4-22 pea-sized Colle ge (EMLA) 00:00: amount of 2.5-2.5 % 00 over PORT Medic in cream about 30 e minutes before access to numb area. Magic Yes Swish [facility] Mouthwash 4-22 thoroughly Mi ege 00:00: , gargle, of 00 and spit Medicin one e teaspoonfu l (5 mL) after meals and before bed. Shake well before using. lidocaine-p Yes Apply [facility] rilocaine 4-22 pea-sized Colle ge (EMLA) 00:00: amount of 2.5-2.5 % 00 over PORT Medic in cream about 30 e minutes before access to numb area. Magic Yes Swish [facility] Mouthwash 4-22 thoroughly Mi ege 00:00: , gargle, of 00 and spit Medicin one e teaspoonfu l (5 mL) after meals and before bed. Shake well before using. lidocaine-p Yes Apply [facility] rilocaine 4-22 pea-sized [...] then every 8 hours as needed olanzapine Yes Take half [facility] (ZYPREXA) 5 - a tablet Mi ege MG tablet 00:00: by mouth of 00 twice Medicin daily for e nausea as needed. Magic Yes Swish [facility] Mouthwash 11-30 thoroughly Mi ege 00:00: , gargle, of 00 and spit Medicin one e teaspoonfu l (5 mL) after meals and before bed. Shake well before using. lidocaine-p Yes Apply [facility] rilocaine 11-30 pea-sized Colle ge (EMLA) 00:00: amount of 2.5-2.5 % 00 over PORT Medic in cream about 30 e minutes before access to numb area. Magic 2022- No Swish [facility] Mouthwash 11-30- thoroughly Col lege 00:00: 00:00 , gargle, of 00 :00 and spit Medicin one e teaspoonfu l (5 mL) after meals and before bed. Shake well before using. lidocaine-p 2022- No Apply [facility] rilocaine 11-30- pea-sized Mi ege (EMLA) 00:00: 00:00 amount of 2.5-2.5 % 00 :00 over PORT Medic in cream about 30 e minutes before access to numb area. ondansetron 2021- No Take 1 [place] [facility] (ZOFRAN) 8 11-30-02 tablet by Col lege mg tablet 00:00: 00:00 mouth of 00 :00 twice a Medicin day for 2 e days after chemo, and then every 8 hours as needed olanzapine 2021- No Take half [facility] (ZYPREXA) 5 11-30 08-02 a tablet Col lege MG tablet 00:00: 00:00 by mouth of 00 :00 twice Medicin daily for e nausea as needed. morphine 2021- No 15mg Take 1 Kin (MS IR) 15 11-30 06-07 Tablet by Col lege MG tablet 00:00: 00:00 mouth of 00 :00 every 6 Medicin hours as e needed. amLODIPine amLODIPine No 1{table QD amLODIPine Besylate 5 Besylate 5 3-28 t} Besylate 5 MG MG 00:00: MG 00 amLODIPine amLODIPine 0 No 1{table QD amLODIPine Besylate 5 Besylate 5 3-28 t} Besylate 5 MG MG 00:00: MG 00 amLODIPine amLODIPine No 1{table QD amLODIPine Besylate 5 Besylate 5 3-28 t} Besylate 5 MG MG 00:00: MG 00 amLODIPine amLODIPine No 1{table QD amLODIPine Besylate 5 Besylate 5 3-28 t} Besylate 5 MG MG 00:00: MG 00 amLODIPine amLODIPine No 1{table QD amLODIPine Besylate 5 Besylate 5 3-28 t} Besylate 5 MG MG 00:00: MG 00 amLODIPine amLODIPine No 1{table QD amLODIPine Besylate 5 Besylate 5 3-28 t} Besylate 5 MG MG 00:00: MG 00 amLODIPine amLODIPine No 1{table QD amLODIPine Besylate 5 Besylate 5 3-28 t} Besylate 5 MG MG 00:00: MG 00 amLODIPine amLODIPine No 1{table QD amLODIPine Besylate 5 Besylate 5 3-28 t} Besylate 5 MG MG 00:00: MG 00 amLODIPine amLODIPine No 1{table QD amLODIPine Besylate 5 Besylate 5 3-28 t} Besylate 5 MG MG 00:00: MG 00 amLODIPine amLODIPine No 1{table QD amLODIPine Besylate 5 Besylate 5 3-28 t} Besylate 5 MG MG 00:00: MG 00 amLODIPine amLODIPine No 1{table QD amLODIPine Besylate 5 Besylate 5 3-28 t} Besylate 5 MG MG 00:00: MG 00 atorvastati Yes 40mg Take 40 mg Univers n (LIPITOR) 2-21 by mouth ity of 40 mg 17:50: at [place] tablet 55 bedtime. MD [facility] losartan Yes 100mg Take 100 Univ ers (COZAAR) 2-21 mg by ity of 100 mg 17:50: mouth [place] tablet 55 daily. MD [facility] amLODIPine Yes 10mg Take 10 mg U nivers (NORVASC) 2-21 by mouth ity of 10 mg 15:50: every [place] tablet 53 evening. MD [facility] polyethylen Yes Other Take 1 Uni vers e glycol 2-21 constipatio packet it y of (MIRALAX) 00:00: n twice a [place] 17 g packet 00 day as MD needed for [place] constipati n on. Cancer Center morphine Yes Rectal pain 15mg Take 1 Univers (MSIR) 15 2-21 tablet (15 ity of mg IR 00:00: mg) by [place] tablet 00 mouth MD every 4 [place] (four) n hours as Cancer needed for Center pain. morphine Yes Cancer 30mg Take 1 Unive rs (MS CONTIN) 2-20 associated tablet (30 ity of 30 mg 12 hr 00:00: pain mg) by [facility] s tablet 00 mouth MD every 8 [place] (eight) n hours. Cancer Center morphine Yes Cancer 7.5mg Take half U nivers (MSIR) 15 2-20 associated of a ity of mg IR 00:00: pain tablet to [place] tablet 00 1 tablet MD (7.5 to 15 [place] mg) by n mouth Cancer every 4 Center (four) hours as needed for pain. iopamidol 2021- No [id number] 120mL 120 mL, Univers (ISOVUE 09-2515 Intravenou ity o f 370-500 mL) 11:00: 09:44 s, ONCE, 1 [place] injection 00 :00 dose, On Medica l 120 mL Fri09/25/21 at 0500, Routine FENTanyl PF 2021- No 100ug 100 mcg, Univers (SUBLIMAZE 09-2515 Slow IV ity o f (PF)) 10:55: 10:58 Push, [place] injection 00 :00 ONCE, 1 Medical 100 mcg dose, On Fri09/25/21 at 0500, TERESA FENTanyl PF 2021- No 100ug 100 mcg, Univers (SUBLIMAZE 09-25 Slow IV ity o f (PF)) 09:45: 09:06 Push, [place] injection 00 :00 ONCE, 1 Medical 100 mcg dose, On Branch Fri09/25/21 at 0345, Routine ondansetron 2021- No 4mg 4 mg, Slow [facility] (ZOFRAN 09-25 IV Push, ity of (PF)) 09:45: 09:07 ONCE, 1 [place] injection 4 00 :00 dose, On Medi leticia mg e [place] 09/25/21 at 0345, TERESA Nicoderm CQ Yes Tobacco Apply 1 Univers 21 mg/24 hr 1-18 dependence patch for ity of transdermal 00:00: syndrome 7 days [place] patch 00 then MD increase [place] to 1.5 n patches Cancer for 4 days Center then increase to 2 patches to skin and change patch daily as directed for tobacco cessation (alternate sites). nicotine, Yes Tobacco 4mg Dissolve 1 Univers polacrilex, -18 dependence lozenge (4 ity of (Nicorette) 00:00: syndrome mg) in the [place] 4 mg mini 00 mouth MD lozenge every 2 [place] (two) n hours as Cancer needed for Center smoking cessation. iopamidol 2020-08- No [id number] 100mL 100 mL, Univers (ISOVUE 09-18 12- Intravenou ity o f 370-500 mL) 00:30: 23:20 s, ONCE, 1 [place] injection 00 :00 dose, On Medica l [address] [facility] 07/17/21 at 1830, Routine NaCl 0.9% 2020-08- No 1000mL at 999 Uni vers (NS) bolus 09-18 12-08 mL/hr, ity of infusion 00:00: 02:16 1,000 mL, [place] as 1,000 mL 00 :00 IV Medical Infusion, Branch ONCE, 1 dose, On Fri07/17/21 at 1800, STAT polyethylen 2020-08 Yes 17g Take 17 g [facility] e glycol 2-07 by mouth [place] (GLYCOLAX) 00:00: as needed. o f 17 GM/SCOOP 00 Medicin powder e polyethylen 2020-08 Yes 17g Take 17 g [facility] e glycol 2-07 by [facility] (GLYCOLAX) 00:00: as needed. o f 17 GM/SCOOP 00 Medicin powder e polyethylen 2020-08 Yes 17g Take 17 g [facility] e glycol 2-07 by mouth [facility] (GLYCOLAX) 00:00: as needed. o f 17 GM/SCOOP 00 Medicin powder e polyethylen 2020- Yes 17g Take 17 g [facility] e glycol 2-07 by mouth [facility] (GLYCOLAX) 00:00: as needed. o f 17 GM/SCOOP 00 Medicin powder e polyethylen 2020-1 Yes 17g Take 17 g [facility] e glycol 2-07 by mouth [facility] (GLYCOLAX) 00:00: as needed. o f 17 GM/SCOOP 00 Medicin powder e polyethylen 2020- Yes 17g Take 17 g [facility] e glycol 2-07 by mouth [facility] (GLYCOLAX) 00:00: as needed. o f 17 GM/SCOOP 00 Medicin powder e polyethylen 2020- Yes 17g Take 17 g [facility] e glycol 2-07 by mouth [facility] (GLYCOLAX) 00:00: as needed. o f 17 GM/SCOOP 00 Medicin powder e polyethylen 2020- Yes 17g Take 17 g [facility] e glycol 2-07 by mouth [facility] (GLYCOLAX) 00:00: as needed. o f 17 GM/SCOOP 00 Medicin powder e polyethylen 2020- Yes 17g Take 17 g [facility] e glycol 2-07 by mouth [facility] (GLYCOLAX) 00:00: as needed. o f 17 GM/SCOOP 00 Medicin powder e polyethylen 2020- Yes 17g Take 17 g [facility] e glycol 2-07 by mouth [facility] (GLYCOLAX) 00:00: as needed. o f 17 GM/SCOOP 00 Medicin powder e polyethylen 2020-1 Yes 17g Take 17 g [facility] e glycol 2-07 by mouth [facility] (GLYCOLAX) 00:00: as needed. o f 17 GM/SCOOP 00 Medicin powder e polyethylen 2020-1 Yes 17g Take 17 g [facility] e glycol 2-07 by mouth [facility] (GLYCOLAX) 00:00: as needed. o f 17 GM/SCOOP 00 Medicin powder e polyethylen 2020-1 Yes 17g Take 17 g [facility] e glycol 2-07 by mouth [facility] (GLYCOLAX) 00:00: as needed. o f 17 GM/SCOOP 00 Medicin powder e acetaminoph 2020-08 Yes [id number] 1{tbl} Take 1 Un breezy en-codeine 2-07 tablet by ity of (TYLENOL-CO 00:00: mouth [place] DEINE #3) 00 every 6 Medical 300-30 mg (six) Branch tablet hours as needed for Pain (scale 7-10). Indication s: acute pain polyethylen 2020-08 Yes [id number] 17g Take 17 g Univers e glycol [...] Indication s: acute pain polyethylen 2020-08 Yes [id number] 17g Take 17 g Univers e glycol [...] Indication s: acute pain polyethylen 2020-08 Yes [id number] 17g Take 17 g Univers e glycol [...] Indication s: acute pain polyethylen 2020-08 Yes [id number] 17g Take 17 g Univers e glycol [...] Indication s: acute pain polyethylen 2020-08 Yes [id number] 17g Take 17 g Univers e glycol 2-07 by mouth 2 ity o f 3350 00:00: (two) [place] (MIRALAX) 00 times Medical 17 daily. Branch gram/dose powder polyethylen 2020-08- No 17g Take 17 g [facility] e glycol 2-07 01-03 by mouth Colleg e (GLYCOLAX) 00:00: 00:00 as needed. of 17 GM/SCOOP 00 :00 Medicin powder e losartan 2020-08 Yes 100mg QD Take 100 [facility] (COZAAR) 1-[address] 100 MG 16:34: [facility] tablet 02 daily. l atorvastati 2020-08 Yes 40mg QD Take 40 mg Methodi n (LIPITOR) 1-[address] 40 mg 16:34: daily. [facility] tablet 02 l aspirin 2020-08 Yes 81mg QD Take 81 mg [facility] (ECOTRIN) 1-[address] 81 MG 16:34: daily. [facility]osp[facility] enteric 02 l coated tablet amLODIPine 2020-08 Yes 10mg QD Take 10 mg M ethodi (NORVASC) 1-[address] 10 mg 16:34: daily. [facility]osp[facility] tablet 02 l sucralfate 2020- No [id number] 1g Take 1 U nivers 1 gram 7-15 07-30 tablet by ity of tablet 00:00: 04:59 mouth 2 [place] 00 :00 (two) Medical times Branch daily for 14 days. fluconazole Yes 150mg 150 mg, Un bree[facility] (DIFLUCAN) 6-16 Oral, ity of tablet 150 14:00: DAILY, [place] mg 00 First dose Medical on Wed [place] 01/24/21 at 0900, Until Discontinu ed, TERESA
Re ason for Anti-Infec tive: Documented Infection< br>Documen linsey Infection Site: Urine
D uration of Therapy: 7 days ciprofloxac 2020- No 500mg 500 mg, U nivers in HCl 01-23-15 Oral, ONCE ity of (CIPRO) 19:30: 18:43 NOW, 1 [place] tablet 500 00 :00 dose, Tue Medi leticia mg 01/23/21 at Branch 1430, TERESA
Re ason for Anti-Infec tive: Empiric Therapy for Suspected Infection< br>Empiric Therapy Site: Pelvic
Duration of therapy: 72 hours lisinopriL Yes [id number] 10mg Take 1 [facility] 10 mg 6-15 tablet by ity of tablet 00:00: mouth at [place] [address] bedtime. [facility] lisinopriL Yes [id number] 10mg Take 1 Univers 10 mg 6-15 tablet by ity of tablet 00:00: mouth at [place] [address] bedtime. [facility] lisinopriL Yes [id number] 10mg Take 1 Univers 10 mg 6-15 tablet by ity of tablet 00:00: mouth at [place] [address] bedtime. [facility] lisinopriL Yes [id number] 10mg Take 1 [facility] 10 mg 6-15 tablet by ity of tablet 00:00: mouth at [place] [address] bedtime. [facility] lisinopriL Yes [id number] 10mg Take 1 [facility] 10 mg 6-15 tablet by ity of tablet 00:00: mouth at [place] [address] bedtime. [facility] lisinopriL Yes [id number] 10mg Take 1 Univers 10 mg 6-15 tablet by ity of tablet 00:00: mouth at [place] [address] bedtime. [facility] lisinopriL Yes [id number] 10mg Take 1 [facility] 10 mg 6-15 tablet by ity of tablet 00:00: mouth at [place] [address] bedtime. [facility] lisinopriL Yes [id number] 10mg Take 1 [facility] 10 mg 6-15 tablet by ity of tablet 00:00: mouth at [place] 00 bedtime. Medical Branch ciprofloxac 2020- No [id number] 500mg Take 1 [facility] in HCl 500 6-15 07-16 tablet by ity of mg tablet 00:00: 04:59 mouth 2 [place] 00 :00 (two) Medical times Branch daily for 30 days. ciprofloxac 2020- No [id number] 500mg Take 1 [facility] in HCl 500 6-15 07-16 tablet by ity of mg tablet 00:00: 04:59 mouth 2 [place] 00 :00 (two) Medical times Branch daily for 30 days. Losartan Losartan No 1{table QD Losartan Potassium Potassium t} Potassium 100 MG 100 MG 100 MG Atorvastati Atorvastati No 1{table QD Atorvastat n Calcium n Calcium t} in Calcium 40 MG 40 MG 40 MG Losartan Losartan No 1{table QD Losartan Potassium Potassium t} Potassium 100 MG 100 MG 100 MG Miralax Miralax No Miralax Losartan Losartan No 1{table QD Losartan Potassium Potassium t} Potassium 100 MG 100 MG 100 MG Morphine Morphine No 1{table 6xD Morphine Sulfate 30 Sulfate 30 t_as_ne Sulfate 30 MG MG eded} MG Senna Senna No Senna Morphine Morphine No 1{table 6xD Morphine Sulfate 15 Sulfate 15 t_as_ne Sulfate 15 MG MG eded} MG OLANZapine OLANZapine No 1{table QD OLANZapine 5 MG 5 MG t} 5 MG Atorvastati Atorvastati No 1{table QD Atorvastat n Calcium n Calcium t} in Calcium 40 MG 40 MG 40 MG Eliquis 5 Eliquis 5 No Eliquis 5 MG MG MG Meloxicam Meloxicam No 1{table QD Meloxicam 15 MG 15 MG t} 15 MG Ondansetron Ondansetron No 1{table BID Ondansetro HCl 8 MG HCl 8 MG t_as_ne n HCl 8 MG eded} Solifenacin Solifenacin No 1{table QD Solifenaci Succinate Succinate t} n 10 MG 10 MG Succinate 10 MG Neulasta 6 Neulasta 6 No Neulasta 6 MG/0.6ML MG/0.6ML MG/0.6ML Tamsulosin Tamsulosin No 1{capsu QD Tamsulosin HCl 0.4 MG HCl 0.4 MG le} HCl 0.4 MG Atorvastati Atorvastati No 1{table QD Atorvastat n Calcium n Calcium t} in Calcium 40 MG 40 MG 40 MG Ondansetron Ondansetron No 1{table BID Ondansetro HCl 8 MG HCl 8 MG t_as_ne n HCl 8 MG eded} Neulasta 6 Neulasta 6 No Neulasta 6 MG/0.6ML MG/0.6ML MG/0.6ML Tamsulosin Tamsulosin No 1{capsu QD Tamsulosin HCl 0.4 MG HCl 0.4 MG le} HCl 0.4 MG Morphine Morphine No 1{table 6xD Morphine Sulfate 30 Sulfate 30 t_as_ne Sulfate 30 MG MG eded} MG Eliquis 5 Eliquis 5 No Eliquis 5 MG MG MG Senna Senna No Senna Meloxicam Meloxicam No 1{table QD Meloxicam 15 MG 15 MG t} 15 MG Miralax Miralax No Miralax Morphine Morphine No 1{table 6xD Morphine Sulfate 15 Sulfate 15 t_as_ne Sulfate 15 MG MG eded} MG OLANZapine OLANZapine No 1{table QD OLANZapine 5 MG 5 MG t} 5 MG Losartan Losartan No 1{table QD Losartan Potassium Potassium t} Potassium 100 MG 100 MG 100 MG Solifenacin Solifenacin No 1{table QD Solifenaci Succinate Succinate t} n 10 MG 10 MG Succinate 10 MG Atorvastati Atorvastati No 1{table QD Atorvastat n Calcium n Calcium t} in Calcium 40 MG 40 MG 40 MG Senna Senna No Senna Meloxicam Meloxicam No 1{table QD Meloxicam 15 MG 15 MG t} 15 MG Tamsulosin Tamsulosin No 1{capsu QD Tamsulosin HCl 0.4 MG HCl 0.4 MG le} HCl 0.4 MG Ondansetron Ondansetron No 1{table BID Ondansetro HCl 8 MG HCl 8 MG t_as_ne n HCl 8 MG eded} Morphine Morphine No 1{table 6xD Morphine Sulfate 30 Sulfate 30 t_as_ne Sulfate 30 MG MG eded} MG Losartan Losartan No 1{table QD Losartan Potassium Potassium t} Potassium 100 MG 100 MG 100 MG Neulasta 6 Neulasta 6 No Neulasta 6 MG/0.6ML MG/0.6ML MG/0.6ML Eliquis 5 Eliquis 5 No Eliquis 5 MG MG MG Miralax Miralax No Miralax Solifenacin Solifenacin No 1{table QD Solifenaci Succinate Succinate t} n 10 MG 10 MG Succinate 10 MG OLANZapine OLANZapine No 1{table QD OLANZapine 5 MG 5 MG t} 5 MG Morphine Morphine No 1{table 6xD Morphine Sulfate 15 Sulfate 15 t_as_ne Sulfate 15 MG MG eded} MG Senna Senna No Senna Solifenacin Solifenacin No 1{table QD Solifenaci Succinate Succinate t} n 10 MG 10 MG Succinate 10 MG Eliquis 5 Eliquis 5 No Eliquis 5 MG MG MG Morphine Morphine No 1{table 6xD Morphine Sulfate 30 Sulfate 30 t_as_ne Sulfate 30 MG MG eded} MG Morphine Morphine No 1{table 6xD Morphine Sulfate 15 Sulfate 15 t_as_ne Sulfate 15 MG MG eded} MG OLANZapine OLANZapine No 1{table QD OLANZapine 5 MG 5 MG t} 5 MG Neulasta 6 Neulasta 6 No Neulasta 6 MG/0.6ML MG/0.6ML MG/0.6ML Meloxicam Meloxicam No 1{table QD Meloxicam 15 MG 15 MG t} 15 MG Ondansetron Ondansetron No 1{table BID Ondansetro HCl 8 MG HCl 8 MG t_as_ne n HCl 8 MG eded} Miralax Miralax No Miralax Tamsulosin Tamsulosin No 1{capsu QD Tamsulosin HCl 0.4 MG HCl 0.4 MG le} HCl 0.4 MG Atorvastati Atorvastati No 1{table QD Atorvastat n Calcium n Calcium t} in Calcium 40 MG 40 MG 40 MG Miralax Miralax No Miralax Solifenacin Solifenacin No 1{table QD Solifenaci Succinate Succinate t} n 10 MG 10 MG Succinate 10 MG Eliquis 5 Eliquis 5 No Eliquis 5 MG MG MG Morphine Morphine No 1{table 6xD Morphine Sulfate 30 Sulfate 30 t_as_ne Sulfate 30 MG MG eded} MG Morphine Morphine No 1{table 6xD Morphine Sulfate 15 Sulfate 15 t_as_ne Sulfate 15 MG MG eded} MG Neulasta 6 Neulasta 6 No Neulasta 6 MG/0.6ML MG/0.6ML MG/0.6ML Senna Senna No Senna Atorvastati Atorvastati No Atorvastat n Calcium n Calcium in Calcium 40 MG 40 MG 40 MG Ondansetron Ondansetron No 1{table BID Ondansetro HCl 8 MG HCl 8 MG t_as_ne n HCl 8 MG eded} amLODIPine amLODIPine No 1{table QD amLODIPine Besylate 5 Besylate 5 t} Besylate 5 MG MG MG OLANZapine OLANZapine No 1{table QD OLANZapine 5 MG 5 MG t} 5 MG Tamsulosin Tamsulosin No 1{capsu QD Tamsulosin HCl 0.4 MG HCl 0.4 MG le} HCl 0.4 MG Meloxicam Meloxicam No 1{table QD Meloxicam 15 MG 15 MG t} 15 MG Senna Senna No Senna Solifenacin Solifenacin No 1{table QD Solifenaci Succinate Succinate t} n 10 MG 10 MG Succinate 10 MG Eliquis 5 Eliquis 5 No Eliquis 5 MG MG MG Morphine Morphine No 1{table 6xD Morphine Sulfate 30 Sulfate 30 t_as_ne Sulfate 30 MG MG eded} MG Morphine Morphine No 1{table 6xD Morphine Sulfate 15 Sulfate 15 t_as_ne Sulfate 15 MG MG eded} MG Atorvastati Atorvastati No Atorvastat n Calcium n Calcium in Calcium 40 MG 40 MG 40 MG Neulasta 6 Neulasta 6 No Neulasta 6 MG/0.6ML MG/0.6ML MG/0.6ML Meloxicam Meloxicam No 1{table QD Meloxicam 15 MG 15 MG t} 15 MG Ondansetron Ondansetron No 1{table BID Ondansetro HCl 8 MG HCl 8 MG t_as_ne n HCl 8 MG eded} Miralax Miralax No Miralax OLANZapine OLANZapine No 1{table QD OLANZapine 5 MG 5 MG t} 5 MG Tamsulosin Tamsulosin No 1{capsu QD Tamsulosin HCl 0.4 MG HCl 0.4 MG le} HCl 0.4 MG amLODIPine amLODIPine No 1{table QD amLODIPine Besylate 5 Besylate 5 t} Besylate 5 MG MG MG amLODIPine amLODIPine No 1{table QD amLODIPine Besylate 5 Besylate 5 t} Besylate 5 MG MG MG Senna Senna No Senna Atorvastati Atorvastati No Atorvastat n Calcium n Calcium in Calcium 40 MG 40 MG 40 MG Tamsulosin Tamsulosin No 1{capsu QD Tamsulosin HCl 0.4 MG HCl 0.4 MG le} HCl 0.4 MG Miralax Miralax No Miralax Venlafaxine Venlafaxine No 1{table QD Venlafaxin HCl ER 75 HCl ER 75 t_with_ e HCl ER MG MG food} 75 MG Senna Senna No Senna Miralax Miralax No Miralax Ciprofloxac Ciprofloxac No 1{table BID Ciprofloxa in HCl 500 in HCl 500 t} abelardo HCl MG MG 500 MG Tamsulosin Tamsulosin No 1{capsu QD Tamsulosin HCl 0.4 MG HCl 0.4 MG le} HCl 0.4 MG Atorvastati Atorvastati No Atorvastat n Calcium n Calcium in Calcium 40 MG 40 MG 40 MG amLODIPine amLODIPine No 1{table QD amLODIPine Besylate 5 Besylate 5 t} Besylate 5 MG MG MG Finasteride Finasteride No 1{table QD Finasterid 5 MG 5 MG t} e 5 MG Celecoxib Celecoxib No 1{capsu BID Celecoxib 200 MG 200 MG le_with 200 MG _food} Venlafaxine Venlafaxine No 1{table QD Venlafaxin HCl ER 75 HCl ER 75 t_with_ e HCl ER MG MG food} 75 MG Senna Senna No Senna Miralax Miralax No Miralax Ciprofloxac Ciprofloxac No 1{table BID Ciprofloxa in HCl 500 in HCl 500 t} abelardo HCl MG MG 500 MG Tamsulosin Tamsulosin No 1{capsu QD Tamsulosin HCl 0.4 MG HCl 0.4 MG le} HCl 0.4 MG Atorvastati Atorvastati No Atorvastat n Calcium n Calcium in Calcium 40 MG 40 MG 40 MG amLODIPine amLODIPine No 1{table QD amLODIPine Besylate 5 Besylate 5 t} Besylate 5 MG MG MG Finasteride Finasteride No 1{table QD Finasterid 5 MG 5 MG t} e 5 MG Celecoxib Celecoxib No 1{capsu BID Celecoxib 200 MG 200 MG le_with 200 MG _food} Venlafaxine Venlafaxine No 1{table QD Venlafaxin HCl ER 75 HCl ER 75 t_with_ e HCl ER MG MG food} 75 MG Senna Senna No Senna Miralax Miralax No Miralax Ciprofloxac Ciprofloxac No 1{table BID Ciprofloxa in HCl 500 in HCl 500 t} abelardo HCl MG MG 500 MG Tamsulosin Tamsulosin No 1{capsu QD Tamsulosin HCl 0.4 MG HCl 0.4 MG le} HCl 0.4 MG Atorvastati Atorvastati No Atorvastat n Calcium n Calcium in Calcium 40 MG 40 MG 40 MG amLODIPine amLODIPine No 1{table QD amLODIPine Besylate 5 Besylate 5 t} Besylate 5 MG MG MG Finasteride Finasteride No 1{table QD Finasterid 5 MG 5 MG t} e 5 MG Celecoxib Celecoxib No 1{capsu BID Celecoxib 200 MG 200 MG le_with 200 MG _food} Atorvastati Atorvastati No 1{table QD Atorvastat n Calcium n Calcium t} in Calcium 40 MG 40 MG 40 MG Senna Senna No Senna Meloxicam Meloxicam No 1{table QD Meloxicam 15 MG 15 MG t} 15 MG Tamsulosin Tamsulosin No 1{capsu QD Tamsulosin HCl 0.4 MG HCl 0.4 MG le} HCl 0.4 MG Ondansetron Ondansetron No 1{table BID Ondansetro HCl 8 MG HCl 8 MG t_as_ne n HCl 8 MG eded} Morphine Morphine No 1{table 6xD Morphine Sulfate 30 Sulfate 30 t_as_ne Sulfate 30 MG MG eded} MG Losartan Losartan No 1{table QD Losartan Potassium Potassium t} Potassium 100 MG 100 MG 100 MG Neulasta 6 Neulasta 6 No Neulasta 6 MG/0.6ML MG/0.6ML MG/0.6ML Eliquis 5 Eliquis 5 No Eliquis 5 MG MG MG Miralax Miralax No Miralax Solifenacin Solifenacin No 1{table QD Solifenaci Succinate Succinate t} n 10 MG 10 MG Succinate 10 MG OLANZapine OLANZapine No 1{table QD OLANZapine 5 MG 5 MG t} 5 MG Morphine Morphine No 1{table 6xD Morphine Sulfate 15 Sulfate 15 t_as_ne Sulfate 15 MG MG eded} MG Senna Senna No Senna Solifenacin Solifenacin No 1{table QD Solifenaci Succinate Succinate t} n 10 MG 10 MG Succinate 10 MG Eliquis 5 Eliquis 5 No Eliquis 5 MG MG MG Morphine Morphine No 1{table 6xD Morphine Sulfate 30 Sulfate 30 t_as_ne Sulfate 30 MG MG eded} MG Morphine Morphine No 1{table 6xD Morphine Sulfate 15 Sulfate 15 t_as_ne Sulfate 15 MG MG eded} MG OLANZapine OLANZapine No 1{table QD OLANZapine 5 MG 5 MG t} 5 MG Neulasta 6 Neulasta 6 No Neulasta 6 MG/0.6ML MG/0.6ML MG/0.6ML Meloxicam Meloxicam No 1{table QD Meloxicam 15 MG 15 MG t} 15 MG Ondansetron Ondansetron No 1{table BID Ondansetro HCl 8 MG HCl 8 MG t_as_ne n HCl 8 MG eded} Miralax Miralax No Miralax Tamsulosin Tamsulosin No 1{capsu QD Tamsulosin HCl 0.4 MG HCl 0.4 MG le} HCl 0.4 MG Atorvastati Atorvastati No 1{table QD Atorvastat n Calcium n Calcium t} in Calcium 40 MG 40 MG 40 MG Losartan Losartan No 1{table QD Losartan Potassium Potassium t} Potassium 100 MG 100 MG 100 MG Atorvastati Atorvastati No 1{table QD Atorvastat n Calcium n Calcium t} in Calcium 40 MG 40 MG 40 MG Losartan Losartan No 1{table QD Losartan Potassium Potassium t} Potassium 100 MG 100 MG 100 MG Atorvastati Atorvastati No 1{table QD Atorvastat n Calcium n Calcium t} in Calcium 40 MG 40 MG 40 MG Atorvastati Atorvastati No 1{table QD Atorvastat n Calcium n Calcium t} in Calcium 40 MG 40 MG 40 MG Losartan Losartan No 1{table QD Losartan Potassium Potassium t} Potassium 100 MG 100 MG 100 MG Atorvastati Atorvastati No 1{table QD Atorvastat n Calcium n Calcium t} in Calcium 40 MG 40 MG 40 MG Vital Signs Vital Name Observation Time Observation Value Comments Source HEIGHT 2022-12-19 03:36:00 177.8 cm WEIGHT 2022-12-19 03:36:00 68.629 kg HEIGHT 2022-12-18 10:46:00 177.8 cm WEIGHT 2022-12-18 10:46:00 68.04 kg HEIGHT 2022-12-19 03:36:00 177.8 cm WEIGHT 2022-12-19 03:36:00 68.629 kg HEIGHT 2022-12-18 10:46:00 177.8 cm WEIGHT 2022-12-18 10:46:00 68.04 kg HEIGHT 2022-12-12 10:41:00 177.8 cm WEIGHT 2022-12-12 10:41:00 68.7 kg HEIGHT 2022-12-04 10:43:00 177.8 cm WEIGHT 2022-12-04 10:43:00 69.854 kg HEIGHT 2022-12-12 10:41:00 177.8 cm WEIGHT 2022-12-12 10:41:00 68.7 kg HEIGHT 2022-12-04 10:43:00 177.8 cm WEIGHT 2022-12-04 10:43:00 69.854 kg Systolic blood 2022-11-26 15:18:00 133 mm[Hg] [facility] pressure Medicine Diastolic blood 2022-11-26 15:18:00 89 mm[Hg] [facility] Medicine Heart rate 2022-11-26 15:18:00 86 /min sp02 98 [facility] Body temperature 2022-11-26 15:18:00 36.61 [facility] Respiratory rate 2022-11-26 15:18:00 16 /min [facility] Body height 2022-11-26 15:18:00 177.8 cm [facility] Body weight 2022-11-26 15:18:00 70.217 kg [facility] BMI 2022-11-26 15:18:00 22.21 kg/m2 [facility] HEIGHT 2022-11-06 12:01:00 177.8 cm WEIGHT 2022-11-06 12:01:00 66.497 kg HEIGHT 2022-10-14 12:18:00 177.8 cm WEIGHT 2022-10-14 12:18:00 68.04 kg Systolic blood 2022-10-08 21:35:00 130 mm[Hg] [facility] pressure Medicine Diastolic blood 2022-10-08 21:35:00 70 mm[Hg] [facility] Medicine Heart rate 2022-10-08 21:35:00 63 /min [facility] Body temperature 2022-10-08 21:35:00 36.83 [facility] Body height 2022-10-08 21:35:00 177.8 cm [facility] Body weight 2022-10-08 21:35:00 66.225 kg [facility] BMI 2022-10-08 21:35:00 20.95 kg/m2 [facility] Systolic blood 2022-09-24 17:17:00 118 mm[Hg] [facility] pressure Medicine Diastolic blood 2022-09-24 17:17:00 72 mm[Hg] [facility] Medicine Heart rate 2022-09-24 17:17:00 88 [facility] Res[facility] rate 2022-09-24 17:17:00 17 /min [facility] Systolic blood 2022-09-17 17:47:00 113 mm[Hg] [facility] Medicine Diastolic blood 2022-09-17 17:47:00 76 mm[Hg] [facility] Medicine Heart rate 2022-09-17 17:47:00 62 /min [facility] Body temperature 2022-09-17 17:47:00 36.72 [facility] Body height 2022-09-17 17:47:00 177.8 cm [facility] Body weight 2022-09-17 17:47:00 67.677 kg [facility] BMI 2022-09-17 17:47:00 21.41 kg/m2 [facility] height 2022-08-29 14:20:00 67.5 [in_i] [facility] weight 2022-08-29 14:20:00 141.2 [lb_av] [facility] temperature 2022-08-29 14:20:00 97.9 [degF] Common [facility] bmi 2022-08-29 14:20:00 21.79 kg/m2 [facility] oximetry 2022-08-29 14:20:00 98 % [facility] respiratory rate 2022-08-29 14:20:00 16 /min Comm on [facility] blood pressure 2022-08-29 14:20:00 108 mm[Hg] [facility] systolic [facility] blood pressure 2022-08-29 14:20:00 73 mm[Hg] [facility] diastolic [facility] Systolic blood 2022-08-27 17:24:00 112 mm[Hg] [facility] Medicine Diastolic blood 2022-08-27 17:24:00 64 mm[Hg] [facility] Medicine Heart rate 2022-08-27 17:24:00 89 /min [facility] Body temperature 2022-08-27 17:24:00 36.78 [facility] Body height 2022-08-27 17:24:00 177.8 cm [facility] Body weight 2022-08-27 17:24:00 66.044 kg [facility] BMI 2022-08-27 17:24:00 20.89 kg/m2 [facility] Systolic blood 2022-08-18 03:12:00 108 mm[Hg] [facility] Diastolic blood 2022-08-18 03:12:00 90 mm[Hg] [facility] Heart rate 2022-08-18 03:12:00 112 /min [facility] Body temperature 2022-08-18 03:12:00 36.89 [facility] Respiratory rate 2022-08-18 03:12:00 20 /min [facility] Body height 2022-08-18 03:12:00 177.8 cm [facility] Body weight 2022-08-18 03:12:00 63.504 kg [facility] BMI 2022-08-18 03:12:00 20.09 kg/m2 [facility] Oxygen saturation in 2022-08-18 03:12:00 99 /min [facility] Arterial blood by [facility] Pulse oximetry Branch Systolic blood 2022-08-14 16:38:00 106 mm[Hg] [facility] pressure Medicine Diastolic blood 2022-08-14 16:38:00 72 mm[Hg] [facility] Medicine Heart rate 2022-08-14 16:38:00 90 /min [facility] Body temperature 2022-08-14 16:38:00 36.67 [facility] Respiratory rate 2022-08-14 16:38:00 20 /min [facility] Body height 2022-08-14 16:38:00 177.8 cm [facility] Body weight 2022-08-14 16:38:00 62.143 kg [facility] BMI 2022-08-14 16:38:00 19.66 kg/m2 [facility] Systolic blood 2022-08-13 19:21:00 101 mm[Hg] [facility] Medicine Diastolic blood 2022-08-13 19:21:00 74 mm[Hg] [facility] Medicine Heart rate 2022-08-13 19:21:00 103 /min [facility] Body temperature 2022-08-13 19:21:00 36.44 [facility] HEIGHT 2022-08-01 10:18:00 177.8 cm WEIGHT 2022-08-01 10:18:00 67.268 kg HEIGHT 2022-06-21 17:03:00 177.8 cm WEIGHT 2022-06-21 17:03:00 77.111 kg HEIGHT 2022-08-01 10:18:00 177.8 cm WEIGHT 2022-08-01 10:18:00 67.268 kg HEIGHT 2022-06-21 17:03:00 177.8 cm WEIGHT 2022-06-21 17:03:00 77.111 kg HEIGHT 2022-07-11 12:45:00 177.8 cm WEIGHT 2022-07-11 12:45:00 69.7 kg Systolic blood 2022-07-02 19:05:00 116 mm[Hg] [facility] pressure Medicine Diastolic blood 2022-07-02 19:05:00 77 mm[Hg] [facility] pressure Medicine Heart rate 2022-07-02 19:05:00 80 /min [facility] Body temperature 2022-07-02 19:05:00 36.72 [facility] Body height 2022-07-02 19:05:00 177.8 cm [facility] Body weight 2022-07-02 19:05:00 74.118 kg [facility] BMI 2022-07-02 19:05:00 23.45 kg/m2 [facility] Systolic blood 2022-06-25 19:09:00 115 mm[Hg] [facility] pressure Medicine Diastolic blood 2022-06-25 19:09:00 84 mm[Hg] [facility] Medicine Heart rate 2022-06-25 19:09:00 103 /min sp02 98 [facility] Body temperature 2022-06-25 19:09:00 36.72 [facility] Respiratory rate 2022-06-25 19:09:00 16 /min [facility] Body height 2022-06-25 19:09:00 177.8 cm [facility] Body weight 2022-06-25 19:09:00 72.8 kg [facility] Medicine BMI 2022-06-25 19:09:00 23.03 kg/m2 [facility] Medicine Systolic blood 2022-05-28 16:06:00 116 mm[Hg] [facility] pressure Medicine Diastolic blood 2022-05-28 16:06:00 71 mm[Hg] [facility] pressure Medicine Heart rate 2022-05-28 16:06:00 98 /min [facility] Medicine Body temperature 2022-05-28 16:06:00 36.56 [facility] Body height 2022-05-28 16:06:00 177.8 cm [facility] ol[facility] of Medicine Body weight 2022-05-28 16:06:00 76.386 kg [facility] Medicine BMI 2022-05-28 16:06:00 24.16 kg/m2 [facility] Medicine height 2022-05-15 14:40:00 67.5 [in_i] [facility] weight 2022-05-15 14:40:00 168 [lb_av] [facility] bmi 2022-05-15 14:40:00 25.92 kg/m2 [facility] Systolic blood 2022-04-30 15:39:00 113 mm[Hg] [facility] pressure Medicine Diastolic blood 2022-04-30 15:39:00 79 mm[Hg] [facility] pressure Medicine Heart rate 2022-04-30 15:39:00 98 /min [facility] Medicine Body height 2022-04-30 15:39:00 177.8 cm [facility] Medicine Body weight 2022-04-30 15:39:00 73.664 kg [facility] Medicine BMI 2022-04-30 15:39:00 23.30 kg/m2 [facility] Medicine Systolic blood 2022-04-17 16:12:00 108 mm[Hg] [facility] pressure Medicine Diastolic blood 2022-04-17 16:12:00 74 mm[Hg] [facility] pressure Medicine Heart rate 2022-04-17 16:12:00 79 /min [facility] Medicine Respiratory rate 2022-04-17 16:12:00 16 /min [facility] Body height 2022-04-17 16:12:00 177.8 cm [facility] Medicine Body weight 2022-04-17 16:12:00 75.297 kg [facility] Medicine BMI 2022-04-17 16:12:00 23.82 kg/m2 [facility] Systolic blood 2022-04-03 16:05:00 113 mm[Hg] [facility] Diastolic blood 2022-04-03 16:05:00 82 mm[Hg] [facility] Heart rate 2022-04-03 16:05:00 85 /min spo2 98 [facility] Body temperature 2022-04-03 16:05:00 36.5 [facility] Body height 2022-04-03 16:05:00 177.8 cm [facility] Body weight 2022-04-03 16:05:00 79.198 kg [facility] BMI 2022-04-03 16:05:00 25.05 kg/m2 [facility] height 2022-03-27 13:20:00 67.5 [in_i] [facility] weight 2022-03-27 13:20:00 169 [lb_av] [facility] temperature 2022-03-27 13:20:00 98.2 [degF] [facility] bmi 2022-03-27 13:20:00 26.08 kg/m2 [facility] oximetry 2022-03-27 13:20:00 94 % [facility] respiratory rate 2022-03-27 13:20:00 16 /min Comm on [facility] blood pressure 2022-03-27 13:20:00 112 mm[Hg] Common [facility] - systolic [facility] blood pressure 2022-03-27 13:20:00 66 mm[Hg] [facility] - diastolic [facility] Systolic blood 2022-03-12 13:43:00 101 mm[Hg] [facility] Diastolic blood 2022-03-12 13:43:00 67 mm[Hg] [facility] Heart rate 2022-03-12 13:43:00 68 /min [facility] Body height 2022-03-12 13:43:00 177[facility]8 [facility] Body weight 2022-03-12 13:43:00 79.379 kg [facility] BMI 2022-03-12 13:43:00 25.11 kg/m2 [facility] height 2022-02-25 15:00:00 67.5 [in_i] [facility] weight 2022-02-25 15:00:00 177 [lb_av] [facility] temperature 2022-02-25 15:00:00 97.8 [degF] [facility] bmi 2022-02-25 15:00:00 27.31 kg/m2 [facility] oximetry 2022-02-25 15:00:00 93 % [facility] respiratory rate 2022-02-25 15:00:00 16 /min Comm on [facility] blood pressure 2022-02-25 15:00:00 132 mm[Hg] Common [facility] - systolic [facility] blood pressure 2022-02-25 15:00:00 84 mm[Hg] Common [facility] - diastolic [facility] Systolic blood 2022-02-20 14:33:00 102 mm[Hg] [facility] pressure Medicine Diastolic blood 2022-02-20 14:33:00 71 mm[Hg] [facility] pressure Medicine Heart rate 2022-02-20 14:33:00 114 /min [facility] Body height 2022-02-20 14:33:00 177.8 cm [facility] Body weight 2022-02-20 14:33:00 79.379 kg [facility] BMI 2022-02-20 14:33:00 25.11 [facility] 2022-02-12 13:17:00 96 mm[Hg] [facility] pressure Medicine Diastolic blood 2022-02-12 13:17:00 67 mm[Hg] [facility] pressure Medicine Heart rate 2022-02-12 13:17:00 82 /min [facility] Body temperature 2022-02-12 13:17:00 37.06 [facility] Body height 2022-02-12 13:17:00 177.8 cm [facility] Body weight 2022-02-12 13:17:00 82.101 kg [facility] BMI 2022-02-12 13:17:00 25.97 kg/m2 [facility] Medicine Body height 2022-01-15 13:13:00 177.8 cm [facility] Medicine Body weight 2022-01-15 13:13:00 82.555 kg [facility] Medicine BMI 2022-01-15 13:13:00 26.11 kg/m2 [facility] Medicine Systolic blood 2022-01-15 13:13:00 102 mm[Hg] [facility] Diastolic blood 2022-01-15 13:13:00 75 mm[Hg] [facility] Medicine Heart rate 2022-01-15 13:13:00 63 /min [facility] Body temperature 2022-01-15 13:13:00 36.67 [facility] Systolic blood 2022-01-10 14:16:00 114 mm[Hg] [facility] Medicine Diastolic blood 2022-01-10 14:16:00 75 mm[Hg] [facility] Heart rate 2022-01-10 14:16:00 92 /min [facility] Body temperature 2022-01-10 14:16:00 36.78 [facility] Respiratory rate 2022-01-10 14:16:00 18 /min [facility] Body height 2022-01-10 14:16:00 177.8 cm [facility] Body weight 2022-01-10 14:16:00 85.73 kg [facility] Medicine BMI 2022-01-10 14:16:00 27.12 kg/m2 [facility] Medicine Systolic blood 2022-01-09 00:45:00 116 mm[Hg] [facility] Diastolic blood 2022-01-09 00:45:00 80 mm[Hg] [facility] Heart rate 2022-01-09 00:45:00 72 /min [facility] Respiratory rate 2022-01-09 00:45:00 17 /min [facility] Oxygen saturation in 2022-01-09 00:45:00 100 /min [facility] Arterial blood by [facility] Pulse oximetry Branch Body temperature 2022-01-08 21:50:00 37.28 [facility] height 2022-01-08 21:50:[address] [facility] Body weight 2022-01-08 21:50:[address] [facility] BMI 2022-01-08 21:50:00 27.98 kg/m2 [facility] HEIGHT 2021-12-03 08:41:00 177.8 cm WEIGHT 2021-12-03 08:41:00 81.557 kg HEIGHT 2021-11-30 08:43:00 177.8 cm WEIGHT 2021-11-30 08:43:00 83.915 kg height 2021-11-05 08:20:00 65 [in_i] [facility] weight 2021-11-05 08:20:00 184.8 [lb_av] [facility] temperature 2021-11-05 08:20:00 97.9 [degF] Common [facility] bmi 2021-11-05 08:20:00 30.75 kg/m2 [facility] oximetry 2021-11-05 08:20:00 98 % [facility] respiratory rate 2021-11-05 08:20:00 16 /min Comm on [facility] blood pressure 2021-11-05 08:20:00 97 mm[Hg] Common [facility] - systolic [facility] blood pressure 2021-11-05 08:20:00 68 mm[Hg] Common [facility] - diastolic [facility] Systolic blood 2021-09-25 11:48:00 131 mm[Hg] Univer [facility]ity of pressure [facility] Diastolic blood 2021-09-25 11:48:00 99 mm[Hg] Unive rsity of pressure [facility] Heart rate 2021-09-25 11:48:00 96 /min [facility] Oxygen saturation in 2021-09-25 11:48:00 96 /min University of Arterial blood by [place] [employer] leticia Pulse oximetry Branch Body temperature 2021-09-25 08:26:00 37 [facility] Respiratory rate 2021-09-25 08:26:00 20 /min [facility] Body height 2021-09-25 08:26:00 177.8 cm [facility] Body weight 2021-09-25 08:26:00 88.451 kg [facility] BMI 2021-09-25 08:26:00 27.98 kg/m2 [facility] Systolic blood 2021-07-18 02:07:00 138 mm[Hg] [facility]iver [facility] of pressure [facility] Diastolic blood 2021-07-18 02:07:00 99 mm[Hg] Unive rsity of pressure [facility] Heart rate 2021-07-18 02:07:00 79 /min [facility] Body temperature 2021-07-18 02:07:00 36.89 [facility] Respiratory rate 2021-07-18 02:07:00 18 /min [facility] Oxygen saturation in 2021-07-18 02:07:00 96 /min [facility] of Arterial blood by [facility] leticia Pulse oximetry Branch Body weight 2021-07-17 20:43:00 99.791 kg [facility] BMI 2021-07-17 20:43:00 31.57 kg/m2 [facility] Systolic blood 2021-05-07 22:03:00 135 mm[Hg] Univer [facility]ity of pressure [facility] Diastolic blood 2021-05-07 22:03:00 98 mm[Hg] Unive rsity of pressure [facility] Heart rate 2021-05-07 22:03:00 102 /min [facility] Body temperature 2021-05-07 22:03:00 37.06 [facility] Respiratory rate 2021-05-07 22:03:00 16 /min [facility] Body height 2021-05-07 22:03:00 177.8 cm [facility] [place] [facility] Body weight 2021-05-07 22:03:00 100.699 kg [facility] BMI 2021-05-07 22:03:00 31.85 kg/m2 [facility] Oxygen saturation in 2021-05-07 22:03:00 96 /min [facility] Arterial blood by [facility] leticia Pulse oximetry Branch Systolic blood 2021-02-22 23:08:00 142 mm[Hg] [facility] [place] [facility] Diastolic blood 2021-02-22 23:08:00 85 mm[Hg] [facility] [place] [facility] Heart rate 2021-02-22 23:08:00 102 /min [facility] Body temperature 2021-02-22 23:08:00 37.44 Andria [facility] Respiratory rate 2021-02-22 23:08:00 18 /min [facility] Body weight 2021-02-22 23:08:00 102.059 kg [facility] Oxygen saturation in 2021-02-22 23:08:00 97 /min [facility] Arterial blood by [facility] leticia Pulse oximetry Branch Systolic blood 2021-01-23 19:10:00 180 mm[Hg] [facility] Diastolic blood 2021-01-23 19:10:00 128 mm[Hg] [facility] Heart rate 2021-01-23 19:10:00 76 /min [facility] Respiratory rate 2021-01-23 19:10:00 17 /min [facility] Oxygen saturation in 2021-01-23 19:10:00 96 /min [facility] [place] [facility] Body temperature 2021-01-23 14:58:00 37.11 Andria [facility] Body weight 2021-01-23 14:58:00 102.377 kg [facility] Procedures Procedure Date / Time Performing Clinician Source Performed TESTOSTERONE 2022-09-24 18:02:00 Kenia Bustamante [facility] TESTOSTERONE 2022-09-24 12:02:[address] [facility] [address] CHEST W CONTRAST 2022-09-11 07:47:00 [facility] CT ABDOMEN PELVIS W 2022-09-11 07:47:00 [facility] Medicine COMPREHENSIVE METABOLIC 2022-08-27 18:43:00 Blaine Bermudez [facility] PANEL Medicine CBC W/AUTO DIFF WITH 2022-08-27 18:43:00 Blaine Bermudez [facility] PLATELETS [facility] URINALYSIS, COMPLETE 2022-08-27 18:43:00 Blaine Bermudez [facility]/REFLEX TO CULTURE Medicine CBC W/AUTO DIFF WITH 2022-08-27 12:43:00 [facility] PLATELETS [facility] COMPREHENSIVE METABOLIC 2022-08-27 12:43:00 [facility] PANEL [facility] CEA 2022-08-27 12:43:00 [facility] URINALYSIS, COMPLETE 2022-08-27 12:43:00 [facility]/REFLEX TO CULTURE Medicine INDICATED URINE CULTURE 2022-08-27 12:43:00 [facility] NOTICE OF PRIVACY 2022-08-18 03:02:04 Doctor Unassigned, [facility] PRACTICES [facility] CONSENT/REFUSAL FOR 2022-08-18 03:01:10 Doctor Unassigned, [facility] DIAGNOSIS AND TREATMENT [facility] COMPREHENSIVE METABOLIC 2022-07-02 19:27:00 Blaine Bermudez [facility] PANEL Medicine CEA 2022-07-02 19:27:00 Blaine Bermudez [facility] PSA 2022-07-02 19:27:00 Blaine Bermudez [facility] CBC W/AUTO DIFF WITH 2022-07-02 19:27:00 Blaine Bermudez [facility] PLATELETS [facility] CBC W/AUTO DIFF WITH 2022-07-02 13:27:00 [facility] PLATELETS Medicine COMPREHENSIVE METABOLIC 2022-07-02 13:27:00 [facility] PANEL [facility] CEA 2022-07-02 13:27:00 [facility] Medicine PSA 2022-07-02 13:27:00 [facility] URINALYSIS, COMPLETE 2022-05-28 19:31:00 Blaine Bermudez [facility]/REFLEX TO CULTURE Medicine URINALYSIS, COMPLETE 2022-05-28 14:31:00 [facility]/REFLEX TO CULTURE Medicine RONALD,POST-VOID 2022-04-17 00:00:00 [facility] RES,US,NON-IMG Medicine RONALD,POST-VOID 2022-04-17 00:00:00 Luis Angel Almonte [facility] RES,US,NON-IMG Medicine [facility] METABOLIC 2022-03-12 07:09:00 [facility] PANEL [facility] CEA 2022-03-12 07:09:00 [facility] CBC W/AUTO DIFF WITH 2022-03-12 07:09:00 [facility] PLATELETS [facility] CBC W ABSOLUTE NEUTROPHIL 2022-03-12 06:22:00 [facility] COUNT [facility] COMPREHENSIVE METABOLIC 2022-02-26 07:27:00 [facility] PANEL [facility] CEA 2022-02-26 07:27:00 [facility] CBC W/AUTO DIFF WITH 2022-02-26 07:27:00 [facility] PLATELETS [facility] CBC W ABSOLUTE NEUTROPHIL 2022-02-26 06:43:20 [facility] CULTURE, AEROBIC 2022-02-20 10:57:27 [facility] POCT URINALYSIS DIPSTICK 2022-02-20 00:00:00 [facility] RONALD,POST-VOID 2022-02-20 00:00:00 [facility] RES,US,NON-IMG Medicine POCT URINALYSIS DIPSTICK 2022-02-20 00:00:00 Luis Angel Almonte [facility] RONALD,POST-VOID 2022-02-20 00:00:00 Luis Angel Almonte [facility] RES,US,NON-IMG Medicine AMB REF TO PULM GENERAL 2022-02-12 10:30:50 [facility] AMB REF TO ONCOLOGY 2022-02-12 08:38:29 [facility] Janice yeh PUBLIC AFFAIRS DIRECTOR [facility] CBC W ABSOLUTE NEUTROPHIL 2022-02-12 06:35:55 [facility] METABOLIC 2022-02-12 06:35:55 [facility] PANEL [facility] CEA 2022-02-12 06:35:55 [facility] CBC W ABSOLUTE NEUTROPHIL 2022-01-29 06:16:02 [facility] METABOLIC 2022-01-29 06:16:02 [facility] PANEL [facility] CEA 2022-01-29 06:16:02 [facility] METABOLIC 2022-01-15 07:47:00 [facility] PANEL [facility] CEA 2022-01-15 06:35:56 [facility] CBC W ABSOLUTE NEUTROPHIL 2022-01-15 06:35:55 [facility] CULTURE, AEROBIC 2022-01-10 10[facility]02:05 [facility] CULTURE, 2022-01-10 10:01:53 [facility] of URINE/SENSITIVITY ON ALL Medicin e US DUPLEX VENOUS ARM 2022-01-09 00:40:00 Kellie Yan [facility] RIGHT - BY VASCULAR LAB Medical Branch CONSENT/REFUSAL FOR 2022-01-08 21:38:39 Doctor Unassigned, [facility] DIAGNOSIS AND TREATMENT [facility] COMPREHENSIVE METABOLIC 2022-01-02 07:20:00 [facility] PANEL [facility] CEA 2022-01-02 07:20:00 [facility] CBC W/AUTO DIFF WITH 2022-01-02 07:20:00 [facility] CBC W ABSOLUTE NEUTROPHIL 2022-01-02 06:27:58 [facility] TREATMENT CONDITIONS PUMP 2021-12-20 08:35:28 [facility] URINALYSIS W REFLEX MICRO 2021-12-18 12:30:00 [facility] COMPREHENSIVE METABOLIC 2021-12-18 07:17:00 [facility] PANEL [facility] CEA 2021-12-18 07:17:00 [facility] Colle ge of Medicine CBC W/AUTO DIFF WITH 2021-12-18 07:17:00 [facility] PLATELETS [facility] CBC W ABSOLUTE NEUTROPHIL 2021-12-18 06:34:10 [facility] Medicine CBC W/AUTO DIFF WITH 2021-11-08 09:38:00 [facility] COMPREHENSIVE METABOLIC 2021-11-08 09:38:00 [facility] CEA 2021-11-08 09:38:00 [facility] HEPATITIS B SURFACE AB 2021-11-08 09:38:00 [facility] HEPATITIS B SURFACE 2021-11-08 09:38:00 [facility] HEP B CORE ANTIBODY, 2021-11-08 09:38:00 [facility] HEPATITIS C ANTIBODY 2021-11-08 09:38:00 [facility] HIV AB/AG 4TH GEN W RFLX 2021-11-08 09:38:00 [facility] AMB REF TO ONCOLOGY 2021-11-08 09:37:09 [facility] PUBLIC AFFAIRS DIRECTOR [facility] WILD 1 2021-11-08 09:20:57 [facility] TEMPUS XF LIQUID BIOPSY 2021-11-08 00:00:00 [facility] CT ABDOMEN PELVIS W 2021-09-25 09:58:00 Emy Barraza [facility] Branch COMP. METABOLIC PANEL 2021-09-25 09:03:00 Emy Barraza [facility] ([id number]) [facility] [place] CBC WITH DIFF 2021-09-25 09:03:00 Emy Barraza [place] [facility] PROTHROMBIN TIME / INR 2021-09-25 09:03:00 Emy Barraza [facility] ACTIVATED PARTIAL 2021-09-25 09:03:00 Emy Barraza [facility]REFUSAL FOR 2021-09-25 08:12:44 Doctor Unassdion, [facility] DIAGNOSIS AND TREATMENT [facility] CT ABDOMEN PELVIS W 2021-07-17 23:24:26 Fidel Vaca [facility] COMP. METABOLIC PANEL 2021-07-17 21:44:[address] [facility] ([id number]) Medical Branch CBC WITH DIFF 2021-07-17 21:44:[address] [facility] Medical Branch COVID-19 (ID NOW RAPID 2021-07-17 21:44:00 Fidel Vaca [facility] TESTING) Medical Branch LAB ONLY COVID 2021-07-17 21:44:[address] [facility] INTERPRETATION Medical Branch CONSENT/REFUSAL FOR 2021-07-17 20:40:57 Doctor Unassigned, [facility] DIAGNOSIS AND TREATMENT [facility] [place] ASSIGNMENT OF BENEFITS 2021-05-07 22:56:53 Doctor Unassigned, [facility] CONSENT/REFUSAL FOR 2021-05-07 22:56:18 Doctor Unassigned, [facility] DIAGNOSIS AND TREATMENT [facility] [place] NOTICE OF PRIVACY 2021-02-22 23:01:38 Doctor Unassigned, [facility] PRACTICES [facility] CONSENT/REFUSAL FOR 2021-02-22 22:58:49 Doctor Unassigned, [facility] DIAGNOSIS AND TREATMENT [facility] URINALYSIS 2021-01-23 18:31:00 [facility] BASIC METABOLIC PANEL 2021-01-23 17:05:[facility] (NA, K, CL, CO2, GLUCOSE, Medica l Branch BUN, CREATININE, CA) CBC WITH DIFF 2021-01-23 17:05:00 [facility] NOTICE OF PRIVACY 2021-01-23 14:48:39 [facility] PRACTICES [facility] [place] Plan of Care Planned Activity Planned Date Details Comments Source Future Scheduled 2022-12-22 COVID-19 Vaccination Uni versity of Test 15:15:35 (#1) [code = [facility]aliyah [facility]una[facility] on COVID-19 Vaccination [facility] (#1)] Future Scheduled 2022-12-18 COVID-[address] Test 10:38:59 (#1) [code = Hospital COVID-19 VACCINE (#1)] Future Scheduled 2022-12-18 Pneumococcal [facility] 10:38:59 Vaccine: Pediatric[facility] Hospital (0 to 5 Years) and At-Risk Patients (6 to 64 Years) (1 - PCV) [code = Pneumococcal Vaccine: Pediatrics (0 to 5 Years) and At-Risk Patients (6 to 64 Years) (1 - PCV)] Future Scheduled 2022-12-18 Hepatitis C [facility] 10:38:59 screening Hospital (procedure) [code = 648359431] Future Scheduled 2022-12-18 COLONOSCOPY [facility] 10:38:59 SCREENING [code = Hospital COLONOSCOPY SCREENING] Future Scheduled 2022-12-18 SHINGLES VACCINES (1 Met [facility]ist Test 10:38:59 of 2) [code = Hospital SHINGLES VACCINES (1 of 2)] Future Scheduled 2022-12-18 INFLUENZA VACCINE Method ist Test 10:38:59 [code = INFLUENZA Hospital VACCINE] Future Scheduled 2022-12-04 Screening for [facility] Col lege of Test 09:01:46 malignant neoplasm Medicine of colon (procedure) [code = 205604180] Future Scheduled 2022-12-04 COVID-19 Vaccine [facility] of Test 09:01:46 (#1) [code = Medicine COVID-19 Vaccine (#1)] Future Scheduled 2022-12-04 Pneumococcal [facility] Mi ege of Test 09:01:46 Combined (1 - PCV) Medicine [code = Pneumococcal Combined (1 - PCV)] Future Scheduled 2022-12-04 TETANUS SHOT (ADULT) [facility] of Test 09:01:46 [code = TETANUS SHOT Medicin e (ADULT)] Future Scheduled 2022-12-04 Screening for [facility] of Test 09:01:46 malignant neoplasm Medicine of lung (procedure) [code = 457739904] Future Scheduled 2022-12-04 ZOSTER VACCINE (1 of [facility] of Test 09:01:46 2) [code = ZOSTER Medicine VACCINE (1 of 2)] Future Scheduled 2022-12-04 FLU VACCINE > 6 [facility] C ollege of Test 09:01:46 MONTHS [code = FLU Medicine VACCINE > 6 MONTHS] Future Scheduled 2022-10-22 Screening for [facility] Col lege of Test 07:39:24 malignant neoplasm Medicine of colon (procedure) [code = 019732366] Future Scheduled 2022-10-22 COVID-19 Vaccine [facility] of Test 07:39:24 (#1) [code = Medicine COVID-19 Vaccine (#1)] Future Scheduled 2022-10-22 Pneumococcal [facility] Mi ege of Test 07:39:24 Combined (1 - PCV) Medicine [code = Pneumococcal Combined (1 - PCV)] Future Scheduled 2022-10-22 TETANUS SHOT (ADULT) [facility] of Test 07:39:24 [code = TETANUS SHOT Medicin e (ADULT)] Future Scheduled 2022-10-22 Screening for [facility] Col lege of Test 07:39:24 malignant neoplasm Medicine of lung (procedure) [code = 171210998] Future Scheduled 2022-10-22 ZOSTER VACCINE (1 of [facility] of Test 07:39:24 2) [code = ZOSTER Medicine VACCINE (1 of 2)] Future Scheduled 2022-10-22 FLU VACCINE > 6 [facility] C ollege of Test 07:39:24 MONTHS [code = FLU Medicine VACCINE > 6 MONTHS] Future Scheduled 2022-10-09 Screening for [facility] Col lege of Test 08:16:26 malignant neoplasm Medicine of colon (procedure) [code = 090108732] Future Scheduled 2022-10-09 COVID-19 Vaccine [facility] of Test 08:16:26 (#1) [code = Medicine COVID-19 Vaccine (#1)] Future Scheduled 2022-10-09 Pneumococcal [facility] Mi ege of Test 08:16:26 Combined (1 - PCV) Medicine [code = Pneumococcal Combined (1 - PCV)] Future Scheduled 2022-10-09 TETANUS SHOT (ADULT) [facility] of Test 08:16:26 [code = TETANUS SHOT Medicin e (ADULT)] Future Scheduled 2022-10-09 Screening for [facility] Test 08:16:26 malignant neoplasm Medicine of lung (procedure) [code = 624305291] Future Scheduled 2022-10-09 ZOSTER VACCINE (1 of [facility] of Test 08:16:26 2) [code = ZOSTER Medicine VACCINE (1 of 2)] Future Scheduled 2022-10-09 FLU VACCINE > 6 [facility] C ollege of Test 08:16:26 MONTHS [code = FLU Medicine VACCINE > 6 MONTHS] Future Scheduled 2022-09-19 Screening for [facility] Test 08:01:34 malignant neoplasm Medicine of colon (procedure) [code = 529471878] Future Scheduled 2022-09-19 COVID-19 Vaccine [facility] of Test 08:01:34 (#1) [code = Medicine COVID-19 Vaccine (#1)] Future Scheduled 2022-09-19 Pneumococcal [facility] Mi ege of Test 08:01:34 Combined (1 - PCV) Medicine [code = Pneumococcal Combined (1 - PCV)] Future Scheduled 2022-09-19 TETANUS SHOT (ADULT) [facility] of Test 08:01:34 [code = TETANUS SHOT Medicin e (ADULT)] Future Scheduled 2022-09-19 Screening for [facility] Col lege of Test 08:01:34 malignant neoplasm Medicine of lung (procedure) [code = 692485143] Future Scheduled 2022-09-19 ZOSTER VACCINE (1 of [facility] of Test 08:01:34 2) [code = ZOSTER Medicine VACCINE (1 of 2)] Future Scheduled 2022-09-19 FLU VACCINE > 6 [facility] C ollege of Test 08:01:34 MONTHS [code = FLU Medicine VACCINE > 6 MONTHS] Future Scheduled 2022-08-27 Screening for [facility] Col lege of Test 16:47:45 malignant neoplasm Medicine of colon (procedure) [code = 087052225] Future Scheduled 2022-08-27 COVID-19 Vaccine [facility] of Test 16:47:45 (#1) [code = Medicine COVID-19 Vaccine (#1)] Future Scheduled 2022-08-27 Pneumococcal [facility] Mi ege of Test 16:47:45 Combined (1 - PCV) Medicine [code = Pneumococcal Combined (1 - PCV)] Future Scheduled 2022-08-27 TETANUS SHOT (ADULT) [facility] of Test 16:47:45 [code = TETANUS SHOT Medicin e (ADULT)] Future Scheduled 2022-08-27 Screening for [facility] Col lege of Test 16:47:45 malignant neoplasm Medicine of lung (procedure) [code = 347291612] Future Scheduled 2022-08-27 ZOSTER VACCINE (1 of [facility] of Test 16:47:45 2) [code = ZOSTER Medicine VACCINE (1 of 2)] Future Scheduled 2022-08-27 FLU VACCINE > 6 [facility] C ollege of Test 16:47:45 MONTHS [code = FLU Medicine VACCINE > 6 MONTHS] Future Scheduled 2022-08-27 INDICATED URINE [facility] C ollege of Test 12:43:00 CULTURE [code = Medicine NOCPT] Future Scheduled 2022-08-27 CT ABDOMEN PELVIS W 1 Occurrences [facility] of Test 12:04:25 CONTRAST [code = starting Medicine 47641-9] 08/27/2022 until 08/27/2023 Future Scheduled 2022-08-27 CT CHEST W CONTRAST 1 Occurrences [facility] of Test 12:04:25 [code = 50259-8] starting Medicine 08/27/2022 until 08/27/2023 Future Scheduled 2022-08-27 CEA [code = 2039-6] [facility] of Test 11:49:27 Medicine Future Scheduled 2022-08-20 Screening for [facility] Col lege of Test 13:27:33 malignant neoplasm Medicine of colon (procedure) [code = 657860787] Future Scheduled 2022-08-20 COVID-19 Vaccine [facility] of Test 13:27:33 (#1) [code = Medicine COVID-19 Vaccine (#1)] Future Scheduled 2022-08-20 Pneumococcal [facility] Mi ege of Test 13:27:33 Combined (1 - PCV) Medicine [code = Pneumococcal Combined (1 - PCV)] Future Scheduled 2022-08-20 TETANUS SHOT (ADULT) [facility] of Test 13:27:33 [code = TETANUS SHOT Medicin e (ADULT)] Future Scheduled 2022-08-20 Screening for [facility] Col lege of Test 13:27:33 malignant neoplasm Medicine of lung (procedure) [code = 150454711] Future Scheduled 2022-08-20 ZOSTER VACCINE (1 of [facility] of Test 13:27:33 2) [code = ZOSTER Medicine VACCINE (1 of 2)] Future Scheduled 2022-08-20 FLU VACCINE > 6 [facility] C ollege of Test 13:27:33 MONTHS [code = FLU Medicine VACCINE > 6 MONTHS] Future Scheduled 2022-08-13 Screening for [facility] Col lege of Test 13:21:59 malignant neoplasm Medicine of colon (procedure) [code = 387690663] Future Scheduled 2022-08-13 COVID-19 Vaccine [facility] of Test 13:21:59 (#1) [code = Medicine COVID-19 Vaccine (#1)] Future Scheduled 2022-08-13 Pneumococcal [facility] Mi ege of Test 13:21:59 Combined (1 - PCV) Medicine [code = Pneumococcal Combined (1 - PCV)] Future Scheduled 2022-08-13 TETANUS SHOT (ADULT) [facility] of Test 13:21:59 [code = TETANUS SHOT Medicin e (ADULT)] Future Scheduled 2022-08-13 Screening for [facility] Col lege of Test 13:21:59 malignant neoplasm Medicine of lung (procedure) [code = 671114623] Future Scheduled 2022-08-13 ZOSTER VACCINE (1 of [facility] of Test 13:21:59 2) [code = ZOSTER Medicine VACCINE (1 of 2)] Future Scheduled 2022-08-13 FLU VACCINE > 6 [facility] C [facility]lege of Test 13:21:59 MONTHS [code = FLU Medicine VACCINE > 6 MONTHS] Future Scheduled 2022-07-23 Screening for [facility] Col lege of Test 08:28:35 malignant neoplasm Medicine of colon (procedure) [code = 108251020] Future Scheduled 2022-07-23 COVID-19 Vaccine [facility] of Test 08:28:35 (#1) [code = Medicine COVID-19 Vaccine (#1)] Future Scheduled 2022-07-23 Pneumococcal [facility] Mi ege of Test 08:28:35 Combined (1 - PCV) Medicine [code = Pneumococcal Combined (1 - PCV)] Future Scheduled 2022-07-23 TETANUS SHOT (ADULT) [facility] of Test 08:28:35 [code = TETANUS SHOT Medicin e (ADULT)] Future Scheduled 2022-07-23 Screening for [facility] Col lege of Test 08:28:35 malignant neoplasm Medicine of lung (procedure) [code = 953945917] Future Scheduled 2022-07-23 ZOSTER VACCINE (1 of [facility] of Test 08:28:35 2) [code = ZOSTER Medicine VACCINE (1 of 2)] Future Scheduled 2022-07-23 FLU VACCINE > 6 [facility] C [facility]lege of Test 08:28:35 MONTHS [code = FLU Medicine VACCINE > 6 MONTHS] Future Scheduled 2022-07-03 Screening for [facility] Test 16:36:27 malignant neoplasm Medicine of colon (procedure) [code = 059945671] Future Scheduled 2022-07-03 COVID-19 Vaccine [facility] of Test 16:36:27 (#1) [code = Medicine COVID-19 Vaccine (#1)] Future Scheduled 2022-07-03 Pneumococcal [facility] Mi [facility]ge of Test 16:36:27 Combined (1 - PCV) Medicine [code = Pneumococcal Combined (1 - PCV)] Future Scheduled 2022-07-03 TETANUS SHOT (ADULT) [facility] of Test 16:36:27 [code = TETANUS SHOT Medicin e (ADULT)] Future Scheduled 2022-07-03 Screening for [facility] Test 16:36:27 malignant neoplasm Medicine of lung (procedure) [code = 253352666] Future Scheduled 2022-07-03 ZOSTER VACCINE (1 of [facility] of Test 16:36:27 2) [code = ZOSTER Medicine VACCINE (1 of 2)] Future Scheduled 2022-07-03 FLU VACCINE > 6 [facility] C [facility]lege of Test 16:36:27 MONTHS [code = FLU Medicine VACCINE > 6 MONTHS] Future Scheduled 2022-06-26 SIGMOIDOSCOPY GI 1 Occurrences [facility] of Test 16:59:26 DEPT [code = 91931] starting Medicine 06/26/2022 until 12/24/2022 Future Scheduled 2022-05-31 Screening for [facility] Test 08:45:50 malignant neoplasm Medicine of colon (procedure) [code = 102556743] Future Scheduled 2022-05-31 COVID-19 Vaccine [facility] of Test 08:45:50 (#1) [code = Medicine COVID-19 Vaccine (#1)] Future Scheduled 2022-05-31 Pneumococcal [facility] Mi ege of Test 08:45:50 Combined (1 - PCV) Medicine [code = Pneumococcal Combined (1 - PCV)] Future Scheduled 2022-05-31 TETANUS SHOT (ADULT) [facility] of Test 08:45:50 [code = TETANUS SHOT Medicin e (ADULT)] Future Scheduled 2022-05-31 Screening for [facility] Test 08:45:50 malignant neoplasm Medicine of lung (procedure) [code = 229882600] Future Scheduled 2022-05-31 ZOSTER VACCINE (1 of [facility] of Test 08:45:50 2) [code = ZOSTER Medicine VACCINE (1 of 2)] Future Scheduled 2022-05-31 FLU VACCINE > 6 [facility] C [facility] of Test 08:45:50 MONTHS [code = FLU Medicine VACCINE > 6 MONTHS] Future Scheduled 2022-05-28 CT CHEST ABDOMEN 1 Occurrences [facility] of Test 12:10:55 PELVIS W CONTRAST starting Medicine [code = 98595-3] 05/28/2022 until 05/28/2023 Future Scheduled 2022-05-28 MRI PELVIS W WO 1 Occurrences [facility] of Test 12:10:55 CONTRAST [code = starting Medicine 21539-0] 05/28/2022 until 05/28/2023 Future Scheduled 2022-05-08 Screening for [facility] Col lege of Test 10:21:38 malignant neoplasm Medicine of colon (procedure) [code = 801345891] Future Scheduled 2022-05-08 COVID-19 Vaccine [facility] Test 10:21:38 (#1) [code = Medicine COVID-19 Vaccine (#1)] Future Scheduled 2022-05-08 Pneumococcal [facility] Mi [facility]ge of Test 10:21:38 Combined (1 - PCV) Medicine [code = Pneumococcal Combined (1 - PCV)] Future Scheduled 2022-05-08 TETANUS SHOT (ADULT) [facility] of Test 10:21:38 [code = TETANUS SHOT Medicin e (ADULT)] Future Scheduled 2022-05-08 Screening for [facility] of Test 10:21:38 malignant neoplasm Medicine of lung (procedure) [code = 603839422] Future Scheduled 2022-05-08 ZOSTER VACCINE (1 of [facility] of Test 10:21:38 2) [code = ZOSTER Medicine VACCINE (1 of 2)] Future Scheduled 2022-05-08 MEDICARE IPPE [facility] Test 10:21:38 (WELCOME TO Medicine MEDICARE) [code = MEDICARE IPPE (WELCOME TO MEDICARE)] Future Scheduled 2022-05-08 FLU VACCINE > 6 [facility] of Test 10:21:38 MONTHS [code = FLU Medicine VACCINE > 6 MONTHS] Future Scheduled 2022-05-05 Screening for [facility] of Test 08:02:20 malignant neoplasm Medicine of colon (procedure) [code = 696228714] Future Scheduled 2022-05-05 COVID-19 Vaccine [facility] of Test 08:02:20 (#1) [code = Medicine COVID-19 Vaccine (#1)] Future Scheduled 2022-05-05 Pneumococcal [facility] Mi [facility]ge of Test 08:02:20 Combined (1 - PCV) Medicine [code = Pneumococcal Combined (1 - PCV)] Future Scheduled 2022-05-05 TETANUS SHOT (ADULT) [facility] 08:02:20 [code = TETANUS SHOT Medicin e (ADULT)] Future Scheduled 2022-05-05 Screening for [facility] of Test 08:02:20 malignant neoplasm Medicine of lung (procedure) [code = 396108331] Future Scheduled 2022-05-05 ZOSTER VACCINE (1 of [facility] 08:02:20 2) [code = ZOSTER Medicine VACCINE (1 of 2)] Future Scheduled 2022-05-05 MEDICARE IPPE [facility] of Test 08:02:20 (WELCOME TO Medicine MEDICARE) [code = MEDICARE IPPE (WELCOME TO MEDICARE)] Future Scheduled 2022-05-05 FLU VACCINE > 6 [facility] Test 08:02:20 MONTHS [code = FLU Medicine VACCINE > 6 MONTHS] Future Scheduled 2022-04-17 Screening for [facility] of Test 11:17:48 malignant neoplasm Medicine of colon (procedure) [code = 392852461] Future Scheduled 2022-04-17 COVID-19 Vaccine [facility] 11:17:48 (#1) [code = Medicine COVID-19 Vaccine (#1)] Future Scheduled 2022-04-17 Pneumococcal [facility] of Test 11:17:48 Combined (1 - PCV) Medicine [code = Pneumococcal Combined (1 - PCV)] Future Scheduled 2022-04-17 TETANUS SHOT (ADULT) [facility] 11:17:48 [code = TETANUS SHOT Medicin e (ADULT)] Future Scheduled 2022-04-17 BMI FOLLOW UP PLAN [facility] of Test 11:17:48 [code = BMI FOLLOW Medicine UP PLAN] Future Scheduled 2022-04-17 Screening for [facility] of Test 11:17:48 malignant neoplasm Medicine of lung (procedure) [code = 778360701] Future Scheduled 2022-04-17 ZOSTER VACCINE (1 of [facility] 11:17:48 2) [code = ZOSTER Medicine VACCINE (1 of 2)] Future Scheduled 2022-04-17 MEDICARE IPPE [facility] of Test 11:17:48 (WELCOME TO Medicine MEDICARE) [code = MEDICARE IPPE (WELCOME TO MEDICARE)] Future Scheduled 2022-04-17 FLU VACCINE > 6 [facility] Test 11:17:48 MONTHS [code = FLU Medicine VACCINE > 6 MONTHS] Future Scheduled 2022-04-06 Screening for [facility] of Test 19:34:37 malignant neoplasm Medicine of colon (procedure) [code = 042271258] Future Scheduled 2022-04-06 COVID-19 Vaccine [facility] of Test 19:34:37 (#1) [code = Medicine COVID-19 Vaccine (#1)] Future Scheduled 2022-04-06 Pneumococcal [facility] Test 19:34:37 Combined (1 - PCV) Medicine [code = Pneumococcal Combined (1 - PCV)] Future Scheduled 2022-04-06 TETANUS SHOT (ADULT) [facility] 19:34:37 [code = TETANUS SHOT Medicin e (ADULT)] Future Scheduled 2022-04-06 BMI FOLLOW UP PLAN [facility] of Test 19:34:37 [code = BMI FOLLOW Medicine UP PLAN] Future Scheduled 2022-04-06 Screening for [facility] Test 19:34:37 malignant neoplasm Medicine of lung (procedure) [code = 785066504] Future Scheduled 2022-04-06 ZOSTER VACCINE (1 of [facility] 19:34:37 2) [code = ZOSTER Medicine VACCINE (1 of 2)] Future Scheduled 2022-04-06 MEDICARE IPPE [facility] Test 19:34:37 (WELCOME TO Medicine MEDICARE) [code = MEDICARE IPPE (WELCOME TO MEDICARE)] Future Scheduled 2022-04-06 FLU VACCINE > 6 [facility] Test 19:34:37 MONTHS [code = FLU Medicine VACCINE > 6 MONTHS] Future Scheduled 2022-04-03 CBC W/AUTO DIFF WITH Ordered: [facility] Test 13:10:54 PLATELETS [code = 04/03/2022 Medicine 93027-1] Future Scheduled 2022-04-03 COMPREHENSIVE Ordered: [facility] of Test 13:10:54 METABOLIC PANEL 04/03/2022 Medicine [code = 65261-5] Future Scheduled 2022-04-03 CEA [code = 2039-6] Ordered: [facility] of Test 13:10:54 04/03/2022 Medicine Future Scheduled 2022-04-03 CT ABDOMEN PELVIS W 1 Occurrences [facility] 12:17:48 CONTRAST [code = starting Medicine 39677-3] 04/03/2022 until 04/03/2023 Future Scheduled 2022-03-16 Screening for [facility] of Test 18:10:18 malignant neoplasm Medicine of colon (procedure) [code = 974312337] Future Scheduled 2022-03-16 COVID-19 Vaccine [facility] 18:10:18 (#1) [code = Medicine COVID-19 Vaccine (#1)] Future Scheduled 2022-03-16 Pneumococcal [facility] Test 18:10:18 Combined (1 - PCV) Medicine [code = Pneumococcal Combined (1 - PCV)] Future Scheduled 2022-03-16 TETANUS SHOT (ADULT) [facility] 18:10:18 [code = TETANUS SHOT Medicin e (ADULT)] Future Scheduled 2022-03-16 BMI FOLLOW UP PLAN [facility] 18:10:18 [code = BMI FOLLOW Medicine UP PLAN] Future Scheduled 2022-03-16 Screening for [facility] Test 18:10:18 malignant neoplasm Medicine of lung (procedure) [code = 111296102] Future Scheduled 2022-03-16 ZOSTER VACCINE (1 of [facility] 18:10:18 2) [code = ZOSTER Medicine VACCINE (1 of 2)] Future Scheduled 2022-03-16 FLU VACCINE > 6 [facility] Test 18:10:18 MONTHS [code = FLU Medicine VACCINE > 6 MONTHS] Future Scheduled 2022-02-20 Screening for [facility] Test 09:34:21 malignant neoplasm Medicine of colon (procedure) [code = 855860881] Future Scheduled 2022-02-20 COVID-19 Vaccine [facility] 09:34:21 (#1) [code = Medicine COVID-19 Vaccine (#1)] Future Scheduled 2022-02-20 Pneumococcal [facility] Test 09:34:21 Combined (1 - PCV) Medicine [code = Pneumococcal Combined (1 - PCV)] Future Scheduled 2022-02-20 TETANUS SHOT (ADULT) [facility] 09:34:21 [code = TETANUS SHOT Medicin e (ADULT)] Future Scheduled 2022-02-20 BMI FOLLOW UP PLAN [facility] 09:34:21 [code = BMI FOLLOW Medicine UP PLAN] Future Scheduled 2022-02-20 Screening for [facility] Test 09:34:21 malignant neoplasm Medicine of lung (procedure) [code = 350156556] Future Scheduled 2022-02-20 ZOSTER VACCINE (1 of [facility] 09:34:21 2) [code = ZOSTER Medicine VACCINE (1 of 2)] Future Scheduled 2022-02-20 FLU VACCINE > 6 [facility] Test 09:34:21 MONTHS [code = FLU Medicine VACCINE > 6 MONTHS] Future Scheduled 2022-02-12 Screening for [facility] Test 08:32:28 malignant neoplasm Medicine of colon (procedure) [code = 538440868] Future Scheduled 2022-02-12 COVID-19 Vaccine [facility] 08:32:28 (#1) [code = Medicine COVID-19 Vaccine (#1)] Future Scheduled 2022-02-12 Pneumococcal [facility] Test 08:32:28 Combined (1 - PCV) Medicine [code = Pneumococcal Combined (1 - PCV)] Future Scheduled 2022-02-12 TETANUS SHOT (ADULT) [facility] 08:32:28 [code = TETANUS SHOT Medicin e (ADULT)] Future Scheduled 2022-02-12 BMI FOLLOW UP PLAN [facility] Test 08:32:28 [code = BMI FOLLOW Medicine UP PLAN] Future Scheduled 2022-02-12 Screening for [facility] of Test 08:32:28 malignant neoplasm Medicine of lung (procedure) [code = 099710195] Future Scheduled 2022-02-12 ZOSTER VACCINE (1 of [facility] 08:32:28 2) [code = ZOSTER Medicine VACCINE (1 of 2)] Future Scheduled 2022-02-12 FLU VACCINE > 6 [facility] Test 08:32:28 MONTHS [code = FLU Medicine VACCINE > 6 MONTHS] Future Scheduled 2022-02-01 CT CHEST ABDOMEN Expected: [facility] 00:00:00 PELVIS W CONTRAST 02/01/2022 Medicine [code = 08764-3] (Approximate), Expires: 01/18/2023 Future Scheduled 2022-01-30 Screening for [facility] 17:27:21 malignant neoplasm Medicine of colon (procedure) [code = 054407748] Future Scheduled 2022-01-30 COVID-19 Vaccine [facility] 17:27:21 (#1) [code = Medicine COVID-19 Vaccine (#1)] Future Scheduled 2022-01-30 Pneumococcal [facility] Test 17:27:21 Combined (1 - PCV) Medicine [code = Pneumococcal Combined (1 - PCV)] Future Scheduled 2022-01-30 TETANUS SHOT (ADULT) [facility] 17:27:21 [code = TETANUS SHOT Medicin e (ADULT)] Future Scheduled 2022-01-30 BMI FOLLOW UP PLAN [facility] Test 17:27:21 [code = BMI FOLLOW Medicine UP PLAN] Future Scheduled 2022-01-30 Screening for [facility] Test 17:27:21 malignant neoplasm Medicine of lung (procedure) [code = 233527698] Future Scheduled 2022-01-30 ZOSTER VACCINE (1 of [facility] 17:27:21 2) [code = ZOSTER Medicine VACCINE (1 of 2)] Future Scheduled 2022-01-30 FLU VACCINE > 6 [facility] Test 17:27:21 MONTHS [code = FLU Medicine VACCINE > 6 MONTHS] Future Scheduled 2022-01-18 Screening for [facility] Test 16:20:53 malignant neoplasm Medicine of colon (procedure) [code = 606180514] Future Scheduled 2022-01-18 COVID-19 Vaccine [facility] 16:20:53 (#1) [code = Medicine COVID-19 Vaccine (#1)] Future Scheduled 2022-01-18 Pneumococcal [facility] Test 16:20:53 Combined (1 - PCV) Medicine [code = Pneumococcal Combined (1 - PCV)] Future Scheduled 2022-01-18 TETANUS SHOT (ADULT) [facility] 16:20:53 [code = TETANUS SHOT Medicin e (ADULT)] Future Scheduled 2022-01-18 BMI FOLLOW UP PLAN [facility] Test 16:20:53 [code = BMI FOLLOW Medicine UP PLAN] Future Scheduled 2022-01-18 Screening for [facility] Test 16:20:53 malignant neoplasm Medicine of lung (procedure) [code = 035676908] Future Scheduled 2022-01-18 ZOSTER VACCINE (1 of [facility] 16:20:53 2) [code = ZOSTER Medicine VACCINE (1 of 2)] Future Scheduled 2022-01-18 FLU VACCINE > 6 [facility] Test 16:20:53 MONTHS [code = FLU Medicine VACCINE > 6 MONTHS] Future Scheduled 2022-01-10 Screening for [facility] 09:17:30 malignant neoplasm Medicine of colon (procedure) [code = 753333673] Future Scheduled 2022-01-10 COVID-19 Vaccine [facility] 09:17:30 (#1) [code = Medicine COVID-19 Vaccine (#1)] Future Scheduled 2022-01-10 Pneumococcal [facility] Test 09:17:30 Combined (1 - PCV) Medicine [code = Pneumococcal Combined (1 - PCV)] Future Scheduled 2022-01-10 TETANUS SHOT (ADULT) [facility] 09:17:30 [code = TETANUS SHOT Medicin e (ADULT)] Future Scheduled 2022-01-10 BMI FOLLOW UP PLAN [facility] Test 09:17:30 [code = BMI FOLLOW Medicine UP PLAN] Future Scheduled 2022-01-10 Screening for [facility] Test 09:17:30 malignant neoplasm Medicine of lung (procedure) [code = 786322224] Future Scheduled 2022-01-10 ZOSTER VACCINE (1 of [facility] 09:17:30 2) [code = ZOSTER Medicine VACCINE (1 of 2)] Future Scheduled 2022-01-10 FLU VACCINE > 6 [facility] Test 09:17:30 MONTHS [code = FLU Medicine VACCINE > 6 MONTHS] Encounters Start End Encounter Admission Attending Care Care Encounter Source Date/Time Date/Time Type Type Clinicians Facility Department ID 2022-11-11 Outpatient DILSHAD Jimenez [facility] [id number] Common 11:45:02 Dara 76825 [facility] 2022-10-[address] [facility] [id number] Common 08:30:03 Dara [id number] [facility] 2022-09-27 Outpatient Jimenez, STLMLC STLC [id number] Common 10:23:01 Dara 13279 [facility] 2022-09-10 Outpatient Jimenez, STLMLC STLMLC [id number] Common 09:40:02 Dara 88758 [facility] 2022-08-27 Outpatient Jimenez, STLMLC STLC [id number] Common 08:31:01 Dara 84855 [facility] 2022-08-14 Outpatient Jimenez, STLMLC STLC [id number] Common 14:03:03 Dara 50708 [facility] 2022-08-06 Outpatient SYSTEM, ALEXANDRA MORRIS [id number] 15:07:56 PROVIDER Gume emmanuel 2022-03-25 Outpatient Jimenez, STLMLC STLC [id number] Common 11:31:02 Dara [facility] 2021-11-02 Outpatient Jimenez, STLMLC STLC [id number] Common 09:11:02 Dara [facility] 2021-10-01 Outpatient SYSTEM, ALEXANDRA MORRIS [id number] 15:21:58 PROVIDER Gume emmanuel 2023-01-23 2023-01-23 Outpatient LUIS BERMUDEZ, SLE SLE [id number] SLEH 00:00:00 00:00:00 [facility] 2023-01-15 2023-01-15 Outpatient CHEATHAM, JASS SLEH SLEH [id number] SLEH 00:00:00 00:00:00 2023-01-09 2023-01-09 Outpatient LUIS HORNER SLEH SLEH [id number] SLEH 00:00:00 00:00:00 ANUSHA Oswald 2023-01-07 2023-01-07 Outpatient LUIS BERMUDEZ, SLEH SLEH [id number] SLEH 00:00:00 00:00:00 BLAINE 2022-12-26 2022-12-26 Outpatient LUIS BERMUDEZ SLEH SLEH [id number] SLEH 00:00:00 00:00:00 BLAINE 2022-12-26 2022-12-26 Outpatient LARA, [facility] [id number] [facility] 00:00:00 00:00:00 BLAINE [facility] 2022-12-18 2022-12-25 Inpatient ER DONALD, [facility] Emergency 20 [id number] [facility] 10:49:00 15:17:00 SANDER 2022-12-18 2022-12-18 [facility]patient [facility] [id number] [place] [address] 00:00:00 00:00:00 [facility] 2022-12-12 2022-12-13 Inpatient EL CHEATHAM, [facility] Surgery [id number] SLE 10:09:00 20:01:00 2022-12-10 2022-12-10 [id number] [facility] 00:00:00 00:00:00 [facility] 2022-12-16 2022-12-04 [facility] [id number] SLE 12:42:28 23:59:00 2022-12-04 2022-12-04 [facility] [id number] SLE 00:00:00 00:00:00 [place] 2022-11-26 2022-11-26 [facility] 1.2.840.114 [id number] [facility] 10:30:00 13:50:22 Visit Brady 350.1.13.21 Co llege 0.2.7.2.686 [id number] [facility] abelardo 510 e 2022-11-20 2022-11-20 Outpatient EL LISA, SLE SLE [id number] SLE 11:13:53 23:59:00 JOHN 2022-11-06 2022-11-06 [facility] [id number] SLEH 11:19:00 14:10:00 2022-10-29 2022-10-29 Outpatient [facility] [id number] [facility] 12:31:40 23:59:00 [facility] 2022-10-22 2022-10-22 Outpatient [facility] [id number] [facility] 00:00:00 23:59:00 [facility] 2022-10-14 2022-10-14 Outpatient LUIS GONZALEZ [facility] [id number] SLE 00:00:00 00:00:00 JOHN 2022-10-14 2022-10-14 Outpatient LUIS [facility] [id number] SLE 00:00:00 00:00:00 2022-10-08 2022-10-08 Office CHAPARRITA [facility] 1.2.840.114 [id number] [facility] 15:28:55 15:52:51 Visit Brady 350.1.13.21 Co llege 0.2.7.2.686 of [id number] Medi abelardo 510 e 2022-09-25 2022-09-25 [id number] [facility] 11:11:30 11:37:12 [facility] 2022-09-24 2022-09-24 Outpatient [facility] [id number] [facility] 09:54:58 23:59:00 [facility] 2022-09-24 2022-09-24 Office [facility] [id number] [facility] 11:00:18 15:23:41 Visit KENIA AMBULATOR 350.1.13.21 College Y 0.2.7.2.686 of [id number] Medi abelardo 300 e 2022-09-17 2022-09-17 Office LARA [facility] [id number] [facility] 11:12:21 12:14:20 Visit BLAINE Brady 350.1.13.21 Co llege 0.2.7.2.686 of [id number] Medi abelardo 504 e 2022-09-11 2022-09-11 Outpatient LUIS BERMUDEZ [facility] [id number] SLE 07:15:08 23:59:00 BLAINE 2022-09-11 2022-09-11 Outpatient LUIS BERMUDEZ [facility] [id number] SLE 07:14:24 07:14:24 BLAINE 2022-09-11 2022-09-11 Outpatient TIARA LUO SLE [id number] SLEH 00:00:00 00:00:00 JOHN 2022-09-06 2022-09-06 (TEL) STLMLC STLMLC [id number] Co mmon 00:00:00 00:00:00 [facility] 2022-08-30 2022-08-30 (TEL) STLMLC STLMLC [id number] Co mmon 00:00:00 00:00:00 [facility] 2022-08-29 2022-08-29 OFFICE STLMLC STLMLC [id number] Co mmon 00:00:00 00:00:00 VISIT Spirit ESTAB PT - [facility] LEVEL 4 [facility] 2022-08-27 2022-08-27 Outpatient ARCELIA [facility] [id number] [facility] 16:49:05 17:30:14 [place] [facility]in [facility] 2022-08-27 2022-08-27 Office [facility] [id number] [id number] [facility] 11:05:48 15:18:28 Visit BLAINE Abreu 350.1.13.21 Co llege 0.2.7.2.686 [id number] [facility] abelardo 504 e 2022-08-21 2022-08-21 [facility]patient [facility] [id number] [facility] 10:36:53 11:18:01 [facility] 2022-08-17 2022-08-17 Emergency X MORRICAL, [facility] ERT [id number] [facility] 21:14:00 22:44:00 CATRACHO guillen of [facility] 2022-08-17 2022-08-17 Emergency Morrical, [facility] 1.2.840.114 [id number] Univers 21:14:00 22:44:00 Catracho GOMEZ 350.1.13.10 wilmer [facility] 4.2.7.2.686 [facility] [id number] [place] [id number] [place] 2022-08-14 2022-08-14 Office Cheatham, [facility] 1.2.840.114 [id number] [facility] 10:30:00 14:28:05 Visit Brady 350.1.13.21 Co llege 0.2.7.2.686 of [id number] [facility] abelardo 510 e 2022-08-14 2022-08-14 (TEL) STLMLC STLC [id number] Co mmon 00:00:00 00:00:00 [facility] 2022-08-13 2022-08-13 Office DON[facility] 1.2.840.114 [id number] [facility] 13:06:21 16:36:01 Visit SAKINA AMBULATOR 350.1.13.21 College Y 0.2.7.2.[id number] [facility] 300 e 2022-08-09 2022-08-09 [facility]EL[facility] [id number] Co mmon 00:00:00 00:00:00 [facility] 2022-08-01 2022-08-07 Inpatient EL CHEATHAM, [facility] Surgery [id number] [facility] 09:02:00 10:52:00 2022-08-01 2022-08-01 Outpatient [facility] [id number] [facility] 09:02:00 23:59:00 [facility] 2022-07-29 2022-07-29 [facility] [id number] [facility] 09:32:42 10:11:02 FREDA [facility] 2022-07-29 2022-07-29 (TEL) [facility] [id number] Co mmon 00:00:00 00:00:00 [facility] 2022-07-23 2022-07-23 Outpatient CHEATHAM, [facility] [id number] [facility] 11:45:52 12:50:50 [facility] 2022-07-11 2022-07-11 Outpatient EL CHEATHAM, [facility] Surgery [id number] [facility] 12:31:00 15:18:00 2022-07-10 2022-07-10 Outpatient CHEATHAM, [facility] [id number] [facility] 09:31:30 10:31:45 [facility] 2022-07-02 2022-07-02 Office EJSSEEBRIDGER [facility] [id number] [id number] [facility] 12:56:51 13:56:23 Visit BLAINE Knowlesr 350.1.13.21 Co llege 0.2.7.2.[id number] [facility] 504 e 2022-06-27 2022-06-27 Outpatient LUIS BERMUDEZ, SLEH SLEH [id number] SLEH 00:00:00 00:00:00 [facility] 2022-06-27 2022-06-27 Outpatient EL LARA, SLEH SLEH [id number] SLEH 00:00:00 00:00:00 [facility] 2022-06-27 2022-06-27 Outpatient EL LARA [facility]H SLEH [id number] SLEH 00:00:00 00:00:00 [facility] 2022-06-25 2022-06-25 [facility] 1.2.840.114 [id number] [facility] 12:58:50 14:44:56 Visit rBady 350.1.13.21 Co llege 0.2.7.2.686 of [id number] [facility] abelardo 510 e 2022-06-21 2022-06-21 Outpatient EL SLEH SLEH [id number] SLE 17:30:20 23:59:00 2022-06-10 2022-06-10 Outpatient EL SLEH SLEH [id number] SLEH 13:20:59 13:20:59 2022-05-28 2022-05-28 Office LARA [facility] [id number] [id number] [facility] 11:00:47 12:09:00 Visit BLAINE Knowlesr 350.1.13.21 Co llege 0.2.7.2.686 of [id number] [facility] abelardo 504 e 2022-05-15 2022-05-15 OL DIG E/M STLMLC STLC [id number] Common 00:00:00 00:00:00 SVC 11-20 Spir it MIN [facility] 2022-05-06 2022-05-06 (TEL) [facility] [id number] Co mmon 00:00:00 00:00:00 [facility] 2022-04-30 2022-04-30 Office LARA [facility] [id number] [facility] 10:23:42 11:48:33 Visit BLAINE Brady 350.1.13.21 Co llege 0.2.7.2.686 of [id number] Medi abelardo 504 e 2022-04-17 2022-04-17 Office JEAN PAUL ALMONTE 1.2.840.114 [id number] [facility] 10:39:04 16:19:59 Visit LUIS ANGEL AMBULATOR 350.1.13.21 College Y 0.2.7.2.686 of [id number] Medi abelardo 300 e 2022-04-11 2022-04-11 Outpatient EL SLEH SLEH [id number] [facility] 06:40:26 06:40:26 2022-04-03 2022-04-03 Office JASS CHEATHAM [facility] 1.2.840.114 [id number] [facility] 10:37:52 13:23:20 Visit Brady 350.1.13.21 Co llege 0.2.7.2.686 of [id number] Medi abelardo 510 e 2022-04-03 2022-04-03 Office Lara [facility] [id number] [id number] [facility] 11:30:00 13:23:05 Visit Blaine Brady 350.1.13.21 Co llege 0.2.7.2.686 of [id number] Medi abelardo 504 e 2022-04-01 2022-04-01 Outpatient EL SLEH SLEH [id number] SLE 08:22:06 08:22:06 2022-03-29 2022-03-29 Outpatient JEAN PAUL RAY [id number] [facility] 08:22:45 11:29:53 TORRI Lopez e of Medicin e 2022-03-28 2022-03-28 Outpatient CORY JEAN PAUL [facility] [id number] [facility] 10:15:34 16:40:36 BASIL Colleg e [facility]in e 2022-03-28 2022-03-28 Outpatient [facility] [id number] SLE 08:29:23 08:29:23 2022-03-27 2022-03-27 OFFICE STLMLC STLC [id number] Co mmon 00:00:00 00:00:00 VISIT Spirit ESTAB PT - CHI LEVEL 4 [facility] 2022 2022 Outpatient [facility] [id number] SLE 08:34:09 08:34:09 2022-03-12 2022-03-12 Outpatient [facility] [id number] [facility] 09:38:05 23:59:00 Colleg e [facility] Medicin e 2022-03-12 2022-03-12 Office BIBI BermudezJanice [id number] [facility] 09:00:00 11:44:44 Visit Blaine Knowlesr 350.1.13.21 Co llege 0.2.7.2.686 of [id number] Medi abelardo 504 e 2022-02-26 2022-02-26 Outpatient [facility] [id number] [facility] 07:28:30 23:59:00 Colleg e [facility] Medicin e 2022-02-25 2022-02-25 OFFICE [facility] [id number] Co mmon 00:00:00 00:00:00 VISIT EST Spir it PT LEVEL 3 - [facility] 2022-02-20 2022-02-20 Office JEAN PAUL ALMONTE [id number] [facility] 09:26:00 10:56:49 Visit LUIS ANGEL AMBULATOR 350.1.13.21 College Y 0.2.7.2.686 of [id number] Medi abelardo 300 e 2022-02-14 2022-02-14 Outpatient [facility] [id number] [facility] 13:29:41 23:59:00 Colleg e of Medicin e 2022-02-13 2022-02-13 Outpatient EL SLEH SLE [id number] [facility] 12:40:33 12:40:33 2022-02-12 2022-02-12 Outpatient BCM [facility] [id number] [facility] 08:37:26 23:59:00 Colleg e of Medicin e 2022-02-12 2022-02-12 Office LARA [facility] [id number] [facility] 07:31:20 12:34:41 Visit BLAINE Brady 350.1.13.21 Co llege 0.2.7.2.686 of [id number] Medi abelardo 504 e 2022-01-29 2022-01-29 Outpatient BCM [facility] [id number] [facility] 07:49:13 23:59:00 Colleg e of Medicin e 2022-01-29 2022-01-29 Outpatient EL SLE SLE [id number] [facility] 14:12:07 14:12:07 2022-01-29 2022-01-29 Office LARA [facility] 1.2.030.543 [id number] [facility] 10:10:29 10:30:30 Visit BLAINE Brady 350.1.13.21 Co llege 0.2.7.2.686 of [id number] [facility] abelardo 504 e 2022-01-29 2022-01-29 [facility] [id number] [facility] 00:00:00 00:00:00 Colleg e of Medicin e 2022-01-28 2022-01-28 Outpatient LUIS BERMUDEZ SLE SLEH [id number] SLEH 00:00:00 00:00:00 [facility] 2022-01-28 2022-01-28 Outpatient EL LARA SLEH SLEH [id number] SLEH 00:00:00 00:00:00 [facility] 2022-01-28 2022-01-28 Outpatient EL LARA SLEH SLEH [id number] SLEH 00:00:00 00:00:00 [facility] 2022-01-28 2022-01-28 Outpatient EL LARA SLEH SLEH [id number] SLEH 00:00:00 00:00:00 [facility] 2022-01-25 2022-01-25 Outpatient LUIS BERMUDEZ SLE SLE [id number] SLEH 07:34:20 23:59:00 [facility] 2022-01-25 2022-01-25 Outpatient LUIS BERMUDEZ SLE SLE [id number] SLE 07:34:03 23:59:00 [facility] 2022-01-25 2022-01-25 Outpatient LUIS BERMUDEZ SLE SLE [id number] SLE 07:33:39 07:33:39 [facility] 2022-01-15 2022-01-15 Outpatient [facility] [id number] [facility] 09:31:49 23:59:00 Jessica benson of Medicin e 2022-01-15 2022-01-15 Outpatient [facility] [id number] [facility] 16:18:07 16:18:07 2022-01-15 2022-01-15 Office LARA [facility] [id number] [id number] [facility] 07:38:55 09:47:06 Visit BLAINE Abreu 350.1.13.21 Co llege 0.2.7.2.686 of [id number] [facility] abelardo 504 e 2022-01-10 2022-01-10 Office JEAN PAUL THOMPSON 1.2.840.114 [id number] [facility] 09:03:49 10:15:13 Visit SAKINA AMBULATOR 350.1.13.21 College Y 0.2.7.2.686 of [id number] [facility] abelardo 300 e 2022-01-08 2022-01-08 Emergency X Kellie YAN [facility] ERT [id number] Univers 16:52:00 20:25:00 ity of [facility] 2022-01-08 2022-01-08 Emergency Kellie Yan [facility] 1.2.840.114 [id number] Univers 16:52:00 20:25:00 Lillian GOMEZ 350.1.13.10 i ty of [place] 4.2.7.2.686 [facility] [id number] [facility] leticia 084 [place] 2022-01-04 2022-01-04 Outpatient BCM BCM [id number] [facility] 12:25:12 23:59:00 Colleg e [facility] Medicin e 2022-01-04 2022-01-04 (TEL) STLMLC STLMLC [id number] Co mmon 00:00:00 00:00:00 [facility] 2022-01-02 2022-01-02 Outpatient BCM BCM [id number] [facility] 07:27:04 23:59:00 Colleg e [facility] Medicin e 2021-12-20 2021-12-20 Outpatient BCM BCM [id number] [facility] 12:56:16 23:59:00 [facility] e [facility]in e 2021-12-18 2021-12-18 Outpatient BCM BCM [id number] [facility] 08:36:19 23:59:00 [facility] e [facility]in e 2021-12-18 2021-12-18 Outpatient LARA, [facility] [id number] [facility] 07:23:44 10:57:57 BLAINE Colleg e [facility] Medicin e 2021-12-06 2021-12-06 Outpatient BCM BCM [id number] [facility] 13:15:10 23:59:00 [facility]in e 2021-12-04 2021-12-04 Outpatient BCM BCM [id number] [facility] 09:28:37 23:59:00 [facility] e [facility]in e 2021-12-04 2021-12-04 Outpatient LARA, [facility] [id number] [facility] 08:00:02 09:52:15 BLAINE Colleg e of Medicin e 2021-12-03 2021-12-03 Outpatient EL VALADEZ-EDDI SLE Surgery [id number] SLEH 08:22:00 13:40:00 LKARRIEANUSHA 2021-11-30 2021-11-30 Outpatient [facility] [id number] SLE 09:09:21 23:59:00 2021-11-28 2021-11-28 (TEL) STLMLC STLMLC [id number] Co mmon 00:00:00 00:00:00 [facility] 2021-11-26 2021-11-26 Outpatient SIRI [facility] [id number] [facility] 14:23:13 16:24:01 MargretANUSHA Col hadley of Medicin e 2021-11-23 2021-11-23 (TEL) STLMLC STLMLC [id number] Co mmon 00:00:00 00:00:00 [facility] 2021-11-16 2021-11-16 (TEL) STLMLC STLMLC [id number] Co mmon 00:00:00 00:00:00 [facility] 2021-11-13 2021-11-13 Outpatient EL RESENDIZ, SLEH SLEH [id number] SLEH 13:14:19 23:59:00 MARY 2021-11-13 2021-11-13 Outpatient EL RESENDIZ, SLEH SLEH [id number] SLEH 13:14:00 13:14:00 MARY 2021-11-13 2021-11-13 Outpatient EL RESENDIZ, SLEH SLEH [id number] SLEH 13:13:33 13:13:33 [facility] 2021-11-08 2021-11-08 Outpatient TIFFANICINDA [facility] [id number] [facility] 08:02:55 12:16:37 BLAINE benson of Medicin e 2021-11-05 2021-11-05 OFFICE STLMLC STLMLC [id number] Co mmon 00:00:00 00:00:00 VISIT [facility] LEVEL 4 [facility] 2021-10-31 2021-10-31 Outpatient EL SLEH SLEH [id number] SLE 08:27:03 08:27:03 2021-10-26 2021-10-26 Outpatient Patil_S [facility] [id number] [place] 12:48:00 12:48:00 [facility] 2021-10-25 2021-10-25 Outpatient LUIS MCKEON MDA MDA [id number] 11:41:14 11:41:14 LAMAR emmanuel 2021-10-18 2021-10-18 Outpatient LUIS MCKEON MDA MDA [id number] 15:11:10 15:11:10 LAMAR emmanuel 2021-10-08 2021-10-08 Outpatient LUIS JESUS MDA MDA [id number] 12:36:24 12:36:24 KANDIS emmanuel 2021-09-25 2021-10-01 Inpatient ER ETCHEGARAY- [facility] [id number] 10:09:00 15:50:00 Gume FINN 2021-09-30 2021-09-30 Inpatient EL ETCHEGARAY- MDA MDA [id number] 01:49:36 02:06:12 Gume FINN 2021-09-29 2021-09-29 Inpatient EL ETCHEGARAY- MDA MDA [id number] 20:28:39 20:54:42 Gume FINN 2021-09-25 2021-09-25 Emergency X [facility] ERT [id number] Univers 02:29:00 06:32:00 EMY ity of [facility] 2021-09-25 2021-09-25 [facility] [id number] Univers 02:29:00 06:32:00 Emy GOMEZ 350.1.13.10 i ty [facility] 4.2.7.2.686 [facility] [id number] [facility] 084 [address] 2021-09-25 2021-09-25 Orders Doctor KANDIS 1.2.840.114 [id number] Univers 00:00:00 00:00:00 Only Unassigned, CARLOS 350.1.13.[address] [facility] 4.2.7.2.686 [facility] [id number] [facility] 009 [address] 2021-09-19 2021-09-19 Outpatient LUIS MCKEON MDA MDA [id number] 15:11:24 15:11:24 LAMAR emmanuel 2021-09-13 2021-09-13 Outpatient LUIS MCKEON MDA MDA [id number] 12:16:19 12:16:19 LAMAR emmanuel 2021-09-06 2021-09-06 Outpatient LUIS MCKEON MDA MDA [id number] MD 09:22:58 09:22:58 LAMAR emmanuel 2021-08-28 2021-08-28 Outpatient LUIS GOMEZ MDA MDA [id number] 10:17:09 10:17:09 VIRGIL emmanuel 2021-08-28 2021-08-28 Outpatient LUIS MCKEON MDA MDA [id number] 10:17:01 10:17:01 LAMAR emmanuel 2021-08-14 2021-08-14 Outpatient LARA Elizabeth [facility] [id number] [facility] 00:00:00 00:00:00 BLAINE benson of Medicin e 2021-08-08 2021-08-08 Outpatient LUIS VELASQUEZ MDA MDA [id number] 23:28:33 23:28:33 SALOMON emmanuel 2021-08-08 2021-08-08 Outpatient LUIS VELASQUEZ MDA MDA [id number] 23:28:30 23:28:30 SALOMON emmanuel 2021-08-08 2021-08-08 Outpatient LUIS VELASQUEZ MDA MDA [id number] 23:28:26 23:28:26 SALOMON emmanuel 2021-07-25 2021-07-31 Inpatient ER BRUNSON, ALEXANDRA Hosp [facility] [id number] 17:07:00 19:11:00 JOCELINE emmanuel 2021-07-29 2021-07-29 Inpatient LUIS GODFREY ALEXANDRA MDA [id number] 22:05:18 22:28:56 JUSTUS emmanuel 2021-07-17 2021-07-17 Emergency X FRANKY, ALEDWIN ERT [id number] Univers 14:44:00 20:16:00 ANTONIETA ity of [facility] 2021-07-17 2021-07-17 Emergency Larissa, TRAUMA [id number] Univers 14:44:00 20:16:00 [facility] 350.1.13.10 milena Reis 4.2.7.2.686 Lexie amaya [id number] [place] [address] [place] 2021-06-21 2021-07-03 Inpatient [facility] [id number] [place] [address] 00:00:00 00:00:00 RICHARDA [address] 2021-06-29 2021-06-29 Outpatient [facility] [id number] [place] 00:00:00 00:00:[address] 2021-05-07 2021-05-07 Emergency Emy Barraza [facility] 1.2.840. 114 [id number] Univers 17:05:00 19:23:00 Melody Reyes 350.1.13.10 ity [facility] 4.2.7.2.686 [facility] [id number] [address] 2021-05-07 2021-05-07 Emergency X ERIC, [facility] ERT [id number] Univers 17:05:00 17:05:00 MELODY [facility] 2021-02-22 2021-02-22 Emergency Isela, [facility] 1.2.840.114 [id number] Univers 18:08:00 19:40:00 Evaristo Gomez 350.1.13.10 [facility] 4.2.7.2.686 [facility] [id number] [address] 2021-02-22 2021-02-22 Emergency X ISELA, [facility] ERT [id number] Univers 18:08:00 18:08:00 EVARISTO [facility] 2021-01-23 2021-01-23 Emergency Salcedo, [facility] 1.2.840.114 [id number] Univers 10:00:00 15:13:00 Maria G Gomez 350.1.13.10 i ty [facility] 4.2.7.2.686 [facility] [id number] [address] 2021-01-23 2021-01-23 Emergency X [facility] ERT [id number] Univers 10:00:00 10:00:00 [facility] Results Test Description Test Time Test Comments Results Result Sourc e Comments RAD, ABDOMEN 2022-12-25 Reason for SERIES W/ UPRIGHT 09:56:00 exam:->Monitor PA CHEST ileusShould this [facility] be performed at [facility] the CENTERName: JAZMINE, bedside?->Yes CELESTINO LEWIS : 1970 Sex: M FINAL REPORT CLINICAL HISTORY: Monitor ileus TECHNIQUE: Supine and erect abdomen and frontal chest views. COMPARISON: 12/23/2022 IMPRESSION: Chest: There are no focal infiltrates or effusions. The cardiomediastinal silhouette is within normal limits for size. The visualized bones are intact. Abdomen: Right lower quadrant skin epifanio and chain sutures are again seen. There is decreased gaseous distention of multiple loops of small bowel. However, differential air-fluid levels are again seen and there is a paucity of colonic bowel gas. Residual small bowel obstruction is suspected. There is no free air. 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 ID - DBBASI METABOLIC [id number] 04:57:51 Test Item Value Reference Range Interpretation Comments SODIUM (BEAKER) 134 meq/L 136-145 L (test code = 381) POTASSIUM 3.5 meq/L 3.5-5.1 (BEAKER) (test code = 379) CHLORIDE (BEAKER) 100 meq/L 98-107 (test code = 382) CO2 (BEAKER) 27 meq/L 22-29 (test code = 355) BLOOD UREA 8 mg/dL 7-21 NITROGEN (BEAKER) (test code = 354) CREATININE 0.64 mg/dL 0.57-1.25 (BEAKER) (test code = 358) GLUCOSE RANDOM 96 mg/dL 70-105 (BEAKER) (test code = 652) CALCIUM (BEAKER) 8.2 mg/dL 8.4-10.2 L (test code = 697) EGFR (BEAKER) 113 Interpretatio n of eGFR (test code = mL/min/1.73 values Stage De scription 1092) sq m Result G1 Savannah l or high >=90 G2 Mildly decreased 60-89 G3a Mildl y to moderately 45-5 9 G3b Moderately to s everely 30-44 G4 Severl y decreased 15-29 G5 Kidney failure <15Reported eGF R is based on the CKD-EPI 2020 equation that d oes not use a race coefficientEsti mated GFR is not as accur ate as Creatinine Crystal evelyn in predicting glom erular filtration rate . Estimated GFR is not appl icable for dialysis patien ts Supervisor [employer]phalt P[employer] ID - DBCBC W/PLT COUNT & AUTO [id number] 04:19:19 Test Item Value Reference Range Interpretation Comments WHITE BLOOD CELL COUNT (BEAKER) 12.6 K/ L 3.5-10.5 H (test code = 775) RED BLOOD CELL COUNT (BEAKER) 3.16 M/ L 4.63-6.08 L (test code = 761) HEMOGLOBIN (BEAKER) (test code = 9.6 GM/DL 13.7-17.5 L 410) HEMATOCRIT (BEAKER) (test code = 28.5 % 40.1-51.0 L 411) MEAN CORPUSCULAR VOLUME (BEAKER) 90 fL 79-92 (test code = 753) MEAN CORPUSCULAR HEMOGLOBIN 30.4 pg 25.7-32.2 (BEAKER) (test code = 751) MEAN CORPUSCULAR HEMOGLOBIN CONC 33.7 GM/DL 32.3-36.5 (BEAKER) (test code = 752) RED CELL DISTRIBUTION WIDTH 13.0 % 11.6-14.4 (BEAKER) (test code = 412) PLATELET COUNT (BEAKER) (test 346 K/CU MM 150-450 code = 756) MEAN PLATELET VOLUME (BEAKER) 8.7 fL 9.4-12.4 L (test code = 754) NUCLEATED RED BLOOD CELLS 0 /100 WBC 0-0 (BEAKER) (test code = 413) NEUTROPHILS RELATIVE PERCENT 80 % (BEAKER) (test code = 429) LYMPHOCYTES RELATIVE PERCENT 7 % (BEAKER) (test code = 430) MONOCYTES RELATIVE PERCENT 9 % (BEAKER) (test code = 431) EOSINOPHILS RELATIVE PERCENT 3 % (BEAKER) (test code = 432) BASOPHILS RELATIVE PERCENT 0 % (BEAKER) (test code = 437) NEUTROPHILS ABSOLUTE COUNT 10.09 K/ L 1.78-5.38 H (BEAKER) (test code = 670) LYMPHOCYTES ABSOLUTE COUNT 0.82 K/ L 1.32-3.57 L (BEAKER) (test code = 414) MONOCYTES ABSOLUTE COUNT (BEAKER) 1.15 K/ L 0.30-0.82 H (test code = 415) EOSINOPHILS ABSOLUTE COUNT 0.38 K/ L 0.04-0.54 (BEAKER) (test code = 416) BASOPHILS ABSOLUTE COUNT (BEAKER) 0.05 K/ L 0.01-0.08 (test code = 417) IMMATURE GRANULOCYTES-RELATIVE 0.60 % 0.00-1.00 PERCENT (BEAKER) (test code = 2801) [id number] 05:55:18 Test Item Value Reference Range Interpretation Comments MAGNESIUM (BEAKER) 1.7 mg/dL 1.6-2.6 Specimen slightly (test code = 627) hemolyzed Supervisor [employer] ID - BSBASIC METABOLIC [id number] 05:55:18 Test Item Value Reference Range Interpretation Comments SODIUM (BEAKER) 134 meq/L 136-145 L (test code = 381) POTASSIUM 3.7 meq/L 3.5-5.1 Specimen slight ly (BEAKER) (test hemolyzed code = 379) CHLORIDE (BEAKER) 102 meq/L 98-107 (test code = 382) CO2 (BEAKER) 24 meq/L 22-29 (test code = 355) BLOOD UREA 5 mg/dL 7-21 L NITROGEN (BEAKER) (test code = 354) CREATININE 0.60 mg/dL 0.57-1.25 Specimen slight ly (BEAKER) (test hemolyzed code = 358) GLUCOSE RANDOM 98 mg/dL 70-105 (BEAKER) (test code = 652) CALCIUM (BEAKER) 8.3 mg/dL 8.4-10.2 L (test code = 697) EGFR (BEAKER) 115 Interpretatio n of eGFR (test code = mL/min/1.73 values Stage De scription 1092) sq m Result G1 Norm al or high >=90 G2 Mildly decreased 60-89 G3a Mildl y to moderately 45-5 9 G3b Moderately to s everely 30-44 G4 Severl y decreased 15-29 G5 Kidne y failure <15Reported eGF R is based on the CKD-EPI 202 equation that d oes not use a race coefficientEsti mated GFR is not as accur ate as Creatinine Crystal evelyn in predicting glom erular filtration rate . Estimated GFR is not appl icable for dialysis patien ts Supervisor [employer] ID - BSCBC W/PLT COUNT & AUTO [id number] 05:38:14 Test Item Value Reference Range Interpretation Comments WHITE BLOOD CELL COUNT (BEAKER) 15.6 K/ L 3.5-10.5 H (test code = 775) RED BLOOD CELL COUNT (BEAKER) 3.19 M/ L 4.63-6.08 L (test code = 761) HEMOGLOBIN (BEAKER) (test code = 10.0 GM/DL 13.7-17.5 L 410) HEMATOCRIT (BEAKER) (test code = 29.3 % 40.1-51.0 L 411) MEAN CORPUSCULAR VOLUME (BEAKER) 92 fL 79-92 (test code = 753) MEAN CORPUSCULAR HEMOGLOBIN 31.3 pg 25.7-32.2 (BEAKER) (test code = 751) MEAN CORPUSCULAR HEMOGLOBIN CONC 34.1 GM/DL 32.3-36.5 (BEAKER) (test code = 752) RED CELL DISTRIBUTION WIDTH 12.8 % 11.6-14.4 (BEAKER) (test code = 412) PLATELET COUNT (BEAKER) (test 339 K/CU MM 150-450 code = 756) MEAN PLATELET VOLUME (BEAKER) 9.0 fL 9.4-12.4 L (test code = 754) NUCLEATED RED BLOOD CELLS 0 /100 WBC 0-0 (BEAKER) (test code = 413) NEUTROPHILS RELATIVE PERCENT 84 % (BEAKER) (test code = 429) LYMPHOCYTES RELATIVE PERCENT 5 % (BEAKER) (test code = 430) MONOCYTES RELATIVE PERCENT 7 % (BEAKER) (test code = 431) EOSINOPHILS RELATIVE PERCENT 4 % (BEAKER) (test code = 432) BASOPHILS RELATIVE PERCENT 0 % (BEAKER) (test code = 437) NEUTROPHILS ABSOLUTE COUNT 13.06 K/ L 1.78-5.38 H (BEAKER) (test code = 670) LYMPHOCYTES ABSOLUTE COUNT 0.78 K/ L 1.32-3.57 L (BEAKER) (test code = 414) MONOCYTES ABSOLUTE COUNT (BEAKER) 1.08 K/ L 0.30-0.82 H (test code = 415) EOSINOPHILS ABSOLUTE COUNT 0.55 K/ L 0.04-0.54 H (BEAKER) (test code = 416) BASOPHILS ABSOLUTE COUNT (BEAKER) 0.05 K/ L 0.01-0.08 (test code = 417) IMMATURE GRANULOCYTES-RELATIVE 0.50 % 0.00-1.00 PERCENT (BEAKER) (test code = 2801) BLOOD [id number] 19:01:01 Test Item Value Reference Range Interpretation Comments CULTURE (BEAKER) (test No growth in 5 days code = 1095) BLOOD [id number] 19:01:01 Test Item Value Reference Range Interpretation Comments CULTURE (BEAKER) (test No growth in 5 days code = 1095) BASIC METABOLIC [id number] 16:49:14 Test Item Value Reference Range Interpretation Comments SODIUM (BEAKER) 134 meq/L 136-145 L (test code = 381) POTASSIUM 3.0 meq/L 3.5-5.1 L (BEAKER) (test code = 379) CHLORIDE (BEAKER) 101 meq/L 98-107 (test code = 382) CO2 (BEAKER) 27 meq/L 22-29 (test code = 355) BLOOD UREA 8 mg/dL 7-21 NITROGEN (BEAKER) (test code = 354) CREATININE 0.60 mg/dL 0.57-1.25 (BEAKER) (test code = 358) GLUCOSE RANDOM 144 mg/dL 70-105 H (BEAKER) (test code = 652) CALCIUM (BEAKER) 8.1 mg/dL 8.4-10.2 L (test code = 697) EGFR (BEAKER) 115 Interpretatio n of eGFR (test code = mL/min/1.73 values Stage De scription 1092) sq m Result G1 Savannah l or high >=90 G2 Mildly decreased 60-89 G3a Mildl y to moderately 45-5 9 G3b Moderately to s everely 30-44 G4 Severl y decreased 15-29 G5 Kidney failure <15Reported eGF R is based on the CKD-EPI 2020 equation that d oes not use a race coefficientEsti mated GFR is not as accur ate as Creatinine Crystal evelyn in predicting glom erular filtration rate . Estimated GFR is not appl icable for dialysis patien ts Supervisor [employer] ID - ADMINVANCOMYCIN LEVEL, [id number] 12:36:40 Test Item Value Reference Range Interpretation Comments VANCOMYCIN TROUGH (SANTIAGO) (test 16.9 ug/mL 10.0-20.0 code = 522) Supervisor [employer]phalt [employer] ID - AAHAMIDRAD, ABDOMEN SERIES W/ UPRIGHT PA [id number] 11:03:00 Reason for exam:->Distention post opShould this be performed at the bedside?->[facility] : 1970 Sex: MFINAL REPORT CLINICAL HISTORY: Distention post op TECHNIQUE: Supine and erect abdomen and frontal chest views. COMPARISON: 12/21/2022 IMPRESSION: Chest: Mildly prominent lung markings are again noted without infiltrates or effusions. The cardiomediastinal silhouette is magnified by technique. Abdomen: The NGT has been removed. Multiple dilated air-filled loops of small bowel grossly unchanged with a few differential air-fluid levels compatible with small bowel obstruction. There is no free air. Right lower quadrant skin epifanio are again seen. Signed: Anel Vasquez MDReport Verified Date/Time: 12/23/2022 11:03:34 BASIC METABOLIC [id number] 04:09:45 Test Item Value Reference Range Interpretation Comments SODIUM (BEAKER) 136 meq/L 136-145 (test code = 381) POTASSIUM 2.8 meq/L 3.5-5.1 L Specimen slight ly (BEAKER) (test hemolyzed code = 379) CHLORIDE (BEAKER) 103 meq/L 98-107 (test code = 382) CO2 (BEAKER) 25 meq/L 22-29 (test code = 355) BLOOD UREA 9 mg/dL 7-21 NITROGEN (BEAKER) (test code = 354) CREATININE 0.57 mg/dL 0.57-1.25 Specimen slight ly (BEAKER) (test hemolyzed code = 358) GLUCOSE RANDOM 99 mg/dL 70-105 (BEAKER) (test code = 652) CALCIUM (BEAKER) 8.2 mg/dL 8.4-10.2 L (test code = 697) EGFR (BEAKER) 116 Interpretatio n of eGFR (test code = mL/min/1.73 values Stage D escription 1092) sq m Result G1 [place] l or high >=90 G2 Mildly decreased 60-89 G3a Mildl y to moderately 45-5 9 G3b Moderately to s everely 30-44 G4 Severl y decreased 15-29 G5 Kidney failure <15Reported eGF R is based on the CKD-EPI 2020 equation that d oes not use a race coefficientEsti mated GFR is not as accur ate as Creatinine [place] in predicting glom erular filtration rate . Estimated GFR is not appl icable for dialysis patien ts [employer] ID - LISETH [id number] 04:09:44 Test Item Value Reference Range Interpretation Comments MAGNESIUM (BEAKER) 1.7 mg/dL 1.6-2.6 Specimen slightly (test code = 627) hemolyzed [employer] ID - LISETH WCBC W/PLT COUNT & AUTO [id number] 03:43:02 Test Item Value Reference Range Interpretation Comments WHITE BLOOD CELL COUNT 12.7 K/ L 3.5-10.5 H (BEAKER) (test code = 775) RED BLOOD CELL COUNT 3.15 M/ L 4.63-6.08 L (BEAKER) (test code = 761) HEMOGLOBIN (BEAKER) 10.0 GM/DL 13.7-17.5 L (test code = 410) HEMATOCRIT (BEAKER) 27.9 % 40.1-51.0 L (test code = 411) MEAN CORPUSCULAR 89 fL 79-92 Discordant results VOLUME (BEAKER) (test compar ed to previous code = 753) results; clinic al correlation req uired MEAN CORPUSCULAR 31.7 pg 25.7-32.2 HEMOGLOBIN (BEAKER) (test code = 751) MEAN CORPUSCULAR 35.8 GM/DL 32.3-36.5 HEMOGLOBIN CONC (BEAKER) (test code = 752) RED CELL DISTRIBUTION 12.9 % 11.6-14.4 WIDTH (BEAKER) (test code = 412) PLATELET COUNT 348 K/CU MM 150-450 (BEAKER) (test code = 756) MEAN PLATELET VOLUME 8.6 fL 9.4-12.4 L (BEAKER) (test code = 754) NUCLEATED RED BLOOD 0 /100 WBC 0-0 CELLS (BEAKER) (test code = 413) NEUTROPHILS RELATIVE 81 % PERCENT (BEAKER) (test code = 429) LYMPHOCYTES RELATIVE 6 % PERCENT (BEAKER) (test code = 430) MONOCYTES RELATIVE 9 % PERCENT (BEAKER) (test code = 431) EOSINOPHILS RELATIVE 3 % PERCENT (BEAKER) (test code = 432) BASOPHILS RELATIVE 0 % PERCENT (BEAKER) (test code = 437) NEUTROPHILS ABSOLUTE 10.28 K/ L 1.78-5.38 H COUNT (BEAKER) (test code = 670) LYMPHOCYTES ABSOLUTE 0.74 K/ L 1.32-3.57 L COUNT (BEAKER) (test code = 414) MONOCYTES ABSOLUTE 1.19 K/ L 0.30-0.82 H COUNT (BEAKER) (test code = 415) EOSINOPHILS ABSOLUTE 0.41 K/ L 0.04-0.54 COUNT (BEAKER) (test code = 416) BASOPHILS ABSOLUTE 0.05 K/ L 0.01-0.08 COUNT (BEAKER) (test code = 417) IMMATURE 0.50 % 0.00-1.00 GRANULOCYTES-RELATIVE PERCENT (BEAKER) (test code = 2804) POCT-GLUCOSE [id number] 21:30:45 Test Item Value Reference Range Interpretation Comments POC-GLUCOSE METER 85 mg/dL 70-110 : TESTED A T [facility] 6720 (BEAKER) (test code = [facility], 1538) [id number]: Supervisor Asphalt Paving/Techni dionte ID = [id number] for Selene Almazan POCT-GLUCOSE [id number] 17:33:13 Test Item Value Reference Range Interpretation Comments POC-GLUCOSE METER 69 mg/dL 70-110 L : TESTED A T [facility] 6720 (BEAKER) (test code = [facility], 1538) [id number]: Supervisor Asphalt Paving/Techni dionte ID = [id number] for KRYSTAL Gavin FLAQUITO POCT-GLUCOSE [id number] 11:36:13 Test Item Value Reference Range Interpretation Comments POC-GLUCOSE METER 67 mg/dL 70-110 L : TESTED A T [facility] 6720 (BEAKER) (test code = [facility], 1538) [id number]: Supervisor Asphalt Paving/Techni dionte ID = [id number] for KRYSTAL Gavin FLAQUITO BASIC METABOLIC [id number] 04:53:11 Test Item Value Reference Range Interpretation Comments SODIUM (BEAKER) 134 meq/L 136-145 L (test code = 381) POTASSIUM 2.7 meq/L 3.5-5.1 L (BEAKER) (test code = 379) CHLORIDE (BEAKER) 101 meq/L 98-107 (test code = 382) CO2 (BEAKER) 22 meq/L 22-29 (test code = 355) BLOOD UREA 18 mg/dL 7-21 NITROGEN (BEAKER) (test code = 354) CREATININE 0.58 mg/dL 0.57-1.25 (BEAKER) (test code = 358) GLUCOSE RANDOM 83 mg/dL 70-105 (BEAKER) (test code = 652) CALCIUM (BEAKER) 8.3 mg/dL 8.4-10.2 L (test code = 697) EGFR (BEAKER) 116 Interpretatio n of eGFR (test code = mL/min/1.73 values Stage De scription 1092) sq m Result G1 Savannah l or high >=90 G2 Mildly decreased 60-89 G3a Mildl y to moderately 45-5 9 G3b Moderately to s everely 30-44 G4 Severl y decreased 15-29 G5 Kidney failure <15Reported eGF R is based on the CKD-EPI 2020 equation that d oes not use a race coefficientEsti mated GFR is not as accur ate as Creatinine Crystal rivas in predicting glom erular filtration rate . Estimated GFR is not appl icable for dialysis patien ts Supervisor Asphalt Paving ID - LISETH [id number] 04:53:11 Test Item Value Reference Range Interpretation Comments MAGNESIUM (BEAKER) (test code = 1.6 mg/dL 1.6-2.6 627) Supervisor Asphalt Paving ID - LISETH WCBC W/PLT COUNT & AUTO [id number] 04:38:52 Test Item Value Reference Range Interpretation Comments WHITE BLOOD CELL COUNT (BEAKER) 13.0 K/ L 3.5-10.5 H (test code = 775) RED BLOOD CELL COUNT (BEAKER) 3.07 M/ L 4.63-6.08 L (test code = 761) HEMOGLOBIN (BEAKER) (test code = 9.6 GM/DL 13.7-17.5 L 410) HEMATOCRIT (BEAKER) (test code = 28.4 % 40.1-51.0 L 411) MEAN CORPUSCULAR VOLUME (BEAKER) 93 fL 79-92 H (test code = 753) MEAN CORPUSCULAR HEMOGLOBIN 31.3 pg 25.7-32.2 (BEAKER) (test code = 751) MEAN CORPUSCULAR HEMOGLOBIN CONC 33.8 GM/DL 32.3-36.5 (BEAKER) (test code = 752) RED CELL DISTRIBUTION WIDTH 12.8 % 11.6-14.4 (BEAKER) (test code = 412) PLATELET COUNT (BEAKER) (test 307 K/CU MM 150-450 code = 756) MEAN PLATELET VOLUME (BEAKER) 8.7 fL 9.4-12.4 L (test code = 754) NUCLEATED RED BLOOD CELLS 0 /100 WBC 0-0 (BEAKER) (test code = 413) NEUTROPHILS RELATIVE PERCENT 81 % (BEAKER) (test code = 429) LYMPHOCYTES RELATIVE PERCENT 7 % (BEAKER) (test code = 430) MONOCYTES RELATIVE PERCENT 9 % (BEAKER) (test code = 431) EOSINOPHILS RELATIVE PERCENT 3 % (BEAKER) (test code = 432) BASOPHILS RELATIVE PERCENT 1 % (BEAKER) (test code = 437) NEUTROPHILS ABSOLUTE COUNT 10.51 K/ L 1.78-5.38 H (BEAKER) (test code = 670) LYMPHOCYTES ABSOLUTE COUNT 0.85 K/ L 1.32-3.57 L (BEAKER) (test code = 414) MONOCYTES ABSOLUTE COUNT (BEAKER) 1.22 K/ L 0.30-0.82 H (test code = 415) EOSINOPHILS ABSOLUTE COUNT 0.32 K/ L 0.04-0.54 (BEAKER) (test code = 416) BASOPHILS ABSOLUTE COUNT (BEAKER) 0.06 K/ L 0.01-0.08 (test code = 417) IMMATURE GRANULOCYTES-RELATIVE 0.50 % 0.00-1.00 PERCENT (BEAKER) (test code = 2801) POCT-GLUCOSE [id number] 22:47:03 Test Item Value Reference Range Interpretation Comments POC-GLUCOSE METER 84 mg/dL 70-110 : TESTED A T [facility] 6720 ([facility]) (test code = [facility], 1538) [id number]: Supervisor Asphalt Paving/Techni dionte ID = [id number] for Selene Almazan VANCOMYCIN LEVEL, [id number] 22:10:05 Test Item Value Reference Range Interpretation Comments VANCOMYCIN TROUGH (BEAKER) (test 3.5 ug/mL 10.0-20.0 L code = 522) Supervisor Asphalt Paving ID - MMPOCT-GLUCOSE [id number] 18:09:03 Test Item Value Reference Range Interpretation Comments POC-GLUCOSE METER 82 mg/dL 70-110 : TESTED A T [facility] 6720 ([facility]) (test code = [facility], 1538) 03594: Supervisor Asphalt Paving/Techni dionte ID = [id number] for DOROTHY Amaya AdrielAnjelANDREASH FLAQUITO TISSUE [id number] 13:04:20Surgical Pathology Report Case: [id number] Authorizing Provider: Jass Cheatham MD Collected: 301:15 PM Ordering Location: [facility] Received: 12/12/2022 03:18 PM SERVICES Pathologist: Andrea Troy MD Specimen: Ileostomy A. ILEOSTOMY, ILEOSTOMY REVERSAL - BENIGN SKIN AND SMALL BOWELWITH ILEOSTOMY SITE CHANGES. Signing Pathologist Direct Phone Line: [phone] signed by Andrea Troy MD on 12/21/2022 at 1:04 [id number] neoplasm of rectumA. IleostomyReceived in formalin labeled the patient's name, accession number and "ileostomy" is a 9.5 cm in length by 2.5cm in diameter unoriented segment of small bowel with up to 1.0 cm of attached mesenteric fat. The serosa is santana-pink, entirely surfaced by multiple adhesions and displays a 4.0 x 3.0 cm transmural defect with up to 0.5 cm of attached santana skin, which is consistent with an ileostomy site. The ileostomysite displays up to 2.0 cm of exposed, protruding mucosa and is located 2.0 cm from the closest margin (inked blue), and 2.5 cm from the opposing end. The specimen is opened to reveal a santana-pink, erythematous mucosa that displays normal to flattened folds. No discrete lesions are identified. Furnace Converter sections are submitted as follows:Section codeA1: Small bowel margins en face, 1 inked blueA2: Ileostomy sitePilar ZAIDA Beauchamp, HT (ASCP)Performed.POCT-GLUCOSE [id number] 11:30:06 Test Item Value Reference Range Interpretation Comments POC-GLUCOSE METER 85 mg/dL 70-110 : TESTED A T [facility] 6720 (JASSAKER) (test code = [facility], 1538) [id number]: Supervisor Asphalt Paving/Techni dionte ID = [id number] for KRYSTAL Gavin FLAQUITO RAD, ABDOMEN SERIES W/ UPRIGHT PA [id number] 10:23:00Reason for exam:- >Air fluid levels [facility] : 1970 Sex: MFINAL REPORT Acute abdomen series, 3 views: Indication: Air-fluid levels Comparedto 12/20/2022. The frontal erect view of the chest shows no acute cardiopulmonary abnormality. No free air is seen beneath the diaphragms. Supine and erect films of the abdomen again show multiple gas-filled distended small bowel loops in the central and upper abdomen. Differential air-fluid levels are noted on the erect view. There is no significant colonic distention. A nasogastric tube is again present and is noted with its tip projecting in the body of the stomach. Contrast material from recent CT scan is again present in the proximal colon. A urinary catheter is again present. Right lower quadrant epifanio and surgical clips are again noted. The bony structures appear intact. IMPRESSION: Persistent small bowel distention suggesting mid to distal small bowel obstruction, not significantly changed from 12/20/2022. Signed: Lisa Munoz [facility] Verified Date/Time: 12/21/2022 10:23:02 (CELLAVISION MANUAL DIFF) 2022-12-21 09:54:05 Test Item Value Reference Range Interpretation Comments NEUTROPHILS - REL 85 % (CELLAVISION)(BEAKER) (test code = 2816) LYMPHOCYTES - REL 3 % (CELLAVISION)(BEAKER) (test code = 2817) MONOCYTES - REL 4 % (CELLAVISION)(BEAKER) (test code = 2818) EOSINOPHILS - REL 3 % (CELLAVISION)(BEAKER) (test code = 2819) BASOPHILS - REL 2 % (CELLAVISION)(BEAKER) (test code = 2820) BANDS - REL (CELLAVISION)(BEAKER) 3 % 0-10 (test code = 2826) NEUTROPHILS - ABS 14.79 K/ul 1.78-5.38 H (CELLAVISION)(BEAKER) (test code = 2830) LYMPHOCYTES - ABS 0.52 K/ul 1.32-3.57 L (CELLAVISION)(BEAKER) (test code = 2831) MONOCYTES - ABS 0.70 K/uL 0.30-0.82 (CELLAVISION)(BEAKER) (test code = 2832) EOSINOPHILS - ABS 0.52 K/uL 0.04-0.54 (CELLAVISION)(BEAKER) (test code = 2834) BASOPHILS - ABS 0.35 K/uL 0.01-0.08 H (CELLAVISION)(BEAKER) (test code = 2835) BANDS - ABS (CELLAVISION)(BEAKER) 0.52 K/uL 0.00-0.80 (test code = 2840) TOTAL COUNTED (BEAKER) (test code 100 = 1351) WBC MORPHOLOGY (BEAKER) (test code Normal = 487) PLT MORPHOLOGY (BEAKER) (test code Normal = 486) POLYCHROMATOPHILLIC RBCS(BEAKER) 1+ few (test code = 478) ANISOCYTOSIS (BEAKER) (test code = 1+ few 961) MICROCYTES (BEAKER) (test code = 1+ few 965) POIKILOCYTES (BEAKER) (test code = 1+ few 966) CICI CELLS (BEAKER) (test code = 1+ few 474) ARTIFACT (CELLAVISION)(BEAKER) Present (test code = 3432) PLATELET CONCENTRATION Adequate (CELLAVISION)(BEAKER) (test code = 3438) Supervisor Asphalt Paving ID - Jada Neil comments: Slide comments:CBC W/PLT COUNT & AUTO [id number] 09:54:04 Test Item Value Reference Range Interpretation Comments WHITE BLOOD CELL COUNT (BEAKER) 17.4 K/ L 3.5-10.5 H (test code = 775) RED BLOOD CELL COUNT (BEAKER) 3.27 M/ L 4.63-6.08 L (test code = 761) HEMOGLOBIN (BEAKER) (test code = 10.3 GM/DL 13.7-17.5 L 410) HEMATOCRIT (BEAKER) (test code = 30.2 % 40.1-51.0 L 411) MEAN CORPUSCULAR VOLUME (BEAKER) 92 fL 79-92 (test code = 753) MEAN CORPUSCULAR HEMOGLOBIN 31.5 pg 25.7-32.2 (BEAKER) (test code = 751) MEAN CORPUSCULAR HEMOGLOBIN CONC 34.1 GM/DL 32.3-36.5 (BEAKER) (test code = 752) RED CELL DISTRIBUTION WIDTH 12.9 % 11.6-14.4 (BEAKER) (test code = 412) PLATELET COUNT (BEAKER) (test 381 K/CU MM 150-450 code = 756) MEAN PLATELET VOLUME (BEAKER) 9.3 fL 9.4-12.4 L (test code = 754) NUCLEATED RED BLOOD CELLS 0 /100 WBC 0-0 (BEAKER) (test code = 413) [id number] 09:46:10 Test Item Value Reference Range Interpretation Comments MAGNESIUM (BEAKER) (test code = 1.7 mg/dL 1.6-2.6 627) Supervisor Asphalt Paving ID - MMBASIC METABOLIC [id number] 09:46:09 Test Item Value Reference Range Interpretation Comments SODIUM (BEAKER) 136 meq/L 136-145 (test code = 381) POTASSIUM 3.3 meq/L 3.5-5.1 L (BEAKER) (test code = 379) CHLORIDE (BEAKER) 101 meq/L 98-107 (test code = 382) CO2 (BEAKER) 27 meq/L 22-29 (test code = 355) BLOOD UREA 20 mg/dL 7-21 NITROGEN (BEAKER) (test code = 354) CREATININE 0.59 mg/dL 0.57-1.25 (BEAKER) (test code = 358) GLUCOSE RANDOM 90 mg/dL 70-105 (BEAKER) (test code = 652) CALCIUM (BEAKER) 8.6 mg/dL 8.4-10.2 (test code = 697) EGFR (BEAKER) 115 Interpretatio n of eGFR (test code = mL/min/1.73 values Stage De scription 1092) sq m Result G1 Savannah l or high >=90 G2 Mildly decreased 60-89 G3a Mildl y to moderately 45-5 9 G3b Moderately to s everely 30-44 G4 Severl y decreased 15-29 G5 Kidney failure <15Reported eGF R is based on the CKD-EPI 2020 equation that d oes not use a race coefficientEsti mated GFR is not as accur ate as Creatinine Crystal evelyn in predicting glom erular filtration rate . Estimated GFR is not appl icable for dialysis patien ts Supervisor Asphalt Paving ID - MMPOCT-GLUCOSE [id number] 08:46:55 Test Item Value Reference Range Interpretation Comments POC-GLUCOSE METER 84 mg/dL 70-110 : TESTED A T [facility] 6720 (BEAKER) (test code = [facility] [place], 1538) [id number]: Supervisor Asphalt Paving/Techni dionte ID = [id number] for KRYSTAL Gavin HEPATIC FUNCTION [id number] 18:57:22 Test Item Value Reference Range Interpretation Comments TOTAL PROTEIN (BEAKER) (test code = 5.4 gm/dL 6.0-8.3 L 770) ALBUMIN (BEAKER) (test code = 1145) 2.8 g/dL 3.5-5.0 L BILIRUBIN TOTAL (BEAKER) (test code 0.9 mg/dL 0.2-1.2 = 377) BILIRUBIN DIRECT (BEAKER) (test 0.4 mg/dL 0.1-0.5 code = 706) ALKALINE PHOSPHATASE (BEAKER) (test 78 U/L 40-150 code = 346) AST (SGOT) (BEAKER) (test code = 14 U/L 5-34 353) ALT (SGPT) (BEAKER) (test code = 13 U/L 6-55 347) Supervisor Asphalt Paving ID - BSRAD, ABDOMEN SERIES W/ UPRIGHT PA [id number] 17:08:00Reason for exam:->Air fluid levels [facility] : 1970 Sex: MFINAL REPORT TECHNIQUE: Five views for abdominal series including a PA chest. One view of the abdomen INDICATION: Air fluid levels. COMPARISON: Radiographs from earlier the same day. FINDINGS: LINES/TUBES: None. LUNGS: There are diffusely increased interstitial opacities of the lungs. A questionable right lower lung nodule versus nipple shadow measures 0.6 cm PLEURA: No pneumothoraxor significant pleural effusion. HEART AND MEDIASTINUM: The cardiac silhouette is normal in size. SOFT TISSUES AND BONES: A right proximal femoral lesion has a narrow zone of transition and appears nonaggressive. ABDOMEN: There are multiple dilated loops of small bowel with relative paucity of gas in the colon, most consistent with a small bowel obstruction. A catheter overlies the urinary bladder. IMPRESSION: 1.On the most recent abdominal radiograph, the NG tube overlies the gastric body. 2.The fibrotic changes of the lungs are similar prior examinations. A questionable right mid lung nodule is most likely a nipple shadow. Consider a repeat chest radiograph with nipple markers. 3.There is a persistent small bowel obstruction. Signed: Amadou Montoya MDReport Verified Date/Time: 12/20/2022 17:08:13 RAD, ABDOMEN/KUB, 1 VIEW [id number] 17:08:00Please take after nurse withdraws NGT at instructed distanceReason for exam:->NGT movementS[facility]: CE[facility] LUCERO : 1970 Sex: MFINAL REPORT TECHNIQUE: Five views for abdominal series including a PA chest. One view of the abdomen INDICATION: Air fluid levels. COMPARISON: Radiographs from earlier the same day. FINDINGS: LINES/TUBES: None. LUNGS: There are diffusely increased interstitial opacities of the lungs. A questionable right lower lung nodule versus nipple shadow measures 0.6 cm PLEURA: No pneumothoraxor significant pleural effusion. HEART AND MEDIASTINUM: The cardiac silhouette is normal in size. SOFT TISSUES AND BONES: A right proximal femoral lesion has a narrow zone of transition and appears nonaggressive. ABDOMEN: There are multiple dilated loops of small bowel with relative paucity of gas in the colon, most consistent with a small bowel obstruction. A catheter overlies the urinary bladder. IMPRESSION: 1.On the most recent abdominal radiograph, the NG tube overlies the gastric body. 2.The fibrotic changes of the lungs are similar prior examinations. A questionable right mid lung nodule is most likely a nipple shadow. Consider a repeat chest radiograph with nipple markers. 3.There is a persistent small bowel obstruction. Signed: Amadou Montoya MDReport Verified Date/Time: 12/20/2022 17:08:13 C. DIFFICILE GDH [id number] 11:52:23 Test Item Value Reference Range Interpretation Comments CDT TOXIN (test code Negative Negative = [id number]) CDT GDH ANTIGEN (test Negative Negative No ind ication of code = [id number]) Clostridi um difficile infection and n o colonization. Discontinue ent bulmaro isolation and t herapy. Testing performed by [employer] Rapid Cassette Assay. For GDH, published sensitivity of the assay is 98.7% compared to cytotoxicity testing. For Toxin AB, published sensitivity is 87.8% and specificity 99.4% compared to cytotoxicity testing.Verification of kit performance was done by the [facility] prior to clinical use.(CELLAVISION MANUAL DIFF)2022-12-20 07:21:48 Test Item Value Reference Range Interpretation Comments NEUTROPHILS - REL 84 % (CELLAVISION)(BEAKER) (test code = 2816) LYMPHOCYTES - REL 5 % (CELLAVISION)(BEAKER) (test code = 2817) MONOCYTES - REL 8 % (CELLAVISION)(BEAKER) (test code = 2818) EOSINOPHILS - REL 1 % (CELLAVISION)(BEAKER) (test code = 2819) BASOPHILS - REL 1 % (CELLAVISION)(BEAKER) (test code = 2820) MYELOCYTES - REL 1 % 0-0 H (CELLAVISION)(BEAKER) (test code = 2822) NEUTROPHILS - ABS 18.73 K/ul 1.78-5.38 H (CELLAVISION)(BEAKER) (test code = 2830) LYMPHOCYTES - ABS 1.12 K/ul 1.32-3.57 L (CELLAVISION)(BEAKER) (test code = 2831) MONOCYTES - ABS 1.78 K/uL 0.30-0.82 H (CELLAVISION)(BEAKER) (test code = 2832) EOSINOPHILS - ABS 0.22 K/uL 0.04-0.54 (CELLAVISION)(BEAKER) (test code = 2834) BASOPHILS - ABS 0.22 K/uL 0.01-0.08 H (CELLAVISION)(BEAKER) (test code = 2835) MYELOCYTES-ABS 0.22 K/uL 0.00-0.00 H (CELLAVISION)(BEAKER) (test code = 2837) TOTAL COUNTED (BEAKER) (test code 100 = 1351) RBC MORPHOLOGY (BEAKER) (test code Normal = 762) WBC MORPHOLOGY (BEAKER) (test code Normal = 487) GIANT PLATELETS (BEAKER) (test Present code = 313) ARTIFACT (CELLAVISION)(BEAKER) Present (test code = 3432) PLATELET CONCENTRATION Adequate (CELLAVISION)(BEAKER) (test code = 3438) Supervisor Asphalt Paving ID - griselda Rao comments: Slide comments:CBC W/PLT COUNT & AUTO [id number] 07:21:47 Test Item Value Reference Range Interpretation Comments WHITE BLOOD CELL COUNT (BEAKER) 22.3 K/ L 3.5-10.5 H (test code = 775) RED BLOOD CELL COUNT (BEAKER) 3.99 M/ L 4.63-6.08 L (test code = 761) HEMOGLOBIN (BEAKER) (test code = 12.4 GM/DL 13.7-17.5 L 410) HEMATOCRIT (BEAKER) (test code = 35.3 % 40.1-51.0 L 411) MEAN CORPUSCULAR VOLUME (BEAKER) 89 fL 79-92 (test code = 753) MEAN CORPUSCULAR HEMOGLOBIN 31.1 pg 25.7-32.2 (BEAKER) (test code = 751) MEAN CORPUSCULAR HEMOGLOBIN CONC 35.1 GM/DL 32.3-36.5 (BEAKER) (test code = 752) RED CELL DISTRIBUTION WIDTH 12.7 % 11.6-14.4 (BEAKER) (test code = 412) PLATELET COUNT (BEAKER) (test 353 K/CU MM 150-450 code = 756) MEAN PLATELET VOLUME (BEAKER) 9.2 fL 9.4-12.4 L (test code = 754) NUCLEATED RED BLOOD CELLS 0 /100 WBC 0-0 (BEAKER) (test code = 413) COMPREHENSIVE METABOLIC [id number] 05:37:06 Test Item Value Reference Range Interpretation Comments TOTAL PROTEIN 5.7 gm/dL 6.0-8.3 L Specimen sligh tly (BEAKER) (test hemolyzed code = 770) ALBUMIN (BEAKER) 2.9 g/dL 3.5-5.0 L Specimen sl ightly (test code = 1145) hemolyzed ALKALINE 85 U/L 40-150 PHOSPHATASE (BEAKER) (test code = 346) BILIRUBIN TOTAL 1.0 mg/dL 0.2-1.2 Specimen sli ghtly (BEAKER) (test hemolyzed code = 377) SODIUM (BEAKER) 135 meq/L 136-145 L (test code = 381) POTASSIUM (BEAKER) 3.8 meq/L 3.5-5.1 Specimen slightly (test code = 379) hemolyzed CHLORIDE (BEAKER) 102 meq/L 98-107 (test code = 382) CO2 (BEAKER) (test 20 meq/L 22-29 L code = 355) BLOOD UREA 17 mg/dL 7-21 NITROGEN (BEAKER) (test code = 354) CREATININE 0.57 mg/dL 0.57-1.25 Specimen slight ly (BEAKER) (test hemolyzed code = 358) GLUCOSE RANDOM 108 mg/dL 70-105 H (BEAKER) (test code = 652) CALCIUM (BEAKER) 8.8 mg/dL 8.4-10.2 (test code = 697) AST (SGOT) 25 U/L 5-34 Specimen slight ly (BEAKER) (test hemolyzed code = 353) ALT (SGPT) 15 U/L 6-55 Specimen slight ly (BEAKER) (test hemolyzed code = 347) EGFR (SANTIAGO) 116 Interpretatio n of eGFR (test code = 1092) mL/min/1.[address] age Description sq m Result G1 Norm al or high >=90 G2 Mildly decreased 60-89 G3a Mildl y to moderately 45-5 9 G3b Moderately to s everely 30-44 G4 Severl y decreased 15-29 G5 Kidney failure <15Reported eGF R is based on the CKD-EPI 2021 equation that d oes not use a race coefficientEsti mated GFR is not as accur ate as Creatinine Crystal evelyn in predicting glom erular filtration rate . Estimated GFR is not appl icable for dialysis patien ts Supervisor Asphalt Paving ID - mmGI PATHOGEN PROFILE BY [id number] 02:09:47 Test Item Value Reference Range Interpretation Comments CAMPYLOBACTER (PCR) (test code = Not detected Not detected 20160213) PLESIOMONAS SHIGELLOIDES (PCR) Not detected Not detected (test code = 20160217) SALMONELLA (PCR) (test code = Not detected Not detected ) YERSINIA ENTEROCOLITICA (PCR) Not detected Not detected (test code = 20160311) VIBRIO CHOLERAE (PCR) (test code Not detected Not detected = 20160312) ENTEROAGGREGATIVE E. COLI (EAEC) Not detected Not detected BY PCR (test code = 4892070) ENTEROPATHOGENIC E. COLI (EPEC) Not detected Not detected BY PCR (test code = 8572829) ENTEROTOXIGENIC E. COLI (ETEC) Not detected Not detected LT/ST BY PCR (test code = 8191141) SHIGA-LIKE TOXIN-PRODUCING E. Not detected Not detected COLI (STEC) PCR (test code = 2946189) E. COLI O157 (PCR) (test code = 4476501) SHIGELLA/ENTEROINVASIVE E. COLI Not detected Not detected (EIEC) BY PCR (test code = 3466051) CRYPTOSPORIDIUM (PCR) (test code Not detected Not detected = 20160319) CYCLOSPORA CAYETANENSIS (PCR) Not detected Not detected (test code = ) ENTAMOEBA HISTOLYTICA (PCR) Not detected Not detected (test code = 20160411) GIARDIA LAMBLIA (PCR) (test code Not detected Not detected = 20160412) ADENOVIRUS F 40/41 (PCR) (test Not detected Not detected code = 7374605) ASTROVIRUS (PCR) (test code = Not detected Not detected 20160414) NOROVIRUS GI/GII (PCR) (test code = 20160415) ROTAVIRUS A (PCR) (test code = Not detected Not detected 20160416) SAPOVIRUS (I, II, IV, V) BY PCR Not detected Not detected (test code = 4625777) VIBRIO (PARAHAEMOLYTICUS, Not detected Not detected VULNIFICUS) (test code = 5899838) Other viruses, parasites and bacteria not targeted by this PCR panel cannot be excluded; therefore clinical correlation and follow up of serology, culture results, and other molecular studies is required. The results are not intended to be used as the sole means for clinical diagnosis or patient management decisions. This sample was tested at the [facility] using the Aditive Gastrointestinal Panel. It is FDA cleared and has been verified and approved by the [facility] for clinical use. This laboratory is CLIA-certified and College ofAmerican Pathologists (CAP)-accredited to perform high complexity testing.RAD, ABDOMEN SERIES W/ UPRIGHT PA [id number] 21:13:00Reason for exam:->Air [facility] levels[facility] : 1970 Sex: MFINAL REPORT TECHNIQUE: Four views of the abdomen and an upright PA chest INDICATION: Air fluid levels. COMPARISON: CT from 10/19/2022. CT from 09/11/2022 FINDINGS/IMPRESSION: The increased interstitial markings of the lungs are consistent with interstitial pulmonary fibrosis. The heartis normal in size. No pleural effusion or pneumothorax. No acute bone abnormality. There are multiple prominent loops of large and small bowel with air-fluid levels. Overall, this is most concerning for an adynamic ileus, especially given the presence of contrast in the right colon. Continued follow-up radiographs are recommended to document resolution and exclude a partial small bowel obstruction. Acatheter overlies the urinary bladder. Signed: Amadou Montoya MDReport Verified Date/Time: 12/19/2022 21:13:27 (CELLAVISION MANUAL DIFF)2022-12-19 07:29:29 Test Item Value Reference Range Interpretation Comments NEUTROPHILS - REL 89 % (CELLAVISION)(BEAKER) (test code = 2816) LYMPHOCYTES - REL 7 % (CELLAVISION)(BEAKER) (test code = 2817) MONOCYTES - REL 2 % (CELLAVISION)(BEAKER) (test code = 2818) EOSINOPHILS - REL 2 % (CELLAVISION)(BEAKER) (test code = 2819) NEUTROPHILS - ABS 14.51 K/ul 1.78-5.38 H (CELLAVISION)(BEAKER) (test code = 2830) LYMPHOCYTES - ABS 1.14 K/ul 1.32-3.57 L (CELLAVISION)(BEAKER) (test code = 2831) MONOCYTES - ABS 0.33 K/uL 0.30-0.82 (CELLAVISION)(BEAKER) (test code = 2832) EOSINOPHILS - ABS 0.33 K/uL 0.04-0.54 (CELLAVISION)(BEAKER) (test code = 2834) TOTAL COUNTED (BEAKER) (test code 100 = 1351) PLT MORPHOLOGY (BEAKER) (test code Normal = 486) SMUDGE CELLS (BEAKER) (test code = Present 1371) POLYCHROMATOPHILLIC RBCS(BEAKER) 1+ few (test code = 478) ANISOCYTOSIS (BEAKER) (test code = 1+ few 961) MICROCYTES (BEAKER) (test code = 1+ few 965) PLATELET CONCENTRATION Adequate (CELLAVISION)(BEAKER) (test code = 3438) Supervisor Asphalt Paving ID - Keagan Dato-onUser comments: Slide comments:CBC W/PLT COUNT & AUTO [id number] 07:29:28 Test Item Value Reference Range Interpretation Comments WHITE BLOOD CELL COUNT (BEAKER) 16.3 K/ L 3.5-10.5 H (test code = 775) RED BLOOD CELL COUNT (BEAKER) 3.23 M/ L 4.63-6.08 L (test code = 761) HEMOGLOBIN (BEAKER) (test code = 10.1 GM/DL 13.7-17.5 L 410) HEMATOCRIT (BEAKER) (test code = 29.7 % 40.1-51.0 L 411) MEAN CORPUSCULAR VOLUME (BEAKER) 92 fL 79-92 (test code = 753) MEAN CORPUSCULAR HEMOGLOBIN 31.3 pg 25.7-32.2 (BEAKER) (test code = 751) MEAN CORPUSCULAR HEMOGLOBIN CONC 34.0 GM/DL 32.3-36.5 (BEAKER) (test code = 752) RED CELL DISTRIBUTION WIDTH 13.0 % 11.6-14.4 (BEAKER) (test code = 412) PLATELET COUNT (BEAKER) (test 275 K/CU MM 150-450 code = 756) MEAN PLATELET VOLUME (BEAKER) 9.2 fL 9.4-12.4 L (test code = 754) NUCLEATED RED BLOOD CELLS 0 /100 WBC 0-0 (BEAKER) (test code = 413) [id number] 05:15:18 Test Item Value Reference Range Interpretation Comments MAGNESIUM (BEAKER) (test code = 1.7 mg/dL 1.6-2.6 627) Supervisor Asphalt Paving ID - MMBASIC METABOLIC [id number] 05:15:17 Test Item Value Reference Range Interpretation Comments SODIUM (BEAKER) 133 meq/L 136-145 L (test code = 381) POTASSIUM 3.4 meq/L 3.5-5.1 L (BEAKER) (test code = 379) CHLORIDE (BEAKER) 100 meq/L 98-107 (test code = 382) CO2 (BEAKER) 24 meq/L 22-29 (test code = 355) BLOOD UREA 17 mg/dL 7-21 NITROGEN (BEAKER) (test code = 354) CREATININE 0.62 mg/dL 0.57-1.25 (BEAKER) (test code = 358) GLUCOSE RANDOM 87 mg/dL 70-105 (BEAKER) (test code = 652) CALCIUM (SANTIAGO) 9.0 mg/dL 8.4-10.2 (test code = 697) EGFR (SANTIAGO) 114 Interpretatio n of eGFR (test code = mL/min/1.73 values Stage De scription 1092) sq m Result G1 Savannah l or high >=90 G2 Mildly decreased 60-89 G3a Mildl y to moderately 45-5 9 G3b Moderately to s everely 30-44 G4 Severl y decreased 15-29 G5 Kidney failure <15Reported eGF R is based on the CKD-EPI 2020 equation that d oes not use a race coefficientEsti mated GFR is not as accur ate as Creatinine Crystal evelyn in predicting glom erular filtration rate . Estimated GFR is not appl icable for dialysis patien ts Supervisor Asphalt Paving ID - MMCT, [id number] 03:32:00PO and IV contrastUnlisted Reason for Exam - Click Yes and Enter Reason Below->NoProtocol Please Specify:- >Standard ProtocolWill this procedure require oral contrast?->YesPO contrastEMANATE HEALTH/[facility]ENTERName: CELESTINO LUCERO : 1970 Sex: MFINAL REPORT EXAM/TECHNIQUE: CT of the abdomen and pelvis with IV and oral contrast. 3D rendering was not performed. Dose modulation, iterative reconstruction, and/or weight based adjustment of the mA/kV was utilized to reduce the radiation dose to as low as reasonably achievable. INDICATION: Abdominal pain. History of rectal cancer status post low anterior resection, small bowel resection, enteroenterostomy and loop ileostomy takedown 12/12/2022. COMPARISON: CT abdomen pelvis from 06/24/2022. FINDINGS: Lower thorax: No focal consolidation or suspicious pulmonary nodule. The visualized heart is unremarkable. Liver: The main portal vein is patent. No focal mass. Biliary: The gallbladder and intrahepatic and extrahepatic biliary systems are unremarkable. Spleen: Unremarkable. Pancreas: Unremarkable. Adrenals: Unremarkable. Kidneys: Symmetric bilateral nephrograms. No hydronephrosis. Subcentimeter bilateral renal hypoattenuating lesions are too small to characterize. Bowel: Status post low anterior resection with coloanal anastomosis. Mural thickening of the rectum and distal colon. The colon is distended with air. Appendix is normal in appearance. Status post small bowel resection with anastomosis. There is focal small bowel dilatation proximal to the anastomosis. The stomach is unremarkable. Lymph nodes: No lymphadenopathy by size criteria. Mesentery: There is a heterogeneouscollection adjacent to the enteric anastomosis measuring 4.6 x 5.7 cm. In the right mesial rectal fat there is another hematoma measuring 4.6 x 1.6 cm. Ventral skin defect likely represents site of prior ileostomy. Additionally pneumoperitoneum is present. Pelvis: Prostatomegaly may represent benign pr ostatic hyperplasia. Seminal vesicles are unremarkable. Candelario catheter is present within the bladder. Mural thickening of the bladder. Vessels: Unremarkable. Osseous: No acute osseous process. No suspicious osseous lesions. Impression: 1.There is distention of the colon along with several loops of small bowel dilatation proximal to the enteroenterostomy anastomosis, concerning for either small bowel obstruction versus ileus.2.There are two hematoma adjacent to the enteroenterostomy measuring 5.7 x 4.6 cm and 1.6 x 4.6 cm. Additionally, small volume hemoperitoneum is present.3.Inflammatory changes of the rectum and distal colon may be related to surgery, though infection is not excluded.4. Prostatomegaly with findings suggestive of chronic bladder outlet obstruction. Signed: Hector Clarke MDReport Verified Date/Time: 12/19/2022 03:32:21 Electronically signed by: HECTOR CLARKE MD on 303:32 AMURINALYSIS W/ REFLEX URINE [id number] 20:37:47 Test Item Value Reference Range Interpretation Comments COLOR (BEAKER) (test code = 470) Yellow CLARITY (BEAKER) (test code = 469) Hazy SPECIFIC GRAVITY UA (BEAKER) (test 1.034 1.001-1.035 code = 468) PH UA (BEAKER) (test code = 467) 6.0 5.0-8.0 PROTEIN UA (BEAKER) (test code = 100 mg/dL Negative A 464) GLUCOSE UA (BEAKER) (test code = Negative Negative 365) KETONES UA (BEAKER) (test code = 80 mg/dL Negative A 371) BILIRUBIN UA (BEAKER) (test code = Negative Negative 462) BLOOD UA (BEAKER) (test code = 461) Small Negative A NITRITE UA (BEAKER) (test code = Negative Negative 465) LEUKOCYTE ESTERASE UA (BEAKER) Trace Negative A (test code = 466) UROBILINOGEN UA (BEAKER) (test code 2 0.2-1.0 H = 463) RBC UA (BEAKER) (test code = 519) 27 /HPF WBC UA (BEAKER) (test code = 520) 11 /HPF MUCUS (BEAKER) (test code = 1574) Many HYALINE CASTS (BEAKER) (test code = 5 /LPF 514) CALCIUM OXALATE CRYSTALS (BEAKER) Rare (test code = 518) SOURCE(BEAKER) (test code = 2795) Supervisor Asphalt Paving ID - [auto]Supervisor Asphalt Paving ID - techBASIC METABOLIC [id number] 13:51:16 Test Item Value Reference Range Interpretation Comments SODIUM (BEAKER) 135 meq/L 136-145 L (test code = 381) POTASSIUM 3.3 meq/L 3.5-5.1 L Specimen slight ly (BEAKER) (test hemolyzed code = 379) CHLORIDE (BEAKER) 100 meq/L 98-107 (test code = 382) CO2 (BEAKER) 24 meq/L 22-29 (test code = 355) BLOOD UREA 17 mg/dL 7-21 NITROGEN (BEAKER) (test code = 354) CREATININE 0.65 mg/dL 0.57-1.25 Specimen slight ly (BEAKER) (test hemolyzed code = 358) GLUCOSE RANDOM 100 mg/dL 70-105 (BEAKER) (test code = 652) CALCIUM (BEAKER) 10.5 mg/dL 8.4-10.2 H (test code = 697) EGFR (BEAKER) 112 Interpretatio n of eGFR (test code = mL/min/1.73 values Stage De scription 1092) sq m Result G1 Savannah l or high >=90 G2 Mildly decreased 60-89 G3a Mildl y to moderately 45-5 9 G3b Moderately to s everely 30-44 G4 Severl y decreased 15-29 G5 Kidney failure <15Reported eGF R is based on the CKD-EPI 2020 equation that d oes not use a race coefficientEsti mated GFR is not as accur ate as Creatinine Crystal evelyn in predicting glom erular filtration rate . Estimated GFR is not appl icable for dialysis patien ts Supervisor Asphalt Paving ID - JS(CELLAVISION MANUAL DIFF)2022-12-18 13:26:15 Test Item Value Reference Range Interpretation Comments NEUTROPHILS - REL 83 % (CELLAVISION)(BEAKER) (test code = 2816) LYMPHOCYTES - REL 5 % (CELLAVISION)(BEAKER) (test code = 2817) MONOCYTES - REL 8 % (CELLAVISION)(BEAKER) (test code = 2818) MYELOCYTES - REL 1 % 0-0 H (CELLAVISION)(BEAKER) (test code = 2822) BANDS - REL (CELLAVISION)(BEAKER) 3 % 0-10 (test code = 2826) NEUTROPHILS - ABS 13.94 K/ul 1.78-5.38 H (CELLAVISION)(BEAKER) (test code = 2830) LYMPHOCYTES - ABS 0.84 K/ul 1.32-3.57 L (CELLAVISION)(BEAKER) (test code = 2831) MONOCYTES - ABS 1.34 K/uL 0.30-0.82 H (CELLAVISION)(BEAKER) (test code = 2832) MYELOCYTES-ABS 0.17 K/uL 0.00-0.00 H (CELLAVISION)(BEAKER) (test code = 2837) BANDS - ABS (CELLAVISION)(BEAKER) 0.50 K/uL 0.00-0.80 (test code = 2840) TOTAL COUNTED (BEAKER) (test code 100 = 1351) SMUDGE CELLS (BEAKER) (test code = Present 1371) GIANT PLATELETS (BEAKER) (test Present code = 313) POLYCHROMATOPHILLIC RBCS(BEAKER) 3+ many (test code = 478) ANISOCYTOSIS (BEAKER) (test code = 1+ few 961) MICROCYTES (BEAKER) (test code = 1+ few 965) POIKILOCYTES (BEAKER) (test code = 1+ few 966) OVALOCYTES (BEAKER) (test code = 1+ few 477) CICI CELLS (BEAKER) (test code = 1+ few 474) PLATELET CONCENTRATION Adequate (CELLAVISION)(BEAKER) (test code = 3438) Supervisor Asphalt Paving ID - namnguyenUser comments: Slide comments:CBC W/PLT COUNT & AUTO [id number] 13:26:14 Test Item Value Reference Range Interpretation Comments WHITE BLOOD CELL COUNT (BEAKER) 16.8 K/ L 3.5-10.5 H (test code = 775) RED BLOOD CELL COUNT (BEAKER) 3.72 M/ L 4.63-6.08 L (test code = 761) HEMOGLOBIN (BEAKER) (test code = 11.8 GM/DL 13.7-17.5 L 410) HEMATOCRIT (BEAKER) (test code = 34.3 % 40.1-51.0 L 411) MEAN CORPUSCULAR VOLUME (BEAKER) 92 fL 79-92 (test code = 753) MEAN CORPUSCULAR HEMOGLOBIN 31.7 pg 25.7-32.2 (BEAKER) (test code = 751) MEAN CORPUSCULAR HEMOGLOBIN CONC 34.4 GM/DL 32.3-36.5 (BEAKER) (test code = 752) RED CELL DISTRIBUTION WIDTH 13.2 % 11.6-14.4 (BEAKER) (test code = 412) PLATELET COUNT (BEAKER) (test 304 K/CU MM 150-450 code = 756) MEAN PLATELET VOLUME (BEAKER) 8.8 fL 9.4-12.4 L (test code = 754) NUCLEATED RED BLOOD CELLS 0 /100 WBC 0-0 (BEAKER) (test code = 413) BASIC METABOLIC [id number] 04:27:44 Test Item Value Reference Range Interpretation Comments SODIUM (BEAKER) 134 meq/L 136-145 L (test code = 381) POTASSIUM 4.4 meq/L 3.5-5.1 (BEAKER) (test code = 379) CHLORIDE (BEAKER) 103 meq/L 98-107 (test code = 382) CO2 (BEAKER) 21 meq/L 22-29 L (test code = 355) BLOOD UREA 24 mg/dL 7-21 H NITROGEN (BEAKER) (test code = 354) CREATININE 0.86 mg/dL 0.57-1.25 (BEAKER) (test code = 358) GLUCOSE RANDOM 110 mg/dL 70-105 H (BEAKER) (test code = 652) CALCIUM (BEAKER) 9.1 mg/dL 8.4-10.2 (test code = 697) EGFR (BEAKER) 105 Interpretatio n of eGFR (test code = mL/min/1.73 values Stage De scription 1092) sq m Result G1 Savannah l or high >=90 G2 Mildly decreased 60-89 G3a Mildl y to moderately 45-5 9 G3b Moderately to s everely 30-44 G4 Severl y decreased 15-29 G5 Kidney failure <15Reported eGF R is based on the CKD-EPI 2020 equation that d oes not use a race coefficientEsti mated GFR is not as accur ate as Creatinine Crystal evelyn in predicting glom erular filtration rate . Estimated GFR is not appl icable for dialysis patien ts Supervisor Asphalt Paving ID - MMCBC W/PLT COUNT & AUTO [id number] 03:57:58 Test Item Value Reference Range Interpretation Comments WHITE BLOOD CELL COUNT (BEAKER) 22.2 K/ L 3.5-10.5 H (test code = 775) RED BLOOD CELL COUNT (BEAKER) 3.97 M/ L 4.63-6.08 L (test code = 761) HEMOGLOBIN (BEAKER) (test code = 12.6 GM/DL 13.7-17.5 L 410) HEMATOCRIT (BEAKER) (test code = 37.2 % 40.1-51.0 L 411) MEAN CORPUSCULAR VOLUME (BEAKER) 94 fL 79-92 H (test code = 753) MEAN CORPUSCULAR HEMOGLOBIN 31.7 pg 25.7-32.2 (BEAKER) (test code = 751) MEAN CORPUSCULAR HEMOGLOBIN CONC 33.9 GM/DL 32.3-36.5 (BEAKER) (test code = 752) RED CELL DISTRIBUTION WIDTH 12.8 % 11.6-14.4 (BEAKER) (test code = 412) PLATELET COUNT (BEAKER) (test 234 K/CU MM 150-450 code = 756) MEAN PLATELET VOLUME (BEAKER) 9.2 fL 9.4-12.4 L (test code = 754) NUCLEATED RED BLOOD CELLS 0 /100 WBC 0-0 (BEAKER) (test code = 413) NEUTROPHILS RELATIVE PERCENT 89 % (BEAKER) (test code = 429) LYMPHOCYTES RELATIVE PERCENT 4 % (BEAKER) (test code = 430) MONOCYTES RELATIVE PERCENT 7 % (BEAKER) (test code = 431) EOSINOPHILS RELATIVE PERCENT 0 % (BEAKER) (test code = 432) BASOPHILS RELATIVE PERCENT 0 % (BEAKER) (test code = 437) NEUTROPHILS ABSOLUTE COUNT 19.74 K/ L 1.78-5.38 H (BEAKER) (test code = 670) LYMPHOCYTES ABSOLUTE COUNT 0.86 K/ L 1.32-3.57 L (BEAKER) (test code = 414) MONOCYTES ABSOLUTE COUNT (BEAKER) 1.44 K/ L 0.30-0.82 H (test code = 415) EOSINOPHILS ABSOLUTE COUNT 0.00 K/ L 0.04-0.54 L (BEAKER) (test code = 416) BASOPHILS ABSOLUTE COUNT (BEAKER) 0.05 K/ L 0.01-0.08 (test code = 417) IMMATURE GRANULOCYTES-RELATIVE 0.70 % 0.00-1.00 PERCENT (BEAKER) (test code = 2801) BUN AND CREATININE [id number] 11:32:45 Test Item Value Reference Range Interpretation Comments BLOOD UREA 15 mg/dL 7-21 NITROGEN (BEAKER) (test code = 354) CREATININE 0.83 mg/dL 0.57-1.25 (BEAKER) (test code = 358) BUN/CREAT RATIO 18 For a normal individual on (BEAKER) (test a normal diet , the code = reference inter mane for the [id number]) mass ratio rang es between 12:1 and 20:1 ( BUN in mg/dL/creatinin e in mg/dL) EGFR (BEAKER) 106 Interpretatio n of eGFR (test code = mL/min/1.73 values Stage De scription 1092) sq m Result G1 Savannah l or high >=90 G2 Mildly decreased 60-89 G3a Mildl y to moderately 45-5 9 G3b Moderately to s everely 30-44 G4 Severl y decreased 15-29 G5 Kidney failure <15Reported eGF R is based on the CKD-EPI 2020 equation that d oes not use a race coefficientEsti mated GFR is not as accur ate as Creatinine Crystal rivas in predicting glom erular filtration rate . Estimated GFR is not appl icable for dialysis patien ts Supervisor Asphalt Paving ID - [id number] 11:32:05 Test Item Value Reference Range Interpretation Comments SODIUM (BEAKER) (test code = 381) 137 meq/L 136-145 POTASSIUM (BEAKER) (test code = 4.5 meq/L 3.5-5.1 379) CHLORIDE (BEAKER) (test code = 382) 104 meq/L 98-107 CO2 (BEAKER) (test code = 355) 26 meq/L 22-29 Supervisor Asphalt Paving ID - [id number] 11:16:52 Test Item Value Reference Range Interpretation Comments HEMOGLOBIN (BEAKER) (test code = 15.1 GM/DL 13.7-17.5 410) Supervisor Asphalt Paving ID - 6000FL, [id number] 13:19:00Release to patient- >ImmediateWhich [facility] / [facility] radiology location is preferred?->McNairInsuLooxii Company ID = [id number]; Insurance Company Name = [email or web address]; Insurance Company Phone Number = ; Policy Number = [id number] [facility] JAZMINE CELESTINO LEWIS : 1970 Sex: MFINAL REPORT Gastrografin enema HISTORY: Malignant neoplasm of rectum status post ileostomy COMPARISON: CT chest, abdomen, and pelvis performed on 09/11/2022 FINDINGS: Initial fire prevention chief images show a nonobstructive gas pattern. Ileostomy is noted within the right lower quadrant. The visualized lung bases are clear. Subsequently, Gastrografin was administered through a rectal tube. Contrast promptly traverses the entire colon and into the terminal ileum. No contrast extravasation or definitive colonic filling defect is visualized. The colonic caliber appears unremarkable. The descending colon appears deviated medially. Total fluoroscopy time: 1.6 minutes Dose area product: 2580.8 uGy*m\\S \\2 IMPRESSION: Single contrast enema as described above. Signed: Kaiden Shelton MDReport Verified Date/Time: 11/20/2022 13:19:01 [id number] 10:26:24 Test Item Value Reference Range Interpretation Comments TESTOSTERONE LEVEL (test 550 See_Comment U nless Otherwise code = 2986-8) Indicated, Al l Testing Performed At: [facility] [address] Director: Javid Asher M.D. CLIA Number [id number] Cap Accreditation N o. [id number] [Autom ated message] The sy stem which generated this result transmit linsey reference range : 300 - 890 NG/DL. The reference range was not used to interpr et this result as normal/abnormal . [facility] [id number] 13:36:00rectal cancer surveillanceWithin 1-2 weeksRelease to patient->ImmediateWhich [facility] / [facility] radiology location is preferred?->McNairReason for exam:- >rectal cancer surveillanceInsurance Company ID = [id number]; Insurance Company Name = [email or web address]; Insurance Company Phone Number = ;Policy Number = [id number]UC[facility] : 1970 Sex: MFINAL REPORT CT of the Chest, abdomen and pelvis dated 09/11/2022 COMPARISON: June 24, 2022 Clinical information: C20\\S\\Malignant neoplasm of rectum Comment: Axial images of the chest, abdomen, and pelvis were obtained from thoracic inlet to the pubic symphysis with intravenous contrast. This exam was performed according to our departmental dose-optimization program, which includes automated exposure control, adjustment of the mA and/or kV according to patient size and/or use of interactive reconstruction technique. Heart is normal in size. Great vessels are unremarkable. No adenopathy in the mediastinum or perihilar region. Trachea and mainstem bronchi are patent. 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 No nodular, mass lesion, or airspace disease is seen. No pleural effusion or pleural based mass is seen. Liver and spleen are normal in size. No focal lesion is seen in the liver or the spleen. Gallbladder is contracted. No gallstone or biliary dilatation is noted. Pancreas and adrenals are unremarkable. Both kidneys are normal in size and functioning. No hydronephrosis, hydroureter, or urolithiasis is noted. The small and large bowel are suboptimally evaluated secondary to lack of GI contrast. Patient is status post lower anterior resection. An ileostomy is seen in the right mid abdomen. No small large bowel dilatation is present. Appendix is normal in caliber. Prostate is normal in size. The urinary bladder is contracted. No mass, adenopathy or ascites is present in the abdomen or pelvis. Impression: 1. Stable pulmonary parenchyma disease in both upper lobes suggestive of fibrotic changes.2. No metastatic disease in the chest, abdomen, or pelvis.3. Status post lower anterior resection with right mid abdominal ileostomy. Signed: Ubaldo Steele MDReport Verified Date/Time: 09/11/2022 13:36:36 Reading Location: [facility] C013Y CT Body Reading Room CT, [id number] 13:36:00rectal cancer surveillanceWithin 1-2 weeksRelease to patient->ImmediateWhich [facility] / [facility] radiology location is preferred?->McNairReason for exam:->rectal cancer surveillanceInsurance Company ID = [id number]; Insurance Company Name = [email or web address]; Insurance Company Phone Number = ;Policy Number = [id number] [facility] CELEST[facility] LUC[facility] : 1970 Sex: MFINAL REPORT CT of the Chest, abdomen and pelvis dated 09/11/2022 COMPARISON: June 24, 2022 Clinical information: C20\\S\\Malignant neoplasm of rectum Comment: Axial images of the chest, abdomen, and pelvis were obtained from thoracic inlet to the pubic symphysis with intravenous contrast. This exam was performed according to our departmental dose-optimization program, which includes automated exposure control, adjustment of the mA and/or kV according to patient size and/or use of interactive reconstruction technique. Heart is normal in size. Great vessels are unremarkable. No adenopathy in the mediastinum or perihilar region. Trachea and mainstem bronchi are patent. 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 No nodular, mass lesion, or airspace disease is seen. No pleural effusion or pleural based mass is seen. Liver and spleen are normal in size. No focal lesion is seen in the liver or the spleen. Gallbladder is contracted. No gallstone or biliary dilatation is noted. Pancreas and adrenals are unremarkable. Both kidneys are normal in size and functioning. No hydronephrosis, hydroureter, or urolithiasis is noted. The small and large bowel are suboptimally evaluated secondary to lack of GI contrast. Patient is status post lower anterior resection. An ileostomy is seen in the right mid abdomen. No small large bowel dilatation is present. Appendix is normal in caliber. Prostate is normal in size. The urinary bladder is contracted. No mass, adenopathy or ascites is present in the abdomen or pelvis. Impression: 1. Stable pulmonary parenchyma disease in both upper lobes suggestive of fibrotic changes.2. No metastatic disease in the chest, abdomen, or pelvis.3. Status post lower anterior resection with right mid abdominal ileostomy. Signed: Ubaldo Steele MDReport Verified Date/Time: 09/11/2022 13:36:36 Reading Location: [facility] C013Y CT Body Reading Room COMPREHENSIVE METABOLIC [id number] 19:36:20 Test Item Value Reference Range Interpretation Comments GLUCOSE (test code = See_Comment [Autom ated message] 2345-7) The system [employer] generated this result transmitted ref erence range: 70 - 99 MG/DL. The reference r giuseppe was not used to interpret this result as normal/abnor mal. BLOOD UREA NITROGEN See_Comment [Automa linsey message] (test code = 3091-6) The [employer] tem which generated this result transmitted ref erence range: 8 - 23 M G/DL. The reference r giuseppe was not used to interpret this result as normal/abnor mal. CREATININE (test code = See_Comment L [Au tomated message] 2160-0) The system [employer] generated this result transmitted ref erence range: 0.8 - 1. 4 MG/DL. The refe rence range was not u sed to interpret this result as normal/abnor mal. EGFR (test code = See_Comment [Automate d message] 00781-5) The system [employer] generated this result transmitted ref erence range: >60 ML/MIN/1.73. Th e reference range was not used to int erpret this result as normal/abnormal . BUN/CREAT RATIO (test See_Comment [Auto mated message] code = 3097-3) The system [employer] generated this result transmitted ref erence range: 6 - 28 R ATIO. The reference r giuseppe was not used to interpret this result as normal/abnor mal. SODIUM (test code = See_Comment [Automa linsey message] 2951-2) The system [employer] generated this result transmitted ref erence range: 133 - 14 6 MEQ/L. The refe rence range was not u sed to interpret this result as normal/abnor mal. POTASSIUM (test code = See_Comment [Aut omated message] 2823-3) The system [facility] [employer] generated this result transmitted ref erence range: 3.5 - 5. 4 MEQ/L. The refe rence range was not u sed to interpret this result as normal/abnor mal. CHLORIDE (test code = See_Comment [Auto mated message] 2075-0) The system [facility] [employer] generated this result transmitted ref erence range: 100 - 11 2 MEQ/L. The refe rence range was not u sed to interpret this result as normal/abnor mal. CO2 (test code = See_Comment [Automated message] 1963-8) The system [employer] generated this result transmitted ref erence range: 21 - 30 MEQ/L. The reference r giuseppe was not used to interpret this result as normal/abnor mal. CALCIUM (test code = See_Comment [Autom ated message] 14808-8) The system [employer] generated this result transmitted ref erence range: 8.5 - 10 .5 MG/DL. The refe rence range was not u sed to interpret this result as normal/abnor mal. PROTEIN TOTAL (test See_Comment [Automa linsey message] code = 2885-2) The system [employer] generated this result transmitted ref erence range: 6.1 - 8. 1 G/DL. The reference r giuseppe was not used to interpret this result as normal/abnor mal. ALBUMIN (test code = See_Comment [Autom ated message] 30037-4) The system [facility] [employer] generated this result transmitted ref erence range: 3.4 - 4. 8 G/DL. The reference r giuseppe was not used to interpret this result as normal/abnor mal. GLOBULINS, SERUM, TOTAL See_Comment [Au tomated message] (test code = 51271-5) The sy stem which generated this result transmitted ref erence range: 1.9 - 3. 7 G/DL. The reference r giuseppe was not used to interpret this result as normal/abnor mal. A/G RATIO (test code = See_Comment [Aut omated message] 1759-0) The system ic h generated this result transmitted ref erence range: 1.0 - 2. 6 RATIO. The refe rence range was not u sed to interpret this result as normal/abnor mal. BILIRUBIN TOTAL (test See_Comment [Auto mated message] code = 1974-2) The system ich generated this result transmitted ref erence range: <=1.2 MG /DL. The reference r giuseppe was not used to interpret this result as normal/abnor mal. ALKALINE PHOSPHATASE 151 U/L 30-132 H (test code = 6768-6) AST (SGOT) (test code = 27 U/L 7-56 1920-8) ALT (SGPT) (test code = 29 U/L 3-47 CAMERON TING PERFORMED AT 1744-2) [facility], [place], [address]OH[address] [place] [address] CLIA NO. [id number] Unle ss Otherwise Indic ated, All Testing Per formed At: [facility], [address] [place] [address] Laborator y Director: Javid Asher M.D. CLIA Number [id number] Cap [place] o. [id number] Lab Interpretation Abnormal (test code = 38805-2) [facility] [id number] 19:25:23 Test Item Value Reference Range Interpretation Comments COLOR UA (test code = YELLOW YELLOW-STRAW 5778-6) CLARITY UA (test code = CLEAR CLEAR 5767-9) SPECIFIC GRAVITY UA 1.005-1.035 (test code = 5811-5) LEUKOCYTE ESTERASE UA 3+ NEGATIVE A (test code = 5799-2) NITRITE UA (test code = POSITIVE NEGATIVE A 5802-4) PH UA (test code = 5.0-9.0 5803-2) PROTEIN UA (test code = NEGATIVE NEGATIVE 13243-2) GLUCOSE UA (test code = NEGATIVE NEGATIVE 92-7) KETONES UA (test code = NEGATIVE NEGATIVE 97-6) UROBILINOGEN UA (test See_Comment [Auto mated message] code = 29969-9) The system [employer] generated this result transmitted ref erence range: <=2.0 MG /DL. The reference r giuseppe was not used to interpret this result as normal/abnor mal. BILIRUBIN UA (test code NEGATIVE NEGATIVE = 70-3) OCCULT BLOOD UA (test NEGATIVE NEGATIVE code = 76637-7) WBC UA (test code = >50 See_Comment A [Automa linsey message] 07343-3) The system [employer] generated this result transmitted ref erence range: 0 - 5 /H PF. The reference range was not used to int erpret this result as normal/abnormal . RBC UA (test code = See_Comment [Automa linsey message] 05093-9) The system [employer] generated this result transmitted ref erence range: 0 - 5 /H PF. The reference range was not used to int erpret this result as normal/abnormal . EPITHELIAL CELLS (test 0-5 See_Comment [Aut omated message] code = 77083-9) The system [employer] generated this result transmitted ref erence range: 0 - 5 /H PF. The reference range was not used to int erpret this result as normal/abnormal . BACTERIA (test code = 2+ [place] [address]-3) [facility] [place], JOH[address] [place] [address] CLIA NO. [id number] Unle ss Otherwise Indic ated, All Testing Per formed At: [facility], [address] [place] [address] Laborator y Director: Javid Asher M.D. CLIA Number [id number] [place] o. [id number] Lab Interpretation Abnormal (test code = 27777-5) [place] [facility] W/AUTO DIFF WITH [id number] 19:04:59 Test Item Value Reference Range Interpretation Comments WHITE BLOOD CELL COUNT See_Comment H [Aut omated message] (test code = 95543-5) The sy stem which generated this result transmitted ref erence range: 3.5 - 11 .0 K/UL. The refer ence range was not u sed to interpret this result as normal/abnor mal. RED BLOOD CELL COUNT See_Comment L [Autom ated message] (test code = 69783-3) The sy stem which generated this result transmitted ref erence range: 4.50 - 6 .10 M/UL. The refer ence range was not u sed to interpret this result as normal/abnor mal. HEMOGLOBIN (test code = See_Comment L [Au tomated message] 718-7) The system whic h generated this result transmitted ref erence range: 13.5 - 1 7.0 G/DL. The refer ence range was not u sed to interpret this result as normal/abnor mal. HEMATOCRIT (test code = 37.2 % 40.0-51.0 L 86324-3) MEAN CORPUSCULAR VOLUME 96.4 fL 80.0-99.0 (test code = 00005-3) MEAN CORPUSCULAR 32.6 PG 25.0-33.0 HEMOGLOBIN (test code = 93449-5) MEAN CORPUSCULAR See_Comment [Automated message] HEMOGLOBIN CONC (test The sy stem which code = 66284-7) generated th is result transmitted ref erence range: 31.0 - 3 6.0 G/DL. The refer ence range was not u sed to interpret this result as normal/abnor mal. RED CELL DISTRIBUTION 13.2 % 11.5-15.0 WIDTH (test code = 79806-0) NEUTROPHILS % (test code 79 % = 77612-5) LYMPHOCYTES % (test code 9 % = 28134-3) MONOCYTES % (test code = 9 % 17342-9) EOSINOPHILS % (test code 4 % = 23330-0) BASOPHILS % (test code = 0 % 11402-6) PLATELET COUNT (test See_Comment TESTIN G PERFORMED AT code = 14398-6) [facility], I [address]. [address], [address] [place] [address] CLIA NO. [id number] [Aut omated message] The sy stem which generated this result transmit linsey reference range : 130 - 400 K/UL. The reference range was not used to int erpret this result as normal/abnormal . NEUTROPHILS ABSOLUTE See_Comment H [Autom ated message] COUNT (test code = The syste m which 34271-6) generated this result transmitted ref erence range: 1.50 - 7 .50 K/UL. The refer ence range was not u sed to interpret this result as normal/abnor mal. LYMPHOCYTES ABSOLUTE See_Comment [Autom ated message] COUNT (test code = The syste m which 63738-2) generated this result transmitted ref erence range: 1.00 - 4 .00 K/UL. The refer ence range was not u sed to interpret this result as normal/abnor mal. MONOCYTES ABSOLUTE COUNT See_Comment H [A utomated message] (test code = 55232-2) The sy stem which generated this result transmitted ref erence range: 0.20 - 1 .00 K/UL. The refer ence range was not u sed to interpret this result as normal/abnor mal. BASOPHILS ABSOLUTE COUNT See_Comment Un less Otherwise (test code = 52439-4) Indica linsey, All Testing Perform ed At: [facility], [address] [place] [address] Laborator y Director: Javid Asher M.D. CLIA Number [id number] Cap Accreditation N o. [id number] [Autom ated message] The sy stem which generated this result transmit linsey reference range : 0.00 - 0.20 K/UL. Th e reference range was not used to int erpret this result as normal/abnormal . Lab Interpretation (test Abnormal code = 56174-8) [facility] [id number] 15:41:46Surgical Pathology Report Case: [id number] Authorizing Provider: Jass Cheatham MD Collected: 204:32 PM Ordering Location: [facility] Received: 08/01/2022 04:40 PM SERVICES Pathologist: Kelsy Abraham MD Specimens: A) - Rectum, RECTUM, SHOW AND TELL FOR DISTAL MARGIN B) - Soft Tissue, Other, distal donut A. 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 Distal donut, excision - Colonic tissue with no evidence of malignancy Signing Pathologist Direct Phone Line: [phone] signed by Kelsy Abraham MD on 08/14/2022 at 3:41 PMThe specimen was reexamined with additional tissue submitted, and only 9 lymph nodes are identified. At least 12 additional calcified nodule are seen in the fibroadipose tissue, which may represent completely regressed tumor deposit.A small focus of perineural invasion is seen in the levels for A11. Dr. Daniela Whitley reviewed A18 (H&E) and agrees with tumor deposit.COLON AND RECTUM: Resection, Including Transanal Disk Excision of Rectal NeoplasmsCOLON AND RECTUM: RESECTION - All Yiiztzmxz6yq Edition - Protocol posted: 2SPECIMEN Procedure: Low anterior resection Macroscopic Evaluation of Mesorectum: Complete TUMOR Tumor Site: Rectum Rectal Tumor Location: Entirely below anterior peritoneal reflection Histologic Type: Adenocarcinoma Histologic Grade: G2, moderately differentiated Tumor Size: Greatest dimension (Centimeters): 0.1 cm Tumor Extent: Invades intomuscularis propria Macroscopic Tumor Perforation: Not identified Lymphovascular Invasion: Not identified Perineural Invasion: Present Treatment Effect: Present, with single cells or rare small groups of cancer cells (near complete response, score 1) MARGINS Margin Status for Invasive Carcinoma: All margins negative for invasive carcinoma Closest Margin(s) to Invasive Carcinoma: Radial (circumferential) or mesenteric Distance from Invasive Carcinoma to Closest Margin: Greater than 1 cm Distance from Invasive Carcinoma to Radial (Circumferential) Margin: Distance already reported as closest margin Distance from Invasive Carcinoma to Distal Margin: Greater than 1 cm Margin Status for Non-Invasive Tumor: All margins negative for high-grade dysplasia / intramucosal carcinoma and low-grade dysplasia REGIONAL LYMPH NODES Regional Lymph Node Status: : All regional lymph nodes negative for tumor Number of Lymph Nodes Examined: 9 Tumor Deposits: Present Number of Tumor Deposits: 2 DISTANT METASTASIS Distant Site(s) Involved: Cannot be determined PATHOLOGIC STAGE CLASSIFICATION (pTNM, AJCC 8th Edition) Reporting of pT, pN, and (when applicable) pM categories is based on information available to the pathologist at the time the report is issued. As per the AJCC (Chapter 1, 8th Ed.) it is the managing physician's responsibility to establish the final pathologic stage based upon all pertinent information,including but potentially not limited to this pathology report. TNM Descriptors: y (post-treatment) pT Category: pT2 pN Category: pN1c ADDITIONAL FINDINGS Additional Findings: Adenoma(s) 14313, 59336, 35379, 66255Fxs patient is a 52-year-old male with a history of rectal cancer (slides not reviewed) status post chemoradiation.A. Rectum.Received fresh labeled with the patient's name, LJ and designated as "rectum" is a rectum measuring 25.0 cm in length, 6.5 cm in and attached adipose measuring 15.0 x 11.0 x 5.0 cm. Serosal surface is smooth. The mesorectum is complete. On opening the specimen, a 3.5 x 3.2 cm santana-brown ulcerating, semi-circumferential tumor bed in the rectum is seen. The tumor is located below the peritoneal reflection, primarily involving posterior surface with some extension intothe right and left sides. The tumor bed is 0.7 cm in greatest thickness, is 23.5 cm from the proximal margin and 2.0 cm from the distal margin and abuts the dentate/pectinate line. On cross sectioning,the tumor bed abuts the attached fat and is located 0.5 cm from the inked radial margin. There is a 0.5 x 0.5 x 0.5 cm pedunculated polyp measuring 5.0 cm from the proximal margin and 20.0 cm from the distal margin. No other lesions or masses are identified in the remaining mucosa is santana with the normal folds.Multiple lymph nodes are identified within the attached fat, ranging from 0.1 x 0.1 x 0.1 cmto 0.4 x 0.3 x 0.3 cm in the greatest dimension. The cut surface of the largest lymph nodes display santana-white friable material with no appreciable normal-appearing lymph node surface. Furnace Converter sections are submitted as follows:Ink code:Blreb-yzxfbnhtjUjex-wkfqfddqFfo-leftYellow-rightSection code: A1: Nearest distal margin, submitted en faceA2: Furnace Converter section of proximal marginA3- A14: Furnace Converter sections of ulcer (A3-A5, A6-A7, A8-A9, A10-A12, and A13-A14 each represents a slice from proximal to distal)A15: McnsyD14-R58: Two small possible lymph nodes eachA19: One lymph node yzgrglgjT71: Three possible minute lymph bjrmsW98: One medium sized lymph node qdxbincxW70: Three possible lymph jhhihS08: One medium sized lymph node kkltmrqtG09-X37: Multiple small possible lymph nodes eachAdditional sections were submitted after initial microscopic examination:A26-A30: Additional possiblelymph nodesJCB. Soft Tissue, Other.Received in formalin labeled the patient's name, MRN and designated as "distal donut" is a 2.5 x 1.1 x 0.8 cm santana-red donut shaped mucosal specimen. There there is a 2 cm staple line at 1 end. The epifanio are removed that end is inked black. Furnace Converter sections are submitted in cassettes B1.A. Rectum.RECTUM, SHOW AND TELL DISTAL MARGIN:- ULCERATED LESION IDENTIFIED, POSTERIOR 2 CM FROM CLOSEST DISTAL MARGINVerbally reported by Dr. Leonard at 1658 on 08/01/2022.KnownPerformed. VVG and CD31 performed on A18 and A27 showed no lymphovascular space invasion. The interpretation of this case included the use of immunohistochemistry or special stains.Control Slides Examined: In-house known positive controls were evaluated along with the test tissue. These control slides run alongside of the patients sample show appropriate staining. Internal positive and negative controls when available are evaluated Immunohistochemistry technical testing was performed at [facility], Pathology Laboratory where it was developed and its performance characteristics were determined. It has not been cleared or approved by the U.S. Food and Drug Administration. TheFDA has determined that such clearance or approval is not necessary. The test is used for clinical purposes. It should not be regarded as investigational or for research. This laboratory is certified under the Clinical Laboratory Improvement Amendments of 1988 (CLIA-88) as qualified to perform high complexity clinical laboratory testing.[facility], Department of Pathology, [address] [place] [address], [facility], [address] [place] [address], [facility], Department of [facility], [address] [place] [address], WUXQL METABOLIC [id number] 06:16:50 Test Item Value Reference Range Interpretation Comments SODIUM (BEAKER) 136 meq/L 136-145 (test code = 381) POTASSIUM 4.2 meq/L 3.5-5.1 (BEAKER) (test code = 379) CHLORIDE (BEAKER) 103 meq/L 98-107 (test code = 382) CO2 (BEAKER) 25 meq/L 22-29 (test code = 355) BLOOD UREA 12 mg/dL 7-21 NITROGEN (BEAKER) (test code = 354) CREATININE 0.75 mg/dL 0.57-1.25 (BEAKER) (test code = 358) GLUCOSE RANDOM 95 mg/dL 70-105 (BEAKER) (test code = 652) CALCIUM (BEAKER) 9.3 mg/dL 8.4-10.2 (test code = 697) EGFR (BEAKER) 109 Interpretatio n of eGFR (test code = mL/min/1.73 values Stage De scription 1092) sq m Result G1 Savannah l or high >=90 G2 Mildly decreased 60-89 G3a Mildl y to moderately 45-5 9 G3b Moderately to s everely 30-44 G4 Severl y decreased 15-29 G5 Kidney failure <15Reported eGF R is based on the CKD-EPI 2020 equation that d oes not use a race coefficientEsti mated GFR is not as accur ate as Creatinine Crystal rivas in predicting glom erular filtration rate . Estimated GFR is not appl icable for dialysis patien ts Supervisor [employer]phalt Paving ID - LISETH [id number] 06:16:50 Test Item Value Reference Range Interpretation Comments MAGNESIUM (BEAKER) (test code = 2.0 mg/dL 1.6-2.6 627) Supervisor [employer]phalt P[employer] ID - LISETH [id number] 06:16:50 Test Item Value Reference Range Interpretation Comments PHOSPHORUS (BEAKER) (test code = 3.6 mg/dL 2.3-4.7 604) Supervisor Asphalt Paving ID Nasima CHILDERS WCBC (HEMOGRAM ONLY)2022-08-07 05:50:57 Test Item Value Reference Range Interpretation Comments WHITE BLOOD CELL COUNT (BEAKER) 14.2 K/ L 3.5-10.5 H (test code = 775) RED BLOOD CELL COUNT (BEAKER) 3.90 M/ L 4.63-6.08 L (test code = 761) HEMOGLOBIN (BEAKER) (test code = 12.9 GM/DL 13.7-17.5 L 410) HEMATOCRIT (BEAKER) (test code = 36.9 % 40.1-51.0 L 411) MEAN CORPUSCULAR VOLUME (BEAKER) 95 fL 79-92 H (test code = 753) MEAN CORPUSCULAR HEMOGLOBIN 33.1 pg 25.7-32.2 H (BEAKER) (test code = 751) MEAN CORPUSCULAR HEMOGLOBIN CONC 35.0 GM/DL 32.3-36.5 (BEAKER) (test code = 752) RED CELL DISTRIBUTION WIDTH 13.3 % 11.6-14.4 (BEAKER) (test code = 412) PLATELET COUNT (BEAKER) (test 297 K/CU MM 150-450 code = 756) MEAN PLATELET VOLUME (BEAKER) 9.1 fL 9.4-12.4 L (test code = 754) NUCLEATED RED BLOOD CELLS 0 /100 WBC 0-0 (BEAKER) (test code = 413) [id number] 05:26:21 Test Item Value Reference Range Interpretation Comments MAGNESIUM (BEAKER) (test code = 1.8 mg/dL 1.6-2.6 627) Supervisor Asphalt Paving ID - PIAYA [id number] 05:26:21 Test Item Value Reference Range Interpretation Comments PHOSPHORUS (BEAKER) (test code = 3.2 mg/dL 2.3-4.7 604) Supervisor [employer]phalt Paving ID - PIAYA LBASIC METABOLIC [id number] 05:26:20 Test Item Value Reference Range Interpretation Comments SODIUM (BEAKER) 133 meq/L 136-145 L (test code = 381) POTASSIUM 3.7 meq/L 3.5-5.1 (BEAKER) (test code = 379) CHLORIDE (BEAKER) 101 meq/L 98-107 (test code = 382) CO2 (BEAKER) 22 meq/L 22-29 (test code = 355) BLOOD UREA 14 mg/dL 7-21 NITROGEN (BEAKER) (test code = 354) CREATININE 0.64 mg/dL 0.57-1.25 (BEAKER) (test code = 358) GLUCOSE RANDOM 95 mg/dL 70-105 (BEAKER) (test code = 652) CALCIUM (BEAKER) 9.2 mg/dL 8.4-10.2 (test code = 697) EGFR (BEAKER) 113 Interpretatio n of eGFR (test code = mL/min/1.73 values Stage De scription 1092) sq m Result G1 Savannah l or high >=90 G2 Mildly decreased 60-89 G3a Mildl y to moderately 45-5 9 G3b Moderately to s everely 30-44 G4 Severl y decreased 15-29 G5 Kidney failure <15Reported eGF R is based on the CKD-EPI 2020 equation that d oes not use a race coefficientEsti mated GFR is not as accur ate as Creatinine Crystal evelyn in predicting glom erular filtration rate . Estimated GFR is not appl icable for dialysis patien ts Supervisor Asphalt Paving ID - PIAYA LCBC (HEMOGRAM ONLY)2022-08-06 04:41:24 Test Item Value Reference Range Interpretation Comments WHITE BLOOD CELL COUNT (BEAKER) 14.7 K/ L 3.5-10.5 H (test code = 775) RED BLOOD CELL COUNT (BEAKER) 3.69 M/ L 4.63-6.08 L (test code = 761) HEMOGLOBIN (BEAKER) (test code = 12.3 GM/DL 13.7-17.5 L 410) HEMATOCRIT (BEAKER) (test code = 35.3 % 40.1-51.0 L 411) MEAN CORPUSCULAR VOLUME (BEAKER) 96 fL 79-92 H (test code = 753) MEAN CORPUSCULAR HEMOGLOBIN 33.3 pg 25.7-32.2 H (BEAKER) (test code = 751) MEAN CORPUSCULAR HEMOGLOBIN CONC 34.8 GM/DL 32.3-36.5 (BEAKER) (test code = 752) RED CELL DISTRIBUTION WIDTH 13.2 % 11.6-14.4 (BEAKER) (test code = 412) PLATELET COUNT (BEAKER) (test 259 K/CU MM 150-450 code = 756) MEAN PLATELET VOLUME (BEAKER) 9.0 fL 9.4-12.4 L (test code = 754) NUCLEATED RED BLOOD CELLS 0 /100 WBC 0-0 (BEAKER) (test code = 413) URINALYSIS W/ REFLEX URINE [id number] 22:37:51 Test Item Value Reference Range Interpretation Comments COLOR (BEAKER) (test code = 470) Yellow CLARITY (BEAKER) (test code = 469) Hazy SPECIFIC GRAVITY UA (BEAKER) (test 1.021 1.001-1.035 code = 468) PH UA (BEAKER) (test code = 467) 7.0 5.0-8.0 PROTEIN UA (BEAKER) (test code = 50 mg/dL Negative A 464) GLUCOSE UA (BEAKER) (test code = Negative Negative 365) KETONES UA (BEAKER) (test code = Trace Negative A 371) BILIRUBIN UA (BEAKER) (test code = Negative Negative 462) BLOOD UA (BEAKER) (test code = 461) Trace Negative A NITRITE UA (BEAKER) (test code = Negative Negative 465) LEUKOCYTE ESTERASE UA (BEAKER) (test Moderate Negative A code = 466) UROBILINOGEN UA (BEAKER) (test code 0.2 0.2-1.0 = 463) RBC UA (BEAKER) (test code = 519) 1 /HPF WBC UA (BEAKER) (test code = 520) 5 /HPF MUCUS (BEAKER) (test code = 1574) Few SQUAMOUS EPITHELIAL (BEAKER) (test 1 /HPF code = 516) AMORPHOUS CRYSTALS (BEAKER) (test Few code = 1584) SOURCE(BEAKER) (test code = 2795) Supervisor [employer]phalt Paving ID - [auto]Supervisor Asphalt Paving ID - techBASIC METABOLIC [id number] 07:11:03 Test Item Value Reference Range Interpretation Comments SODIUM (BEAKER) 135 meq/L 136-145 L (test code = 381) POTASSIUM 3.6 meq/L 3.5-5.1 (BEAKER) (test code = 379) CHLORIDE (BEAKER) 103 meq/L 98-107 (test code = 382) CO2 (BEAKER) 19 meq/L 22-29 L (test code = 355) BLOOD UREA 14 mg/dL 7-21 NITROGEN (BEAKER) (test code = 354) CREATININE 0.61 mg/dL 0.57-1.25 (BEAKER) (test code = 358) GLUCOSE RANDOM 88 mg/dL 70-105 (BEAKER) (test code = 652) CALCIUM (BEAKER) 9.3 mg/dL 8.4-10.2 (test code = 697) EGFR (BEAKER) 114 Interpretatio n of eGFR (test code = mL/min/1.73 values Stage De scription 1092) sq m Result G1 Savannah l or high >=90 G2 Mildly decreased 60-89 G3a Mildl y to moderately 45-5 9 G3b Moderately to s everely 30-44 G4 Severl y decreased 15-29 G5 Kidney failure <15Reported eGF R is based on the CKD-EPI 2020 equation that d oes not use a race coefficientEsti mated GFR is not as accur ate as Creatinine Crystal evelyn in predicting glom erular filtration rate . Estimated GFR is not appl icable for dialysis patien ts Supervisor [employer]phalt P[employer] ID - LISETH [id number] 07:11:03 Test Item Value Reference Range Interpretation Comments MAGNESIUM (BEAKER) (test code = 1.9 mg/dL 1.6-2.6 627) Supervisor [employer]phalt Paving ID - LISETH [id number] 07:11:03 Test Item Value Reference Range Interpretation Comments PHOSPHORUS (BEAKER) (test code = 3.2 mg/dL 2.3-4.7 604) Supervisor Asphalt Paving ID Nasima CHILDERS WCBC (HEMOGRAM ONLY)2022-08-05 04:53:04 Test Item Value Reference Range Interpretation Comments WHITE BLOOD CELL COUNT (BEAKER) 15.1 K/ L 3.5-10.5 H (test code = 775) RED BLOOD CELL COUNT (BEAKER) 3.98 M/ L 4.63-6.08 L (test code = 761) HEMOGLOBIN (BEAKER) (test code = 13.0 GM/DL 13.7-17.5 L 410) HEMATOCRIT (BEAKER) (test code = 37.9 % 40.1-51.0 L 411) MEAN CORPUSCULAR VOLUME (BEAKER) 95 fL 79-92 H (test code = 753) MEAN CORPUSCULAR HEMOGLOBIN 32.7 pg 25.7-32.2 H (BEAKER) (test code = 751) MEAN CORPUSCULAR HEMOGLOBIN CONC 34.3 GM/DL 32.3-36.5 (BEAKER) (test code = 752) RED CELL DISTRIBUTION WIDTH 13.2 % 11.6-14.4 (BEAKER) (test code = 412) PLATELET COUNT (BEAKER) (test 220 K/CU MM 150-450 code = 756) MEAN PLATELET VOLUME (BEAKER) 10.5 fL 9.4-12.4 (test code = 754) NUCLEATED RED BLOOD CELLS 0 /100 WBC 0-0 (BEAKER) (test code = 413) BASIC METABOLIC [id number] 11:18:45 Test Item Value Reference Range Interpretation Comments SODIUM (BEAKER) 134 meq/L 136-145 L (test code = 381) POTASSIUM 4.2 meq/L 3.5-5.1 Specimen slight ly (BEAKER) (test hemolyzed code = 379) CHLORIDE (BEAKER) 99 meq/L 98-107 (test code = 382) CO2 (BEAKER) 25 meq/L 22-29 (test code = 355) BLOOD UREA 18 mg/dL 7-21 NITROGEN (BEAKER) (test code = 354) CREATININE 0.68 mg/dL 0.57-1.25 Specimen slight ly (BEAKER) (test hemolyzed code = 358) GLUCOSE RANDOM 116 mg/dL 70-105 H (BEAKER) (test code = 652) CALCIUM (BEAKER) 10.1 mg/dL 8.4-10.2 (test code = 697) EGFR (BEAKER) 111 Interpretatio n of eGFR (test code = mL/min/1.73 values Stage De scription 1092) sq m Result G1 Savannah l or high >=90 G2 Mildly decreased 60-89 G3a Mildl y to moderately 45-5 9 G3b Moderately to s everely 30-44 G4 Severl y decreased 15-29 G5 Kidney failure <15Reported eGF R is based on the CKD-EPI 202 equation that d oes not use a race coefficientEsti mated GFR is not as accur ate as Creatinine Crystal evelyn in predicting glom erular filtration rate . Estimated GFR is not appl icable for dialysis patien ts Supervisor [employer]phalt Paving ID - [id number] 11:16:58 Test Item Value Reference Range Interpretation Comments MAGNESIUM (BEAKER) 1.8 mg/dL 1.6-2.6 Specimen slightly (test code = 627) hemolyzed Supervisor [employer]phalt Paving ID - [id number] 11:16:58 Test Item Value Reference Range Interpretation Comments PHOSPHORUS (BEAKER) 3.4 mg/dL 2.3-4.7 Specimen slightly (test code = 604) hemolyzed Supervisor [employer]phalt Paving ID - MITCHCBC (HEMOGRAM ONLY)2022-08-04 10:48:58 Test Item Value Reference Range Interpretation Comments WHITE BLOOD CELL COUNT (BEAKER) 13.6 K/ L 3.5-10.5 H (test code = 775) RED BLOOD CELL COUNT (BEAKER) 4.32 M/ L 4.63-6.08 L (test code = 761) HEMOGLOBIN (BEAKER) (test code = 14.3 GM/DL 13.7-17.5 410) HEMATOCRIT (BEAKER) (test code = 41.4 % 40.1-51.0 411) MEAN CORPUSCULAR VOLUME (BEAKER) 96 fL 79-92 H (test code = 753) MEAN CORPUSCULAR HEMOGLOBIN 33.1 pg 25.7-32.2 H (BEAKER) (test code = 751) MEAN CORPUSCULAR HEMOGLOBIN CONC 34.5 GM/DL 32.3-36.5 (BEAKER) (test code = 752) RED CELL DISTRIBUTION WIDTH 13.2 % 11.6-14.4 (BEAKER) (test code = 412) PLATELET COUNT (BEAKER) (test 253 K/CU MM 150-450 code = 756) MEAN PLATELET VOLUME (BEAKER) 8.9 fL 9.4-12.4 L (test code = 754) NUCLEATED RED BLOOD CELLS 0 /100 WBC 0-0 (BEAKER) (test code = 413) (CELLAVISION MANUAL DIFF)2022-08-01 20:31:54 Test Item Value Reference Range Interpretation Comments NEUTROPHILS - REL 85 % (CELLAVISION)(BEAKER) (test code = 2816) LYMPHOCYTES - REL 4 % (CELLAVISION)(BEAKER) (test code = 2817) MONOCYTES - REL 4 % (CELLAVISION)(BEAKER) (test code = 2818) BANDS - REL (CELLAVISION)(BEAKER) 7 % 0-10 (test code = 2826) NEUTROPHILS - ABS 20.49 K/ul 1.78-5.38 H (CELLAVISION)(BEAKER) (test code = 2830) LYMPHOCYTES - ABS 0.96 K/ul 1.32-3.57 L (CELLAVISION)(BEAKER) (test code = 2831) MONOCYTES - ABS 0.96 K/uL 0.30-0.82 H (CELLAVISION)(BEAKER) (test code = 2832) BANDS - ABS (CELLAVISION)(BEAKER) 1.69 K/uL 0.00-0.80 H (test code = 2840) TOTAL COUNTED (BEAKER) (test code 100 = 1351) WBC MORPHOLOGY (BEAKER) (test code Normal = 487) PLT MORPHOLOGY (BEAKER) (test code Normal = 486) POIKILOCYTES (BEAKER) (test code = 3+ many 966) ARTIFACT (CELLAVISION)(BEAKER) Present (test code = 3432) PLATELET CONCENTRATION Adequate (CELLAVISION)(BEAKER) (test code = 3438) Supervisor Asphalt Paving ID - marlon Quintero comments: Slide comments:CBC W/PLT COUNT & AUTO [id number] 20:31:48 Test Item Value Reference Range Interpretation Comments WHITE BLOOD CELL COUNT (BEAKER) 24.1 K/ L 3.5-10.5 H (test code = 775) RED BLOOD CELL COUNT (BEAKER) 4.20 M/ L 4.63-6.08 L (test code = 761) HEMOGLOBIN (BEAKER) (test code = 13.8 GM/DL 13.7-17.5 410) HEMATOCRIT (BEAKER) (test code = 41.1 % 40.1-51.0 411) MEAN CORPUSCULAR VOLUME (BEAKER) 98 fL 79-92 H (test code = 753) MEAN CORPUSCULAR HEMOGLOBIN 32.9 pg 25.7-32.2 H (BEAKER) (test code = 751) MEAN CORPUSCULAR HEMOGLOBIN CONC 33.6 GM/DL 32.3-36.5 (BEAKER) (test code = 752) RED CELL DISTRIBUTION WIDTH 13.9 % 11.6-14.4 (BEAKER) (test code = 412) PLATELET COUNT (BEAKER) (test 254 K/CU MM 150-450 code = 756) MEAN PLATELET VOLUME (BEAKER) 8.9 fL 9.4-12.4 L (test code = 754) NUCLEATED RED BLOOD CELLS 0 /100 WBC 0-0 (BEAKER) (test code = 413) BASIC METABOLIC [id number] 19:54:16 Test Item Value Reference Range Interpretation Comments SODIUM (BEAKER) 137 meq/L 136-145 (test code = 381) POTASSIUM 4.0 meq/L 3.5-5.1 (BEAKER) (test code = 379) CHLORIDE (BEAKER) 107 meq/L 98-107 (test code = 382) CO2 (BEAKER) 21 meq/L 22-29 L (test code = 355) BLOOD UREA 19 mg/dL 7-21 NITROGEN (BEAKER) (test code = 354) CREATININE 0.72 mg/dL 0.57-1.25 (BEAKER) (test code = 358) GLUCOSE RANDOM 189 mg/dL 70-105 H (BEAKER) (test code = 652) CALCIUM (BEAKER) 8.4 mg/dL 8.4-10.2 (test code = 697) EGFR (BEAKER) 110 Interpretatio n of eGFR (test code = mL/min/1.73 values Stage D escription 1092) sq m Result G1 Savannah l or high >=90 G2 Mildly decreased 60-89 G3a Mildl y to moderately 45-5 9 G3b Moderately to s everely 30-44 G4 Severl y decreased 15-29 G5 Kidney failure <15Reported eGF R is based on the CKD-EPI 2020 equation that d oes not use a race coefficientEsti mated GFR is not as accur ate as Creatinine Crystal evleyn in predicting glom erular filtration rate . Estimated GFR is not appl icable for dialysis patien ts Supervisor Asphalt Paving ID - [id number] 19:54:16 Test Item Value Reference Range Interpretation Comments MAGNESIUM (BEAKER) (test code = 1.6 mg/dL 1.6-2.6 627) Supervisor [employer]phalt Paving ID - [id number] 19:54:16 Test Item Value Reference Range Interpretation Comments PHOSPHORUS (BEAKER) (test code = 4.2 mg/dL 2.3-4.7 604) Supervisor [employer]phalt P[employer] ID - [id number] 11:13:39 Test Item Value Reference Interpretation Comments Range CEA (test code See_Commen H In otherwise healthy smokers, 95% = 2039-6) t of patients fal l in the rangeof 0.0-5.5 ng/mL. NOTE: Methodology is Darius Jf Electrochemilum inescenceImmunoassay (ECLIA). Unless Otherwise Indicated, All Testing Per formed At: [facility], [address] [place] [address] Wiener Packer: Javid Asher M.D. CLIA Number [id number] Cap Accreditation [place] o. [id number] [Automated mess age] The system which generated this result transmitted reference range : <=3.8 NG/ML. The reference range was not used to interpret this result as normal/abnormal . Lab Abnormal Interpretation (test code = 70719-4) [facility] Test Item Value Reference Range Interpretation Comments PSA (test code See_Comment NOTE: Method ology is Darius Jf = 43123-2) Electrochemilum inescence Immunoassay tra ceable to WHO reference stand belkys 96/760. Unless Otherwise Indic ated, All Testing Performed At: [facility], [address] [id number] Wiener Packer: Javid Asher M.D. CLIA Number [id number] Cap Accreditation N o. [id number] [Automated mess age] The system which generated this result transmitted ref erence range: <=4.00 NG/ML. T he reference range was not used to interpret this result as savannah l/abnormal. [facility] [id number] 20:25:45 Test Item Value Reference Range Interpretation Comments GLUCOSE (test code = See_Comment H [Autom ated message] 2345-7) The system whic h generated this result transmitted ref erence range: 70 - 99 MG/DL. The reference r giuseppe was not used to interpret this result as normal/abnor mal. BLOOD UREA NITROGEN See_Comment [Automa linsey message] (test code = 3091-6) The sys tem which generated this result transmitted ref erence range: 8 - 23 M G/DL. The reference r giuseppe was not used to interpret this result as normal/abnor mal. CREATININE (test code = See_Comment L [Au tomated message] 2160-0) The system [employer] generated this result transmitted ref erence range: 0.8 - 1. 4 MG/DL. The refe rence range was not u sed to interpret this result as normal/abnor mal. EGFR (test code = See_Comment [Automate d message] 53618-5) The system [facility] generated this result transmitted ref erence range: >60 ML/MIN/1.73. Th e reference range was not used to int erpret this result as normal/abnormal . BUN/CREAT RATIO (test See_Comment [Auto mated message] code = 3097-3) The system [facility] generated this result transmitted ref erence range: 6 - 28 R ATIO. The reference r giuseppe was not used to interpret this result as normal/abnor mal. SODIUM (test code = See_Comment [Automa linsey message] 4601-2) The system [employer] generated this result transmitted ref erence range: 133 - 14 6 MEQ/L. The refe rence range was not u sed to interpret this result as normal/abnor mal. POTASSIUM (test code = See_Comment H [Aut omated message] 9935-3) The system [employer] generated this result transmitted ref erence range: 3.5 - 5. 4 MEQ/L. The refe rence range was not u sed to interpret this result as normal/abnor mal. CHLORIDE (test code = See_Comment [Auto mated message] 9775-0) The system [facility] [employer] generated this result transmitted ref erence range: 100 - 11 2 MEQ/L. The refe rence range was not u sed to interpret this result as normal/abnor mal. CO2 (test code = See_Comment [Automated message] 1962-8) The system [employer] generated this result transmitted ref erence range: 21 - 30 MEQ/L. The reference r giuseppe was not used to interpret this result as normal/abnor mal. CALCIUM (test code = See_Comment [Autom ated message] 92817-6) The system [facility] [employer] generated this result transmitted ref erence range: 8.5 - 10 .5 MG/DL. The refe rence range was not u sed to interpret this result as normal/abnor mal. PROTEIN TOTAL (test See_Comment [Automa linsey message] code = 2885-2) The system [facility] generated this result transmitted ref erence range: 6.1 - 8. 1 G/DL. The reference r giuseppe was not used to interpret this result as normal/abnor mal. ALBUMIN (test code = See_Comment [Autom ated message] 64950-5) The system [facility] generated this result transmitted ref erence range: 3.4 - 4. 8 G/DL. The reference r giuseppe was not used to interpret this result as normal/abnor mal. GLOBULINS, SERUM, TOTAL See_Comment [Au tomated message] (test code = 55069-8) The sy stem which generated this result transmitted ref erence range: 1.9 - 3. 7 G/DL. The reference r giuseppe was not used to interpret this result as normal/abnor mal. A/G RATIO (test code = See_Comment [Aut omated message] 1759-0) The system [facility] generated this result transmitted ref erence range: 1.0 - 2. 6 RATIO. The refe rence range was not u sed to interpret this result as normal/abnor mal. BILIRUBIN TOTAL (test See_Comment [Auto mated message] code = 1975-2) The system [facility] generated this result transmitted ref erence range: <=1.2 MG /DL. The reference r giuseppe was not used to interpret this result as normal/abnor mal. ALKALINE PHOSPHATASE 172 U/L 30-132 H (test code = 6768-6) AST (SGOT) (test code = 29 U/L 7-56 1920-8) ALT (SGPT) (test code = 19 U/L 3-47 CAMERON TING PERFORMED AT 1744-2) [facility] [place], [address] [place] [address] CLIA NO. [id number] Unle ss Otherwise Indic ated, All Testing Per formed At: [facility], [address] [place] [address] Laborator y Director: Javid Asher M.D. CLIA Number [id number] Cap Accreditation [place] o. [id number] Lab Interpretation Abnormal (test code = 84908-8) [place] [facility] W/AUTO DIFF WITH [id number] 19:46:02 Test Item Value Reference Range Interpretation Comments WHITE BLOOD CELL COUNT See_Comment H [Aut omated message] (test code = 28698-3) The sy stem which generated this result transmitted ref erence range: 3.5 - 11 .0 K/UL. The refer ence range was not u sed to interpret this result as normal/abnor mal. RED BLOOD CELL COUNT See_Comment L [Autom ated message] (test code = 91563-1) The sy stem which generated this result transmitted ref erence range: 4.50 - 6 .10 M/UL. The refer ence range was not u sed to interpret this result as normal/abnor mal. HEMOGLOBIN (test code = See_Comment [Au tomated message] 718-7) The system whic h generated this result transmitted ref erence range: 13.5 - 1 7.0 G/DL. The refer ence range was not u sed to interpret this result as normal/abnor mal. HEMATOCRIT (test code = 39.0 % 40.0-51.0 L 17473-2) MEAN CORPUSCULAR VOLUME 96.3 fL 80.0-99.0 (test code = 47220-2) MEAN CORPUSCULAR 34.6 PG 25.0-33.0 H HEMOGLOBIN (test code = 99491-6) MEAN CORPUSCULAR See_Comment [Automated message] HEMOGLOBIN CONC (test The sy stem which code = 09246-1) generated th is result transmitted ref erence range: 31.0 - 3 6.0 G/DL. The refer ence range was not u sed to interpret this result as normal/abnor mal. RED CELL DISTRIBUTION 15.3 % 11.5-15.0 H WIDTH (test code = 26097-8) NEUTROPHILS % (test code 78 % = 01411-0) LYMPHOCYTES % (test code 7 % = 88364-0) MONOCYTES % (test code = 8 % 34137-6) EOSINOPHILS % (test code 8 % = 77729-9) BASOPHILS % (test code = 0 % 26131-9) PLATELET COUNT (test See_Comment TESTIN G PERFORMED AT code = 54254-9) [facility] [place], [address] [place] [address] CLIA NO. [id number] [Aut omated message] The sy stem which generated this result transmit linsey reference range : 130 - 400 K/UL. The reference range was not used to int erpret this result as normal/abnormal . NEUTROPHILS ABSOLUTE See_Comment H [Autom ated message] COUNT (test code = The syste m which 32952-5) generated this result transmitted ref erence range: 1.50 - 7 .50 K/UL. The refer ence range was not u sed to interpret this result as normal/abnor mal. LYMPHOCYTES ABSOLUTE See_Comment L [Autom ated message] COUNT (test code = The syste m which 78595-2) generated this result transmitted ref erence range: 1.00 - 4 .00 K/UL. The refer ence range was not u sed to interpret this result as normal/abnor mal. MONOCYTES ABSOLUTE COUNT See_Comment [A utomated message] (test code = 89260-3) The sy stem which generated this result transmitted ref erence range: 0.20 - 1 .00 K/UL. The refer ence range was not u sed to interpret this result as normal/abnor mal. BASOPHILS ABSOLUTE COUNT See_Comment H Un less Otherwise (test code = 00984-5) Indica linsey, All Testing Perform ed At: [facility], [address] [place] [address] Laborator y Director: Javid Asher M.D. CLIA Number [id number] Cap Accreditation N o. [id number] [Autom ated message] The sy stem which generated this result transmit linsey reference range : 0.00 - 0.20 K/UL. Th e reference range was not used to int erpret this result as normal/abnormal . Lab Interpretation (test Abnormal code = 87218-1) [facility] W/REFLEX TO [id number] 08:31:52 Test Item Value Reference Range Interpretation Comments COLOR UA (test code = YELLOW YELLOW-STRAW 5778-6) CLARITY UA (test code = CLEAR CLEAR 5767-9) SPECIFIC GRAVITY UA 1.005-1.035 (test code = 5811-5) LEUKOCYTE ESTERASE UA NEGATIVE NEGATIVE (test code = 5799-2) NITRITE UA (test code = NEGATIVE NEGATIVE 5802-4) PH UA (test code = 5.0-9.0 5803-2) PROTEIN UA (test code = NEGATIVE NEGATIVE 48622-6) GLUCOSE UA (test code = NEGATIVE NEGATIVE 5792-7) KETONES UA (test code = NEGATIVE NEGATIVE 5797-6) UROBILINOGEN UA (test See_Comment [Auto mated message] code = 42735-6) The system [employer] generated this result transmitted ref erence range: <=2.0 MG /DL. The reference r giuseppe was not used to interpret this result as normal/abnor mal. BILIRUBIN UA (test code NEGATIVE NEGATIVE = 5770-3) OCCULT BLOOD UA (test NEGATIVE NEGATIVE code = 84122-2) WBC UA (test code = 0-5 See_Comment [Automa linsey message] 41847-6) The system [employer] generated this result transmitted ref erence range: 0 - 5 /H PF. The reference r giuseppe was not used to interpret this result as normal/abnor mal. RBC UA (test code = 0-2 See_Comment [Automa linsey message] 77620-3) The system [employer] generated this result transmitted ref erence range: 0 - 5 /H PF. The reference r giuseppe was not used to interpret this result as normal/abnor mal. EPITHELIAL CELLS (test 0-5 See_Comment [Aut omated message] code = 60784-2) The system [employer] generated this result transmitted ref erence range: 0 - 5 /H PF. The reference r giuseppe was not used to interpret this result as normal/abnor mal. BACTERIA (test code = NONE SEEN NONE SEEN 76200-1) CRYSTALS (test code = PRESENT NONE SEEN A CALC IUM OXALATE 5782-8) CRYSTALS HYALINE CASTS (test NONE SEEN NONE-TRACE Unless Otherwise code = 38912-1) Indicated, A ll Testing Perform ed At: [facility], [address] [place] [address] Laborator y Director: Javid Asher M.D. CLIA Number [id number] Cap Accreditation N o. [id number] Lab Interpretation Abnormal (test code = 03254-7) [facility]-VO[facility] RES,US,[id number] 00:00:00 Test Item Value Reference Range Interpretation Comments PVR (test code = 6116) cc/ml [facility] HospitalUllkzduvMWHF-[id number] 13:26:44 Test Item Value Reference Range Interpretation Comments POC-CREATININ 0.7 mg/dL 0.6-1.3 : TESTED AT [facility] [address] (BEAKER) [address], [place] [address]: (test code = Supervisor Asphalt Paving/Techni dionte ID = [id number]) [id number] for Aust in, Maria Guadalupe POC-EGFR 110 Interpretation of eGFR (JASSAKER) mL/min/1.73M2 Values Stage D escription (test code = Result G1 Savannah l or high 1860) >=90 G2 Mildly decreased 60-89 G3a Mildl y to moderately 45-5 9 G3b Moderately to s tra 30-44 G4 Severely dec reased 15-29 G5 Kidney Failu re <15Reported eGF R is based on the CKD-EPI 202 1 equation that does not u se a race coefficientEsti mated GFR is not as accurate as Creatinine Crystal evelyn in predicting glom erular filtration rate . Estimated GFR is not appl icable for dialysis patien ts MR, PELVIS, [id number] 10:43:00Rectal cancer staging on neoadjuvant tx (comparison will have to be to 11/2021 CT scan) Rectal cancerstaging on neoadjuvant tx (comparison will have to be to 11/2021 CT scan) Unlisted Reason for Exam - Click Yes and Enter Reason Below->Yes Unlisted Reason for Exam- >Rectal cancer (HCCode) [facility] 1970 Sex: MAddendum BeginsREPORT STATUS:A A nonspecific mildly sclerotic 2.3 cm lesion in theproximal right femur, please correlate with PET/CT Signed: Bulmaro Fitch MDReport Verified Date/Time: 03/04/2022 10:43:15 Addendum EndsFINAL REPORT MR, PELVIS, WITH \\T\\ WITHOUT CONTRAST HISTORY: Unlisted Reason for ExamRectal cancer (HCCode) COMPARISON: 11/13/2021 pelvic MRI TECHNIQUE: Pelvic MRI, without and with IV contrast, rectal mass protocol CONTRAST: 18 mL intravenous MultiHance. FINDINGS: The exam is markedly motion degraded and suboptimal ONCOLOGIC FINDINGS: Primary Tumor Morphology, Location, and Characteristics:Location: Mid to upperDistance of inferior tumor margin to the anal verge: Approximately 9 cmDistance of inferior tumor margin to the superior aspect of the anal sphincter: Approximately 4.5 cmRelative to peritoneal reflection: Above and belowCraniocaudal length:Approximately 5 cm Morphology: CircumferentialMucinous: No T category:Extramural depth of invasion: 6 mmMR-T category: L1xHwzctlqbgd with possible invasion: NoneAnal sphincter involvement: N/A Extramural Venous Invasion: Absent Circumferential Resection Margin (For T3 Tumor Only)Distance of tumor to mesorectal fascia or anticipated circumferential resection margin: Approximately 1.5 mmSeparate tumor deposit, suspicious lymph node, or extramural venous invasion threatening or invading the mesorectal f ascia: NoDiscontiguous deposit or spiculation in mesorectum: None [...] NoneOsseous involvement: None ADDITIONAL FINDINGS: The remainder ofvisualized enteric structures, pelvic viscera, bones, and soft tissues are unremarkable. IMPRESSION:Markedly motion degraded and suboptimal exam. Any future follow-up should be performed on a 3.0 Mikaela magnet. Rectal cancer stage G0jH6M2.Circumferential resection margin: ThreatenedSphincter involvement: Absent Signed: Bulmaro Fitch Verified Date/Time: 02/06/2022 17:11:27 Reading Location: [address] Body Reading Room MR, PELVIS, [id number] 10:41:00 Unlisted Reason for Exam - Click Yes and Enter Reason Below->No [facility] 1970 Sex: MFINAL REPORT MR, PELVIS, WITH \\T\\ WITHOUT CONTRAST HISTORY: Rectal cancer, staging, locoregional COMPARISON: Future MRI pelvis 01/25/2022 TECHNIQUE: MRI of the pelvis. Multiplanar, multisequence images were obtained without and with intravenous gadolinium contrast. IMPRESSION: Nondiagnostic exam for rectal cancer staging - performed as a routine large field of view MRI of the pelvis.I asked that the patient be called back to perform dedicated rectal protocol when the exam was firstperformed, which never happened. Regardless, the patient had a follow-up on 01/25/2022. Please see that report for staging. There is bilateral iliac chain lymphadenopathy, 1.4-1.5 cm short axis in the bilateral external iliac chains, 1.2 cm short axis bilateral internal iliac chains, and a 1.1 cm shortaxis right common iliac chain lymph node. A 2.3 cm heterogeneous partly sclerotic lesion in the proximal right femur at the level of the lesser trochanter which is nonspecific. Please correlate with PET/CT. Signed: Bulmaro Fitch MDReport Verified Date/Time: 03/04/2022 10:41:17 POCT URINALYSIS [id number] 00:00:00 Test Item Value Reference Range Interpretation Comments COLOR UA (test code = 5778-6) Maryellen YELLOW/STRAW CLARITY UA (test code = 94332-1) Clear CLEAR GLUCOSE UA (test code = 5792-7) Negative NEGATIVE BILIRUBIN UA (test code = 5770-3) 1+ NEGATIVE KETONES UA (test code = 49929-9) Negative NEGATIVE SPECIFIC GRAVITY UA (test code = 1.005-1.035 5811-5) BLOOD UA (test code = 5794-3) Negative NEGATIVE PH UA (test code = 5803-2) 5-9 PROTEIN UA (test code = 5804-0) 1+ NEGATIVE UROBILINOGEN UA (test code = 0.02 E.U/DL NORMAL MG/DL 5818-0) LEUKOCYTE ESTERASE UA (test code Negative NEGATIVE = 5799-2) NITRITE UA (test code = 5802-4) Negative NEGATIVE REDUCING SUBSTANCES URINE (test code = 56716-9) [facility],POST-VOID RES,US,[id number] 00:00:00 Test Item Value Reference Range Interpretation Comments PVR (test code = 6116) cc/ml [facility] HospitalCOMPREHENSIVE METABOLIC [id number] 08:03:25 Test Item Value Reference Range Interpretation [...] PATIEN TS. CBC W/PLT COUNT & AUTO [id number] 07:53:08 Test Item Value Reference Range Interpretation [...] PERCENT (BEAKER) (test code = 2801) CT, [id number] 12:53:00Rectal cancer restaging on neoadjuvant chemo- but CEA is rising Rectal cancer restaging on neoadjuvant chemo- but CEA is rising Unlisted Reason for Exam - Click Yes and Enter Reason Below->Yes Unlisted Reason for Exam->rectal cancer (HCCode) Is this for enterography?->No Will this procedure require oral contrast?->No [facility] : 1970 Sex: MFINAL REPORT CT, CHEST, [...] attention on future staging exams. Signed: Bulmaro Fitch Verified Date/Time: 01/29/2022 12:53:28 Reading Location: [address] Body Reading Room CT, CHEST, WITH CONTRAST 2022-01-29 12:53:00Rectal cancer restaging on neoadjuvant chemo- but CEA is rising Rectal cancer restaging on neoadjuvant chemo- but CEA is rising Unlisted Reason for Exam - Click Yes and Enter Reason Below->Yes Unlisted Reason for Exam->Rectal cancer (HCCode) [facility] : 1970 Sex: MFINAL REPORT CT, CHEST, [...] attention on future staging exams. Signed: Bulmaro Fitch Verified Date/Time: 01/29/2022 12:53:28 Reading Location: [address] Body Reading Room COMPREHENSIVE METABOLIC [id number] 08:49:57 Test Item Value Reference Range Interpretation [...] PATIEN TS. CBC W/PLT COUNT & AUTO [id number] 08:25:03 Test Item Value Reference Range Interpretation [...] (BEAKER) (test code = 2801) COMPREHENSIVE METABOLIC [id number] 08:18:54 Test Item Value Reference Range Interpretation [...] PATIEN TS. CBC W/PLT COUNT & AUTO [id number] 08:06:45 Test Item Value Reference Range Interpretation [...] (test code = 2801) CT, CHEST, WITH [id number] 10:40:00Unlisted Reason for Exam - Click Yes and Enter Reason Below->No [facility] : 1970 Sex: MFINAL REPORT CT of [...] suggestive of early fibrosis. Signed: Ubaldo Steele [facility] Verified Date/Time: 11/16/2021 10:40:15 [facility] [id number] 10:40:00Unlisted Reason for Exam - Click Yes and Enter Reason Below->No Is this for enterography?->No Will this procedure require oral contrast?->Yes [facility] : 1970 Sex: MFINAL REPORT CT of [...] Ubaldo Steele MDReport Verified Date/Time: 11/16/2021 10:40:15 [facility] WITH [id number] 10:19:43 Test Item Value Reference Range Interpretation Comments WBC (test code = See_Comment H [Automated 4990-2) message] The system which generated this result transmit linsey reference range : 4.20 - 10.70 10*3/?L. The reference range was not used to interpret this result as normal/abnormal . RBC (test code = See_Comment [Automated 709-8) message] The system which generated this result [...] RDW-SD (test code = 39.6 fL 38.5-51.6 35882-3) RDW-CV (test code = 12.5 % 12.1-15.4 788-0) PLT (test code = See_Comment [Automated 777-3) message] The system which generated this result transmit linsey reference range : 150 - 328 10*3/ ?L. The reference range was not u sed to interpret th is result as normal/abnormal . MPV (test code = 10.9 fL 9.8-13.0 05414-1) NRBC/100 WBC (test See_Comment [Automat ed code = 2288986910) message] The system which generated this result transmit linsey reference range : 0.0 - 10.0 /100 WBCs. The reference range was not used to interpret this result as normal/abnormal . NRBC x10^3 (test code <0.01 See_Comment [Auto mated = 0965101499) message] The system which generated this result transmit linsey reference range : 10*3/?L. The reference range was not used to interpret this result as normal/abnormal . GRAN MAT (NEUT) % 72.2 % (test code = 770-8) IMM GRAN % (test code 0.80 % = 6470438076) LYMPH % (test code = 15.4 % 736-9) MONO % (test code = 8.5 % 5905-5) EOS % (test code = 2.6 % 713-8) BASO % (test code = 0.5 % 706-2) GRAN MAT x10^3(ANC) 14.55 10*3/uL 1.99-6.95 H (test code = 0585751134) IMM GRAN x10^3 (test 0.17 10*3/uL 0.00-0.06 H code = 1194730866) LYMPH x10^3 (test code 3.12 10*3/uL 1.09-3.23 = 731-0) MONO x10^3 (test code 1.72 10*3/uL 0.36-1.02 H = 742-7) EOS x10^3 (test code = 0.53 10*3/uL 0.06-0.53 711-2) BASO x10^3 (test code 0.11 10*3/uL 0.01-0.09 H = 704-7) Lab Interpretation Abnormal (test code = 18198-6) [facility]. METABOLIC PANEL ([id number])2021-09-25 09:45:55 Test Item Value Reference Range Interpretation Comments NA (test code = 131 mmol/L 135-145 L 4496946870) K (test code = 4.6 mmol/L 3.5-5.0 3334972376) CL (test code = 103 mmol/L 98-108 7364956413) CO2 TOTAL (test code = 22 mmol/L 23-31 L 8368172429) AGAP (test code = 2-16 8822121176) BUN (test code = 13 mg/dL 7-23 3240545009) GLUCOSE (test code = 109 mg/dL 70-110 3686326040) CREATININE (test code = 0.62 mg/dL 0.60-1.25 7193738342) TOTAL BILI (test code = 0.8 mg/dL 0.1-1.5 8654885888) CALCIUM (test code = 9.0 mg/dL 8.6-10.6 8844792975) T PROTEIN (test code = 6.7 g/dL 6.3-8.2 3944842941) ALBUMIN (test code = 4.0 g/dL 3.5-5.0 8616237865) ALK PHOS (test code = 100 U/L 34-122 3873499353) ALTv (test code = 21 U/L 5-50 1742-6) AST(SGOT) (test code = 34 U/L 13-40 7721802577) eGFR (test code = mL/min/1.73m2 5320587253) SAI (test code = SAI) Association of [...] tests). Lab Interpretation Abnormal (test code = 34946-1) [id number] 09:45:20 Test Item Value Reference Range Interpretation Comments APTT Patient (test See_Comment L [Automat ed code = 3173-2) message] The system which generated this result transmitted reference range : 23 - 38 Seconds . The reference range was not used to interpr et this result as normal/abnormal . SAI (test code = SAI) The [facility] patient population mean normal value for aPTT is 30 seconds. Lab Interpretation Abnormal (test code = 94997-1) [facility] / [id number] 09:43:19 Test Item Value Reference Range Interpretation Comments PROTIME PATIENT (test See_Comment [Auto mated message] code = 5964-2) The system wh ich generated this result transmitted ref erence range: 12.0 - 1 4.7 Seconds. The re ference range was not u sed to interpret this result as normal/abnor mal. INR (test code = 6301-6) Nor mal INR <1.1; Warfarin Therap eutic range 2.0 to 3. 0 or 2.5 to 3.5, dep ending upon the indica tions. Lab Interpretation (test Normal code = 93489-5) [facility]OL[facility] PAN[facility] ([id number])2021-07-17 22:14:19 Test Item Value Reference Range Interpretation Comments NA (test code = 133 mmol/L 135-145 L 1409182321) K (test code = 4.3 mmol/L 3.5-5.0 8663413965) CL (test code = 103 mmol/L 98-108 8891773716) CO2 TOTAL (test code = 23 mmol/L 23-31 2680816910) AGAP (test code = 2-16 7289995636) BUN (test code = 18 mg/dL 7-23 8653222069) GLUCOSE (test code = 105 mg/dL 70-110 4153837893) CREATININE (test code = 0.76 mg/dL 0.60-1.25 8906509214) TOTAL BILI (test code = 0.5 mg/dL 0.1-1.3 4896353652) CALCIUM (test code = 9.2 mg/dL 8.6-10.6 5715359681) T PROTEIN (test code = 7.0 g/dL 6.3-8.2 3666335452) ALBUMIN (test code = 4.2 g/dL 3.5-5.0 3530278936) ALK PHOS (test code = 113 U/L 34-122 2538438596) ALTv (test code = 26 U/L 5-50 1742-6) AST(SGOT) (test code = 30 U/L 13-40 8061405786) eGFR (test code = mL/min/1.73m2 9761658659) SAI (test code = SAI) Association of [...] tests). Lab Interpretation Abnormal (test code = 64344-0) [facility] WITH [id number] 21:57:59 Test Item Value Reference Range Interpretation Comments WBC (test code = See_Comment H [Automated 7890-2) message] The system which generated this result [...] HGB (test code = 16.0 g/dL 12.2-16.4 718-7) HCT (test code = 44.3 % 38.4-49.3 4544-3) MCV (test code = 87.9 fL 81.7-95.6 787-2) MCH (test code = 31.7 pg 26.1-32.7 785-6) MCHC (test code = 36.1 g/dL 31.2-35.0 H 786-4) RDW-SD (test code = 39.6 fL 38.5-51.6 92634-6) RDW-CV (test code = 12.2 % 12.1-15.4 788-0) PLT (test code = See_Comment [Automated 777-3) message] The system which generated this result transmit linsey reference range : 150 - 328 10*3/ ?L. The reference range was not u sed to interpret th is result as normal/abnormal . MPV (test code = 9.1 fL 9.8-13.0 L 44393-0) NRBC/100 WBC (test See_Comment [Automat ed code = 5560391638) message] The system which generated this result transmit linsey reference range : 0.0 - 10.0 /100 WBCs. The reference range was not used to interpret this result as normal/abnormal . NRBC x10^3 (test code <0.01 See_Comment [Auto mated = 7450497682) message] The system which generated this result transmit linsey reference range : 10*3/?L. The reference range was not used to interpret this result as normal/abnormal . GRAN MAT (NEUT) % 71.1 % (test code = 770-8) IMM GRAN % (test code 0.60 % = 5015142536) LYMPH % (test code = 16.1 % 736-9) MONO % (test code = 8.5 % 5905-5) EOS % (test code = 3.1 % 713-8) BASO % (test code = 0.6 % 706-2) GRAN MAT x10^3(ANC) 11.59 10*3/uL 1.99-6.95 H (test code = 7812772487) IMM GRAN x10^3 (test 0.09 10*3/uL 0.00-0.06 H code = 4614956346) LYMPH x10^3 (test code 2.63 10*3/uL 1.09-3.23 = 731-0) MONO x10^3 (test code 1.39 10*3/uL 0.36-1.02 H = 742-7) EOS x10^3 (test code = 0.51 10*3/uL 0.06-0.53 711-2) BASO x10^3 (test code 0.10 10*3/uL 0.01-0.09 H = 704-7) Lab Interpretation Abnormal (test code = 06773-4) [facility] RNA [Presence] in Respiratory specimen by EV with probe [id number] 22:55:18 Test Item Value Reference Range Interpretation Comments SARS-CoV-2 (COVID-19) RNA Not detected Not-Detected [Presence] in Respiratory specimen by EV with probe detection (test code = 15713-2) Whether patient is employed in a healthcare setting (test code = 29454-1) Whether the patient has symptoms related to condition of interest (test code = 17135-4) Patient was hospitalized because of this condition (test code = 51256-6) Whether the patient was admitted to intensive care unit (ICU) for condition of interest (test code = 56870-9) Whether patient resides in a congregate care setting (test code = 05749-4) LUIS BARSARS-CoV-2 (COVID-19) RNA [Presence] in Respiratory specimen by EV with probe [id number] 00:51:10 Test Item Value Reference Range Interpretation Comments SARS-CoV-2 (COVID-19) RNA Not detected Not-Detected [Presence] in Respiratory specimen by EV with probe detection (test code = 81305-7) Whether patient is employed in a healthcare setting (test code = 48611-9) Whether the patient has symptoms related to condition of interest (test code = 46673-0) Patient was hospitalized because of this condition (test code = 30244-5) Whether the patient was admitted to intensive care unit (ICU) for condition of interest (test code = 23478-6) Whether patient resides in a congregate care setting (test code = 68775-0) LUIS [id number] 18:45:56 Test Item Value Reference Range Interpretation Comments APPEARANCE (test code = Cloudy Clear A 4348738956) COLOR (test code = Maryellen Yellow A 7924104389) PH (test code = 4.8-8.0 1679803680) SP GRAVITY (test code = 1.003-1.030 4024085108) GLU U QUAL (test code = Normal Normal 6440522810) BLOOD (test code = Negative Negative 5065630513) KETONES (test code = Negative Negative 0155326110) PROTEIN (test code = Negative Negative 2887-8) UROBILIN (test code = Normal Normal 1114673900) BILIRUBIN (test code = Negative Negative 7222170997) NITRITE (test code = Negative Negative 4142593383) LEUK CARMELLA (test code = Negative Negative 4179445749) RBC/HPF (test code = See_Comment [Autom ated message] 2506386480) The system [employer] generated this result transmitted ref erence range: 0 - 3 HP F. The reference range was not used to int erpret this result as normal/abnormal . WBC/HPF (test code = See_Comment H [Autom ated message] 4228239770) The system [employer] generated this result transmitted ref erence range: 0 - 5 HP F. The reference range was not used to int erpret this result as normal/abnormal . BACTERIA (test code = Few Negative A 9964050919) MUCOUS (test code = Slight Negative LPF A 8845772777) AMORPHOUS (test code = Rare Rare HPF 8814745036) YEAST BUD (test code = See_Comment H [Aut omated message] 1734335624) The system [employer] generated this result transmitted ref erence range: <=1 HPF. The reference range was not used to int erpret this result as normal/abnormal . Lab Interpretation (test Abnormal code = 12200-9) [facility] Metabolic Panel (NA, K, CL, CO2, GLUCOSE, BUN, CREATININE, CA)2021-01-23 17:30:23 Test Item Value Reference Range Interpretation Comments NA (test code = 136 mmol/L 135-145 1903668454) K (test code = 4.2 mmol/L 3.5-5.0 5988360849) CL (test code = 104 mmol/L 98-108 1809991337) CO2 TOTAL (test code 28 mmol/L 23-31 = 5656930391) AGAP (test code = 2-16 4603944532) BUN (test code = 14 mg/dL 7-23 3642119440) GLUCOSE (test code = 107 mg/dL 70-110 2984645877) CREATININE (test code 0.82 mg/dL 0.60-1.25 = 8956548461) CALCIUM (test code = 9.4 mg/dL 8.6-10.6 0124072837) eGFR (test code = mL/min/1.73m2 7047809250) SAI (test code = SAI) Association of [...] or urine or abnormalities in imaging tests). [facility] with [id number] 17:17:37 Test Item Value Reference Range Interpretation Comments WBC (test code = See_Comment H [Automated 5090-2) message] The system which generated this result transmit linsey reference range : 4.20 - 10.70 10*3/?L. The reference range was not used to interpret this result as normal/abnormal . RBC (test code = See_Comment [Automated 900-8) message] The system which generated this result [...] RDW-SD (test code = 44.0 fL 38.5-51.6 24292-8) RDW-CV (test code = 13.1 % 12.1-15.4 788-0) PLT (test code = See_Comment [Automated 164-3) message] The system which generated this result transmit linsey reference range : 150 - 328 10*3/ ?L. The reference range was not u sed to interpret th is result as normal/abnormal . MPV (test code = 9.2 fL 9.8-13.0 L 62986-3) NRBC/100 WBC (test See_Comment [Automat ed code = 8263203480) message] The system which generated this result transmit linsey reference range : 0.0 - 10.0 /100 WBCs. The reference range was not used to interpret this result as normal/abnormal . NRBC x10^3 (test code <0.01 See_Comment [Auto mated = 2546973024) message] The system which generated this result transmit linsey reference range : 10*3/?L. The reference range was not used to interpret this result as normal/abnormal . GRAN MAT (NEUT) % 70.4 % (test code = 770-8) IMM GRAN % (test code 0.40 % = 4633656102) LYMPH % (test code = 18.8 % 736-9) MONO % (test code = 7.5 % 5905-5) EOS % (test code = 2.3 % 713-8) BASO % (test code = 0.6 % 706-2) GRAN MAT x10^3(ANC) 10.12 10*3/uL 1.99-6.95 H (test code = 5787628902) IMM GRAN x10^3 (test 0.06 10*3/uL 0.00-0.06 code = 5255948523) LYMPH x10^3 (test code 2.70 10*3/uL 1.09-3.23 = 731-0) MONO x10^3 (test code 1.08 10*3/uL 0.36-1.02 H = 742-7) EOS x10^3 (test code = 0.33 10*3/uL 0.06-0.53 711-2) BASO x10^3 (test code 0.08 10*3/uL 0.01-0.09 = 704-7) Lab Interpretation Abnormal (test code = 97275-3) [facility]
[2023-01-04 20:00] LABS: Hematocrit 38.7 % (39.6-49.0); Lymphocytes % 10.1 % (15.3-44.8); MCV 90.7 fL (80-100); MPV 6.3 fL (7.6-11.3); RBC Red Blood Cell Count 4.26 M/uL (4.33-5.43)
--- NOTE | 2023-01-04 21:18 | RAD REPORT ---
EXAM DESCRIPTION: CT - Abdomen Pelvis W Contrast - 01/04/2023 8:37 pm CLINICAL HISTORY: drainage from colostomy reversal COMPARISON: Abdomen Pelvis W Contrast dated 03/20/2022 TECHNIQUE: Thin cut axial CT imaging of the abdomen and pelvis was performed following intravenous a dministration of 90 mL Isovue 300. Multiplanar reformats were generated and reviewed. All CT scans are performed using dose optimization technique as appropriate and may include automated exposure control or mA/KV adjustment according to patient size. FINDINGS: No suspicious findings in the lung bases. The liver, spleen, and pancreas show no suspicious findings. Gallbladder is suboptimally distended li miting evaluation. Biliary tree without suspicious finding. Symmetric renal function is seen with no hydronephrosis or suspicious renal mass. Right lower abdominal wall colostomy reversal site. A lobulated marginally enhancing fluid collection is seen within the abdomen, underlying the colostomy reversal site, measuring 5.0 x 2.7 x 10.5 centi meter in greatest transverse, AP, and CC dimensions, with a sinus tract that appears to extend toward s the prior stoma (series 201 image 51). This is concerning for a contained leak. Its origin is not w ell delineated. An adjacent longitudinally oriented segment of distal colon is adjacent to the collec tion, in the midline, demonstrating diffuse wall thickening, with suggestion of a small possible comm unication with the collection, see axial image 56 series 201. Just lateral and superior to the collec tion, there appears to be another suture line, difficult to ascertain whether this relates to small o r large bowel, which could possibly be contiguous with the collection at its superior aspect. No evidence of free air. The colorectal anastomosis appears to be grossly intact. No hernia, mass or bulky lymphadenopathy. Urinary bladder is suboptimally distended which limits eval uation. Regional wall thickening along the bladder dome and left wall, nonspecific, and could be reac tive. No suspicious bony findings. IMPRESSION: Sequelae of right lower quadrant colostomy reversal. A marginally enhancing collection i s present just deep to the colostomy reversal site, with a sinus tract, concerning for a contained le ak. The origin of the leak is uncertain. A long segment of distal large bowel demonstrating diffuse wall thickening, may be the source of the leak, as there is suspicion for a small sinus tract along the la teral wall. Less likely, this could be related to a suture line just lateral and superior to the david ection, which appears to be related to a blind ending loop of bowel. Please correlate with surgical d etails. No evidence of free intraperitoneal air or fluid. Likely reactive cystitis. The findings were communicated to Oscar Johnson on 01/04/2023 at 21:04 hours.
[2023-01-04 21:26] LABS: Albumin 2.7 g/dL (3.4-5.0); Bilirubin Total 0.5 mg/dL (0.2-1.0); Potassium 4.1 mEq/L (3.5-5.1)
[2023-01-04 21:29] LABS: SARS-CoV-2 Antigen Rapid Res Negative (Negative)
[2023-01-04] MEDS ORDERED: NA CHLORIDE 0.9% 500 ML ONE (21:33)
[2023-01-04] MEDS ORDERED: PIPERACIL/TAZO 3.375 GM VIAL IV ONE (21:33)
[2023-01-04] MEDS ORDERED: NA CHLORIDE 0.9% 1,000 ML ONE (21:33)
[2023-01-04] MEDS ORDERED: NA CHLORIDE 0.9% 100 ML ONE (21:33)
--- NOTE | 2023-01-04 22:18 | ER ---
Nurse's Notes [facility] Name: Jeremy Rolon Age: 52 yrs Sex: Male : 1970 Arrival Date: 01/04/2023 Time: 18:27 Bed 8 Private MD: Diagnosis: Postoperative complication, intra-abdominal fluid collection. Contained bowel perforation. Postoperative wound dehiscence Presentation: 01/04 19:38 Chief complaint: Patient states: "I had a ostomy reversal 12/12 and the past several days as6 there has been an increase of drainage". Coronavirus screen: At this time, the client does not indicate any symptoms associated with coronavirus-19. Ebola Screen: No symptoms or risks identified at this time. Initial Sepsis Screen: Does the patient meet any 2 criteria? No. Patient's initial sepsis screen is negative. Does the patient have a suspected source of infection? No. Patient's initial sepsis screen is negative. Risk Assessment: Do you want to hurt yourself or someone else? Patient reports no desire to harm self or others. Onset of symptoms was January 03, 2023. 19:38 Acuity: LA 3 as6 19:38 Method Of Arrival: Ambulatory as6 Historical: - Allergies: 19:38 No Known Allergies; as6 - PMHx: 19:38 colon cancer; Myocardial infarction; 1 stent (2018); Cerebrovascular accident; as6 - PSHx: 19:38 Stented artery; colon resection; as6 - Immunization history:: Client reports having NOT received the Covid vaccine. - Social history:: Patient/guardian denies using alcohol, street drugs, IV drugs, caffeine, over the counter diet medications, tobacco products, Smoking status: Patient reports the use of cigarette tobacco products, smokes one pack cigarettes per day. - Family history:: not pertinent. Screenin:49 [facility] ED Fall Risk Assessment (Adult) Score/Fall Risk Level 0 - 2 = Low Risk. Abuse as6 screen: Denies threats or abuse. Denies injuries from another. Nutritional screening: No deficits noted. Tuberculosis screening: No symptoms or risk factors identified. Assessment: 19:40 General: Appears in no apparent distress. slender, Behavior is calm, cooperative. Pain: as6 Denies pain. Neuro: Level of Consciousness is awake, alert, obeys commands, Oriented to person, place, time, situation. Cardiovascular: Capillary refill < 3 seconds Patient's skin is warm and dry. Respiratory: Respiratory effort is even, unlabored, Respiratory pattern is regular, symmetrical. GI: santana/light brown drainage noted from old ostomy site. 01/05 00:18 Reassessment: report provided to Genevieve. aa9 00:22 Reassessment: Patient appears in no apparent distress at this time. pt signed consent aa9 to transfer, denies concerns understands need for transfer Patient denies pain at this time. 00:49 Reassessment: Patient appears in no apparent distress at this time. Patient and/or aa9 family updated on plan of care and expected duration. Pain level reassessed. Patient is alert, oriented x 3, equal unlabored respirations, skin warm/dry/pink. EMS at bedside Patient denies pain at this time. Vital Signs: 01/04 19:37 BP 122 / 94; Pulse 89; Resp 18 S; Temp 98.7(O); Pulse Ox 97% on R/A; Weight 70.31 kg as6 (R); Height 5 ft. 10 in. (R); Pain 0/10; 21:00 BP 106 / 78; Pulse 82; Resp 16 S; Pulse Ox 98% on R/A; as6 22:50 BP 117 / 81; Pulse 73; Resp 18 S; Pulse Ox 98% on R/A; as6 23:45 BP 118 / 83; Pulse 75; Resp 18 S; Pulse Ox 98% on R/A; as6 19:37 Body Mass Index 22.24 (70.31 kg, 177.8 cm) as6 19:37 Pain Scale: Adult as6 ED Course: 18:28 Patient arrived in ED. ts1 19:10 Oscar Johnson MD is Attending Physician. sp4 19:37 Mark Flores, SAMPSON is Primary Nurse. as6 19:37 Arm band placed on. as6 19:41 Triage completed. as6 19:56 Inserted saline lock: 20 gauge in right antecubital area, using aseptic technique. as6 Blood collected. 19:56 CBC with Diff Sent. as6 19:56 CMP Sent. as6 19:56 Lipase Sent. as6 20:39 CT Abd/Pelvis - IV Contrast Only In Process Unspecified. EDMS 21:11 SARS RAPID Sent. as7 22:49 Placed in gown. Bed in low position. Call light in reach. Side rails up X 1. as6 01/05 00:50 No provider procedures requiring assistance completed. Patient transferred, IV remains aa9 in place. Administered Medications: 01/04 22:09 Drug: Piperacillin-Tazobactam IVPB 3.375 grams Route: IVPB; Infused Over: 60 mins; aa9 Site: right antecubital; 01/05 00:48 Follow up: Response: No adverse reaction; IV Status: Completed infusion; IV Intake: aa9 100ml 01/04 22:09 Drug: NS 0.9% IV 1000 ml Route: IV; Rate: 125 ml/hr; Site: right antecubital; aa9 01/05 00:49 Follow up: Response: No adverse reaction; IV Status: Infusion continued upon transfer; aa9 IV Intake: 400ml 01/04 22:09 Drug: NS 0.9% IV 500 ml Route: IV; Rate: bolus; Site: right antecubital; aa9 01/05 00:48 Follow up: Response: No adverse reaction; IV Status: Completed infusion; IV Intake: aa9 500ml Medication: 00:50 VIS not applicable for this client. aa9 Intake: 00:48 IV: 100ml; Total: 100ml. aa9 00:48 IV: 500ml; Total: 600ml. aa9 00:49 IV: 400ml; Total: 1000ml. aa9 Outcome: 01/04 22:17 ER care complete, transfer ordered by . sp4 01/05 00:50 Transferred by ground EMS to [facility], Transfer form completed. aa9 Condition: stable Instructed on the need for transfer. 00:51 Patient left the ED. aa9 Signatures: Dispatcher [employer] Mark Clarke RN RN as6 Liat Silva RN RN aa9 Trixie Lau Sergey, MD MD sp4 Thalia Ferrari PAS PAS ts1
--- NOTE | 2023-01-04 22:18 | EDPHYS ---
Physician Documentation [facility] Name: Jeremy Rolon Age: 52 yrs Sex: Male : 1970 Arrival Date: 01/04/2023 Time: 18:27 Bed 8 Private MD: ED Physician Oscar Johnson HPI: 01/04 19:10 This 52 yrs old Male presents to ER via Unassigned with complaints of sp4 COMPLICATION FROM RECENT SURGERY. 19:21 Patient presents from home with a complaint of yellowish drainage from the colostomy sp4 reversal site. Patient has had partial colectomy approximately 5 months ago and then he had colostomy reversal on 12/12/2022. Patient developed drainage from his colostomy reversal site 3 days ago and that is yellowish drainage without blood. Patient denied any nausea or vomiting, fever, diarrhea, or any other symptoms. Patient has denied pain.. Historical: - Allergies: 19:38 No Known Allergies; as6 - PMHx: 19:38 colon cancer; Myocardial infarction; 1 stent (2018); Cerebrovascular accident; as6 - PSHx: 19:38 Stented artery; colon resection; as6 - Immunization history:: Client reports having NOT received the Covid vaccine. - Social history:: Patient/guardian denies using alcohol, street drugs, IV drugs, caffeine, over the counter diet medications, tobacco products, Smoking status: Patient reports the use of cigarette tobacco products, smokes one pack cigarettes per day. - Family history:: not pertinent. ROS: 19:21 Constitutional: Negative for fever, chills, and weight loss, Eyes: Negative for injury, sp4 pain, redness, and discharge, ENT: Negative for injury, pain, and discharge, Neck: Negative for injury, pain, and swelling, Cardiovascular: Negative for chest pain, palpitations, and edema, Respiratory: Negative for shortness of breath, cough, wheezing, and pleuritic chest pain, Abdomen/GI: Negative for abdominal pain, nausea, vomiting, diarrhea, and constipation, positive for yellowish drainage from the colostomy reversal site. Back: Negative for injury and pain, : Negative for injury, bleeding, discharge, and swelling, MS/Extremity: Negative for injury and deformity, Skin: Negative for injury, rash, and discoloration, Neuro: Negative for headache, weakness, numbness, tingling, and seizure, Psych: Negative for depression, anxiety, Allergy/Immunology: Negative for hives, rash, and allergies Endocrine: Negative for neck swelling, polydipsia, polyuria, polyphagia, and weight changes Hematologic/Lymphatic: Negative for swollen nodes, abnormal bleeding, and unusual bruising Exam: 19:21 Constitutional: This is a well developed, well nourished patient who is awake, alert, sp4 and in no acute distress. Pale appearing, thin appearing male. Head/Face: Normocephalic, atraumatic. Eyes: Pupils equal round and reactive to light, extra-ocular motions intact. Lids and lashes normal. Conjunctiva and sclera are not injected. Cornea within normal limits. Periorbital areas with no swelling, redness, or edema. ENT: Nares patent. No nasal discharge, no septal abnormalities noted. Tympanic membranes are normal and external auditory canals are clear. Oropharynx with no redness, swelling, or masses, exudates, or evidence of obstruction, uvula midline. Mucous membranes moist. Neck: Trachea midline, no thyromegaly or masses palpated, and no cervical lymphadenopathy. Supple, full range of motion without nuchal rigidity, or vertebral point tenderness. No Meningismus. Chest/axilla: Normal chest wall appearance and motion. Nontender with no deformity. No lesions are appreciated. Cardiovascular: Regular rate and rhythm with a normal S1 and S2. No gallops, murmurs, or rubs. Normal PMI, no JVD. No pulse deficits. Respiratory: Lungs have equal breath sounds bilaterally, clear to auscultation and percussion. No rales, rhonchi or wheezes noted. No increased work of breathing, no retractions or nasal flaring. Abdomen/GI: Soft, non-tender, with normal bowel sounds. No distension or tympany. No guarding or rebound. No evidence of tenderness throughout. There is a right lower quadrant colostomy reversal postoperative site with yellowish drainage from the incision. Back: No spinal tenderness. No costovertebral tenderness. Skin: Warm, dry with normal turgor. Normal color with no rashes, no lesions, and no evidence of cellulitis. MS/ Extremity: Pulses equal, no cyanosis. Neurovascular intact. Full, normal range of motion. Neuro: Awake and alert, GCS 15, oriented to person, place, time, and situation. Cranial nerves II-XII grossly intact. Motor strength 5/5 in all extremities. Sensory grossly intact. Psych: Awake, alert, with orientation to person, place and time. Behavior, mood, and affect are within normal limits Vital Signs: 19:37 BP 122 / 94; Pulse 89; Resp 18 S; Temp 98.7(O); Pulse Ox 97% on R/A; Weight 70.31 kg as6 (R); Height 5 ft. 10 in. (R); Pain 0/10; 21:00 BP 106 / 78; Pulse 82; Resp 16 S; Pulse Ox 98% on R/A; as6 22:50 BP 117 / 81; Pulse 73; Resp 18 S; Pulse Ox 98% on R/A; as6 23:45 BP 118 / 83; Pulse 75; Resp 18 S; Pulse Ox 98% on R/A; as6 19:37 Body Mass Index 22.24 (70.31 kg, 177.8 cm) as6 19:37 Pain Scale: Adult as6 MDM: 19:20 Patient medically screened. sp4 22:11 Differential Diagnosis sepsis, Fistula, colon to cutaneous fistula. Postoperative sp4 seroma, postoperative abscess, postoperative wound dehiscence. Data reviewed: vital signs, nurses notes, old medical records, lab test result(s), radiologic studies, CT scan. 22:12 ED course: Patient's CAT scan has revealed sequela of right lower quadrant colostomy sp4 reversal. Marginally enhancing collection present just deep to the colostomy reversal site with a sinus tract concerning for a contained leak. The origin of the leak is uncertain. A long segment of distal large bowel demonstrating diffuse wall thickening may be source of leak there is suspicion for a small sinus tract along the lateral wall. Less likely this could be related to his suture line just lateral and superior to the collection which appears to be related to a blind ending loop of bowel. Please correlate with surgical details. No evidence of free intraperitoneal air or fluid. Likely reactive cystitis.. ED course: Patient is warranting transfer for evaluation by surgeon at [facility]. He states his Dr. Myles and patient wishes to be sent there for evaluation . Will advise for the patient to stay n.p.o. at this time. We will administer Zosyn IV in case of subcutaneous/intra-abdominal abscess development. . 23:54 ED course: Patient was discussed with general surgeon and accepted for transfer to [address] Also was discussed with hospitalist at [facility]. . 01/04 19:20 Order name: CBC with Diff; Complete Time: 21:02 sp 01/04 19:20 Order name: CMP; Complete Time: 22:07 [facility] 01/04 19:20 Order name: Lipase; Complete Time: 22:07 [facility] 01/04 21:03 Order name: SARS RAPID; Complete Time: 22:07 sp4 01/04 19:20 Order name: CT Abd/Pelvis - IV Contrast Only; Complete Time: 22:07 [facility] 01/04 19:20 Order name: IV Saline Lock; Complete Time: 19:56 [facility] 01/04 19:20 Order name: Labs collected and sent; Complete Time: 19:56 [facility] 01/04 20:10 Order name: Misc. Order: Recollect Green Top; Complete Time: :27 rv1 Administered Medications: 22:09 Drug: Piperacillin-Tazobactam IVPB 3.375 grams Route: IVPB; Infused Over: 60 mins; aa9 Site: right antecubital; 01/05 00:48 Follow up: Response: No adverse reaction; IV Status: Completed infusion; IV Intake: aa9 100ml 01/04 22:09 Drug: NS 0.9% IV 1000 ml Route: IV; Rate: 125 ml/hr; Site: right antecubital; aa9 01/05 00:49 Follow up: Response: No adverse reaction; IV Status: Infusion continued upon transfer; aa9 IV Intake: 400ml 01/04 22:09 Drug: NS 0.9% IV 500 ml Route: IV; Rate: bolus; Site: right antecubital; aa9 01/05 00:48 Follow up: Response: No adverse reaction; IV Status: Completed infusion; IV Intake: aa9 500ml Disposition Summary: 01/04/23 22:17 Transfer Ordered Transfer Location: [facility] sp4 Reason: Higher level of care sp4 Condition: Stable sp4 Problem: new sp4 Symptoms: are unchanged sp4 Accepting Physician: [facility] hospitalist(01/05/23 00:51) aa9 Diagnosis - Postoperative complication, intra-abdominal fluid collection. Contained bowel sp4 perforation. Postoperative wound dehiscence Forms: - Medication Reconciliation Form sp4 - SBAR form sp4 Signatures: Dispatcher [employer] Mark Clarke RN RN as6 Lita Silva RN RN aa9 Muna Rocha rv1 Oscar Johnson MD MD sp4 Corrections: (The following items were deleted from the chart) 00:51 01/04 22:17 [facility] Hospitalist sp4 aa9
[2023-01-05 01:29] VITALS: TEMP 98.7
[2023-01-05 01:31] VITALS: O2SAT 98
[2023-01-05 01:34] VITALS: BP 118/83
== END 2023-01-05 00:51 | disposition short-term general hospital (02) ==
LOC: ER 18:27
DX: T81.31XA Disruption of external operation (surgical) wound, not elsewhere classified, initial encounter (principal); K63.1 Perforation of intestine (nontraumatic); R19.00 Intra-abdominal and pelvic swelling, mass and lump, unspecified site; F17.210 Nicotine dependence, cigarettes, uncomplicated; Z85.038 Personal history of other malignant neoplasm of large intestine; Z20.822 Contact with and (suspected) exposure to COVID-19
CPT/HCPCS: 96365; 85025; 36415; 82565; 83690; 80053; 74177; 99285; 96366; 87811; Q9967; J2543; J7040; J7030